=== PATIENT | female | born 1985 | race Caucasian/White ===

== ENCOUNTER 2018-12-15 22:31 | Emergency (ER) | payer MEDICARE, MEDICAID ==
[~2018-12-15] VITALS: Ht 185.4 cm; Wt 120.0 kg
[~2018-12-15 22:31] MED LIST: DIVA-81 PO; LITH300T3 PO; LORA1TAB PO; RISP4TAB2 PO
[2018-12-15 22:35] VITALS: BP 112/64
[2018-12-15] MEDS ORDERED: guaiFENesin/codeine phos 10ml UD oral syrup PO ONE (23:40)
[2018-12-15] MEDS ORDERED: diphenhydrAMINE 25 MG/10 ML UD oral solution PO ONE (23:40)
[2018-12-15] MEDS ORDERED: GUAI118S13 PO (23:42)
== END 2018-12-16 00:19 | disposition home or self-care (01) ==
LOC: ER 22:32
DX: J06.9 Acute upper respiratory infection, unspecified (principal); F12.90 Cannabis use, unspecified, uncomplicated; F15.90 Other stimulant use, unspecified, uncomplicated; Z56.0 Unemployment, unspecified; Z79.899 Other long term (current) drug therapy
CPT/HCPCS: 99283; Q0163

== ENCOUNTER 2018-12-16 10:30 | Emergency (ER) | payer MEDICARE, MEDICAID ==
[~2018-12-16] VITALS: Ht 185.4 cm; Wt 120.0 kg
[~2018-12-16 10:30] MED LIST changes: +GUAI118S13 PO
[2018-12-16 10:34] VITALS: BP 147/87
--- NOTE | 2018-12-16 11:58 | NUR ---
Pt reports she did drugs "a month and a week ago" "cigarettes and weed."
== END 2018-12-16 11:45 | disposition home or self-care (01) ==
LOC: ER 10:31
DX: F31.9 Bipolar disorder, unspecified (principal); F12.90 Cannabis use, unspecified, uncomplicated; F15.90 Other stimulant use, unspecified, uncomplicated; Z56.0 Unemployment, unspecified; Z79.899 Other long term (current) drug therapy
CPT/HCPCS: 99281

== ENCOUNTER 2018-12-19 09:45 | Emergency (ER) | payer MEDICARE, MEDICAID ==
[~2018-12-19] VITALS: Ht 185.4 cm; Wt 119.2 kg
[2018-12-19 09:50] VITALS: BP 134/92
[2018-12-19] MEDS ORDERED: DIVA-81 PO (10:10)
== END 2018-12-19 11:12 | disposition home or self-care (01) ==
LOC: ER 09:46
DX: F25.0 Schizoaffective disorder, bipolar type (principal); Z76.0 Encounter for issue of repeat prescription; F12.90 Cannabis use, unspecified, uncomplicated; F15.90 Other stimulant use, unspecified, uncomplicated; Z79.899 Other long term (current) drug therapy; Z56.0 Unemployment, unspecified
CPT/HCPCS: 99283

== ENCOUNTER 2018-12-28 06:49 | Emergency (ER) | payer MEDICARE, MEDICAID ==
[~2018-12-28] VITALS: Ht 185.4 cm; Wt 118.2 kg
[~2018-12-28 06:49] MED LIST changes: -GUAI118S13 PO
[2018-12-28 06:53] VITALS: BP 142/90
== END 2018-12-28 07:50 | disposition home or self-care (01) ==
LOC: ER 06:50
DX: G47.00 Insomnia, unspecified (principal); F20.9 Schizophrenia, unspecified; F31.9 Bipolar disorder, unspecified; F12.90 Cannabis use, unspecified, uncomplicated; F15.90 Other stimulant use, unspecified, uncomplicated; Z79.899 Other long term (current) drug therapy; Z56.0 Unemployment, unspecified
CPT/HCPCS: 99281

== ENCOUNTER 2019-01-07 02:32 | Emergency (ER) | payer MEDICARE, MEDICAID ==
[~2019-01-07] VITALS: Ht 185.4 cm; Wt 113.0 kg
[2019-01-07 02:45] VITALS: BP 143/85
[2019-01-07] MEDS ORDERED: OLANZapine 5mg rapidly disint. tablet PO ONE (03:55)
--- NOTE | 2019-01-07 04:10 | NUR ---
Asked pt to remove coat for blood draw and she said "I refuse a blood draw" made aware.
[2019-01-07] MEDS ORDERED: HYDROcodone/acetaminophen 5mg/325mg tablet PO ONE (04:20)
[2019-01-07] MEDS ORDERED: naproxen 500mg tablet PO ONE (04:20)
== END 2019-01-07 04:39 | disposition home or self-care (01) ==
LOC: ER 02:32
DX: L84 Corns and callosities (principal); M79.672 Pain in left foot; F31.9 Bipolar disorder, unspecified; F12.90 Cannabis use, unspecified, uncomplicated; F15.90 Other stimulant use, unspecified, uncomplicated; Z56.0 Unemployment, unspecified; Z79.899 Other long term (current) drug therapy
CPT/HCPCS: 99284

== ENCOUNTER 2019-01-11 19:58 | Emergency (ER) | payer MEDICARE, MEDICAID ==
[~2019-01-11] VITALS: Ht 185.4 cm; Wt 99.5 kg
[2019-01-11] MEDS ORDERED: OLANZapine 5mg rapidly disint. tablet PO ONE (20:15)
[2019-01-11] MEDS ORDERED: diphenhydrAMINE 25mg capsule PO ONE (20:15)
[2019-01-11] MEDS ORDERED: LORazepam 1 MG tablet PO ONE (20:15)
[2019-01-11] MEDS ORDERED: LORazepam 2 mg/ml vial IM ONE (21:15)
[2019-01-11] MEDS ORDERED: OLANZapine **IM** 10 mg inj. IM ONE (21:15)
[2019-01-11] MEDS ORDERED: diphenhydrAMINE 50 mg/ml inj IM ONE (21:15)
[2019-01-11 21:44] LABS: ALANINE AMINOTRANSFERASE 57 U/L (12-78); ALBUMIN 3.7 G/DL (3.4-5.0); ALBUMIN/GLOBULIN RATIO 0.8 (1.1-1.5); ALKALINE PHOSPHATASE 83 IU/L (46-116); ANION GAP 15 (8-16); ASPARTATE AMINO TRANSFERASE 50 U/L (10-37); BILIRUBIN,TOTAL 0.3 MG/DL (0.1-1.0); BLOOD UREA NITROGEN 11 MG/DL (7-18); BUN/CREATININE RATIO 8.9 (6.6-38.0); CALCIUM 10.3 MG/DL (8.5-10.1); CHLORIDE 104 MMOL/L (99-107); CREATININE 1.24 MG/DL (0.40-0.90); GLUCOSE 94 MG/DL (70-104); POTASSIUM 4.1 MMOL/L (3.5-5.1); SODIUM 142 MMOL/L (135-145); TOTAL CARBON DIOXIDE 22.9 MMOL/L (24-32); TOTAL PROTEIN 8.1 G/DL (6.4-8.2); eGFR 50 ML/MIN
[2019-01-11 21:47] LABS: BASOPHILS # (AUTO) 0.1 X10'3 (0-0.2); BASOPHILS % (AUTO) 0.5 % (0-1); EOSINOPHILS # (AUTO) 0.1 X10'3 (0-0.9); HEMATOCRIT 43.7 % (35.0-45.0); HEMOGLOBIN 13.8 g/dl (12.0-16.0); LYMPHOCYTES # (AUTO) 2.1 X10'3 (1.1-4.8); LYMPHOCYTES % (AUTO) 14.2 % (21-51); MEAN CORPUSCULAR HEMOGLOBIN 28.1 PG (27.0-31.0); MEAN CORPUSCULAR HGB CONC 31.5 g/dL (33.0-36.5); MEAN CORPUSCULAR VOLUME 89.1 FL (78-98); MEAN PLATELET VOLUME 10.1 FL (7.4-10.4); MONOCYTES # (AUTO) 0.8 X10'3 (0-0.9); MONOCYTES % (AUTO) 5.1 % (2-12); NEUTROPHILS # (AUTO) 11.6 X10'3 (1.8-7.7); NEUTROPHILS % (AUTO) 79.2 % (42-75); PLATELET COUNT 543 X10'3 (140-440); RED BLOOD COUNT 4.91 X10'6 (4.20-5.60); RED CELL DISTRIBUTION WIDTH 14.1 % (11.5-14.5); WHITE BLOOD COUNT 14.7 X10'3 (4.5-11.0)
[2019-01-11 21:52] LABS: ETHANOL < 0.010 GM/DL (0.0-0.010)
--- NOTE | 2019-01-11 23:00 | NUR ---
Pt refuses to void. She refuses to drink water. All she wants to do is sleep. MD in room as well. Blankets removed from her. Then she charged out of her room and hollared at security and nurses as tech. She may void. She said she doesn't want a shot.
--- NOTE | 2019-01-11 23:08 | NUR ---
Pt did void into the cup. It did have toilet paper in the cup but we are sending it anyway. I will let MD know.
[2019-01-11 23:10] LABS: PLATELET ESTIMATE INCREASED; TOTAL CELLS COUNTED 100
[2019-01-11 23:11] LABS: LARGE PLATELETS MODERATE
[2019-01-11 23:20] LABS: URINE HCG NEGATIVE (NEG)
[2019-01-11 23:29] LABS: URINE AMPHETAMINE SCREEN POSITIVE (Neg); URINE BARBITUATE SCREEN NEGATIVE (Neg); URINE BENZODIAZEPINES SCREEN NEGATIVE (Neg); URINE CANNABINOID SCREEN POSITIVE (Neg); URINE COCAINE SCREEN NEGATIVE (Neg); URINE METHADONE SCREEN NEGATIVE (Neg); URINE OPIATE SCREEN NEGATIVE (Neg); URINE PHENCYCLIDINE SCREEN NEGATIVE (Neg)
[2019-01-11 23:35] LABS: CLARITY,URINE CLEAR (Clear); COLOR,URINE YELLOW (Yellow); GLUCOSE, URINE NEGATIVE (Neg); KETONES,URINE NEGATIVE (Neg); LEUKOCYTE ESTERASE ,URINE NEGATIVE (Neg); NITRITES, URINE NEGATIVE (Neg); OCCULT BLOOD,URINE NEGATIVE (Neg); PROTEIN,URINE NEGATIVE (Neg); UROBILINOGEN,URINE 0.2 E.U/dL (0.2-1.0)
[2019-01-11 23:36] LABS: UA COLLECTION TYPE VOIDED
--- NOTE | 2019-01-12 | NUR ---
Pt appears to be asleep
--- NOTE | 2019-01-12 01:13 | NUR ---
pt asleep on left side covered up resting quietly. RR WNLs.
--- NOTE | 2019-01-12 02:26 | NUR ---
Pt at the door to void. She urinated her pants. To KRYSTA. EVS notified to clean floor. Fresh pants given to her. Linen changed. Fresh linens and a green blanket given.
--- NOTE | 2019-01-12 02:45 | NUR ---
Struggle to get her to change her pants. She wanted to sleep. Got her to finally.
--- NOTE | 2019-01-12 04:00 | NUR ---
Pt asleep, RR WNLs
--- NOTE | 2019-01-12 05:00 | NUR ---
Pt continues to sleep and has not had any c/o anything.
--- NOTE | 2019-01-12 06:35 | NUR ---
Assumed care of pt. Sleeping in [facility]. RR e/u. Pt visible from nurses station. Will continue to monitor.
--- NOTE | 2019-01-12 08:14 | NUR ---
TELE-PSYCH INITIATED
--- NOTE | 2019-01-12 09:20 | NUR ---
Telepsych monitor at bedside for evaluation.
--- NOTE | 2019-01-12 09:45 | NUR ---
Telepsych evaluation in progress.
--- NOTE | 2019-01-12 10:00 | NUR ---
PT HAD TELEPSYCH, SHE IS NOW RESTING ON HER LEFT SIDE, NO AGITATION OBSERVED
--- NOTE | 2019-01-12 10:41 | NUR ---
PT OFFERED NICOTINE PATCH, SHE REFUSED PATCH
[2019-01-12] MEDS: nicotine 14mg patch - 24hr TD ONE ×2 (11:13→11:15)
--- NOTE | 2019-01-12 12:03 | NUR ---
PT IS IN BED ON HER LEFT SIDE, NO S/S OF DISTRESSS OBSERVED
[2019-01-12] MEDS ORDERED: OLANZapine **IM** 10 mg inj. IM ONE (12:30)
--- NOTE | 2019-01-12 12:40 | NUR ---
Pt arrived to ED overflow via gurney. Pt woken up upon arrival and ambulated by self to restroom then back to room 23. Pt requested water, cup of water provided. Pt back in bed laying on right side. No signs of distress noted.
--- NOTE | 2019-01-12 13:45 | NUR ---
Pt stated she did not want the shot of Zyprexa, pt stated we could give it to her but that she only wants to take Brusly and Haldol. After shot pt laid in bed quietly without complaint. No signs of distress at this time.
--- NOTE | 2019-01-12 16:15 | NUR ---
Pt had ambulated to restroom where she proceeded to stay for 30-40 minutes. Mult. staff members knocked on the door to which she would respond, "give me a minute." Pt finally came out of bathroom and ambulated back to bed.
--- NOTE | 2019-01-12 16:26 | NUR ---
[facility] worker at bedside to talk with pt.
--- NOTE | 2019-01-12 17:08 | NUR ---
Pt resting quietly in bed. Resp. even/non-labored. No signs of distress noted
--- NOTE | 2019-01-12 18:39 | NUR ---
Report rec'd, assumed care. Raheem awake, sitting up in bed, requested BRP, directed to bathroom.
--- NOTE | 2019-01-12 18:45 | NUR ---
Dinner tray given to patient.
--- NOTE | 2019-01-12 19:31 | NUR ---
Ate dinner, requesting more food, plus snacks, plus crackers, plus ebony crackers, and "food for later", redirected.
--- NOTE | 2019-01-12 19:56 | NUR ---
Resting in bed, appearing to sleep.
--- NOTE | 2019-01-12 21:15 | NUR ---
Resting in bed, eyes closed, resp are even and unlabored, appearing to sleep.
--- NOTE | 2019-01-12 21:54 | NUR ---
Up at the desk, requesting food, endorsed to patient that she had already eaten, and that she would get breakfast in the morning, then asked for her bedding to be changed--which was. Laying back in bed at this time.
--- NOTE | 2019-01-12 23:23 | NUR ---
Laying in bed, restless, occasionally talking to self.
[2019-01-12] MEDS: LORazepam 2 mg/ml vial IM PRN (23:46)
[2019-01-12] MEDS: diphenhydrAMINE 50 mg/ml inj IM PRN (23:46)
--- NOTE | 2019-01-12 23:46 | NUR ---
Patient demanding a snack, fixated on "I'm , and I need a special snack". Explained to patient that her HCG was negative, that she was not , and that she was not going to be getting a snack. Patient became agitated and anxious, getting louder and louder, demanding a snack, insisting that she is pregant, as well as "I just gave while I was here in care home", yelling out "find my children". Security was called and provided assistance with administering medication. Immediately begain crying, but then started demanding a snack again, and insisting that she was and her children "are somewhere downstairs", became agitated, yelling at this nurse, "well thanks, now I'm going to have to stay here past my three days".
--- NOTE | 2019-01-13 00:40 | NUR ---
Resting in bed, appearing to sleep with even and unlabored respirations. No new concerns or issues noted, will continue to monitor.
--- NOTE | 2019-01-13 01:30 | NUR ---
Resting in bed, resp even and unlabored, appearing to sleep, will monitor.
--- NOTE | 2019-01-13 02:55 | NUR ---
Resting in bed, appearing to sleep, restless at times.
--- NOTE | 2019-01-13 03:28 | NUR ---
Up to BRP, requested and was given more ice water. More calm and focused at this time.
--- NOTE | 2019-01-13 04:58 | NUR ---
Resting in bed, appears to sleep, will monitor
--- NOTE | 2019-01-13 06:31 | NUR ---
Up to bathroom. Now back to bed and sleep.
--- NOTE | 2019-01-13 08:00 | NUR ---
Up at side of bed eating breakfast.
[2019-01-13] MEDS: diphenhydrAMINE 50 mg/ml inj IM PRN (12:09)
[2019-01-13] MEDS: LORazepam 2 mg/ml vial IM PRN (12:09)
--- NOTE | 2019-01-13 12:23 | NUR ---
pt. requesting a brush or a comb. tech is getting item. pt. given a brush
--- NOTE | 2019-01-13 14:19 | NUR ---
Pt up to eat lunch and now back to sleep.
--- NOTE | 2019-01-13 17:31 | NUR ---
Asking for snacks. Pt continues to be very calm and cooperative.
[2019-01-13] MEDS ORDERED: NO HOME MEDS (18:36)
--- NOTE | 2019-01-13 18:38 | NUR ---
PT ASKED ABOUT ROUTINE MEDICATIONS AND STATES, "I TAKE ATIVAN AND BENADRYL", WHICH HAPPENS TO BE THE MEDS SHE HAS BEEN GIVEN ON UNIT.
[2019-01-13] MEDS ORDERED: LORazepam 2 mg/ml vial IM PRN (20:35)
[2019-01-13] MEDS ORDERED: LORazepam 1 MG tablet PO PRN (20:35)
[2019-01-13] MEDS ORDERED: ziprasidone IM 20mg inj **IM only IM PRN (20:35)
[2019-01-13] MEDS ORDERED: diphenhydrAMINE 25mg capsule PO PRN (20:35)
--- NOTE | 2019-01-13 20:35 | NUR ---
MEDICATED FOR AGGITATION WITH ATIVAN PO.
--- NOTE | 2019-01-13 20:35 | NUR ---
SPOKE WITH DR LEYVA FOR MEDS RECOMMENDED BY TELE PSYCH ON 01/12/19 AT [facility], NEW ORDERS RECEIVED.
--- NOTE | 2019-01-13 21:49 | NUR ---
UP AND DOWN TO BATHROOM AND SINK FOR MORE WATER, REQUESTING SNACKS. ENC TO LIE DOWN AND GO TO SLEEP.
--- NOTE | 2019-01-14 01:43 | NUR ---
PT MEDICATED FOR AGGITATION WITH GEODON.
--- NOTE | 2019-01-14 06:54 | NUR ---
Up to bathroom with steady gait noted.
--- NOTE | 2019-01-14 08:36 | NUR ---
Woken up to eat breakfast.
--- NOTE | 2019-01-14 10:34 | NUR ---
PT IS IN BED RESTING ON LEFT SIDE, EYES CLOSED, SPONTANEOUS REGULAR BREATHING PRESENT, NO S/S OF DISTRESS OBSERVED
--- NOTE | 2019-01-14 10:37 | NUR ---
PT IS NOW UP OOB REQUESTING WATER, WATER AND SOCKS OBTAINED FOR HER
[2019-01-14] MEDS ORDERED: ibuprofen tablet 400 MG TABLET PO PRN (10:50)
--- NOTE | 2019-01-14 11:41 | NUR ---
Medicated with motrin for complaints of leg pain.
--- NOTE | 2019-01-14 16:41 | NUR ---
pt is in bed awake, supine, no s/s of distress at this time
--- NOTE | 2019-01-14 18:38 | NUR ---
Seen by Livia from [facility]. Discharged with clothes, ate dinner before departing. All belongings given to pt. Escorted out by security.
[2019-01-14 18:40] VITALS: BP 111/74
== END 2019-01-14 18:42 | disposition home or self-care (01) ==
LOC: ER 19:59
DX: F28 Other psychotic disorder not due to a substance or known physiological condition (principal); R45.1 Restlessness and agitation; F31.9 Bipolar disorder, unspecified; F20.9 Schizophrenia, unspecified; F12.90 Cannabis use, unspecified, uncomplicated; F15.90 Other stimulant use, unspecified, uncomplicated; Z56.0 Unemployment, unspecified; Z79.899 Other long term (current) drug therapy
CPT/HCPCS: 36415; 80053; 80178; 80305; 80320; 81003; 81025; 84443; 85025; 96372; 99291; J1200; J2060; J3486; Q0163

== ENCOUNTER 2019-01-18 14:09 | Emergency (ER) | payer MEDICARE, MEDICAID ==
[~2019-01-18] VITALS: Ht 185.4 cm; Wt 113.6 kg
[~2019-01-18 14:09] MED LIST changes: -DIVA-81 PO; -LITH300T3 PO; -LORA1TAB PO; +NO HOME MEDS; -RISP4TAB2 PO
[2019-01-18] MEDS ORDERED: LORazepam 2 mg/ml vial IM ONE (14:25)
[2019-01-18] MEDS ORDERED: haloperidol lactate 5mg/ml inj IM ONE (14:25)
[2019-01-18] MEDS ORDERED: diphenhydrAMINE 50 mg/ml inj IM ONE (14:25)
--- NOTE | 2019-01-18 14:38 | NUR ---
PT MUMBLING, VERY FRANTIC AT THE MOMENT. DR HANSEN ORDERED MEDICATIONS
--- NOTE | 2019-01-18 15:16 | NUR ---
Pt sleeping on back. RR even and nonlabored. no distress noted. will continue to monitor.
[2019-01-18 15:18] LABS: BASOPHILS % (AUTO) 0.6 % (0-1); EOSINOPHILS # (AUTO) 0.2 X10'3 (0-0.9); EOSINOPHILS % (AUTO) 2.3 % (0-6); HEMATOCRIT 40.2 % (35.0-45.0); HEMOGLOBIN 13.2 g/dl (12.0-16.0); LYMPHOCYTES # (AUTO) 2.4 X10'3 (1.1-4.8); LYMPHOCYTES % (AUTO) 30.2 % (21-51); MEAN CORPUSCULAR HEMOGLOBIN 28.9 PG (27.0-31.0); MEAN CORPUSCULAR HGB CONC 32.9 g/dL (33.0-36.5); MEAN CORPUSCULAR VOLUME 87.8 FL (78-98); MEAN PLATELET VOLUME 8.6 FL (7.4-10.4); MONOCYTES # (AUTO) 0.5 X10'3 (0-0.9); MONOCYTES % (AUTO) 6.2 % (2-12); NEUTROPHILS # (AUTO) 4.9 X10'3 (1.8-7.7); NEUTROPHILS % (AUTO) 60.7 % (42-75); PLATELET COUNT 465 X10'3 (140-440); RED BLOOD COUNT 4.58 X10'6 (4.20-5.60); RED CELL DISTRIBUTION WIDTH 14.9 % (11.5-14.5); WHITE BLOOD COUNT 8.1 X10'3 (4.5-11.0)
[2019-01-18 15:31] LABS: ALANINE AMINOTRANSFERASE 66 U/L (12-78); ALBUMIN 3.4 G/DL (3.4-5.0); ALBUMIN/GLOBULIN RATIO 0.8 (1.1-1.5); ALKALINE PHOSPHATASE 88 IU/L (46-116); ANION GAP 13 (8-16); ASPARTATE AMINO TRANSFERASE 36 U/L (10-37); BILIRUBIN,TOTAL 0.4 MG/DL (0.1-1.0); BLOOD UREA NITROGEN 11 MG/DL (7-18); BUN/CREATININE RATIO 14.3 (6.6-38.0); CALCIUM 9.8 MG/DL (8.5-10.1); CHLORIDE 103 MMOL/L (99-107); CREATININE 0.77 MG/DL (0.40-0.90); ETHANOL < 0.010 GM/DL (0.0-0.010); GLUCOSE 109 MG/DL (70-104); POTASSIUM 3.1 MMOL/L (3.5-5.1); SODIUM 140 MMOL/L (135-145); TOTAL CARBON DIOXIDE 24.3 MMOL/L (24-32); TOTAL PROTEIN 7.7 G/DL (6.4-8.2); eGFR 86 ML/MIN
--- NOTE | 2019-01-18 15:57 | NUR ---
PT SLEEPING ON LEFT SIDE NO DISTRESS NOTED. WILL CONTINUE TO MONITOR.
[2019-01-18 16:00] LABS: URINE HCG NEGATIVE (NEG)
[2019-01-18 16:02] LABS: CLARITY,URINE CLEAR (Clear); COLOR,URINE YELLOW (Yellow); GLUCOSE, URINE NEGATIVE (Neg); KETONES,URINE NEGATIVE (Neg); LEUKOCYTE ESTERASE ,URINE NEGATIVE (Neg); NITRITES, URINE NEGATIVE (Neg); OCCULT BLOOD,URINE NEGATIVE (Neg); PH,URINE 5.5 (4.8-8.0); PROTEIN,URINE NEGATIVE (Neg); UROBILINOGEN,URINE 0.2 E.U/dL (0.2-1.0)
[2019-01-18 16:10] LABS: UA COLLECTION TYPE STRAIGHT CATH
[2019-01-18 16:16] LABS: URINE AMPHETAMINE SCREEN POSITIVE (Neg); URINE BARBITUATE SCREEN NEGATIVE (Neg); URINE BENZODIAZEPINES SCREEN NEGATIVE (Neg); URINE CANNABINOID SCREEN POSITIVE (Neg); URINE COCAINE SCREEN NEGATIVE (Neg); URINE METHADONE SCREEN NEGATIVE (Neg); URINE OPIATE SCREEN NEGATIVE (Neg); URINE PHENCYCLIDINE SCREEN NEGATIVE (Neg)
[2019-01-18] MEDS ORDERED: potassium Cl 20 mEq SR tablet PO STA (16:30)
--- NOTE | 2019-01-18 16:34 | NUR ---
Pt packet faxed to [facility].
--- NOTE | 2019-01-18 18:45 | NUR ---
Assumed care pt sleeping no apparent distress. Will cont to monitor
--- NOTE | 2019-01-18 21:01 | NUR ---
Pt sleeping no apparent distress. Mental health called and stated that they would eval tomorrow when pt is more awake and lucid. Will cont to monitor
--- NOTE | 2019-01-18 23:09 | NUR ---
Pt ambulated to the bathroom. Now sitting up in bed eating a sandwich. Pt speaking more clearly able to put her thoughts together. Will cont to monitor.
--- NOTE | 2019-01-19 01:14 | NUR ---
pt sleeping at this time. will cont to monitor.
--- NOTE | 2019-01-19 02:00 | NUR ---
Pt awake suddenly and frantically drinking water. Pt requesting more water, but informed that she needs to wait as she has consumed 5-6 pitchers of water this evening. Pt growing anxious and agitated, insisting that she be given more water to drink. Pt has ice in water pitcher and informed that she can have this. Pt ate ice and continues to ask for more water.
--- NOTE | 2019-01-19 03:05 | NUR ---
Pt restless in bed. no apparent distress will cont to monitor
[2019-01-19 05:30] VITALS: BP 110/60
[2019-01-19] MEDS ORDERED: potassium Cl 20 mEq SR tablet PO ONE (10:50)
--- NOTE | 2019-01-19 14:36 | NUR ---
pt was given bus pass, clothing, and a meal. I offered ride to custodial and she refused.
== END 2019-01-19 14:35 | disposition home or self-care (01) ==
LOC: ER 14:10
DX: F29 Unspecified psychosis not due to a substance or known physiological condition (principal); F15.10 Other stimulant abuse, uncomplicated; F31.9 Bipolar disorder, unspecified; F20.9 Schizophrenia, unspecified; F17.200 Nicotine dependence, unspecified, uncomplicated; F12.90 Cannabis use, unspecified, uncomplicated; Z56.0 Unemployment, unspecified
CPT/HCPCS: 36415; 80053; 80305; 80320; 81003; 81025; 85025; 93005; 96372; 99285; J1200; J1630; J2060

== ENCOUNTER 2019-01-30 08:32 | Emergency (ER) | payer MEDICARE, MEDICAID ==
[~2019-01-30] VITALS: Ht 172.7 cm; Wt 82.0 kg
[2019-01-30] MEDS ORDERED: diphenhydrAMINE 50 mg/ml inj IM ONE (08:40)
[2019-01-30] MEDS ORDERED: haloperidol lactate 5mg/ml inj IM ONE (08:40)
[2019-01-30] MEDS ORDERED: LORazepam 2 mg/ml vial IM ONE (08:40)
[2019-01-30 09:23] LABS: BASOPHILS # (AUTO) 0.2 X10'3 (0-0.2); BASOPHILS % (AUTO) 1.3 % (0-1); EOSINOPHILS # (AUTO) 0.2 X10'3 (0-0.9); EOSINOPHILS % (AUTO) 1.3 % (0-6); HEMATOCRIT 38.9 % (35.0-45.0); HEMOGLOBIN 12.8 g/dl (12.0-16.0); LYMPHOCYTES # (AUTO) 2.9 X10'3 (1.1-4.8); LYMPHOCYTES % (AUTO) 20.9 % (21-51); MEAN CORPUSCULAR HEMOGLOBIN 28.7 PG (27.0-31.0); MEAN CORPUSCULAR HGB CONC 32.8 g/dL (33.0-36.5); MEAN CORPUSCULAR VOLUME 87.7 FL (78-98); MEAN PLATELET VOLUME 8.7 FL (7.4-10.4); MONOCYTES # (AUTO) 1.2 X10'3 (0-0.9); MONOCYTES % (AUTO) 8.4 % (2-12); NEUTROPHILS # (AUTO) 9.5 X10'3 (1.8-7.7); NEUTROPHILS % (AUTO) 68.1 % (42-75); PLATELET COUNT 505 X10'3 (140-440); RED BLOOD COUNT 4.44 X10'6 (4.20-5.60)
[2019-01-30 09:34] LABS: ALANINE AMINOTRANSFERASE 29 U/L (12-78); ALBUMIN 3.2 G/DL (3.4-5.0); ALBUMIN/GLOBULIN RATIO 0.7 (1.1-1.5); ALKALINE PHOSPHATASE 89 IU/L (46-116); ANION GAP 10 (8-16); ASPARTATE AMINO TRANSFERASE 26 U/L (10-37); BILIRUBIN,TOTAL 0.2 MG/DL (0.1-1.0); BLOOD UREA NITROGEN 9 MG/DL (7-18); BUN/CREATININE RATIO 11.4 (6.6-38.0); CALCIUM 9.5 MG/DL (8.5-10.1); CHLORIDE 107 MMOL/L (99-107); CREATININE 0.79 MG/DL (0.40-0.90); ETHANOL < 0.010 GM/DL (0.0-0.010); GLUCOSE 110 MG/DL (70-104); POTASSIUM 3.9 MMOL/L (3.5-5.1); SODIUM 142 MMOL/L (135-145); TOTAL PROTEIN 7.6 G/DL (6.4-8.2); eGFR 83 ML/MIN
--- NOTE | 2019-01-30 10:33 | NUR ---
pt is in bed sleeping, repositions self, no needs at this time, no agitiation
--- NOTE | 2019-01-30 11:40 | NUR ---
pt belongings placed in ambulance bay lockers. Belonging log filled out and put on PT's chart.
[2019-01-30 11:54] LABS: CLARITY,URINE CLEAR (Clear); COLOR,URINE STRAW (Yellow); GLUCOSE, URINE NEGATIVE (Neg); KETONES,URINE NEGATIVE (Neg); LEUKOCYTE ESTERASE ,URINE NEGATIVE (Neg); NITRITES, URINE NEGATIVE (Neg); OCCULT BLOOD,URINE NEGATIVE (Neg); PH,URINE 6.5 (4.8-8.0); PROTEIN,URINE NEGATIVE (Neg); UROBILINOGEN,URINE 0.2 E.U/dL (0.2-1.0)
[2019-01-30 11:55] LABS: UA COLLECTION TYPE CLN CATCH MIDSTREAM
[2019-01-30 12:00] LABS: URINE AMPHETAMINE SCREEN POSITIVE (Neg); URINE BARBITUATE SCREEN NEGATIVE (Neg); URINE BENZODIAZEPINES SCREEN NEGATIVE (Neg); URINE CANNABINOID SCREEN POSITIVE (Neg); URINE COCAINE SCREEN NEGATIVE (Neg); URINE METHADONE SCREEN NEGATIVE (Neg); URINE OPIATE SCREEN NEGATIVE (Neg); URINE PHENCYCLIDINE SCREEN NEGATIVE (Neg)
--- NOTE | 2019-01-30 12:12 | NUR ---
pt is in bed, sleeping, no s/s of distress, she is able to reposition herself, bladder was drained by sc
--- NOTE | 2019-01-30 12:54 | NUR ---
pt is lying on left side, no s/s of distress, quietly snoring,
--- NOTE | 2019-01-30 13:59 | NUR ---
pt continues to sleep. no distress noted. will continue to monitor.
--- NOTE | 2019-01-30 15:25 | NUR ---
Dr Velasquez at bedside, he will affirm [id number]
--- NOTE | 2019-01-30 15:28 | NUR ---
Pt SLEEPING ON RIGHT SIDE, NO S/S OF DISTRESS OBSERVED, BREATHING IS REGUALR, SHE IS SNORING LIGHTLY
--- NOTE | 2019-01-30 16:35 | NUR ---
PT IS SLEEPING, LEFT SIDE, NO S/S OF DISTRESS
--- NOTE | 2019-01-30 16:39 | NUR ---
PACKET FAXED TO [facility]
--- NOTE | 2019-01-30 18:12 | NUR ---
PT AMBULATED TO THE BATHROOM,NO AGITATION OBSERVED
--- NOTE | 2019-01-30 19:12 | NUR ---
PT IS SLEEPING ON LEFT SIDE NO S/S OF DISTRESS OBSERVED
--- NOTE | 2019-01-30 20:18 | NUR ---
PT IS SLEEPING ON HER RIGHT SIDE NO S/S OF AGITATION
--- NOTE | 2019-01-30 22:41 | NUR ---
pt laying with eyes closed. nad noted.
--- NOTE | 2019-01-30 23:16 | NUR ---
The patient was moved to bed 21 in the ER. She is irritable and not willing to answer guestions. She asked for and received food and juice and not is laying down on her bed with the covers over her head.
--- NOTE | 2019-01-31 00:52 | NUR ---
The patient appears to be asleep at this time
--- NOTE | 2019-01-31 03:09 | NUR ---
The patient appears to be asleep at this time. She was up to use the bathroom. She asked for and received juice and food.
--- NOTE | 2019-01-31 05:04 | NUR ---
The patient appears to be asleep
--- NOTE | 2019-01-31 12:21 | NUR ---
relieving RN for lunch, pt amb with steady gait to restroom, gave pt pitcher of ice water, pt is calm and cooperative
--- NOTE | 2019-01-31 13:18 | NUR ---
pt ate 100% of lunch, gave pt 4 oz of apple juice
[2019-01-31] MEDS ORDERED: azithromycin 250mg tablet PO ONE (19:30)
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
[2019-01-31] MEDS ORDERED: lithium carbonate 150mg capsule PO SCH (20:18)
[2019-01-31] MEDS ORDERED: lithium carbonate 150mg capsule PO ONE (20:25)
[2019-01-31] MEDS: risperiDONE 2mg tablet PO SCH (20:31)
--- NOTE | 2019-01-31 20:50 | NUR ---
The patient appears to be asleep at this time.
--- NOTE | 2019-01-31 21:21 | NUR ---
Dr. Tse on the unit to see the patient. Discussed with MD patient thought disorder. Hx of previous medications reviewed and patient restarted on those medications but reduced doses. Will continue to assess and monitor.
--- NOTE | 2019-01-31 22:55 | NUR ---
The patient appears to be asleep at this time.
--- NOTE | 2019-02-01 02:01 | NUR ---
The patient appears to be asleep at this time
[2019-02-01] MEDS ORDERED: acetaminophen 325mg tablet PO PRN (03:20)
--- NOTE | 2019-02-01 03:48 | NUR ---
The patient was up to the bathroom and complaining of knee pain and asking for pain med. Initially stated tylenol OK but then stated she could not take tylenol but was unable to state why. She is asking for motrin or norco and Dr. Russell was made aware and order received.
[2019-02-01] MEDS ORDERED: ibuprofen 200mg tablet PO PRN (03:50)
--- NOTE | 2019-02-01 04:14 | NUR ---
The patient is very irritable and refused to take the motrin but did not give a reason why not. She seemed unaware that she had requested it. She is complaining that the bed she is sleeping in is too small for her.
--- NOTE | 2019-02-01 05:35 | NUR ---
The patient appears to be asleep at this time.
[2019-02-01 05:48] VITALS: BP 98/57
--- NOTE | 2019-02-01 06:40 | NUR ---
Patient sleeping supine. No distress observed. Continue to monitor.
[2019-02-01] MEDS ORDERED: azithromycin 250mg tablet PO SCH (08:00)
[2019-02-01] MEDS: risperiDONE 2mg tablet PO SCH (08:28)
--- NOTE | 2019-02-01 08:45 | NUR ---
Patient ate breakfast and took medication along with her PRN ibuprofen for knee pain. RN explained that patient is getting pain med, antibiotic, and antipsychotic medication. Patient states she's not on any psychotic medication. RN advised patient that the Dr prescribed the medication. Patient took her medication. Patient appears a little more aware today than yesterday. Continue to monitor.
--- NOTE | 2019-02-01 10:33 | NUR ---
Patient sleeping on left side. No distress observed. Continue to monitor.
--- NOTE | 2019-02-01 12:30 | NUR ---
Patient sleeping, no distress observed. Continue to monitor.
[2019-02-01] MEDS ORDERED: LORazepam 1 MG tablet PO ONE (14:20)
--- NOTE | 2019-02-01 14:26 | NUR ---
Patient ambulatory, steady gait with [facility] driver medic, security and Tech Mateo. All belongings with patient. RN and Tech gave patient clean clothes from the Homeless closet. Patient calm and in no distress. Continue to monitor.
== END 2019-02-01 14:30 ==
LOC: ER 08:33
DX: F23 Brief psychotic disorder (principal); F25.0 Schizoaffective disorder, bipolar type; F15.10 Other stimulant abuse, uncomplicated; F12.10 Cannabis abuse, uncomplicated; Z56.0 Unemployment, unspecified
CPT/HCPCS: 36415; 80053; 80305; 80320; 81003; 85025; 96372; 99285; J1200; J1630; J2060

== ENCOUNTER 2019-03-15 08:43 | Inpatient (IN) | payer MEDICARE, MEDICAID ==
[~2019-03-15] VITALS: Ht 185.4 cm; Wt 95.6 kg
[2019-03-15] MEDS ORDERED: acetaminophen 325mg tablet PO PRN (11:35)
[2019-03-15] MEDS ORDERED: loperamide 2mg capsule PO PRN (11:35)
[2019-03-15] MEDS ORDERED: tuberculin, purif. prot. deriv. 5 units/0.1ml ID ONE (11:35)
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
[2019-03-15 14:09] LABS: ALANINE AMINOTRANSFERASE 23 U/L (12-78); ALBUMIN 2.5 G/DL (3.4-5.0); ALBUMIN/GLOBULIN RATIO 0.6 (1.1-1.5); ALKALINE PHOSPHATASE 68 IU/L (46-116); ANION GAP 7 (8-16); ASPARTATE AMINO TRANSFERASE 21 U/L (10-37); BILIRUBIN,TOTAL 0.2 MG/DL (0.1-1.0); BLOOD UREA NITROGEN 7 MG/DL (7-18); BUN/CREATININE RATIO 8.4 (6.6-38.0); CALCIUM 9.2 MG/DL (8.5-10.1); CHLORIDE 107 MMOL/L (99-107); CREATININE 0.83 MG/DL (0.40-0.90); GLUCOSE 135 MG/DL (70-104); POTASSIUM 3.9 MMOL/L (3.5-5.1); SODIUM 142 MMOL/L (135-145); TOTAL CARBON DIOXIDE 28.3 MMOL/L (24-32); TOTAL PROTEIN 6.9 G/DL (6.4-8.2); eGFR 79 ML/MIN
--- NOTE | 2019-03-15 15:49 | NUR ---
Nursing Progress Note: Legal hold: 5149 expires 03/18 @ 1045 Client on involuntary status for GD/DTS/DTO Report received from nurse with use of SBAR: n/a Why are they here:Pt was walking into traffic and was nonsensical and unable to formulate rational plan for self care. BIB [facility] on 5149. Assessment What has happened this shift: Pt received and was very sedated, falling asleep during admission assessment. Pt slept within 30 minutes of arriving to the unit, awoke for lunch and then returned to sleep. S/I, H/I: unable to properly assess due to pt being nonsensical A/VH: unable to properly assess due to pt being nonsensical Sleep: pt very lethargic upon admission and took nap. Pt awoke for lunch and then returned to sleep ADL's: needs encouragement Group attendance: no Were meds taken: n/a Any med S/E: n/a Mental Status Exam Appearance: Disheveled Eye contact: poor Behavior: sedated Speech: slurred and nonsensical Mood: unable to properly assess due to pt being nonsensical Affect: blunted Thought process: unable to properly assess due to pt being nonsensical Thought Content: pt nonsensical Cognition: unable to properly assess due to pt being nonsensical Insight: poor Judgment: poor Interventions PRN's used: n/a Therapeutic interventions: 1:1 processing, building therapeutic rapport, orient to unit, allowed to sleep, smoking cessation education, q-15 minute safety checks, provide safe environment Restraints/seclusion/emergency medication: n/a Justification of Continued Inpatient Treatment: pt on 5149 for DTS/DTO and GD, unable to properly assess due to pt being nonsensical
[2019-03-15 18:00] VITALS: BP 122/69
[2019-03-15 20:38] VITALS: BP 125/77
[2019-03-15] MEDS: LORazepam 1 MG tablet PO PRN (22:48)
[2019-03-15] MEDS: haloperidol 5mg tablet PO PRN (22:49)
--- NOTE | 2019-03-16 04:01 | NUR ---
Nursing Progress Note: Legal hold: 5149 expires 03/18 @ 1045 Client on involuntary status for GD/DTS/DTO Report received from nurse with use of SBAR: TRUNG Mae Why are they here: Pt was walking into traffic and was nonsensical and unable to formulate rational plan for self care. BIB [facility] on 5149. Assessment What has happened this shift: Received sleeping in bed, no apparent distress noted. When patient awoke she was agitated and hungry. Pt wanted to know why there was so much commotion in her room (there was a new admit being processed). Pt speech was incoherent and word salad at times. pt had a flight of ideas. Pt alternated if was hungry or not hungry, if nurse could perform an assessment or not, she wanted to sleep, she didn't want to sleep. Pt's roommate was moved to a different room because pt became to agitated with all the noise. Pt was given Haldol and Ativan. Pt knows she is here for 72 hoursand asked on 2 different occasion if she didn't take her meds would that prevent her from leaving in 72 hours. S/I, H/I: Unable to properly assess due to pt being nonsensical A/VH: Unable to properly assess due to pt being nonsensical Sleep: See sleep assessment notation ADL's: Independent, but needs encouragement Group attendance: director [employer], no group Were meds taken: Yes, PRNs Any med S/E: None reported or observed Mental Status Exam Appearance: Disheveled, looks older than stated age, matted hair Eye contact: Poor Behavior: Agitated, sedated, labile Speech: Incoherent, pressured, hyper-verbal Mood: Agitated Affect: Blunted Thought process: Disorganized, flight of ideas, word salad Thought Content: Unable to assess, see above thought process Cognition: Alert and confused. Pt was aware she was at "[facility]" Insight: Poor Judgment: Poor Interventions PRN's Haldol and Ativan Therapeutic interventions: 1:1 communication to include active listening and positive feedback. Maintained a safe and therapeutic environment, provided medication education and administration, q15 minute safety checks. Restraints/seclusion/emergency medication: N/A Justification of Continued Inpatient Treatment: Pt on 5149 for DTS/DTO and GD. Pt requires therapeutic intervention and medication management. Pt has no means for providing basic needs, food, penitentiary and healthcare
[2019-03-16 07:24] LABS: HEMOGLOBIN A1C 6.1 % (4.5-6.2)
[2019-03-16 07:25] LABS: CHOLESTEROL 136 MG/DL (0-200); HDL CHOLESTEROL 46 MG/DL (35-60); LDL CHOLESTEROL 78 MG/DL (50-100); TRIGLYCERIDES 86 MG/DL (20-135)
[2019-03-16 08:00] VITALS: BP 113/78
[2019-03-16] MEDS: LORazepam 1 MG tablet PO PRN ×2 (09:00→17:27)
[2019-03-16] MEDS: haloperidol 5mg tablet PO PRN ×2 (09:01→17:27)
[2019-03-16] MEDS: hydrOXYzine 25 MG tablet PO PRN ×2 (09:01→17:28)
--- NOTE | 2019-03-16 09:18 | NUR ---
refused all assessments Addendum: 03/16/19 at 0921 by Petra Morse RN Amended: Links added.
--- NOTE | 2019-03-16 09:19 | NUR ---
refused assessment Addendum: 03/16/19 at 0921 by Petra Morse RN Amended: Links added.
--- NOTE | 2019-03-16 17:00 | NUR ---
Nursing Progress Note: Legal hold: 5149 expires 03/18 @ 1045 Client on involuntary status for GD/DTS/DTO Report received from nurse with use of SBAR: Audrey NINO Why are they here:Pt was walking into traffic and was nonsensical and unable to formulate rational plan for self care. BIB [facility] on 5149. Assessment What has happened this shift: Pt was asleep at time of assuming care. Pt woke up and went in the recreation room where she presented with word salad, she refused to shower and also stated she wanted to shave her head. Pt was labile this morning and resistive to care after trying to help her perform AM care. Staff was very accommodating to try and assist patient with daily hygiene, even a nurses aid tried to let her use some nice products to assist with combing out the knots in her hair, and patient refused becoming agitated. 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 Pt was given prn medication for her increased agitation after continued attempts by myself and other staff to help her calm down. Pt was crying for unknown reasons then would start to get angry. Pt ate breakfast, took her PO medications without incident, and spent most of the day sleeping. Pt was given a PPD, even though patient was resistive to most care she would still cooperate with multiple staff members present giving clear and simple directions of what we were doing. Patient only got up to eat and did not go to group, she slept most of the day. S/I, H/I: unable to properly assess due to pt being nonsensical A/VH: unable to properly assess due to pt being nonsensical Sleep: Pt slept most of the day ADL's: needs encouragement and assistance Group attendance: no Were meds taken: n/a Any med S/E: n/a Mental Status Exam Appearance: Disheveled, unkempt Eye contact: poor Behavior: labile Speech: slurred, nonsensical, word salad Mood: unable to properly assess due to pt being nonsensical Affect: blunted Thought process: unable to properly assess due to pt being nonsensical Thought Content: pt nonsensical Cognition: unable to properly assess due to pt being nonsensical Insight: poor Judgment: poor Interventions PRN's used: n/a Therapeutic interventions: 1:1 processing, building therapeutic rapport, orient to unit, allowed to sleep, smoking cessation education, q-15 minute safety checks, provide safe environment Restraints/seclusion/emergency medication: n/a Justification of Continued Inpatient Treatment: pt on 5150 for DTS/DTO and GD, unable to properly assess due to pt being nonsensical
[2019-03-16] MEDS ORDERED: haloperidol 5mg tablet PO PRN (17:40)
--- NOTE | 2019-03-16 19:30 | NUR ---
Pt refused vitals and physical assessment.
[2019-03-16] MEDS: haloperidol 5mg tablet PO SCH (22:42)
[2019-03-17] MEDS: LORazepam 1 MG tablet PO PRN ×4 (02:05→22:54)
[2019-03-17] MEDS: hydrOXYzine 25 MG tablet PO PRN ×4 (02:06→22:54)
[2019-03-17] MEDS: mag hydrox/Alum hydrox/simeth 30ml oral suspension PO PRN (02:10)
--- NOTE | 2019-03-17 04:02 | NUR ---
Nursing Progress Note: Legal hold: 5149 expires 03/18 @ 1045 Client on involuntary status for GD/DTS/DTO Report received from nurse with use of SBAR: TRUNG Mae Why are they here: Pt was walking into traffic and was nonsensical and unable to formulate rational plan for self care. BIB [facility] on 5149. Assessment What has happened this shift: Received patient sleeping in her room. Pt slept most of this shift. 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 Haldol was administrated later in the shift when pt was up to the bathroom. Pt refused vitals and assessment. Pt presents word salad and disorganized thought so trying to attain information from patient is difficult. Pt woke up c/o of stomach pain and became very agitated. Pt stated she was "" the rest was inchoherent speech. Pt was administered Ativan, Atarax and Maalox. Pt was also offered headphones for distration; all of the above were effective. Pt fell back to sleep for the rest of shift. S/I, H/I: Unable to properly assess due to pt being nonsensical A/VH: Unable to properly assess due to pt being nonsensical Sleep: See sleep assessment notation ADL's: Independent, but needs assistance and encouragement in some ADLs Group attendance: assembler 1st shift, no group Were meds taken: Yes Any med S/E: None reported or observed Mental Status Exam Appearance: Disheveled, unkempt, matted hair Eye contact: Poor Behavior: Agitated, sedated, labile Speech: Incoherent, word salad Mood: Unable to properly assess due to pt being nonsensical Affect: Blunted Thought process: Disorganized, flight of ideas Thought Content: Unable to properly assess due to pt being nonsensical Cognition: Alert and confused. Insight: Poor Judgment: Poor Interventions PRN's: Ativan, Atarax, Maalox Therapeutic interventions: 1:1 communication to include active listening and positive feedback, building therapeutic rapport. Maintained a safe and therapeutic environment, provided medication education and administration, q15 minute safety checks. Restraints/seclusion/emergency medication: N/A Justification of Continued Inpatient Treatment: Pt on 5149 for DTS/DTO and GD. Pt requires therapeutic intervention and medication management. Pt has no means for providing basic needs, food, chcf and healthcare
[2019-03-17 08:00] VITALS: BP 92/51
[2019-03-17] MEDS: haloperidol 5mg tablet PO SCH ×2 (08:19→20:00)
--- NOTE | 2019-03-17 08:32 | NUR ---
UNABLE TO PER FORM PTS PHYSICAL ASSESSMENT DUE TO BEHAVIOR, PT IS FULLY AMBULATORY AND HAS EVEN AND UNLABORED RESPIRATIONS, PT IS RESISTIVE TO CARE Addendum: 03/17/19 at 0838 by Petra Morse RN Amended: Links added.
--- NOTE | 2019-03-17 14:10 | NUR ---
[facility] Nursing Progress Note: Legal hold: 5149 expires 03/18 @ 1045 Client on involuntary status for GD/DTS/DTO Report received from nurse with use of SBAR: Audrey NINO Why are they here: Pt was walking into traffic and was nonsensical and unable to formulate rational plan for self care. BIB [facility] on 5149. Assessment What has happened this shift: Pt presents with word salad making it difficult to assess her during our brief 1:1 assessment, she did not want to engage in our assessment and was irritable. Pt refuses most care and lays in her bed, gets up to eat meals then goes back to her room. Pt was heard from the nurses station multiple times shouting, when we came to assess all the comnmotion, we found paitent by herself having conflict with unseen people and internal stimuli. Patient will have brief moments of lucidity, however remains in a confused and nonsensical state making her difficult to assess. Pt still refuses to shower or comb her hair even with offered assistance by staff. Pt has an overall irritated attitude towards staff when asked to participate in any group or even self care tasks. S/I, H/I: denied when asked A/VH: yes Sleep: naps often ADL's: Independent, but needs assistance and encouragement in some ADLs Group attendance: no group Were meds taken: Yes Any med S/E: None reported or observed Mental Status Exam Appearance: Disheveled, unkempt, matted hair Eye contact: Poor Behavior: Agitated, sedated, labile Speech: Incoherent, word salad Mood: Unable to properly assess due to pt being nonsensical Affect: Blunted Thought process: Disorganized, flight of ideas Thought Content: Unable to properly assess due to pt being nonsensical Cognition: Alert and confused. Insight: Poor Judgment: Poor Interventions PRN's: Ativan, Atarax Therapeutic interventions: 1:1 communication to include active listening and positive feedback, building therapeutic rapport. Maintained a safe and therapeutic environment, provided medication education and administration, q15 minute safety checks. Restraints/seclusion/emergency medication: N/A Justification of Continued Inpatient Treatment: Pt on 5149 for DTS/DTO and GD. Pt requires therapeutic intervention and medication management. Pt has no means for providing basic needs, food, care home and healthcare
--- NOTE | 2019-03-17 22:22 | NUR ---
Nursing Progress Note: Legal hold: 5149 expires 03/18 @ 1045 Client on involuntary status for GD/DTS/DTO Report received from nurse with use of SBAR: Kerry BACON Why are they here: Pt was walking into traffic and was nonsensical and unable to formulate rational plan for self care. BIB [facility] on 5149. Assessment What has happened this shift: Pt was laying in bed sleeping at change of shift. Pt was irritable when woke for assessment, pt refused assessment then began c/o not having dinner. Pt asked to have Dinner tray brought to her, but then said there wasn't enough food so she didnt want to eat. Encouraged pt to eat dinner and then we can provide her w/addtl food is she is still hungry. Pt agreed to come to group room to eat. She asked for juice upon returning to bed, but refused to have conversation or complete assessment. Encouraged pt to shower and she refused, offered to assist patient w/her hair and she states "it's in knots just shave it off." Pt accused me of going through her things when I brought her juice, explained to pt that I had not gone through her belongings. Pt refused evening meds stating "I dont take haldol and I dont take blue pills, I only take round white ones." S/I, H/I: pt doesnt answer A/VH: pt refuses to answer Sleep: sleeps often ADL's: Independent, encouraged hygiene measures but pt refused Group attendance: no evening groups Were meds taken: Yes Any med S/E: None reported or observed Mental Status Exam Appearance: Disheveled Eye contact: Poor Behavior: Agitated, irritable, stays in bed, resistive to care Speech: yells and mumbles Mood: agitated Affect: labile Thought process: Disorganized, flight of ideas Thought Content: c/o food, resistive to care Cognition: impaired Insight: Poor Judgment: Poor Interventions PRN's: none Therapeutic interventions: Attempted 1:1 assessment and communication to build therapeutic rapport. Maintained a safe and therapeutic environment, q15 minute safety checks. Attempted to administer medications but pt refused. Encouraged and offered assistance w/ADLs and hygiene needs. Restraints/seclusion/emergency medication: N/A Justification of Continued Inpatient Treatment: Pt on 5150 for DTS/DTO and GD. Pt requires therapeutic intervention and medication management. Pt has no means for providing basic needs, food, mcc and healthcare Addendum: 03/17/19 at 2249 by Amy Barney RN Pt woke requesting ativan, when provided w/ativan pt refused stating "I only take two, one is for a sex change." Pt refused ativan, is laying in bed talking to herself.
[2019-03-18] MEDS: hydrOXYzine 25 MG tablet PO PRN (07:14)
[2019-03-18] MEDS: haloperidol 5mg tablet PO SCH ×2 (07:14→20:21)
[2019-03-18 08:00] VITALS: BP 104/68
--- NOTE | 2019-03-18 08:26 | NUR ---
1:1 DISCHARGE PLANNING SW contacted [facility] and [facility] and [facility] for information regarding pt hx and dx. ALLEGRA informed pt likely part of AOT program through [facility]. SHANI Lugo
[2019-03-18] MEDS: LORazepam 1 MG tablet PO PRN ×2 (10:59→17:33)
--- NOTE | 2019-03-18 16:25 | NUR ---
Nursing Progress Note: Legal hold: 525 Client on involuntary status for GD Report received from nurse with use of SBAR: Jina christopher RN Why are they here: Pt was walking into traffic and was nonsensical and unable to formulate rational plan for self care. BIB [facility] on 5150. Assessment What has happened this shift: Pt was agitated at start of shift, talking and yelling by herself in her room constantly. Speech was loud, pressured, tangential, disorganized with flight of ideas. First pt c/o not being able to sleep, "I can't sleep, I'm not going to eat" then contradicted herself by saying, "I don't want to sleep, I slept all night." Pt was verbalizing that she wanted out of here she wants to go to [facility], wished to speak with Nino RUIZ. Was able to administer routine Haldol 10 mg as well as Atarax 50 mg at 0717 with much encouragement. Pt refused breakfast but did drink 3 boxes of juice, "I don't eat until two, is it two?" Pt has extremely matted hair. Pt would say she needed a shower and to brush out her hair, then when offered a shower, would refuse a shower. Pt requested to shave her head several times, then would say there is a blond girl at [facility] that de leon her hair out for her. After speaking with JOSEPH, pt started yelling again, calling JOSEPH "down syndrome boy." Pt went into her bathroom and yelled nonstop pressured, word salad, pt gets spittle collected in the corners of her mouth when speaking. Offered pt prn Ativan several times, pt kept refusing, pt was informed of her hearing, she became anxious and tearful and agreed to take Ativan 1 mg at 1100. Pt napped, was awoken for her 5250 hearing, her 5250 was upheld for grave disability. Pt was upset, protested loudly but returned to room and quieted down quickly. Pt has new orders for Haldol 5 mg with lunch and [place] 600 mg at HS. Pt refused to allow a physical assessment to be done, refused to answer assessment questions. S/I, H/I: Unable to assess, pt declined to answer A/VH: Unable to assess, pt declined to answer Sleep: Slept 11 hours per noc shift report, napped after lunch ADL's: Needs prompting, so far resistive to ADL care, refusing to shower or allow conditioner to be put in matted hair. Group attendance: Pt attempted to attend am group but too labile and disorganized Were meds taken: Yes, with repeated attempts/much encouragement Any med S/E: None reported or observed Mental Status Exam Appearance: Disheveled with dirty feet, peeling nail eritrean, matted hair, spittle in corners of mouth Eye contact: Fair Behavior: Agitated, easily angered, yells , some psychomotor agitation, guarded, dismissive, hostile Speech: disorganized, tangential, word salad at times, loud pressured, yells frequently Mood: angry agitated Affect: angry, labile Thought process: Disorganized, flight of ideas Thought Content: Pt is in denial about her mental health, does not believe she is mentally ill, states she does not want to take meds, angry that she is on a hold. Cognition: A/O X 1 Insight: None Judgment: Poor, impaired Interventions PRN's: Atarax 50 mg @ 0717, Ativan 1 mg at 1100 Therapeutic interventions: Attempted 1:1 assessment, medication adminstration/education/monitoring, encouragement to take prns, encouragement to perform ADLs, encouragement to eat meals, verbal de-escalation, attempted reality orientation, maintained a calm, supportive demeanor, provided a safe and therapeutic environment, 5250 education, q15 minute safety checks. Restraints/seclusion/emergency medication: N/A Justification of Continued Inpatient Treatment: Pt is aggressive, easily frustrated and angered, severely disorganized, resistive to ADL care and medications, has zero insight, and has no means of providing for her basic needs; food, clothing, and skilled nursing, she needs medication initiation and stabilization in a safe, therapeutic environment.
[2019-03-18 19:00] VITALS: BP 117/74
[2019-03-18] MEDS: lithium carbonate 150mg capsule PO SCH (20:21)
[2019-03-19] MEDS: LORazepam 1 MG tablet PO PRN ×3 (00:38→15:14)
--- NOTE | 2019-03-19 03:05 | NUR ---
Nursing Progress Note: Legal hold: 5249 Client on involuntary status for GD Report received from nurse with use of SBAR: Carmelita christopher RN Why are they here: Pt was walking into traffic and was nonsensical and unable to formulate rational plan for self care. BIB [facility] on 5149. Assessment What has happened this shift: Pt asleep at start of shift. Woke up easily became angry at being awakened requested Ativan. Speech was loud, pressured, tangential, disorganized with flight of ideas. Informed it was too early for a dose of Ativan. Pt accepted this information. Pt refused to allow a physical assessment to be done, refused to answer assessment questions. Went back to sleep. Pt took HS Meds. At first refused then took them. Pt said "Thank You" and went back to sleep. Pt woke up at midnight yelling asked for 3 Ativan. Insisted that she was taking 3 "check My records." Informed she could only get one. Pt then asked for two but accepted one and went back to sleep. S/I, H/I: Unable to assess, pt declined to answer A/VH: Unable to assess, pt declined to answer Sleep: Has slept all shift so far except brief periods of being awake. ADL's: Needs prompting, so far resistive to ADL care, refusing to shower or allow conditioner to be put in matted hair. Group attendance: Pt attempted to attend am group but too labile and disorganized Were meds taken: Yes, with repeated attempts/much encouragement Any med S/E: None reported or observed Mental Status Exam Appearance: Disheveled with dirty feet, peeling nail tamazight, matted hair, spittle in corners of mouth Eye contact: Fair Behavior: Agitated, easily angered, yells , some psychomotor agitation, guarded, dismissive, hostile Speech: disorganized, tangential, word salad at times, loud pressured, yells frequently Mood: angry agitated Affect: angry, labile Thought process: Disorganized, flight of ideas Thought Content: Pt is in denial about her mental health, does not believe she is mentally ill, states she does not want to take meds, angry that she is on a hold. Cognition: A/O X 1 Insight: None Judgment: Poor, impaired Interventions PRN's: Ativan x1 Therapeutic interventions: Attempted 1:1 assessment, medication administration/education/monitoring, encouragement to take prns, encouragement to perform ADLs, encouragement to eat meals, verbal de-escalation, attempted reality orientation, maintained a calm, supportive demeanor, provided a safe and therapeutic environment, 5250 education, q15 minute safety checks. Restraints/seclusion/emergency medication: N/A Justification of Continued Inpatient Treatment: Pt is aggressive, easily frustrated and angered, severely disorganized, resistive to ADL care and medications, has zero insight, and has no means of providing for her basic needs; food, clothing, and nursing home, she needs medication initiation and stabilization in a safe, therapeutic environment.
[2019-03-19 08:00] VITALS: BP 113/62
[2019-03-19] MEDS: haloperidol 5mg tablet PO SCH ×2 (08:36→12:57)
--- NOTE | 2019-03-19 10:41 | NUR ---
Initial: Pt admit to [facility] with psychosis. Pt currently on a regular diet with documented PO intake 75-100% with refusals to a couple of meals. Pt still meeting nutrient needs. Unknown LBM. Per physical assessment pt resistive to care and uncooperative refusing physical assessment however denies GI symptoms and with MoM PRN. Will continue to follow. Recommendations: 1) Continue regular diet 2) Bowel care PRN 3) Weekly wt Addendum: 03/19/19 at [address] Amended: Links added.
--- NOTE | 2019-03-19 16:46 | NUR ---
Nursing Progress Note: Legal hold: vol Report received from Angel RN with use of SBAR: Why are they here:Pt was walking into traffic and was nonsensical and unable to formulate rational plan for self care. BIB [facility] on 5150. Assessment What has happened this shift: It is reported that patient did not want to have breakfast this morning. She took her AM meds with some reluctance. Report received that patient stated Their putting babies in my vagina. She is observed resting and awakens for lunch and takes her noon haldol without issue. She returns to her room to rest. Patient does not attend groups. When asked if she needed anything she mumbly states Dont talk to me like Im your daughter, go away! Patient is heard yelling nonsensically from her room. When offered she denies wanting an ativan then minutes later she is heard yelling for an Ativan. RN administered, patient states Im supposed have two, dont you read the chart, dumbas. When RN informed patient that she is given what is prescribed she mockingly repeats RNs statements. She requests RN cover her with blankets and states thank you when done. Patient is observed resting quietly later in the afternoon. S/I, H/I: unable to properly assess due to pt being nonsensical A/VH: unable to properly assess due to pt being nonsensical Sleep: 8.5 hrs NOC, patient rested during the day ADL's: needs encouragement, malodorous Group attendance: no Were meds taken: yes Any med S/E: possible fatigue Mental Status Exam Appearance: Disheveled Eye contact: poor Behavior: disorganized, agitated, irritable Speech: slurred and nonsensical Mood: easily irritated Affect: blunted, mimic's at times and sometimes glares Thought process: disorganized Thought Content: delusional thought content present as above Cognition: unable to properly assess due to pt being nonsensical Insight: poor Judgment: poor Interventions PRN's used: Ativan Therapeutic interventions: 1:1 therapeutic assessment, maintained safe therapeutic milieu, encouraged independent ADLs, provided active listening with positive feedback, provided medication education as needed, monitored for change in behavior and needed intervention. Q 15 min safety checks. Restraints/seclusion/emergency medication: N/A Justification of Continued Inpatient Treatment: Continued therapeutic support and medication management needed to provide stabilization, and prevent decompensation decreasing risk to patient for readmittance to in-patient unit. Patient is disorganized with delusional thought content and is currently unable to provide a plan for food, clothing or custodial for herself.
[2019-03-20] MEDS: LORazepam 1 MG tablet PO PRN ×2 (02:10→09:51)
[2019-03-20] MEDS: lithium carbonate 150mg capsule PO SCH ×2 (02:11→20:40)
[2019-03-20] MEDS: haloperidol 5mg tablet PO SCH ×4 (02:12→20:40)
--- NOTE | 2019-03-20 04:10 | NUR ---
Nursing Progress Note: Legal hold: vol Report received from Carmelita BACON with use of SBAR: Why are they here:Pt was walking into traffic and was nonsensical and unable to formulate rational plan for self care. BIB [facility] on 5150. Assessment Pt in bed at sleeping at start of shift. Refused HS meds. Yelling "I dont want lithium I can't sleep when I sleep. I Want 4 Ativan. Difficult to explain to pt what was ordered for her and it was too early for Ativan. Pt kept screaming "I won't be able to sleep." Pt went to sleep immediately after staff left room. Pt woke up at around midnight. Again Yelling she wanted 4 Ativan and does not want Haldol or [place]. Given PRN Ativan and pt decided to take HS meds. Went immediately back to sleep. S/I, H/I: unable assess pt uncooperative A/VH: unable assess pt uncooperative Sleep: sleeping at this time ADL's: needs encouragement, malodorous, won't allow to brush tangled hair. even after multiple offers. Group attendance: no Were meds taken: yes Any med S/E: possible fatigue Mental Status Exam Appearance: Disheveled Eye contact: poor Behavior: disorganized, agitated, irritable Speech: slurred and disorganized. Yells a lot of the time. Mood: easily irritated Affect: blunted, mimic's at times and sometimes glares Thought process: disorganized Thought Content: delusional thought content present as above Cognition: unable to properly assess due to pt being nonsensical Insight: poor Judgment: poor Interventions PRN's used: Ativan x1 per pt request Therapeutic interventions: 1:1 therapeutic assessment, maintained safe therapeutic milieu, encouraged independent ADLs, provided active listening with positive feedback, provided medication education as needed, monitored for change in behavior and needed intervention. Q 15 min safety checks. Restraints/seclusion/emergency medication: N/A Justification of Continued Inpatient Treatment: Continued therapeutic support and medication management needed to provide stabilization, and prevent decompensation decreasing risk to patient for readmittance to in-patient unit. Patient is disorganized with delusional thought content and is currently unable to provide a plan for food, clothing or residential for herself.
[2019-03-20 07:41] VITALS: BP 103/69
[2019-03-20] MEDS ORDERED: LORazepam 1 MG tablet PO ONE ×2 (10:40)
--- NOTE | 2019-03-20 17:00 | NUR ---
Nursing Progress Note: Legal hold: vol Report received from Jina BACON with use of SBAR: Why are they here:Pt was walking into traffic and was nonsensical and unable to formulate rational plan for self care. BIB [facility] on 5150. Assessment Pt. In bed at beginning of shift. When RN came into give pt. her AM meds pt. Has mumbling, pressured speech. Pt. Has disorganized thinking, Pt. Has severe word salad as she talks with this RN. Pt. Requesting Ativan. Pt. Took am meds. Pt. Became increasingly agitated, yelling about her fingernails and crying hysterically, P.t informed we give her a nail file when she calmed down. pt. Was inconsolable and given Ativan 1mg with little effect. Pt. Given another 2 mg of Ativan with good effect. Pt. Went to afternoon art group which she said she enjoyed. Pt. Requested something for tooth pain she rated 7/10. Pt. Given Tylenol 650mg S/I, H/I: unable to properly assess due to pt being nonsensical A/VH: unable to properly assess due to pt being nonsensical. Responding to internal stimuli. Sleep: sleeping at this time ADL's: needs encouragement, refusing shower, malodorous, won't allow to brush tangled hair. even after multiple offers. Group attendance: Pt. Went to art group. Were meds taken: Yes Any med S/E: possible fatigue Mental Status Exam Appearance: Disheveled Eye contact: poor Behavior: disorganized, agitated, irritable Speech: slurred and disorganized. Yells often Mood: easily irritated Affect: blunted Thought process: disorganized Thought Content: delusional thought content present as above Cognition: unable to properly assess due to pt being nonsensical Insight: poor Judgment: poor Interventions PRN's used: Ativan 3mg Therapeutic interventions: 1:1 therapeutic assessment, maintained safe therapeutic milieu, encouraged independent ADLs, provided active listening with positive feedback, provided medication education as needed, monitored for change in behavior and needed intervention. Q 15 min safety checks. Restraints/seclusion/emergency medication: N/A Justification of Continued Inpatient Treatment: Continued therapeutic support and medication management needed to provide stabilization, and prevent decompensation decreasing risk to patient for readmittance to in-patient unit. Patient is disorganized with delusional thought content and is currently unable to provide a plan for food, clothing or penitentiary for herself.
[2019-03-20] MEDS: acetaminophen 325mg tablet PO PRN (17:45)
--- NOTE | 2019-03-20 19:37 | NUR ---
Pt refused vitals and assessment.
--- NOTE | 2019-03-20 21:11 | NUR ---
Nursing Progress Note: Legal hold: 5250 - GD Report received from Carmelita BACON with use of SBAR: Why are they here:Pt was walking into traffic and was nonsensical and unable to formulate rational plan for self care. BIB [facility] on 5149. Assessment Pt in bed at sleeping at start of shift, and would not participate in 1:1 assessment. Pt refused vitals and physical assessment but did state she had a bowel movement yesterday. RN noticed intermittent, non-productive cough as well. Pt's speech was pressured, and she stated " I need sleep, sleep, sleep. Go away. They already checked me this morning. Please be quiet. How can I sleep if I can't sleep. Don't say anything." Pt's mood seem to become increasingly irritable. Pt was compliant with nighttime medications but told RN to "Shush and leave now" after administration. Pt continues to sleep. S/I, H/I: unable assess pt uncooperative A/VH: unable assess pt uncooperative Sleep: See Sleep Hour Charting ADL's: Needs Prompting Group attendance: N Were meds taken: Y Any med S/E: possible fatigue Mental Status Exam Appearance: Disheveled, Unkempt Eye contact: None Behavior: Sleeping, irritable Speech: Pressured Mood: Easily irritated Affect: Flat Thought process: Unable to determine Thought Content: Wants to sleep Cognition: unable to properly assess due to pt being nonsensical Insight: Poor Judgment: Poor Interventions PRN's used: None Therapeutic interventions: 1:1 therapeutic assessment, maintained safe therapeutic milieu, encouraged independent ADLs, provided medication education as needed, monitored for change in behavior and needed intervention. Q 15 min safety checks. Restraints/seclusion/emergency medication: N/A Justification of Continued Inpatient Treatment: Continued therapeutic support and medication management needed to provide stabilization, and prevent decompensation decreasing risk to patient for readmittance to in-patient unit. Patient is disorganized and is currently unable to provide a plan for food, clothing or custodial for herself.
[2019-03-21] MEDS: LORazepam 1 MG tablet PO PRN ×3 (00:34→20:50)
[2019-03-21] MEDS: hydrOXYzine 25 MG tablet PO PRN ×2 (03:17→13:24)
[2019-03-21 07:30] VITALS: BP 99/63
[2019-03-21] MEDS: haloperidol 5mg tablet PO SCH ×3 (07:59→20:46)
[2019-03-21] MEDS: magnesium hydroxide 30ml (MOM) UD suspension PO PRN (16:06)
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
[2019-03-21 20:00] VITALS: BP 98/62
--- NOTE | 2019-03-21 20:16 | NUR ---
Pt refused assessment.
[2019-03-21] MEDS: lithium carbonate 150mg capsule PO SCH (20:47)
--- NOTE | 2019-03-21 22:21 | NUR ---
Nursing Progress Note: Legal hold: 5250 - GD Report received from ARLEEN Che with use of SBAR Why are they here:Pt was walking into traffic and was nonsensical and unable to formulate rational plan for self care. BIB [facility] on 5149. Assessment What happened this shift: Pt. sleeping at beginning at shift. Pt gives short 1 word answers to questions then becomes tangential; she refused the assessment, slowly escalating her voice to yelling: "Why are you here? Come back when I can have meds! You bother me! Leave! Stop talking!". Pt is malodorous but refuses shower when offered and becomes increasingly agitated and starts mumbling incoherently. Pt compliant with medications, and told RN "My toilet is clogged." Any attempt to return conversation from RN results in pt "shushing" RN. S/I, H/I: Unable to assess A/VH: Unable to assess Sleep: See Sleep Hour Charting ADL's: Refuses to shower, Refuses to change clothes Group attendance: N Were meds taken: Y Any med S/E: Possible fatigue, None reported Mental Status Exam Appearance: Disheveled, Unkempt, Malodorous, wearing unit green scrubs Eye contact: Minimal, keeps eyes closed most of the time Behavior: Sleeping, Irritable Speech: Pressured, Rapid Mood: Easily irritated Affect: Flat Thought process: Unable to determine Thought Content: Wants to sleep and be left alone Cognition: A&Ox3 Pt. is unaware of the date Insight: Poor Judgment: Poor Interventions PRN's used: Ativan 1 mg Therapeutic interventions: 1:1 therapeutic assessment, maintained safe therapeutic milieu, encouraged independent ADLs, provided medication education as needed, monitored for change in behavior and needed intervention. Q 15 min safety checks. Restraints/seclusion/emergency medication: N/A Justification of Continued Inpatient Treatment: Continued therapeutic support and medication management needed to provide stabilization, and prevent decompensation decreasing risk to patient for readmittance to in-patient unit. Patient is disorganized and is currently unable to provide a plan for food, clothing or residential for herself.
[2019-03-22 08:00] VITALS: BP 107/80
[2019-03-22] MEDS: haloperidol 5mg tablet PO SCH ×3 (08:04→20:45)
--- NOTE | 2019-03-22 16:05 | NUR ---
Nursing Progress Note: Legal hold: 5249 Client on involuntary status for GD Report received from nurse with use of SBAR: Nida, charge accounts audit clerk Why are they here: Pt was walking into traffic and was nonsensical and unable to formulate rational plan for self care. BIB [facility] on 5149. Assessment What has happened this shift: Pt was calmer this shift, allowed physical assessment and weekly weight, allowed ALLEGRA Bhakta to put oil/conditioner in her hair, shampoo it in sink in room, comb and trim hair. Pt continues to refuse to be showered, still uncooperative with assessment questions, requested to watch movie in rec room, [place] 2. S/I, H/I: Pt did not answer assessment questions A/VH: Pt declined to answer Sleep: Slept 9 hours per noc shift report, naps after meals ADL's: Needs encouragement, pt continues to refuse to shower, did allow hair to be washed, combed and trimmed today Group attendance: Pt declined to attend groups Were meds taken: Yes Any med S/E: None reported or observed Mental Status Exam Appearance: Disheveled in the morning with matted hair, swimming pool cleaner/neater, dressed in street clothes after hair washed, combed, and trimmed by SW in the afternoon. Eye contact: Good Behavior: Mostly isolative to self, still easily frustrated though more cooperative with staff and care today, watched a movie in the rec room. Speech: clear, audible, quiet today Mood: improved though still somewhat irritable Affect: blunted Thought process: some reality distortion though more organized today Thought Content: Pt still perseverates on contacting/leaving and going to [facility], though much less so today, wished to watch the movie, Open Cognition: A/O X 2 Insight: poor Judgment: Poor Interventions PRN's: None Therapeutic interventions: 1:1 assessment, medication adminstration/education/monitoring, encouragement to shower/perform ADL care, encouragement to attend groups, Q 15 minute safety checks. Restraints/seclusion/emergency medication: N/A Justification of Continued Inpatient Treatment: Pt continues to be gravely disabled, she is refusing showers, she lacks insight, she is homeless, she has no means of providing for her basic needs; food, clothing, and nursing home, she needs medication adjustment and stabilization in a safe, therapeutic environment.
[2019-03-22 20:00] VITALS: BP 112/69
[2019-03-22] MEDS: lithium carbonate 150mg capsule PO SCH (20:45)
--- NOTE | 2019-03-22 21:06 | NUR ---
DISCHARGE PLANNING: Pt signed [facility] for [facility] on [address] stating she had a counselor or someone there, she couldn't remember but wanted this senior writer to contact. This senior writer phoned and confirmed she is part of [facility] and Andries is her rn case manager hospice. he was concerned about housing and suggested the [facility] but after he spoke to pt she said she did not want to go. he also asked if she might be a candidate for [facility] or [facility] particularly due to her poor med follow thru. He will come see her Monday. HEATH RossW
--- NOTE | 2019-03-22 21:50 | NUR ---
Nursing Progress Note: Legal hold: 5249 Client on involuntary status for GD Report received from nurse with use of SBAR: Chinedu BACON Why are they here: Pt was walking into traffic and was nonsensical and unable to formulate rational plan for self care. BIB [facility] on 5149. Assessment What has happened this shift: Pt was laying in bed resting at change of shift. Attempted 1:1 assessment, pt was initially pleasant participating in assessment, giving short brief answers "fine, yeah, it was good." regarding groups, states meds are "helping" and she slept "good". Pt denies any pain, states her appetite is "fine" and "yeah" she's getting enough to eat. Pt then states "Just get me some ativan and let me sleep." Pt refused physical assessment. Pt took evening meds and states "don't you think these are a lot of pills, I just take ativan, pt took her evening meds, then said "get out of here, Im done talking you're just an elevator cart." S/I, H/I: Pt doesnt answer A/VH: Pt states "no" Sleep: "good" ADL's: Needs encouragement Group attendance: Pt declined to attend groups Were meds taken: Yes Any med S/E: None reported or observed Mental Status Exam Appearance: pts hair is brushed, she is in bed wearing street clothing, refuses shower, but hair was washed during day shift. Eye contact: Good Behavior: remained in bed . Speech: normal rate and rhythm, yells out sometimes Mood: improved though still somewhat irritable Affect: blunted Thought process: disorganized Thought Content: wants to be left alone, wants to sleep Cognition: A/O X 2 Insight: poor Judgment: Poor Interventions PRN's: None Therapeutic interventions: 1:1 assessment, medication adminstration/education/monitoring, encouragement to shower/perform ADL care, encouragement to attend groups, Q 15 minute safety checks. Restraints/seclusion/emergency medication: N/A Justification of Continued Inpatient Treatment: Pt continues to be gravely disabled, she is refusing showers, she lacks insight, she is homeless, she has no means of providing for her basic needs; food, clothing, and fdc, she needs medication adjustment and stabilization in a safe, therapeutic environment.
[2019-03-22] MEDS: hydrOXYzine 25 MG tablet PO PRN (22:50)
[2019-03-22] MEDS: LORazepam 1 MG tablet PO PRN (23:30)
[2019-03-23] MEDS: hydrOXYzine 25 MG tablet PO PRN (04:51)
[2019-03-23] MEDS: haloperidol 5mg tablet PO SCH ×3 (07:27→20:36)
[2019-03-23 08:00] VITALS: BP 94/59
--- NOTE | 2019-03-23 13:57 | NUR ---
Nursing Progress Note: Legal hold: 5249 Client on involuntary status for GD Report received from nurse with use of SBAR: Nida, transition teacher Why are they here: Pt was walking into traffic and was nonsensical and unable to formulate rational plan for self care. BIB [facility] on 5149. Assessment Pt was irritable this morning and suspicious as to why we are giving her so much Tancred, stated that the Tancred kept her up all night and she didn't get to sleep until five. Speech is somewhat disorganized and tangential though pt is able to get her meaning across. "Seriously, why did you give me so many Lithiums last night? It really hurt my feelings." Pt denied AH/VH, refused to answer further questions, was escalating when mental health assessment questions asked. Pt took her routine morning Haldol reluctantly, "Haldol, that's not going to do anything for me...why are you giving me Haldol, a downer in the morning?!" Pt gets up out of bed for meals, watches TV/movies in community room or rec room. Pt's hair is messy and unbrushed this morning though remains untangled, asked pt if she had a brush in her room, pt stated, "I used it," does not appear as though hair was brushed at all today. Made sure there was a brush and a comb in her room, she had both. Notified psychiatrist Dr Bui of pt's complaints about medications. S/I, H/I: Pt did not answer assessment questions A/VH: Pt denied Sleep: Slept per noc shift report, pt states she did not get to sleep until 5 am. ADL's: Needs encouragement, pt continues to refuse to shower, hair remained unbrushed today despite encouragement Group attendance: Pt declined to attend morning group Were meds taken: Yes Any med S/E: Pt reported that Tancred kept her up all night and that Haldol makes her sleepy in the morning. Mental Status Exam Appearance: Messy hair, though remains untangled Eye contact: Good Behavior: Isolative to self, easily frustrated, loud, unhappy verbalizations about her medications Speech: loud, somewhat disorganized/tangential Mood: irritable Affect: blunted, guarded Thought process: disorganized, suspicious Thought Content: Pt perseverates on medications and side effects, stated her feelings were hurt because we gave her so many Lithiums last night. Cognition: A/O X 2 Insight: impaired Judgment: impaired Interventions PRN's: None Therapeutic interventions: 1:1 assessment, encouragement to take meds, medication administration/education/monitoring, reality orientation, redirection, verbal de-escalation, encouragement to shower/perform ADL care, encouragement to attend groups, Q 15 minute safety checks. Restraints/seclusion/emergency medication: N/A Justification of Continued Inpatient Treatment: Pt continues to be gravely disabled, she is refusing showers, she has impaired insight and judgement, she is homeless, she has no means of providing for her basic needs; food, clothing, and group home, she needs medication adjustment and stabilization in a safe, therapeutic environment.
--- NOTE | 2019-03-23 19:24 | NUR ---
Pt refused assessment Addendum: 03/23/19 at 1938 by Sweetie Hathaway RN Amended: Links added.
--- NOTE | 2019-03-23 19:28 | NUR ---
Pt refused assems
[2019-03-23 20:00] VITALS: BP 106/64
[2019-03-23] MEDS: lithium carbonate 150mg capsule PO SCH (21:00)
[2019-03-23] MEDS ORDERED: lithium carbonate 150mg capsule PO ONE (21:00)
[2019-03-24] MEDS: LORazepam 1 MG tablet PO PRN (00:44)
--- NOTE | 2019-03-24 01:01 | NUR ---
Nursing Progress Note: Legal hold: 5249 Client on involuntary status for GD Report received from nurse with use of SBAR: Chinedu RN Why are they here: Pt was walking into traffic and was nonsensical and unable to formulate rational plan for self care. BIB [facility] on 5149. Assessment What has happened this shift: Patient was resting in bed as shift change. No apparent distress noted. Attempted 1:1 assessment, pt refused. Pt during medication administration pt stated she didnt want to take all 4 lithium pills. (four 150 mg caps). Pt states that the Coldwater kept her awake last night (03-23-19) and gave her the jitters. Pt was observed sleeping comfortably (03-23-19) most of the night. This marketing copywriter called the intervention teacher provider JOSEPH Bridges and was able to get a one time Coldwater dose of 300mg. Pt took Coldwater and her Haldol without incident. Pt denied A/VH. But is observed talking and answering to herself. Pt requested an Ativan at 0049. No outbursts were observed or reported this shift. S/I, H/I: No response from patient A/VH: Pt denies, but is observed having a conversation with herself and laughing Sleep: See sleep assessment notation ADL's: Needs encouragement Group attendance: lieutenant shift supervisor, no group Were meds taken: Yes, modified x1 dose of Coldwater 300mg per provider Any med S/E: None reported or observed Mental Status Exam Appearance: Pt is in bed wearing street clothing, pt still not showered Eye contact: Fair Behavior: Isolative to self, stayed in bed, irritable Speech: Mumbled, disorganized/tangential Mood: Improved though still somewhat irritable Affect: Blunted Thought process: Disorganized Thought Content: Too much Coldwater makes me sleepy Cognition: A/O X 2 Insight: Poor Judgment: Poor Interventions PRN's: None Therapeutic interventions: 1:1 assessment, medication administration/education/monitoring, encouragement to shower/perform ADL care, encouragement to attend groups, Q 15 minute safety checks. Restraints/seclusion/emergency medication: N/A Justification of Continued Inpatient Treatment: Pt continues to be gravely disabled, she is refusing showers, she lacks insight, she is homeless, she has no means of providing for her basic needs; food, clothing, and correction, she needs medication adjustment and stabilization in a safe, therapeutic environment. Addendum: 03/24/19 at 0106 by Sweetie Hathaway RN PRN given Ativan
[2019-03-24 08:00] VITALS: BP 100/62
[2019-03-24] MEDS: haloperidol 5mg tablet PO SCH ×3 (09:07→20:49)
[2019-03-24] MEDS: acetaminophen 325mg tablet PO PRN (12:33)
--- NOTE | 2019-03-24 14:28 | NUR ---
Nursing Progress Note: Legal hold: 5249 Client on involuntary status for GD Report received from nurse with use of SBAR: Nida, propellant charge zone assembler Why are they here: Pt was walking into traffic and was nonsensical and unable to formulate rational plan for self care. BIB [facility] on 5150. Assessment Pt declined to get up for breakfast this morning stating that her knees hurt and "I don't eat until two like the Mexicans do." Pt reluctantly took her Haldol again indicating in rapid, somewhat disorganized, poorly enunciated speech that she doesn't know why we are giving her something that will make her more tired in the morning when she is already tired. Pt was given Tylenol by [facility] shift at 0533 for c/o leg pain, stated, "my knees hurt from laying here in this bed, I'll just lay here some more." Pt began to get agitated at further offers for interventions for pain, dismissive of this nurse. Pt got up and showered before group, combed her hair and brushed her teeth, she reluctantly allowed physical assessment, declined to answer mental health assessment questions. Pt requested pain medicine for her knees again at 1233, medicated with prn Tylenol 650 mg with good effect. Pt observed walking around the unit and sitting in rec room watching TV. S/I, H/I: Pt did not answer assessment questions A/VH: Pt declined to participate in mental health assessment questions Sleep: Slept 10 hours per noc shift report ADL's: Independent, pt showered today, brushed her hair and her teeth Group attendance: Yes, pt arrived to morning group late as she was completing her personal hygiene/ADL care. Were meds taken: Yes Any med S/E: Pt complains that Haldol makes her sleepy in the morning. Mental Status Exam Appearance: Clean, neat, dressed in clean hospital scrubs Eye contact: Fair to good Behavior: isolative to self, does not socialize with staff or peers, easily irritated especially in the morning, improving in her daily personal care, paces slowly in her flip-flops around the unit, watches TV, still somewhat dismissive to staff Mood: irritable Affect: blunted, constricted Thought process: still somewhat disorganized and suspicious Thought Content: Pt reluctant to take meds, perseverates on perceived side effects from medications,still suspicious of staff, focused on leg pain today Cognition: A/O X 2 Insight: impaired Judgment: fair Interventions PRN's: None Therapeutic interventions: 1:1 assessment, therapeutic listening, encouragement to take meds, medication administration/education/monitoring, redirection, re-assurance, verbal de-escalation, encouragement to shower/perform ADL care, encouragement to attend groups, Q 15 minute safety checks. Restraints/seclusion/emergency medication: N/A Justification of Continued Inpatient Treatment: Pt continues to have pressured, somewhat disorganized speech, she is still easily frustrated and irritated, she reluctantly is taking her meds with compliants of side effects, she remains suspicious/distrustful of staff, she needs further medication adjustment and management. She is homeless, she has no means of providing for her basic needs; food, clothing, and skilled nursing at this time. Addendum: 03/24/19 at 1607 by Kayla Vera RN (Lee) Pt approached this nurse at 1600 c/o constipation, requested cranberry juice. Gave pt MOM and a cranberry juice.
[2019-03-24] MEDS: magnesium hydroxide 30ml (MOM) UD suspension PO PRN (16:02)
[2019-03-24] MEDS: lithium carbonate 150mg capsule PO SCH (20:54)
--- NOTE | 2019-03-25 00:10 | NUR ---
Nursing Progress Note: Legal hold: 5249 Client on involuntary status for GD Report received from nurse with use of SBAR: Chinedu, chargemaster analyst Why are they here: Pt was walking into traffic and was nonsensical and unable to formulate rational plan for self care. BIB [facility] on 5149. Assessment Pt in bed asleep at start of shift. Woke up easily asked if she wanted to come to group room for snack. Pt declined. Pt speech disorganized. Does not answer even simple questions logically. Garbled response to the question "how are you feeling?" Pt at first refused lithium insisted she only wanted 2 pills. Pt yelled out but then changed her mind and took her medications as ordered. S/I, H/I: Pt did not answer assessment questions A/VH: Pt declined to participate in mental health assessment questions Sleep: Asleep at this time. ADL's: Independent, pt showered today, brushed her hair and her teeth Group attendance: no Were meds taken: Yes Any med S/E: Pt complains that Haldol makes her sleepy in the morning. Mental Status Exam Appearance: Clean, neat, dressed in clean hospital scrubs Eye contact: Fair to good Behavior: isolative to self, does not socialize with staff or peers, easily irritated especially in the morning, improving in her daily personal care, paces slowly in her flip-flops around the unit, watches TV, still somewhat dismissive to staff Mood: irritable Affect: blunted, constricted Thought process: still somewhat disorganized and suspicious Thought Content: Pt reluctant to take meds, perseverates on perceived side effects from medications,still suspicious of staff, focused on leg pain today Cognition: A/O X 2 Insight: impaired Judgment: fair Interventions PRN's: None Therapeutic interventions: 1:1 assessment, therapeutic listening, encouragement to take meds, medication administration/education/monitoring, redirection, re-assurance, verbal de-escalation, encouragement to shower/perform ADL care, encouragement to attend groups, Q 15 minute safety checks. Restraints/seclusion/emergency medication: N/A Justification of Continued Inpatient Treatment: Pt continues to have pressured, somewhat disorganized speech, she is still easily frustrated and irritated, she reluctantly is taking her meds with compliants of side effects, she remains suspicious/distrustful of staff, she needs further medication adjustment and management. She is homeless, she has no means of providing for her basic needs; food, clothing, and assisted at this time.
[2019-03-25 08:00] VITALS: BP 105/69
[2019-03-25] MEDS: haloperidol 5mg tablet PO SCH ×3 (08:19→20:00)
[2019-03-25] MEDS: LORazepam 1 MG tablet PO PRN (15:31)
--- NOTE | 2019-03-25 16:33 | NUR ---
Nursing Progress Note: Legal hold: 5249 Client on involuntary status for GD Report received from nurse with use of SBAR: Jina, kiln charger Why are they here: Pt was walking into traffic and was nonsensical and unable to formulate rational plan for self care. BIB [facility] on 5150. Assessment Pt declined to get up for breakfast this morning stating that her knees hurt and "I don't eat until two like the Mexicans do." Pt reluctantly took her Haldol again indicating in rapid, somewhat disorganized, poorly enunciated speech that she doesn't know why we are giving her something that will make her more tired in the morning when she is already tired. Pt was given Tylenol by [facility] shift at 0533 for c/o leg pain, stated, "my knees hurt from laying here in this bed, I'll just lay here some more." Pt began to get agitated at further offers for interventions for pain, dismissive of this nurse. Pt got up and showered before group, combed her hair and brushed her teeth, she reluctantly allowed physical assessment, declined to answer mental health assessment questions. Pt requested pain medicine for her knees again at 1233, medicated with prn Tylenol 650 mg with good effect. Pt observed walking around the unit and sitting in rec room watching TV. S/I, H/I: Pt did not answer assessment questions A/VH: Pt declined to participate in mental health assessment questions Sleep: Slept 10 hours per noc shift report ADL's: Independent, pt showered today, brushed her hair and her teeth Group attendance: Yes, pt arrived to morning group late as she was completing her personal hygiene/ADL care. Were meds taken: Yes Any med S/E: Pt complains that Haldol makes her sleepy in the morning. Mental Status Exam Appearance: Clean, neat, dressed in clean hospital scrubs Eye contact: Fair to good Behavior: isolative, minimal interaction with peers Mood: Mildly irritable Affect: blunted, constricted Thought process: still somewhat disorganized and suspicious Thought Content: Pt reluctant to take meds Cognition: A/O X 2 Insight: impaired Judgment: fair Interventions PRN's: Ativan X1 Therapeutic interventions: 1:1 assessment, therapeutic listening, encouragement to take meds, medication administration/education/monitoring, redirection, re-assurance, verbal de-escalation, encouragement to shower/perform ADL care, encouragement to attend groups, Q 15 minute safety checks. Restraints/seclusion/emergency medication: N/A Justification of Continued Inpatient Treatment: Pt continues to have pressured, somewhat disorganized speech, she is still easily frustrated and irritated, she reluctantly is taking her meds with compliants of side effects, she remains suspicious/distrustful of staff, she needs further medication adjustment and management. She is homeless, she has no means of providing for her basic needs; food, clothing, and halfway at this time.
[2019-03-25 20:00] VITALS: BP 96/51
--- NOTE | 2019-03-25 20:16 | NUR ---
Group Art Therapy, continued: Patient attended her second art therapy group. She was able to follow the directives and seemed to comprehend the communications within the group discussion. She was able to draw a "safe and peaceful place" of a tree with an image of her dog "Vianey" who had . She chose to keep any further details to herself. She wrote: "In my safe and peaceful place, I am holding on to meeting with the tree." There were moments in the group process, where Pt. would lay her head on the table, however, presented as still listening and a part of the group. She did not initiate communications unless asked direct questions. She was respectful of her peers. Please see the group note for entire overview of patients presentation. Usha Cam MA, TRANSITION LEAD #[id number] [facility] Art Therapist Addendum: 03/25/19 at 2018 by Usha Cam SS Amended: Links added.
[2019-03-25] MEDS ORDERED: lithium carbonate 150mg capsule PO SCH (21:00)
--- NOTE | 2019-03-26 01:44 | NUR ---
Nursing Progress Note: Legal hold: 5249 Client on involuntary status for GD Report received from nurse with use of SBAR: Chinedu, charge account authorizer Why are they here: Pt was walking into traffic and was nonsensical and unable to formulate rational plan for self care. BIB [facility] on 5149. Assessment Pt awake walking in halls at start of shift. Went to room allowed physical assessment. Toward end pt became impatient and started making growling noises. Pt went to sleep early declined to come to group room for snack. Refused medications X3 separate attempts. Pt yelled "go away go away." over and over again. S/I, H/I: Pt did not answer assessment questions A/VH: Pt declined to participate in mental health assessment questions Sleep: Asleep at this time. ADL's: Independent, pt showered today, brushed her hair and her teeth Group attendance: no Were meds taken: No Any med S/E: no c/o Mental Status Exam Appearance: Clean, neat, dressed in clean hospital scrubs Eye contact: Fair to good Behavior: irritable, noncooperative, does not socialize with staff or peers, Mood: irritable Affect: blunted, constricted Thought process: still somewhat disorganized and suspicious Thought Content: Pt refused to take meds, unable to assess thought process Cognition: A/O X 2 Insight: impaired Judgment: poor Interventions PRN's: None Therapeutic interventions: 1:1 assessment, therapeutic listening, encouragement to take meds, medication administration/education/monitoring, redirection, re-assurance, verbal de-escalation, encouragement to shower/perform ADL care, encouragement to attend groups, Q 15 minute safety checks. Restraints/seclusion/emergency medication: N/A Justification of Continued Inpatient Treatment: Pt continues to have pressured, somewhat disorganized speech, she is still easily frustrated and irritated, she reluctantly is taking her meds with compliants of side effects, she remains suspicious/distrustful of staff, she needs further medication adjustment and management. She is homeless, she has no means of providing for her basic needs; food, clothing, and chcf at this time.
[2019-03-26 08:00] VITALS: BP 96/51
[2019-03-26] MEDS: haloperidol 5mg tablet PO SCH (08:50)
[2019-03-26] MEDS ORDERED: haloperidol decanoate***LONG-ACTING*** 100mg/ml **IM only** inj. IM ONE (09:40)
[2019-03-26] MEDS ORDERED: risperiDONE 2mg tablet PO ONE (11:15)
--- NOTE | 2019-03-26 13:24 | NUR ---
Nursing Progress Note: Legal hold: 5249 Client on involuntary status for GD Report received from nurse with use of SBAR: Chinedu, electrical discharge machine operator Why are they here: Pt was walking into traffic and was nonsensical and unable to formulate rational plan for self care. BIB [facility] on 5149. Assessment Patient was asleep at change of shift and encouraged to get up for breakfast which she did. Patient allowed physical assessment but declined to answer mental health assessment questions. Patient initially declined Haldol but took the medication on the second offering. Patient met with Dr Bui who cancelled the Haldol and patient was started on Risperdal. Patient is also being weaned off of Evart. RN cannot see patient taking medications without encouragement. RN feels patient would not continue meds once discharged. No PRNS medication at the time of this writing. S/I, H/I: Pt did not answer assessment questions A/VH: Pt declined to participate in mental health assessment questions Sleep: Slept 10 hours ADL's: Independent Group attendance: No Were meds taken: Yes Any med S/E: none seen Mental Status Exam Appearance: Clean, neat, dressed in clean hospital scrubs Eye contact: Fair Behavior: isolative, minimal interaction with peers Mood: Mildly irritable Affect: blunted, constricted Thought process: still somewhat disorganized and suspicious Thought Content: Pt reluctant to take meds. Wanting to leave Cognition: A/O X 2 Insight: impaired Judgment: fair Interventions PRN's: none Therapeutic interventions: 1:1 assessment, therapeutic listening, encouragement to take meds, medication administration/education/monitoring, redirection, re-assurance, verbal de-escalation, encouragement to shower/perform ADL care, encouragement to attend groups, Q 15 minute safety checks. Restraints/seclusion/emergency medication: N/A Justification of Continued Inpatient Treatment: Pt continues to have pressured, somewhat disorganized speech, she is still easily frustrated and irritated, she reluctantly is taking her meds with compliants of side effects, she remains suspicious/distrustful of staff, she needs further medication adjustment and management. She is homeless, she has no means of providing for her basic needs; food, clothing, and fci at this time.
[2019-03-26 19:55] VITALS: BP 107/64
[2019-03-26] MEDS: risperiDONE 2mg tablet PO SCH (21:09)
[2019-03-26] MEDS: lithium carbonate 150mg capsule PO SCH (21:43)
--- NOTE | 2019-03-27 00:03 | NUR ---
Nursing Progress Note: Legal hold: 5249 Client on involuntary status for GD Report received from nurse with use of SBAR: Chinedu, rn hemodialysis charge Why are they here: Pt was walking into traffic and was nonsensical and unable to formulate rational plan for self care. BIB [facility] on 5149. Assessmet: Patient remained in bed all shift. Did not get up for evening snack. Unwilling to talk with this writer producer. Med compliant and pleasant at med pass. S/I, H/I: Pt did not answer assessment questions A/VH: Pt declined to participate in mental health assessment questions Sleep: Asleep at this time. ADL's: Independent Group attendance: no Were meds taken: Yes Any med S/E: no c/o Mental Status Exam Appearance: In bed and covered. Eye contact: Fair to good Behavior: Cooperative Mood: Withdrawn Affect: blunted, constricted Thought process: still somewhat disorganized and suspicious Thought Content: Unable to assess Cognition: A/O X 2 Insight: impaired Judgment: poor Interventions PRN's: None Therapeutic interventions: 1:1 assessment, therapeutic listening, encouragement to take meds, medication administration/education/monitoring, Q 15 minute safety checks. Restraints/seclusion/emergency medication: N/A Justification of Continued Inpatient Treatment: Pt continues to have pressured, somewhat disorganized speech, she is still easily frustrated and irritated, she reluctantly is taking her meds with compliants of side effects, she remains suspicious/distrustful of staff, she needs further medication adjustment and management. She is homeless, she has no means of providing for her basic needs; food, clothing, and residential at this time.
[2019-03-27] MEDS: risperiDONE 2mg tablet PO SCH ×2 (08:10→21:08)
[2019-03-27] MEDS: magnesium hydroxide 30ml (MOM) UD suspension PO PRN (13:20)
--- NOTE | 2019-03-27 15:08 | NUR ---
Nursing Progress Note: Legal hold: 5249 Client on involuntary status for GD Report received from nurse with use of SBAR: Nida, charge coordinator Why are they here: Pt was walking into traffic and was nonsensical and unable to formulate rational plan for self care. BIB [facility] on 5149. Assessment Patient was asleep at change of shift and up for breakfast which. Patient allowed physical assessment but declined to answer mental health assessment questions. Patient took her medication without any problem. Patient has not had a BM in several days and asked for medication. RN gave patient MOM. Patient has not been agitated today and went to afternoon group. S/I, H/I: Pt did not answer assessment questions A/VH: Pt declined to participate in mental health assessment questions Sleep: Slept 8 hours ADL's: Independent Group attendance: Yes to afternoon group Were meds taken: Yes Any med S/E: none seen Mental Status Exam Appearance: Clean, neat, dressed in clean hospital scrubs Eye contact: Fair Behavior: isolative, minimal interaction with peers Mood: Cooperative Affect: blunted, constricted Thought process: still somewhat disorganized Thought Content: Having a BM Cognition: A/O X 2 Insight: impaired Judgment: fair Interventions PRN's: none Therapeutic interventions: 1:1 assessment, therapeutic listening, encouragement to take meds, medication administration/education/monitoring, redirection, re-assurance, verbal de-escalation, encouragement to shower/perform ADL care, encouragement to attend groups, Q 15 minute safety checks. Restraints/seclusion/emergency medication: N/A Justification of Continued Inpatient Treatment: Pt continues to have pressured, somewhat disorganized speech, she is still easily frustrated and irritated, she reluctantly is taking her meds with compliants of side effects, she remains suspicious/distrustful of staff, she needs further medication adjustment and management. She is homeless, she has no means of providing for her basic needs; food, clothing, and halfway at this time.
[2019-03-27] MEDS: LORazepam 1 MG tablet PO PRN (18:53)
[2019-03-27 20:46] VITALS: BP 101/63
[2019-03-27] MEDS: lithium carbonate 150mg capsule PO SCH (21:07)
--- NOTE | 2019-03-28 01:55 | NUR ---
Nursing Progress Note: Legal hold: 5249 Client on involuntary status for GD Report received from nurse with use of SBAR: TRUNG Jack Why are they here: Pt was walking into traffic and was nonsensical and unable to formulate rational plan for self care. BIB [facility] on 5149. Assessment What happened this shift: Received patient resting in bed at shift change. Pt opened her eyes when RN entered room and introduced self. Pt was pleasant and smiled in response. Pt requested and Ativan reporting her anxiety to be a 7/10. 1:1 assessment was performed at bedside. Pt denied SI, A/VH. This business writer was able to ask serval questions with responses from patient. Asked how she liked group, it was long. When asked where patient was from pt stated she was from [place], [place] and she had been in [place] since November. This business writer asked what brought her to [place] and pt shrugged her shoulders. Pt knew she was at [facility] and when asked what brought her her she stated mental health. It was then pt got agitated and said too many questions. But pt still remained calmed, no outbursts. Pts last lithium level was < 0.3 on 03/16/19. Next [place] level will be drawn 03/28/19 @ 0700. S/I, H/I: None reported or observed. Pt denies A/VH: None reported or observed. Pt denies Sleep: See sleep assessment notation ADL's: Independent Group attendance: shift manager, no group Were meds taken: Pt medication compliant Any med S/E: None reported or observed Mental Status Exam Appearance: Unkempt, in green scrubs Eye contact: Fair Behavior: Cooperative, isolative Mood: Pleasant Affect: Blunted, constricted, with some brightening Thought process: Still somewhat disorganized Thought Content: Suspicious Cognition: A/O X 2 Insight: Impaired Judgment: Poor Interventions PRN's: Ativan Therapeutic interventions: 1:1 assessment, therapeutic listening, encouragement to take meds, medication administration/education/monitoring, redirection, re-assurance, verbal de-escalation, encouragement to shower/perform ADL care, encouragement to attend groups, Q 15 minute safety checks. Restraints/seclusion/emergency medication: N/A Justification of Continued Inpatient Treatment: Pt is improving with her mood and medication compliance, but continues to have pressured, somewhat disorganized speech, she is still easily frustrated and irritated. She remains suspicious/distrustful of staff, she needs further medication adjustment and management. She is homeless, she has no means of providing for her basic needs; food, clothing, and fdc at this time.
[2019-03-28] MEDS: risperiDONE 2mg tablet PO SCH ×2 (07:45→21:21)
[2019-03-28 08:00] VITALS: BP_SYST 100; BP_SYST 120; BP_DIAS 70; BP_DIAS 84
--- NOTE | 2019-03-28 13:54 | NUR ---
Nursing Progress Note: Legal hold: 5249 Client on involuntary status for GD Report received from nurse with use of SBAR: Nida, charge coordinator Why are they here: Pt was walking into traffic and was nonsensical and unable to formulate rational plan for self care. BIB [facility] on 5149. Assessment Patient was asleep at change of shift and up before breakfast Patient allowed physical assessment and allowed mental health assessment. Patient denies being depressed, denies hearing voices, denies suicidal/homicidal ideation. Patient smiled during assessment. RN painted pt's finger nails and patient also wanted her toe nails painted. Patient has thick fungus infected toe nails. Patient took her medication today without any problem. Patient went to morning group. Patient had an interview for [facility] and was accepted. Patient should have a bed by Monday or Monday and patient seemed content with that. S/I, H/I: Pt denies A/VH: Pt denies Sleep: Slept 8 hours ADL's: Independent Group attendance: Yes Were meds taken: Yes Any med S/E: none seen Mental Status Exam Appearance: Clean, neat, dressed in clean hospital scrubs Eye contact: Fair Behavior: isolative, minimal interaction with peers Mood: Cooperative Affect: blunted, constricted Thought process: still somewhat disorganized Thought Content: Having a BM Cognition: A/O X 2 Insight: impaired Judgment: fair Interventions PRN's: none Therapeutic interventions: 1:1 assessment, therapeutic listening, encouragement to take meds, medication administration/education/monitoring, redirection, re-assurance, verbal de-escalation, encouragement to shower/perform ADL care, encouragement to attend groups, Q 15 minute safety checks. Restraints/seclusion/emergency medication: N/A Justification of Continued Inpatient Treatment: Pt continues to have pressured, somewhat disorganized speech, she is still easily frustrated and irritated, she reluctantly is taking her meds with compliants of side effects, she remains suspicious/distrustful of staff, she needs further medication adjustment and management. She is homeless, she has no means of providing for her basic needs; food, clothing, and half-way at this time.
--- NOTE | 2019-03-28 14:18 | NUR ---
Eating well, PO intake 75-100%. LBM documented on 03/23, five days ago. Patient last received milk of magnesia yesterday. Recommend to continue this to promote bowel movement. Will continue to follow. Recommendations: 1) Continue regular diet 2) Continue bowel care 3) Weekly wt Addendum: 03/28/19 at [address] Amended: Links added.
--- NOTE | 2019-03-28 16:38 | NUR ---
DISCHARGE PLANNING: Onofre from [facility]] interviewed and accepted pt today. E-mailed Justina to confirm bed availability and she said bed should be available Monday or Monday of next week and she will phone Iveth on Monday to confirm. Phoned Dunia of [facility] @ [facility] to update that pt had been accepted to [facility]] & when bed will be available. She inquired if pt hospitalization for further stabilization will continue into next week. This writer producer explained I was unsure but would speak w/ DrSpike and give her an update tomorrow, as she and [facility] Lee, are not there on the weekends. Also gave her SW, Iveth's phone number, as I won't be here next Monday. Pt also has [facility] physician for a PCP w/ follow-up appt. and will be referred for therapy and psychiatric care by her PCP. Livia Mistry, ACSW
[2019-03-28] MEDS: LORazepam 1 MG tablet PO PRN (18:03)
[2019-03-28 19:00] VITALS: BP 96/59
[2019-03-28] MEDS: lithium carbonate 150mg capsule PO SCH (21:21)
--- NOTE | 2019-03-29 01:02 | NUR ---
Nursing Progress Note: Legal hold: 5249 Client on involuntary status for GD Report received from nurse with use of SBAR: TRUNG Mae Why are they here: Pt was walking into traffic and was nonsensical and unable to formulate rational plan for self care. BIB [facility] on 5150. Assessment What happened this shift: Received patient resting in bed at shift change. No apparent distress noted. 1:1 assessment done at bedside, pt refused skin assessment. Pt was cooperative and calm, said thank you and smiled after mediation administration. Pt was medication compliant. Pt was not as talkative tonight as she was last night. Pt was unsure when her last BM was, no c/o of any GI issues reported. Pt denied any SI, A/VH. Pt denies depression and anxiety. S/I, H/I: None reported or observed. Pt denies A/VH: None reported or observed. Pt denies Sleep: See sleep assessment notation ADL's: Independent, with minimal encouragement Group attendance: neuro urologist, no group Were meds taken: Pt medication compliant Any med S/E: None reported or observed Mental Status Exam Appearance: Clean, unkempt, appropriately dressed for unit Eye contact: Good Behavior: Cooperative, isolative Mood: Pleasant Affect: Blunted, constricted Thought process: Still somewhat disorganized Thought Content: Unable to assess, minimal interaction Cognition: A/O X 2 Insight: Impaired Judgment: Poor Interventions PRN's: None Therapeutic interventions: 1:1 assessment, therapeutic listening, encouragement to take meds, medication administration/education/monitoring, redirection, re-assurance, verbal de-escalation, encouragement to shower/perform ADL care, encouragement to attend groups, Q 15 minute safety checks. Restraints/seclusion/emergency medication: N/A Justification of Continued Inpatient Treatment: Pt is improving with her mood and medication compliance, but continues to have pressured, somewhat disorganized speech, she is still easily frustrated and irritated. She remains suspicious/distrustful of staff, she needs further medication adjustment and management. She is homeless, she has no means of providing for her basic needs; food, clothing, and prison at this time.
[2019-03-29] MEDS: risperiDONE 2mg tablet PO SCH ×2 (07:42→20:23)
[2019-03-29 08:00] VITALS: BP 94/66
[2019-03-29] MEDS ORDERED: paliperidone palmitate inj 234 MG/1.5 ML SYRINGE IM ONE (13:55)
--- NOTE | 2019-03-29 15:20 | NUR ---
Nursing Progress Note: Legal hold: 5249 Client on involuntary status for GD Report received from nurse with use of SBAR: TRUNG [place] Why are they here: Pt was walking into traffic and was nonsensical and unable to formulate rational plan for self care. BIB [facility] on 0. Assessment What happened this shift: Pt up for breakfast, allowed physical assessment, took routine Risperdal. Pt is avoidant of staff, becomes irritated with prolonged staff interaction, declines to answer mental health questions. Pt was convinced that she was being discharged today, when attempted reality orientation she became irritable and said, "no, it's today." PA ordered Invega Sustenna 234 mg IM today. Pt initially refused but with much encouragement from charge nurse and this RN, agreed to accept the medication. Injection given in left deltoid at 1432. S/I, H/I: No indication, pt declined to answer the questions A/VH: Does not seem to be responding to internal stimuli, declined to answer the questions Sleep: Slept per noc shift report, naps after meals ADL's: Independent Group attendance: Pt declined to attend group today Were meds taken: Yes Any med S/E: None reported or observed Mental Status Exam Appearance: Clean, appropriate Eye contact: Good Behavior: Cooperative, isolative to self, somewhat avoidant of staff Mood: irritable Affect: Blunted, constricted Thought process: linear, goal oriented Thought Content: focused on discharge Cognition: A/O X 3 Insight: poor Judgment: Poor Interventions PRN's: None Therapeutic interventions: 1:1 assessment, encouragement to take meds, medication administration/education/monitoring, reality orientation, encouragement to shower/perform ADL care, encouragement to attend groups, Q 15 minute safety checks. Restraints/seclusion/emergency medication: N/A Justification of Continued Inpatient Treatment: Pt is improving with her mood and medication compliance, she received first dose of Invega Sustenna today, she continues to have poor insight and judgement, is restricted and isolative to self. Pt is homeless, she has no means of providing for her basic needs; food, clothing, and nursing home at this time.
[2019-03-29 19:00] VITALS: BP 102/67
[2019-03-29] MEDS: lithium carbonate 150mg capsule PO SCH (20:15)
--- NOTE | 2019-03-30 00:59 | NUR ---
Nursing Progress Note: Legal hold: 5250 Exp 04/01/19 @ 1045 Client on involuntary status for GD Report received from nurse with use of SBAR: TRUNG Mae Why are they here: Pt was walking into traffic and was nonsensical and unable to formulate rational plan for self care. BIB [facility] on 5150. Assessment What happened this shift: Patient was resting in bed at shift change, with no distress noted. Pt was cooperative, but appeared to be more fatigued then the last two nights. Pt did not make eye contact and was not very talkative. When asked how she was feeling, pt respond with fine. Patient became irritated when HS medications were offered. Pt had become agitated and stated I am full of medicine. Her speech was mumbled and rambling. Pt allowed the 1:1 assessment, took her [place] and refused her Risperadal. Pt though she didnt have to take any more PO medications since she had had the Invega injection. Later in the shift this RN heard pt in her room talking to herself and towards the window. Another time pt got out of bed walking the halls, still not making sense in her speech. Pt was able to be redirected. Pt became restless. This RN was able to get pt back to bed. Pt stated she was hungry, so a burrito was given to her. Pt still appeared to be distracted, but eventually went to sleep. Pt received her first Invega Sustenna 234 mg IM injection. Monitored pt throughout shift q15 min checks. S/I, H/I: None reported, observed A/VH: None reported. 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 Were meds taken: Except for Risperdal Any med S/E: None reported Mental Status Exam Appearance: Clean, appropriate Eye contact: Good Behavior: Cooperative, isolative Mood: Quiet, confused Affect: Blunted, constricted Thought process: Disorganized Thought Content: Unable to assess, minimal interaction Cognition: A/O X 2 Insight: Poor Judgment: Poor Interventions PRN's: None Therapeutic interventions: 1:1 assessment, therapeutic listening, encouragement to take meds, medication administration/education/monitoring, redirection, re-assurance, verbal de-escalation, encouragement to shower/perform ADL care, encouragement to attend groups, Q 15 minute safety checks. Restraints/seclusion/emergency medication: N/A Justification of Continued Inpatient Treatment: Pt is improving with her mood and medication compliance, she received first dose of Invega Sustenna during day shift. She continues to have poor insight and judgment, is restricted and isolative to self. Pt is homeless, she has no means of providing for her basic needs; food,
[2019-03-30 08:00] VITALS: BP 101/59
[2019-03-30] MEDS: risperiDONE 2mg tablet PO SCH ×2 (08:00→20:10)
[2019-03-30] MEDS: magnesium hydroxide 30ml (MOM) UD suspension PO PRN (08:44)
[2019-03-30] MEDS: acetaminophen 325mg tablet PO PRN (08:47)
--- NOTE | 2019-03-30 15:09 | NUR ---
Nursing Progress Note: Legal hold: 5250 Exp 04/01/19 @ 1045 Client on involuntary status for GD Report received from nurse with use of SBAR: TRUNG Dallas Why are they here: Pt was walking into traffic and was nonsensical and unable to formulate rational plan for self care. BIB [facility] on 5150. Assessment What happened this shift: Pt requested MOM for constipation this morning, given at 0847. Pt c/o left arm pain 08/06, assessed Invega injection site left deltoid, no redness or swelling noted medicated with Tylenol 650 mg at 0847 with good effect. Pt thanked this nurse for the Tylenol and MOM, "thank you, appreciate it." Pt was cooperative with her physical assessment, refused Risperdal despite encouragement and repeated attempts stating, "I'm not doing Risperdal because I had the shot." Pt was alert, out of room for meals and to watch TV, continues to have minimal interactions with staff and to isolate to self. S/I, H/I: Pt declined to answer the questions A/VH: Pt declined to answer the questions Sleep: Pt returns to bed to nap after meals (not a new behavior for her.) ADL's: Independent Group attendance: Pt declines to attend groups Were meds taken: Pt refused Risperdal (had Invega Sustenna Injection 234 mg yesterday) Any med S/E: None noted or reported Mental Status Exam Appearance: Clean, appropriate Eye contact: Good Behavior: Cooperative, isolative Mood: Quiet Affect: Blunted, constricted, walks around with unhappy almost pouty look on face Thought process: Linear Thought Content: Pt believes since she had an Invega injection that she does not need to take PO psych meds anymore Cognition: A/O X 3 Insight: Poor Judgment: Poor Interventions PRN's: MOM, Tylenol Therapeutic interventions: 1:1 assessment, therapeutic listening, encouragement to take meds, medication administration/education/monitoring, encouragement to shower/perform ADL care, encouragement to attend groups, Q 15 minute safety checks. Restraints/seclusion/emergency medication: N/A Justification of Continued Inpatient Treatment: Pt is improving with her mood and medication compliance, she received first dose of Invega Sustenna yesterday. She continues to have poor insight and judgment, is restricted and isolative to self. Pt is homeless, unable to formulate a viable plan for food, clothing, long-term. Plan is to discharge to [facility] Monday or Monday.
[2019-03-30 19:00] VITALS: BP 106/68
[2019-03-30] MEDS: lithium carbonate 150mg capsule PO SCH (20:10)
[2019-03-30] MEDS: LORazepam 1 MG tablet PO PRN (20:10)
--- NOTE | 2019-03-30 22:23 | NUR ---
Nursing Progress Note: Legal hold: 5250 Exp 04/01/19 @ 1045 Client on involuntary status for GD Report received from nurse with use of SBAR: TRUNG Mae Why are they here: Pt was walking into traffic and was nonsensical and unable to formulate rational plan for self care. BIB [facility] on 5150. Assessment What happened this shift: The patient was found sleeping at shift change. She was later woken for 1:1. She agreed to assessment, but would not let me touch her. She did not look at me, and gave very little interaction. The patient will mumble answers, sometimes ramble about nonsense. She denies SI, AV/H. States that she will DC Monday to [facility]. The patient mumbled something about getting "the shot". When her HS meds brought to her, she refused Risperdal, stating, "I got the shot, I'm not taking any more medication." After HS meds, the patient lay back down and went to sleep. she remains in her bed sleeping at this time. S/I, H/I: Denies A/VH: Denies, but can be heard talking to herself. 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 Thought process: Disorganized Thought Content: Unable to assess, minimal interaction Cognition: A/O X 2 Insight: Poor Judgment: Poor Interventions PRN's: None Therapeutic interventions: 1:1 assessment, therapeutic listening, encouragement to take meds, medication administration/education/monitoring, redirection, re-assurance, verbal de-escalation, encouragement to shower/perform ADL care, encouragement to attend groups, Q 15 minute safety checks. Restraints/seclusion/emergency medication: N/A Justification of Continued Inpatient Treatment: Pt is improving with her mood and medication compliance, she received first dose of Invega Sustenna during day shift. She continues to have poor insight and judgment, is restricted and isolative to self. Pt is homeless, she has no means of providing for her basic needs; food,
[2019-03-31 08:00] VITALS: BP 104/59
[2019-03-31] MEDS: risperiDONE 2mg tablet PO SCH ×2 (08:32→21:16)
[2019-03-31] MEDS: mag hydrox/Alum hydrox/simeth 30ml oral suspension PO PRN (08:37)
--- NOTE | 2019-03-31 12:27 | NUR ---
reassessment: Pt PO 100% meals meeting needs. LBM 03/28 receiving MoM for constipation. Will continue to monitor. Recommendations: 1) Continue regular diet 2) routine bowel care 3) Weekly wt Addendum: 03/31/19 at [address] Amended: Links added.
[2019-03-31] MEDS: acetaminophen 325mg tablet PO PRN ×2 (13:49→23:41)
--- NOTE | 2019-03-31 15:40 | NUR ---
Nursing Progress Note: Legal hold: 5250 Exp 04/01/19 @ 1045 Client on involuntary status for GD Report received from nurse with use of ANDREE and Eamon BACON Why are they here: Pt was walking into traffic and was nonsensical and unable to formulate rational plan for self care. BIB [facility] on 5149. Assessment What happened this shift: Received pt in bed sleeping with normal respirations and w/o distress. She attended breakfast with others and took AM meds. Pt c/o stomach upset and was given maalox with good effect. Pt continues to be alert, out of room for meals and to watch TV, but have minimal interactions with staff and to isolate to self. Pleasant mood and restricted affect with mild delay in responses. Although napping at times during day, she spent more time walking the halls and sitting in the group room. Pt knows she has been accepted at the [facility] and wants to go tomorrow, but explained to her that a bed needs to become available first. She seemed satisfied with that explanation. Received tylenol for MALONE with good results. S/I, H/I: Pt declined to answer the questions A/VH: Pt declined to answer the questions Sleep: Pt returns to bed to nap after meals (not a new behavior for her.) ADL's: Independent Group attendance: No Were meds taken: Yes Any med S/E: None noted or reported Mental Status Exam Appearance: In green scrubs Eye contact: Good Behavior: Cooperative, isolative Mood: Quiet Affect: Blunted, constricted Thought process: Linear Thought Content: Leaving unit to [facility] Cognition: A/O X 3 Insight: Poor Judgment: Poor Interventions PRN's: Maalox, Tylenol Therapeutic interventions: 1:1 assessment, therapeutic listening, encouragement to take meds, medication administration/education/monitoring, encouragement to shower/perform ADL care, encouragement to attend groups, Q 15 minute safety checks. Restraints/seclusion/emergency medication: N/A Justification of Continued Inpatient Treatment: Pt is improving with her mood and medication compliance, she received first dose of Invega Sustenna recently. She continues to have poor insight and judgment, is restricted and isolative to self. Pt is homeless, unable to formulate a viable plan for food, clothing, halfway. Plan is to discharge to [facility] Monday or Monday.
[2019-03-31 19:50] VITALS: BP 98/54
[2019-03-31] MEDS: lithium carbonate 150mg capsule PO SCH (21:15)
[2019-03-31] MEDS: LORazepam 1 MG tablet PO PRN (23:41)
--- NOTE | 2019-04-01 01:43 | NUR ---
Nursing Progress Note: Legal hold: 5250 Exp 04/01/19 @ 1045 Client on involuntary status for GD Report received from nurse with use of ANDREE and Angel RN Why are they here: Pt was walking into traffic and was nonsensical and unable to formulate rational plan for self care. BIB [facility] on 5149. Assessment What happened this shift: pt was laying in bed at change of shift. 1:1 assessment completed at bedside. Pt states she is here "because I stayed at [facility] for 3 days." Pt denies s/i, denies h/i, doesnt answer questions about a/vh. Pts feet are dirty dry and cracked, encouraged pt to shower, and/or soak her feet and offered lotion, but pt declined. Pt reports she went to group contrary to notes but she states they talked about "anger" but she offers no other information. pt gives one word answers to most questions and keeps her eyes closed while talking w/me. pt is med compliant. S/I, H/I: Pt denies A/VH: Pt doesn't answer Sleep: pt states sleep is good ADL's: independent, needs encouragement Group attendance: No Were meds taken: Yes Any med S/E: None noted or reported Mental Status Exam Appearance: Disheveled, wearing flip flops and green scrubs in bed. Eye contact: Good Behavior: Cooperative, isolative Mood: smiling pleasant when awake Affect: constricted Thought process: Linear, guarded Thought Content: Leaving unit to [facility] Cognition: A/O X 3 Insight: Poor Judgment: Poor Interventions PRN's: Maalox, Tylenol Therapeutic interventions: 1:1 assessment, therapeutic listening, encouragement to take meds, medication administration/education/monitoring, encouragement to shower/perform ADL care, encouragement to attend groups, Q 15 minute safety checks. Restraints/seclusion/emergency medication: N/A Justification of Continued Inpatient Treatment: Pt is improving with her mood and medication compliance, she received first dose of Invega Sustenna recently. She continues to have poor insight and judgment, is restricted and isolative to self. Pt is homeless, unable to formulate a viable plan for food, clothing, chcf. Plan is to discharge to [facility] Monday or Monday.
[2019-04-01] MEDS: risperiDONE 2mg tablet PO SCH (07:44)
[2019-04-01 08:00] VITALS: BP 109/59
[2019-04-01] MEDS ORDERED: LITH150C8 PO (11:37)
[2019-04-01] MEDS ORDERED: RISP2TAB3 PO (11:37)
[2019-04-01] MEDS ORDERED: RISP0.5T3 PO (11:37)
--- NOTE | 2019-04-01 14:20 | NUR ---
DISCHARGE NOTE The patient was discharged today at 1420. She was picked up by a certified driver examiner from [facility] and escorted to the [facility]. She left with all belongings, medications and instructions. She stated "I'm glad I'm leaving." Denies suicidal thoughts and is able to understand instructions.
== END 2019-04-01 14:20 | disposition short-term general hospital (02) | DRG 885 ==
LOC: ADULT MH 10:50
PROVIDERS: ADMIT Psychiatry & Neurology Psychiatry; ATTEND Psychiatry & Neurology Psychiatry
DX: F20.9 Schizophrenia, unspecified (principal); R45.851 Suicidal ideations; F32.9 Major depressive disorder, single episode, unspecified; F15.10 Other stimulant abuse, uncomplicated; F17.210 Nicotine dependence, cigarettes, uncomplicated; F17.200 Nicotine dependence, unspecified, uncomplicated; Z59.0 Homelessness; Z71.51 Drug abuse counseling and surveillance of drug abuser; Z71.6 Tobacco abuse counseling; Z79.899 Other long term (current) drug therapy
CPT/HCPCS: 36415; 80053; 80061; 80178; 83036; 87070; Q0177

== ENCOUNTER 2019-06-19 09:30 | Inpatient (IN) | payer MEDICAID, MEDICARE ==
[~2019-06-19] VITALS: Ht 185.4 cm; Wt 105.0 kg
[~2019-06-19 09:30] MED LIST changes: +LITH150C8 PO; -NO HOME MEDS; +RISP0.5T3 PO; +RISP2TAB3 PO
--- NOTE | 2019-06-19 12:22 | NUR ---
Admission Note: Patient brought in by [facility]'s officer from senior care in handcuffs at 1222 Patient was not happy coming here because they told her she was being discharged from senior care. Patient did not know she was being transferred to [facility]. Patient is considered gravely disabled and psychotic. Patient on a 1370. Patient was arrested in December for Public intoxication (ETOH or Drugs), probably meth. Patient incompetent to stand trial.
[2019-06-19] MEDS ORDERED: NICOTINE POLACRILEX 2 MG LOZENGE MM PRN (12:35)
[2019-06-19] MEDS ORDERED: loperamide 2mg capsule PO PRN (12:35)
[2019-06-19] MEDS ORDERED: LORazepam 1 MG tablet PO PRN (12:35)
[2019-06-19] MEDS ORDERED: hydrOXYzine 25 MG tablet PO PRN (12:35)
[2019-06-19] MEDS ORDERED: tuberculin, purif. prot. deriv. 5 units/0.1ml ID ONE (12:35)
--- NOTE | 2019-06-19 17:59 | NUR ---
Nursing Progress Note: Legal hold: Court competency 1370 Client on involuntary status for GD Why are they here: Patient was arrested in December for public intoxication in [place]. Patient as psychotic and kept for danger to self. Patient incompetent to stand trial. Assessment What has happened this shift: Patient speaking fast and sometimes slurs her speech. Patient is cooperative. Patient is still delusional and states she had a baby in [facility] in April. Patient states she has had 100s of babies in her sleep and in long term. Patient denies SI/HI/AV. Patient also remembers being here before and asked RN if she would paint her nails (because this RN painted them during her last visit). Patient states she has a HX of bipolar d/o and denies schizophrenia. Patient is somewhat childlike. 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 No nicotine patches needed. Patient got some new clothes and stated she wants to take a shower tomorrow and shave her legs. S/I, H/I: Pt denies A/VH: Pt denies. Sleep: none today ADLs: Independent, Group attendance: afternoon group Were meds taken: no Any med S/E : n/a Mental Status Exam Appearance: Disheveled hair. Clean clothes given Eye contact: good Behavior: Social and asked for a roommate Speech: fast and sometimes slurred due to speed Mood: pleasant Affect: Flat Thought process: Delusional at times Thought Content: unknown Cognition: A/O X 3 Insight: fair Judgment: fair Interventions PRN's used: None Therapeutic interventions: 1:1 assessment, encouragement to express thoughts and feelings, encouragement to lie on his bed instead of on the hard floor, encouragement to perform personal hygiene, reality orientation, medication administration/education/monitoring, lab draws, Q15 minute safety checks Restraints/seclusion/emergency medication: N/A Justification of Continued Inpatient Treatment: Pt gravely disabled and on a court competency 1370, remains delusional and disorganized.
--- NOTE | 2019-06-19 19:24 | NUR ---
PPD Patient had PPD placed on 03/16/19 it was read on 03/18/19, PPD Negative on 03/18/19. See medical record.
[2019-06-19 20:00] VITALS: BP 96/59
[2019-06-19 20:47] LABS: CLARITY,URINE CLEAR (Clear); COLOR,URINE STRAW (Yellow); GLUCOSE, URINE NEGATIVE (Neg); KETONES,URINE NEGATIVE (Neg); LEUKOCYTE ESTERASE ,URINE SMALL (Neg); NITRITES, URINE NEGATIVE (Neg); OCCULT BLOOD,URINE TRACE-INTACT (Neg); PROTEIN,URINE NEGATIVE (Neg); UROBILINOGEN,URINE 0.2 E.U/dL (0.2-1.0)
[2019-06-19 20:50] LABS: UA COLLECTION TYPE CLN CATCH MIDSTREAM
[2019-06-19] MEDS: benztropine 1mg tablet PO SCH (20:55)
[2019-06-19 20:56] LABS: BACTERIA,URINE 2+ /HPF (Neg); RBC,URINE NONE SEEN /HPF (0-2); SQUAMOUS EPITHELIAL CELL,UR MODERATE /LPF (FEW)
[2019-06-19] MEDS: lithium carbonate 150mg capsule PO SCH (20:56)
[2019-06-19] MEDS: LORazepam 1 MG tablet PO SCH (20:56)
[2019-06-19] MEDS: docusate sod 100mg capsule PO SCH (20:57)
[2019-06-19] MEDS: OLANZapine 2.5MG tablet PO SCH (20:57)
[2019-06-19] MEDS ORDERED: LORazepam 1 MG tablet PO SCH (21:00)
--- NOTE | 2019-06-20 00:40 | NUR ---
Nursing Progress Note: Legal hold: Court competency 1370 Client on involuntary status for GD Report received from ARLEEN Ortiz Why are they here: Patient was arrested in December for public intoxication in [place]. Patient is psychotic and kept for danger to self. Patient incompetent to stand trial. Assessment What has happened this shift: Patient is up walk the unit at change of shift. She interacts with others and is seen both in the recreation room and group room. Patient makes delusional statements about being stating "I feel flutters." Patients stomach is soft, non-tender and flat when examined. The Dr orders a UA for patient, instructed patient how to do a clean catch urine and provided her with towelettes and a specimen cup. Patient states holding towelettes "I don't want these to steal my sleep tonight, are you sure these are not going to steal my sleep?" Informed patient they were just to clean herself. She was hesitant and made a couple more delusional statements about the towelettes stealing her sleep, and not wanting to use them because of that. With encouragement patient agreed to use them, she requested that staff stand outside restroom door while UA was collected "Just in case." UA was obtained and sent to lab. Patient spends the rest of the evening on the unit before turning to bed after evening snack and HS medications. S/I, H/I: Pt denies A/VH: Pt denies. Sleep: See sleep assessment ADLs: Independent/ Wants shower tomorrow Group attendance: No groups this shift Were meds taken: Yes Any med S/E : None reported or observed Mental Status Exam Appearance: Appropriate, wearing clean clothes Eye contact: Good Behavior: Social and asked for a roommate Speech: Fast, loud and then mumbles at times making it hard to understand her. Mood: Pleasant Affect: Congruent to mood Thought process: Delusional at times Thought Content: Concerned about things stealing her slep Cognition: A/O X 3 Insight: Poor Judgment: Poor Interventions PRN's used: None Therapeutic interventions: 1:1 assessment, encouragement to express thoughts and feelings, encouragement to lie on his bed instead of on the hard floor, encouragement to perform personal hygiene, reality orientation, medication administration/education/monitoring, lab draws, Q15 minute safety checks Restraints/seclusion/emergency medication: N/A Justification of Continued Inpatient Treatment: Pt gravely disabled and on a court competency 1370, remains delusional and disorganized.
[2019-06-20 07:26] LABS: HEMOGLOBIN A1C 5.3 % (4.5-6.2)
[2019-06-20 07:31] LABS: CHOL/HDL RATIO 3.1 (0.00-4.99); CHOLESTEROL 115 MG/DL (0-200); HDL CHOLESTEROL 37 MG/DL (35-60); LDL CHOLESTEROL 68 MG/DL (50-100); TRIGLYCERIDES 60 MG/DL (20-135)
[2019-06-20 08:00] VITALS: BP 111/74
[2019-06-20] MEDS: nicotine 21mg patch - 24 hr TD SCH (08:00)
[2019-06-20] MEDS: risperiDONE 2mg tablet PO SCH (08:15)
[2019-06-20] MEDS: lithium carbonate 150mg capsule PO SCH ×2 (08:15→21:28)
[2019-06-20] MEDS: benztropine 1mg tablet PO SCH ×2 (08:16→21:28)
[2019-06-20] MEDS: docusate sod 100mg capsule PO SCH ×2 (08:16→21:27)
[2019-06-20] MEDS: magnesium hydroxide 30ml (MOM) UD suspension PO PRN (09:19)
--- NOTE | 2019-06-20 17:45 | NUR ---
Nursing Progress Note: Legal hold: Court competency 1370 Client on involuntary status for GD Report received from ARLEEN Alva Why are they here: Patient was arrested in December for public intoxication in [place]. Patient is psychotic and kept for danger to self. Patient incompetent to stand trial. Assessment What has happened this shift: Pt. sleeping at start of shift. Pt. took medications and ate all meals. Pt. seen socializing with peers and is engaging appropriately with staff and pt.s. 1:1 done at bedside. Pt. reports she feels happy. Pt.'s mood is euthymic. Pt. is hyperverbal and mumbles when she talks. Pt. requested milk of magnesia for constipation. Power showered. Pt. states, "I'm happy to be here but I want to go to the [facility]". Patient is up walk the unit at change of shift. She interacts with others and is seen both in the recreation room and group room. Patient makes delusional statements about being stating "I feel flutters." Patients stomach is soft, non-tender and flat when examined. The Dr orders a UA for patient, instructed patient how to do a clean catch urine and provided her with towelettes and a specimen cup. Patient states holding towelettes "I don't want these to steal my sleep tonight, are you sure these are not going to steal my sleep?" Informed patient they were just to clean herself. She was hesitant and made a couple more delusional statements about the towelettes stealing her sleep, and not wanting to use them because of that. With encouragement patient agreed to use them, she requested that staff stand outside restroom door while UA was collected "Just in case." UA was obtained and sent to lab. Patient spends the rest of the evening on the unit before turning to bed after evening snack and HS medications. S/I, H/I: Pt denies A/VH: Pt denies. Sleep: See sleep assessment ADLs: Independent. Pt. showered. Group attendance: Pt. went to all groups. Were meds taken: Yes Any med S/E : None reported or observed Mental Status Exam Appearance: Appropriate, wearing clean clothes, showered. Eye contact: Good Behavior: Socializing with peers, watching TV in community room, going to groups. Speech: Pt. is hyperverbal and mumbles. Mood: Pleasant Affect: Congruent to mood Thought process: Linear Thought Content: Pt. focused on going to the [facility] as soon as possible. Cognition: A/O X 4 Insight: Poor Judgment: Poor Interventions PRN's used: Milk of magnesia Therapeutic interventions: 1:1 assessment, encouragement to express thoughts and feelings, encouragement to lie on his bed instead of on the hard floor, encouragement to perform personal hygiene, reality orientation, medication administration/education/monitoring, lab draws, Q15 minute safety checks Restraints/seclusion/emergency medication: N/A Justification of Continued Inpatient Treatment: Pt gravely disabled and on a court competency 1370, remains delusional and disorganized.
[2019-06-20 19:42] VITALS: BP 84/50
[2019-06-20 20:04] VITALS: BP 115/81
[2019-06-20] MEDS: LORazepam 1 MG tablet PO SCH (21:25)
[2019-06-20] MEDS: OLANZapine 2.5MG tablet PO SCH (21:27)
--- NOTE | 2019-06-21 00:19 | NUR ---
Nursing Progress Note: Legal hold: Court competency 1370 Client on involuntary status for GD Report received from TRUNG Che Why are they here: Patient was arrested in December for public intoxication in [place]. Patient is psychotic and kept for danger to self. Patient incompetent to stand trial. Assessment What has happened this shift: Patient asleep at the beginning of shift. Pleasant and cooperative but patient in and out of sleep during assessment and medication pass. Compliant with all medication. Only offered "yes" and "no" answers. Lee not answer open-ended questions. S/I, H/I: Pt denies A/VH: Pt denies. Sleep: asleep at this time ADLs: Independent. Group attendance: no Were meds taken: Yes Any med S/E : None reported or observed Mental Status Exam Appearance: clean, appropriately dressed. Eye contact: Good Behavior: tired Speech: clear, answers before end of question, only providing "yes, no" answers Mood: Pleasant, tired Affect: Congruent to mood Thought process: Linear Thought Content: sleep Cognition: A/O X 4 Insight: Poor Judgment: Poor Interventions PRN's used: none Therapeutic interventions: 1:1 assessment, encouragement to express thoughts and feelings, encouragement to lie on his bed instead of on the hard floor, encouragement to perform personal hygiene, reality orientation, medication administration/education/monitoring, lab draws, Q15 minute safety checks Restraints/seclusion/emergency medication: N/A Justification of Continued Inpatient Treatment: Pt gravely disabled and on a court competency 1370, remains delusional and disorganized.
[2019-06-21] MEDS: docusate sod 100mg capsule PO SCH ×2 (08:00→20:14)
[2019-06-21] MEDS: lithium carbonate 150mg capsule PO SCH ×2 (08:00→20:18)
[2019-06-21] MEDS: nicotine 21mg patch - 24 hr TD SCH (08:00)
[2019-06-21] MEDS: risperiDONE 2mg tablet PO SCH (08:01)
[2019-06-21] MEDS: benztropine 1mg tablet PO SCH ×2 (08:01→20:13)
[2019-06-21 08:02] VITALS: BP 97/73
[2019-06-21 09:02] LABS: BASOPHILS # (AUTO) 0.1 X10'3 (0-0.2); BASOPHILS % (AUTO) 0.8 % (0-1); EOSINOPHILS # (AUTO) 0.2 X10'3 (0-0.9); EOSINOPHILS % (AUTO) 2.8 % (0-6); HEMATOCRIT 36.6 % (35.0-45.0); HEMOGLOBIN 12.2 g/dl (12.0-16.0); LYMPHOCYTES # (AUTO) 2.2 X10'3 (1.1-4.8); LYMPHOCYTES % (AUTO) 31.2 % (21-51); MEAN CORPUSCULAR HEMOGLOBIN 29.4 PG (27.0-31.0); MEAN CORPUSCULAR HGB CONC 33.2 g/dL (33.0-36.5); MEAN CORPUSCULAR VOLUME 88.3 FL (78-98); MEAN PLATELET VOLUME 8.7 FL (7.4-10.4); MONOCYTES # (AUTO) 0.5 X10'3 (0-0.9); MONOCYTES % (AUTO) 6.5 % (2-12); NEUTROPHILS # (AUTO) 4.2 X10'3 (1.8-7.7); NEUTROPHILS % (AUTO) 58.7 % (42-75); PLATELET COUNT 403 X10'3 (140-440); RED BLOOD COUNT 4.14 X10'6 (4.20-5.60); RED CELL DISTRIBUTION WIDTH 15.4 % (11.5-14.5); WHITE BLOOD COUNT 7.1 X10'3 (4.5-11.0)
[2019-06-21] MEDS: magnesium hydroxide 30ml (MOM) UD suspension PO PRN (10:17)
[2019-06-21 11:50] LABS: PREOP URINE HCG NEGATIVE (NEGATIVE)
--- NOTE | 2019-06-21 17:30 | NUR ---
Nursing Progress Note: Legal hold: Court competency 1370 Client on involuntary status for GD Report received from ARLEEN Alva Why are they here: Patient was arrested in December for public intoxication in [place]. Patient is psychotic and kept for danger to self. Patient incompetent to stand trial. Assessment What has happened this shift: Pt. asleep at start of shift. Pt. took all medications and ate all meals. Pt. pleasant and cooperative, napping multiple times during shift but getting up for groups. Pt. seen socializing with other peers and interacts with staff appropriately. Pt. had bowel movement x2 today. 1:1 done at bedside, pt. is hyperverbal and delusional, talking about having a baby at [facility]. Pt.'s urine HCG is negative. Pt. became increasingly more hyperverbal in afternoon, Pt. very focused on discharge. Pt. states, "I'm not crazy, I'm just half-[place]... If I have to stay here, it's better than long term." Pt. started on Clozapine today. S/I, H/I: Pt denies A/VH: Pt denies. Sleep: 9 hours ADLs: Independent. Group attendance: Pt. went to all groups. Were meds taken: Yes Any med S/E : None reported or observed Mental Status Exam Appearance: Appropriate, wearing clean clothes, showered. Eye contact: Good Behavior: Socializing with peers, watching TV in community room, going to groups. Speech: Pt. is hyperverbal and mumbles. Mood: Pleasant Affect: Congruent to mood Thought process: Linear Thought Content: Pt. focused on going to the [facility], but states, "here is better than long term". Cognition: A/O X 4 Insight: Poor Judgment: Poor Interventions PRN's used: Milk of magnesia Therapeutic interventions: 1:1 assessment, encouragement to express thoughts and feelings, encouragement to lie on his bed instead of on the hard floor, encouragement to perform personal hygiene, reality orientation, medication administration/education/monitoring, lab draws, Q15 minute safety checks Restraints/seclusion/emergency medication: N/A Justification of Continued Inpatient Treatment: Pt gravely disabled and on a court competency 1370, remains delusional and disorganized.
[2019-06-21 20:00] VITALS: BP 105/66
[2019-06-21] MEDS: acetaminophen 325mg tablet PO PRN (20:16)
[2019-06-21] MEDS: olanzapine 10mg tablet PO SCH (20:17)
[2019-06-21] MEDS: LORazepam 1 MG tablet PO SCH (20:24)
[2019-06-21] MEDS ORDERED: clozapine 25mg tablet PO SCH (21:00)
[2019-06-21] MEDS ORDERED: CLOZAPINE 25 MG PO SCH (21:00)
[2019-06-21] MEDS ORDERED: olanzapine 10mg tablet PO SCH (21:00)
--- NOTE | 2019-06-22 00:52 | NUR ---
Nursing Progress Note: Legal hold: Court competency 1370 Client on involuntary status for GD Report received from TRUNG Che Why are they here: Patient was arrested in December for public intoxication in [place]. Patient is psychotic and kept for danger to self. Patient incompetent to stand trial. Assessment What has happened this shift: Patient asleep laying in bed at the beginning of shift. Stated she wanted to go to bed early because her hair is messy. When this publications writer asked how her day went she stated "I just want to go to sleep, will you please leave?" Shortly after patient asked for this publications writer to go into her room to talk. The patient stated, "I need a new psychiatrist" following quickly "I just don't like that bacilio, i just don't like him. He keeps talking to everyone out there about me." This nurse explained that her doctor is here to help her but she rambled on saying, "you see I talk like this because I am [place] and he is trying to change my medication to take the Uzbek out of me." This nurse then was able to redirect her with explaining that her medication helped the night before and her doctor is trying to continue to help her, she then stated "yes, they did work last night. Can you help me with my meds?" This nurse explained that later in the night I would be the on to give her her medication and I would be happy to help her. She then walked down to the group room and began watching a movie where she remained through snack and medication pass. Patient was compliant with all medications. C/O knee pain when weight applied. PRN Tylenol provided and effective. Went to sleep shortly after. S/I, H/I: denies A/VH: denies. Sleep: asleep at this time ADLs: Independent. Group attendance: group to watch tv and eat snack. Were meds taken: Yes Any med S/E : None reported or observed Mental Status Exam Appearance: wearing green scrubs with a sweater too small for her. Eye contact: Good Behavior: delusional, paranoid Speech: spontaneous Mood: agitated Affect: Congruent to mood Thought process: tangential Thought Content: paranoid delusions Cognition: A/O X 4 Insight: Poor Judgment: Poor Interventions PRN's used: Tylenol for knee pain, effective. Therapeutic interventions: 1:1 assessment, encouragement to express thoughts and feelings, encouragement to lie on his bed instead of on the hard floor, encouragement to perform personal hygiene, reality orientation, medication administration/education/monitoring, lab draws, Q15 minute safety checks Restraints/seclusion/emergency medication: N/A Justification of Continued Inpatient Treatment: Pt gravely disabled and on a court competency 1370, remains delusional and disorganized.
[2019-06-22 07:30] VITALS: BP 92/60
[2019-06-22] MEDS: acetaminophen 325mg tablet PO PRN ×2 (07:55→16:32)
[2019-06-22] MEDS: lithium carbonate 150mg capsule PO SCH ×2 (07:56→20:27)
[2019-06-22] MEDS: docusate sod 100mg capsule PO SCH ×2 (07:56→20:28)
[2019-06-22] MEDS: benztropine 1mg tablet PO SCH ×2 (07:56→20:29)
[2019-06-22] MEDS: nicotine 21mg patch - 24 hr TD SCH (07:58)
--- NOTE | 2019-06-22 17:45 | NUR ---
Nursing Progress Note: Legal hold: Court competency 1370 Client on involuntary status for GD Report received from ARLEEN Alva Why are they here: Patient was arrested in December for public intoxication in [place]. Patient is psychotic and kept for danger to self. Patient incompetent to stand trial. Assessment What has happened this shift: Pt. is pleasant and cooperative, deneis SI, HI, A/V H. eats meals in community room, and takes all medications. Pt. seen engaging with peers appropriately. Pt. reports feeling tired and slept most of the morning after she ate her breakfast. Pt. attended groups. Pt. is hyperverbal and mumbles at times in low tone and can be difficult to understand. Pt. recieved Tylenol 650mg for bilateral knee pain with good effect. S/I, H/I: Pt denies A/VH: Pt denies. Sleep: 7.75 hours ADLs: Independent. Group attendance: Pt. went to all groups. Were meds taken: Yes Any med S/E : None reported or observed Mental Status Exam Appearance: Appropriate, wearing clean clothes, showered. Eye contact: Good Behavior: Socializing with peers, watching TV in community room, going to groups. Speech: Pt. is hyperverbal and mumbles in low tone at times which can be difficult to understand. Mood: Pleasant Affect: Congruent to mood Thought process: Linear Thought Content: Pt. focused on going to the [facility] Cognition: A/O X 4 Insight: Poor Judgment: Poor Interventions PRN's used: Tylenol Therapeutic interventions: 1:1 assessment, encouragement to express thoughts and feelings, encouragement to lie on his bed instead of on the hard floor, encouragement to perform personal hygiene, reality orientation, medication administration/education/monitoring, lab draws, Q15 minute safety checks Restraints/seclusion/emergency medication: N/A Justification of Continued Inpatient Treatment: Pt gravely disabled and on a court competency 1370, remains delusional and disorganized.
[2019-06-22 19:37] VITALS: BP 103/73
[2019-06-22] MEDS: LORazepam 1 MG tablet PO SCH (20:26)
[2019-06-22] MEDS: olanzapine 10mg tablet PO SCH (20:28)
[2019-06-22] MEDS: clozapine 25mg tablet PO SCH (20:41)
--- NOTE | 2019-06-23 03:10 | NUR ---
Nursing Progress Note: Legal hold: Court competency 1370 Client on involuntary status for GD Report received from TRUNG Che Why are they here: Patient was arrested in December for public intoxication in [place]. Patient is psychotic and kept for danger to self. Patient incompetent to stand trial. Assessment What has happened this shift: Patient in group room watching a movie at the beginning of shift where she remained until med pass. Compliant with all medication. Patient walked up to this nurse a reflected on moment the previous night; with a smile stated "I apologize for asking you to leave last night, I just wanted sleep." Went to bed shortly after where she has remained. S/I, H/I: denies A/VH: denies. Sleep: asleep at this time ADLs: Independent. Group attendance: group room for snack and movie Were meds taken: Yes Any med S/E : None reported or observed Mental Status Exam Appearance: Appropriate, clean. Eye contact: Good Behavior: pleasant, cooperative, sat in group room for snack and movie. Speech: Pt. is hyperverbal and mumbles in low tone Mood: Pleasant Affect: Congruent to mood Thought process: Linear Thought Content: explaining event of previous day Cognition: A/O X 4 Insight: Poor Judgment: Poor Interventions PRN's used: None at this time Therapeutic interventions: 1:1 assessment, encouragement to express thoughts and feelings, encouragement to lie on his bed instead of on the hard floor, encouragement to perform personal hygiene, reality orientation, medication administration/education/monitoring, lab draws, Q15 minute safety checks Restraints/seclusion/emergency medication: N/A Justification of Continued Inpatient Treatment: Pt gravely disabled and on a court competency 1370, remains delusional and disorganized.
[2019-06-23] MEDS: nicotine 21mg patch - 24 hr TD SCH (08:00)
[2019-06-23] MEDS: docusate sod 100mg capsule PO SCH ×2 (08:40→20:47)
[2019-06-23] MEDS: benztropine 1mg tablet PO SCH ×2 (08:40→20:47)
[2019-06-23] MEDS: lithium carbonate 150mg capsule PO SCH ×2 (08:41→20:47)
[2019-06-23 08:43] VITALS: BP 97/63
[2019-06-23] MEDS: magnesium hydroxide 30ml (MOM) UD suspension PO PRN (13:02)
--- NOTE | 2019-06-23 16:48 | NUR ---
Client on involuntary status for GD Report received from Adriana Cruz RN Why are they here: Patient was arrested in December for public intoxication in [place]. Patient is psychotic and kept for danger to self. Patient incompetent to stand trial. Assessment What has happened this shift: Patient is observed sleeping at change of shift. After breakfast she takes her medications without any issue. She states that she is tired and is going to sleep a bit. She is pleasant and smiles. She states that she has not had a bowel movement since 06/20 and requests MOM. She states she is not concerned because her last one was very large but is worried about hardness. MOM administered. Requested dietary add Power Pudding to each meal tray. She attends all groups and is observed being friendly and conversational with peers and staff throughout the day. She states she is happy because she feels like she is getting a second chance. S/I, H/I: Pt denies A/VH: Pt denies. Sleep: 8.25hrs NOC and rested during the day ADLs: Independent, showered today Group attendance: Pt. went to all groups. Were meds taken: Yes Any med S/E : None reported or observed Mental Status Exam Appearance: Appropriate, wearing clean clothes, showered. Eye contact: direct Behavior: cooperative and friendly Speech: mumbles in low tone at times which can be difficult to understand. Mood: content, happy Affect: Congruent to mood Thought process: Linear Thought Content: Pt. focused on going to the [facility] Cognition: A/O X 4 Insight: Poor Judgment: Poor Interventions PRN's used: MOM for constipation Therapeutic interventions: 1:1 therapeutic assessment, maintained safe therapeutic milieu, provided active listening with positive reinforcement, provided medication administration/education/monitoring as needed; Q15 safety checks. Restraints/seclusion/emergency medication: N/A Justification of Continued Inpatient Treatment: Pt gravely disabled and on a court competency 1370, remains delusional and disorganized.
[2019-06-23] MEDS: acetaminophen 325mg tablet PO PRN (17:28)
[2019-06-23 19:55] VITALS: BP 114/81
[2019-06-23] MEDS: LORazepam 1 MG tablet PO SCH (20:47)
[2019-06-23] MEDS: clozapine 25mg tablet PO SCH (20:48)
[2019-06-23] MEDS: olanzapine 10mg tablet PO SCH (20:48)
--- NOTE | 2019-06-24 00:46 | NUR ---
Nursing Progress Note: Legal hold: Court competency 1370 Client on involuntary status for GD Report received from TRUNG Che Why are they here: Patient was arrested in December for public intoxication in [place]. Patient is psychotic and kept for danger to self. Patient incompetent to stand trial. Assessment What has happened this shift: The patient was seen in her room at bedside for 1:1. The patient reports that she was just "sunning my breasts" when she got arrested. "The police are brutal, they hurt me." The patient spent the evening watching tv. She's hoping to get to the [facility], then to the [facility] after a month. She states that she has an appointment on July 01, that can't be missed. "I'll be out of here by then, right?" The patient went to bed after HS med pass. She was pleasant, happy, and med compliant. S/I, H/I: Denies A/VH: Denies. Sleep: See sleep hours ADLs: Independent. Group attendance: No groups at night. Were meds taken: Yes Any med S/E : None reported or observed Mental Status Exam Appearance: Appropriate, clean. Eye contact: Good Behavior: Pleasant, cooperative, Speech: Normal speech. Sometimes hyperverbal. Mood: Pleasant. Affect: Congruent to mood Thought process: Linear Thought Content: Worried about an appointment on Jul.01. Cognition: A/O X 4 Insight: Poor Judgment: Poor Interventions PRN's used: None at this time Therapeutic interventions: 1:1 assessment, encouragement to express thoughts and feelings, encouragement to lie on his bed instead of on the hard floor, encouragement to perform personal hygiene, reality orientation, medication administration/education/monitoring, lab draws, Q15 minute safety checks Restraints/seclusion/emergency medication: N/A Justification of Continued Inpatient Treatment: Pt gravely disabled and on a court competency 1370, remains delusional and disorganized.
[2019-06-24] MEDS: nicotine 21mg patch - 24 hr TD SCH (08:00)
[2019-06-24] MEDS: docusate sod 100mg capsule PO SCH ×2 (08:14→20:27)
[2019-06-24] MEDS: benztropine 1mg tablet PO SCH ×2 (08:14→20:27)
[2019-06-24] MEDS: lithium carbonate 150mg capsule PO SCH ×2 (08:14→20:27)
[2019-06-24 08:57] VITALS: BP 90/62
--- NOTE | 2019-06-24 11:04 | NUR ---
Initial: Pt admit w/ psychosis PO 100% regular diet meeting needs. LBM 06/21. No nutrition concerns at this time. Will continue to monitor. Addendum: 06/24/19 at [address] Amended: Links added.
--- NOTE | 2019-06-24 17:45 | NUR ---
Nursing Progress Note: Legal hold: Court competency 1370 Client on involuntary status for GD Report received from ARLEEN Lindsey Why are they here: Patient was arrested in December for public intoxication in [place]. Patient is psychotic and kept for danger to self. Patient incompetent to stand trial. Assessment What has happened this shift: Pt. sleeping at beginning of shift. Pt. ate all meals in community room. Pt. seen socializing with peers and watching TV. Pt. calm and cooperative, pt. seen interacting appropriately with peers and staff, although pt. is hyperverbal and mumbles when talking. Pt. took all medications. Pt. states, "I stayed awake this morning because I'm not so tired this morning". Pt. denies SI/HI, A/V H. S/I, H/I: Pt denies A/VH: Pt denies. Sleep: 8 hours ADLs: Independent. Pt. showered this shift. Group attendance: Pt. went to all groups. Were meds taken: Yes Any med S/E : None reported or observed Mental Status Exam Appearance: Appropriate, wearing clean clothes, showered. Eye contact: Good Behavior: Socializing with peers, watching TV in community room, going to groups. Speech: Pt. is hyperverbal and mumbles in low tone at times which can be difficult to understand. Mood: Pleasant Affect: Congruent to mood Thought process: Linear Thought Content: Pt. focused on discharge Cognition: A/O X 4 Insight: Poor Judgment: Poor Interventions PRN's used: Therapeutic interventions: 1:1 assessment, encouragement to express thoughts and feelings, encouragement to lie on his bed instead of on the hard floor, encouragement to perform personal hygiene, reality orientation, medication administration/education/monitoring, lab draws, Q15 minute safety checks Restraints/seclusion/emergency medication: N/A Justification of Continued Inpatient Treatment: Pt gravely disabled and on a court competency 1370, remains delusional and disorganized.
[2019-06-24 20:00] VITALS: BP 114/79
[2019-06-24] MEDS: LORazepam 1 MG tablet PO SCH (20:27)
[2019-06-24] MEDS: clozapine 25mg tablet PO SCH (20:28)
[2019-06-24] MEDS: olanzapine 10mg tablet PO SCH (20:28)
[2019-06-24] MEDS ORDERED: clozapine 25mg tablet PO SCH (21:00)
--- NOTE | 2019-06-25 01:04 | NUR ---
Nursing Progress Note: Legal hold: Court competency 1370 Client on involuntary status for GD Report received from TRUNG Che Why are they here: Patient was arrested in December for public intoxication in [place]. Patient is psychotic and kept for danger to self. Patient incompetent to stand trial. Assessment: What has happened this shift: the patient was seen in the group room at shift change. She later agreed to 1:1 at her bedside. She reports that she feels good today. "I've showered 4 days in a row now, and I feel good." She says that she slept poorly last night, but still have a "great mood." The patient remains hyperverbal, and is easily distracted, but is able to answer questions adequately. She likes to be around other people and socializes with her peers in the group room. The patient is concerned about when she leaves here, she will still have no ID. "I need help, I don't have ID, and don't know what to do to get it." S/I, H/I: Denies A/VH: Denies. Sleep: See sleep hours ADLs: Independent. Group attendance: No groups at night. Were meds taken: Yes Any med S/E : None reported or observed Mental Status Exam: Appearance: Appropriate, wearing street clothes, clean, showered again today. Eye contact: Good Behavior: Pleasant, cooperative, Speech: Normal speech. Sometimes pressured and hyperverbal. Mood: "Great". Affect: Congruent to mood Thought process: Linear, logical Thought Content: Worried about an appointment on Jul.01. Cognition: A/O X 4 Insight: Poor Judgment: Poor Interventions: PRN's used: None at this time Therapeutic interventions: 1:1 assessment, encouragement to express thoughts and feelings, encouragement to lie on his bed instead of on the hard floor, encouragement to perform personal hygiene, reality orientation, medication administration/education/monitoring, lab draws, Q15 minute safety checks Restraints/seclusion/emergency medication: N/A Justification of Continued Inpatient Treatment: Pt gravely disabled and on a court competency 1370, remains delusional and disorganized.
[2019-06-25] MEDS: docusate sod 100mg capsule PO SCH ×2 (07:55→20:24)
[2019-06-25] MEDS: benztropine 1mg tablet PO SCH ×2 (07:55→20:24)
[2019-06-25] MEDS: lithium carbonate 150mg capsule PO SCH ×2 (07:55→20:24)
[2019-06-25 08:00] VITALS: BP 106/67
[2019-06-25] MEDS: nicotine 21mg patch - 24 hr TD SCH (08:00)
[2019-06-25] MEDS: acetaminophen 325mg tablet PO PRN ×2 (10:55→20:24)
--- NOTE | 2019-06-25 17:41 | NUR ---
Nursing Progress Note: Legal hold: Court competency 1370 Client on involuntary status for GD Report received from ARLEEN Shaw Why are they here: Patient was arrested in December for public intoxication in [place]. Patient is psychotic and kept for danger to self. Patient incompetent to stand trial. Assessment What has happened this shift: Pt. sleeping at beginning of shift. Pt. ate all meals in community room. Pt. seen socializing with peers and watching TV. Pt. pleasant and cooperative, pt. seen interacting appropriately with peers and staff, although pt. is hyperverbal and mumbles when talking. Pt. took all medications. Pt. napped x1 this AM for 2 hrs. Pt. denies SI/HI, A/V H. Pt. continues to report 7/10 pain in right knee and walks with a limp. Pt. given Tylenol 650mg with limited effect. S/I, H/I: Pt denies A/VH: Pt denies. Sleep: 11.25 hours ADLs: Independent. Pt. showered this shift. Group attendance: Pt. went to all groups. Were meds taken: Yes Any med S/E : None reported or observed Mental Status Exam Appearance: Appropriate, wearing clean clothes, showered. Eye contact: Good Behavior: Socializing with peers, watching TV in community room, going to groups. Speech: Pt. is hyperverbal and mumbles in low tone at times which can be difficult to understand. Mood: Pleasant Affect: Congruent to mood Thought process: Linear Thought Content: Pt. focused on getting into clothes closet. Cognition: A/O X 4 Insight: Poor Judgment: Poor Interventions PRN's used: Therapeutic interventions: 1:1 assessment, encouragement to express thoughts and feelings, encouragement to lie on his bed instead of on the hard floor, encouragement to perform personal hygiene, reality orientation, medication administration/education/monitoring, lab draws, Q15 minute safety checks Restraints/seclusion/emergency medication: N/A Justification of Continued Inpatient Treatment: Pt gravely disabled and on a court competency 1370, remains delusional and disorganized.
[2019-06-25 19:29] VITALS: BP 109/71
[2019-06-25] MEDS: OLANZAPINE 5 MG TABLET PO SCH (20:24)
[2019-06-25] MEDS: LORazepam 1 MG tablet PO SCH (20:24)
[2019-06-25] MEDS: clozapine 25mg tablet PO SCH (20:26)
[2019-06-25] MEDS: clozapine 100mg tablet PO SCH (20:48)
--- NOTE | 2019-06-26 04:00 | NUR ---
Nursing Progress Note: Legal hold: Court competency 1370 Client on involuntary status for GD Report received from ARLEEN Morales Why are they here: Patient was arrested in December for public intoxication in [place]. Patient is psychotic and kept for danger to self. Patient incompetent to stand trial. Assessment What has happened this shift: Pt was watching tv at beginning of shift. Pt. seen socializing with peers and watching TV. Pt. pleasant and cooperative. When asked about why she is here pt reported that the police incorrectly believed that she was drunk because she was acting childlike and sunning her breasts. Pt believes that she wasnt doing anything wrong to warrant an arrest. Pt. took all medications, including tylenol for knee pain. S/I, H/I: Pt denies A/VH: Pt denies. Sleep: see sleep hours ADLs: Independent. Group attendance: Pt. went to all groups. Were meds taken: Yes Any med S/E : None reported or observed Mental Status Exam Appearance: Appropriate, wearing clean clothes, showered. Eye contact: Good Behavior: Socializing with peers, watching TV in community room, going to groups. Speech: hyperverbal Mood: Pleasant Affect: Congruent to mood Thought process: Linear Thought Content: Pt. Focused on Jul [address] Cognition: A/O X 4 Insight: Poor Judgment: Poor Interventions PRN's used: tylenol Therapeutic interventions: 1:1 assessment, medication administration/education/monitoring, Q15 minute safety checks Restraints/seclusion/emergency medication: N/A Justification of Continued Inpatient Treatment: Pt gravely disabled and on a court competency 1370, remains delusional and disorganized.
[2019-06-26] MEDS: benztropine 1mg tablet PO SCH ×2 (07:46→20:00)
[2019-06-26] MEDS: docusate sod 100mg capsule PO SCH ×2 (07:46→19:59)
[2019-06-26] MEDS: lithium carbonate 150mg capsule PO SCH ×2 (07:46→20:01)
[2019-06-26] MEDS: nicotine 21mg patch - 24 hr TD SCH (07:47)
[2019-06-26 08:00] VITALS: BP 101/65
[2019-06-26] MEDS: acetaminophen 325mg tablet PO PRN (17:15)
--- NOTE | 2019-06-26 17:45 | NUR ---
Nursing Progress Note: Legal hold: Court competency 1370 Client on involuntary status for GD Report received from ARLEEN Shaw Why are they here: Patient was arrested in December for public intoxication in [place]. Patient is psychotic and kept for danger to self. Patient incompetent to stand trial. Assessment What has happened this shift: Pt. sleeping at start of shift. Pt. took medications and ate meals. Pt. sleeping at beginning of shift. Pt. ate all meals in community room. Pt. seen socializing with peers and watching TV. Pt. pleasant and cooperative, pt. seen interacting appropriately with peers and staff, although pt. is hyperverbal and mumbles when talking. Pt. took all medications. Pt. napped x1 this AM for 2 hrs. Pt. denies SI/HI, A/V H. Pt. continues to report 7/10 pain in right knee and walks with a limp. Pt. given Tylenol 650mg with limited effect. Pt. says that her pain is from a "super glue burn and that there is blood in the need that needs to be let out", when asking questions about it, pt. became defensive and says, "don't talk to me like a child" S/I, H/I: Pt denies A/VH: Pt denies. Sleep: 9 hours with naps. ADLs: Independent. Pt. showered this shift. Group attendance: Pt. went to all groups. Were meds taken: Yes Any med S/E : None reported or observed Mental Status Exam Appearance: Appropriate, wearing clean clothes, showered. Eye contact: Good Behavior: Socializing with peers, watching TV in community room, going to groups. Speech: Pt. is hyperverbal and mumbles in low tone at times which can be difficult to understand. Mood: Pleasant Affect: Congruent to mood Thought process: Linear Thought Content: Pt. focused on getting into clothes closet. Cognition: A/O X 4 Insight: Poor Judgment: Poor Interventions PRN's used: Therapeutic interventions: 1:1 assessment, encouragement to express thoughts and feelings, encouragement to lie on his bed instead of on the hard floor, encouragement to perform personal hygiene, reality orientation, medication administration/education/monitoring, lab draws, Q15 minute safety checks Restraints/seclusion/emergency medication: N/A Justification of Continued Inpatient Treatment: Pt gravely disabled and on a court competency 1370, remains delusional and disorganized.
[2019-06-26] MEDS: ibuprofen 200mg tablet PO PRN (18:44)
[2019-06-26 19:40] VITALS: BP 123/75
[2019-06-26] MEDS: OLANZAPINE 5 MG TABLET PO SCH (20:00)
[2019-06-26] MEDS: LORazepam 1 MG tablet PO SCH (20:02)
[2019-06-26] MEDS: clozapine 25mg tablet PO SCH (20:02)
[2019-06-26] MEDS: clozapine 100mg tablet PO SCH (20:02)
[2019-06-26] MEDS ORDERED: clozapine 25mg tablet PO SCH (21:00)
--- NOTE | 2019-06-27 01:24 | NUR ---
Nursing Progress Note: Legal hold: Court competency 1370 Client on involuntary status for GD Report received from TRUNG Uribe Why are they here: Patient was arrested in December for public intoxication in [place]. Patient is psychotic and kept for danger to self. Patient incompetent to stand trial. Assessment What has happened this shift: Patient watching TV in rec room at the beginning of shift. C/O knee pain when weight bearing. PRN Motrin provided upon request. Patient complaint with all medication and physical assessment. Went to group room for snack and went to bed shortly after. Denied S/HI, A/VH, depression. Responded to all questions before this nurse asked complete questions with "yes" and "no" answers. Stated when she talks her mouth makes bubbles and that was frustrating her. When this chart writer asked about her day, she stated "good." S/I, H/I: Pt denies A/VH: Pt denies. Sleep: asleep at this time ADLs: Independent. Pt. showered this shift. Group attendance: group room for snack. Were meds taken: Yes Any med S/E : None reported or observed Mental Status Exam Appearance: Appropriate, wearing clean clothes, hair brushed Eye contact: Good Behavior: visible on the unit, Speech: hyperverbal, short answers, mumbles Mood: "good" Affect: Congruent to mood Thought process: Linear Thought Content: amount of medications she takes. Cognition: A/O X 4 Insight: Poor Judgment: Poor Interventions PRN's used: Motrin for R knee pain, effective Therapeutic interventions: 1:1 assessment, encouragement to express thoughts and feelings, encouragement to lie on his bed instead of on the hard floor, encouragement to perform personal hygiene, reality orientation, medication administration/education/monitoring, lab draws, Q15 minute safety checks Restraints/seclusion/emergency medication: no Justification of Continued Inpatient Treatment: Pt gravely disabled and on a court competency 1370, remains delusional and disorganized.
[2019-06-27 07:50] VITALS: BP 102/65
[2019-06-27] MEDS: docusate sod 100mg capsule PO SCH ×2 (07:51→21:28)
[2019-06-27] MEDS: benztropine 1mg tablet PO SCH ×2 (07:51→21:29)
[2019-06-27] MEDS: lithium carbonate 150mg capsule PO SCH ×2 (07:52→21:28)
[2019-06-27] MEDS: nicotine 21mg patch - 24 hr TD SCH (07:55)
[2019-06-27] MEDS: magnesium hydroxide 30ml (MOM) UD suspension PO PRN (10:33)
[2019-06-27] MEDS: ibuprofen 200mg tablet PO PRN ×2 (10:35→16:48)
--- NOTE | 2019-06-27 13:52 | NUR ---
Nursing Progress Note: Legal hold: Court competency 1370 Client on involuntary status for GD Report received from TRUNG Muro Why are they here: Patient was arrested in December for public intoxication in [place]. Patient is psychotic and kept for danger to self. Patient incompetent to stand trial. Assessment: What has happened this shift: Pt denied depression, SI/HI/AH/VH, became irritable during the questions and asked, "why do you guys always ask me all this?" Pt was anxious about having a court date on Monday and worried she was going to get in trouble if she didn't appear. Reminded pt that the courts know she is here, met with ALLEGRA Bhakta who explained to pt that the doctor and the hospital communicate with the court to let them know if she is ready to stand trial or not, reassured pt she would not get in trouble. Pt stated, "I'm ready but I know you guys are gonna say that I'm not." Pt c/o constipation, stated, "I might need a glove to dig it out." Asked pt not to do that, encouraged her to try a laxative, gave MOM at 1033. Pt c/o right knee pain 710 at 1035, medicated with prn Motrin 600 mg with good effect. Pt refused her nicotine patch this morning stating, "I don't want it...I never wear them." Pharmacy called to say that the [facility] program is not wanting pharmacy to dispense the medication. Notified Dr Tse, he will contact [facility]. S/I, H/I: Pt denies A/VH: Pt denies. Sleep: Slept 8.25 hours per noc shift report ADLs: Independent, showered today. Group attendance: Yes Were meds taken: Yes Any med S/E : None reported or observed Mental Status Exam: Appearance: Clean, dressed in street clothes Eye contact: Good Behavior: Pleasant, cooperative, restless Speech: Somewhat pressured, mumbled/slurred words at times. Mood: mostly pleasant, some mild irritability during physical and mental health assessments Affect: Congruent Thought process: mild disorganization/reality distortion, responds well to reality orientation Thought Content: anxious about court hearings and proceedings, irritated by repeated questions/assessments by nurses. Cognition: A/O X 4 Insight: Poor Judgment: Poor Interventions: PRN's used: HANNAH Jessica Therapeutic interventions: 1:1 assessment, therapeutic conversation, reality orientation, medication administration/education/monitoring, encouragement to attend groups, Q15 minute safety checks Restraints/seclusion/emergency medication: N/A Justification of Continued Inpatient Treatment: Pt gravely disabled and on a court competency 1370, improving but not yet competent fo stand trial.
[2019-06-27 20:00] VITALS: BP 118/76
[2019-06-27] MEDS ORDERED: clozapine 25mg tablet PO SCH (21:00)
[2019-06-27] MEDS: OLANZAPINE 5 MG TABLET PO SCH (21:28)
[2019-06-27] MEDS: LORazepam 1 MG tablet PO SCH (21:29)
[2019-06-27] MEDS: clozapine 100mg tablet PO SCH (21:29)
--- NOTE | 2019-06-27 23:35 | NUR ---
Nursing Progress Note: Legal hold: Court competency 1370 Client on involuntary status for GD Report received from TRUNG Mae Why are they here: Patient was arrested in December for public intoxication in [place]. Patient is psychotic and kept for danger to self. Patient incompetent to stand trial. Assessment What has happened this shift: Patient visible on the unit and socializing with peers at the beginning of shift. Ate snack in group room and laid in bed shortly after snack. Patient compliant with all medication and physical assessment. Clozapine increased to 175mg and no ASE observed or reported. Patient appeared tired at med pass as she kept closing her eyes and starting to sleep between physical assessment and medications but remained pleasant and cooperative. S/I, H/I: Pt denies A/VH: Pt denies. Sleep: asleep at this time ADLs: Independent. Group attendance: group room for snack. Were meds taken: Yes Any med S/E : None reported or observed Mental Status Exam Appearance: Appropriate, wearing clean clothes, hair brushed and out of her face. Eye contact: Good Behavior: pleasant, cooperative, socializing Speech: hyperverbal, short answers, mumbles Mood: "good" Affect: Congruent to mood Thought process: Linear Thought Content: amount of medications she takes. Cognition: A/O X 4 Insight: Poor Judgment: Poor Interventions PRN's used: none at this time Therapeutic interventions: 1:1 assessment, encouragement to express thoughts and feelings, encouragement to lie on his bed instead of on the hard floor, encouragement to perform personal hygiene, reality orientation, medication administration/education/monitoring, lab draws, Q15 minute safety checks Restraints/seclusion/emergency medication: no Justification of Continued Inpatient Treatment: Pt gravely disabled and on a court competency 1370, remains delusional and disorganized.
[2019-06-28 07:00] VITALS: BP 104/66
[2019-06-28] MEDS: docusate sod 100mg capsule PO SCH ×2 (08:06→20:55)
[2019-06-28] MEDS: benztropine 1mg tablet PO SCH ×2 (08:06→20:55)
[2019-06-28] MEDS: lithium carbonate 150mg capsule PO SCH ×2 (08:08→20:55)
[2019-06-28] MEDS: ibuprofen 200mg tablet PO PRN (11:54)
--- NOTE | 2019-06-28 16:00 | NUR ---
Nursing Progress Note Legal hold: Court competency 1370 Client on involuntary status for GD Report received from ARLEEN Clarke Why are they here: Patient was arrested in December for public intoxication in [place]. Patient is psychotic and kept for danger to self. Patient incompetent to stand trial. Assessment: What has happened this shift: Patient awakened for breakfast and medications. She took a nap after breakfast, but has been up social on unit with peers for rest of the day. Pt. states that she is supposed to go to court Monday and informed her that we have contacted everyone and there will be no violation if she does not attend as she is inpatient. Patient verbalizes understanding. Patient asked for and received some clothing from ER donation room. Patient does not like to get into in depth discussions and states "I don't want to talk to you anymore". S/I, H/I: Pt denies A/VH: Pt denies. Sleep: Slept 8.25 hours per noc shift report, napped. ADLs: Independent. Group attendance: Yes Were meds taken: Yes Any med S/E : None reported or observed Mental Status Exam: Appearance: Clean, dressed in street clothes Eye contact: Good Behavior: Pleasant, cooperative, restless Speech: Sometimes slurred words, sometimes clear. Mood: mostly pleasant, some mild irritability during physical and mental health assessments Affect: Blunted. Thought process: mild disorganization/reality distortion. Thought Content: Court appearance, irritated by repeated questions/assessments by nurses. Cognition: A/O X 4 Insight: Poor Judgment: Poor Interventions: PRN's used: Motrin Therapeutic interventions: 1:1 assessment, therapeutic conversation, reality orientation, medication administration/education/monitoring, encouragement to attend groups, Q15 minute safety checks Restraints/seclusion/emergency medication: N/A Justification of Continued Inpatient Treatment: Pt gravely disabled and on a court competency 1370, improving but not yet competent fo stand trial.
[2019-06-28 19:54] VITALS: BP 102/60
[2019-06-28] MEDS: clozapine 100mg tablet PO SCH (20:53)
[2019-06-28] MEDS: OLANZAPINE 5 MG TABLET PO SCH (20:55)
[2019-06-28] MEDS: LORazepam 1 MG tablet PO SCH (20:56)
--- NOTE | 2019-06-29 00:40 | NUR ---
Nursing Progress Note Legal hold: Court competency 1370 Client on involuntary status for GD Report received from TRUNG Mae Why are they here: Patient was arrested in December for public intoxication in [place]. Patient is psychotic and kept for danger to self. Patient incompetent to stand trial. Assessment: What has happened this shift: Patient laying bed asleep at the beginning of shift. She initially refused to physical assessment because she was tired but she did eventually allow this jingle writer to do physical assessment. She was more willing to answer questions about this shift. Stating she wants to discharge to the [facility]. Patient oriented to where she is and the date but did not respond to why she was admitted to the unit. Patient remained compliant with medication. She ate a snack in the group room and shortly after went back to bed where she has remained. S/I, H/I: Pt denies A/VH: Pt denies. Sleep: asleep at this time ADLs: Independent. Group attendance: no Were meds taken: Yes Any med S/E : None reported or observed Mental Status Exam: Appearance: Clean, dressed appropriately for the unit Eye contact: Good Behavior: Pleasant, cooperative, tired Speech: Sometimes slurred, mumbled words, sometimes clear, hyperverbal Mood: lethargic Affect: Blunted. Thought process: mild disorganization/reality distortion. Thought Content: sleep Cognition: A/O X 4 Insight: Poor Judgment: Poor Interventions: PRN's used: none at this time Therapeutic interventions: 1:1 assessment, therapeutic conversation, reality orientation, medication administration/education/monitoring, encouragement to attend groups, Q15 minute safety checks Restraints/seclusion/emergency medication: N/A Justification of Continued Inpatient Treatment: Pt gravely disabled and on a court competency 1370, improving but not yet competent fo stand trial.
[2019-06-29 07:52] VITALS: BP 102/61
[2019-06-29] MEDS: benztropine 1mg tablet PO SCH ×2 (07:58→20:59)
[2019-06-29] MEDS: lithium carbonate 150mg capsule PO SCH ×2 (07:59→20:59)
[2019-06-29] MEDS: docusate sod 100mg capsule PO SCH ×2 (07:59→21:00)
[2019-06-29] MEDS: ibuprofen 200mg tablet PO PRN ×2 (09:53→17:18)
--- NOTE | 2019-06-29 15:57 | NUR ---
Nursing Progress Note Legal hold: Court competency 1370 Client on involuntary status for GD Report with use of SBAR received from TRUNG Kincaid Why are they here: Patient was arrested in December for public intoxication in [place]. Patient is psychotic and kept for danger to self. Patient incompetent to stand trial. Assessment: What has happened this shift: Pt sleeping at the change of shift. She was compliant with medication administration. Pt uncooperative with assessment. She denied depression, anxiety, SI, and A/VH. While continuing the assessment, pt stated, "no, just give me my meds." Her affect was flat. Pt reported 8/10 pain in R knee relieved by PRN Motrin. Pt appears delusional as she talks about blood needing to be drained from her knee. Pt attended groups. S/I, H/I: Denies A/VH: Denies Sleep: Pt did not report any problems with sleep. ADLs: Independent. Group attendance: Yes Were meds taken: Yes Any med S/E : None reported or observed Mental Status Exam: Appearance: Neatly dressed in leggings and dress Eye contact: Direct Behavior: Non-cooperative with assessment Speech: Mumbles Mood: Cooperative much of the time, but irritable with assessment Affect: Blunted. Thought process: Disorganized Thought Content: Pt was concerned about her knee Cognition: A/O X 4 Insight: Poor Judgment: Poor Interventions: PRN's used: Motrin Therapeutic interventions: Establish therapeutic relationship, perform 1:1 assessment, provided active listening, medication education, administration, and monitoring for effects, maintained therapeutic milieu, Q15 min safety checks. Restraints/seclusion/emergency medication: N/A Justification of Continued Inpatient Treatment: Pt gravely disabled and on a 1370 hold to determine competency. Addendum: 06/29/19 at 1656 by Vianca Doll RN Amend: Pt appears to be responding to internal stimuli. As she looks to the side her lips move and she is shaking her head up and down. Will continue to monitor. Addendum: 06/29/19 at 1829 by Vianca Doll RN Please ignore previous amendment, wrong patient.
[2019-06-29 20:00] VITALS: BP 107/44
[2019-06-29] MEDS: clozapine 100mg tablet PO SCH (20:58)
[2019-06-29] MEDS: OLANZAPINE 5 MG TABLET PO SCH (20:59)
[2019-06-29] MEDS: LORazepam 1 MG tablet PO SCH (20:59)
--- NOTE | 2019-06-30 01:08 | NUR ---
Nursing Progress Note Legal hold: Court competency 1370 Client on involuntary status for GD Report received from ARLEEN Mae Why are they here: Patient was arrested in December for public intoxication in [place]. Patient is psychotic and kept for danger to self. Patient incompetent to stand trial. Assessment: What has happened this shift: Awakened for assessment--patent calm Pt. states that she is supposed to go to court Monday and informed her that we have contacted everyone and there will be no violation if she does not attend as she is inpatient. Patient verbalizes understanding. Patient asked for and received some clothing from ER donation room. Patent became ore verbal as assessment was done. Out in the crain once.Patient does not like to get into in depth discussions and states "I don't want to talk to you anymore". S/I, H/I: Pt denies A/VH: Pt denies. Sleep: ADLs: Independent. Group attendance: no Were meds taken: Yes Any med S/E : None reported or observed Mental Status Exam: Appearance: Clean, dressed in street clothes Eye contact: Good Behavior: Pleasant, cooperative, restless Speech: Sometimes slurred words, sometimes clear. Mood: mostly pleasant, some mild irritability during physical and mental health assessments Affect: Blunted. Thought process: mild disorganization/reality distortion. Thought Content: Court appearance, irritated by repeated questions/assessments by nurses. Cognition: A/O X 4 Insight: Poor Judgment: Poor Interventions: 1:1 intervention, more animated as our conversation went on PRN's used: Therapeutic interventions: 1:1 assessment, therapeutic conversation, reality orientation, medication administration/education/monitoring, encouragement to attend groups, Q15 minute safety checks Restraints/seclusion/emergency medication: N/A Justification of Continued Inpatient Treatment: Pt gravely disabled and on a court competency 1370, improving but not yet competent fo stand trial.
[2019-06-30 07:16] LABS: BASOPHILS % (AUTO) 0.6 % (0-1); EOSINOPHILS # (AUTO) 0.3 X10'3 (0-0.9); EOSINOPHILS % (AUTO) 3.9 % (0-6); HEMATOCRIT 37.8 % (35.0-45.0); HEMOGLOBIN 12.6 g/dl (12.0-16.0); LYMPHOCYTES # (AUTO) 1.9 X10'3 (1.1-4.8); LYMPHOCYTES % (AUTO) 25.1 % (21-51); MEAN CORPUSCULAR HEMOGLOBIN 29.2 PG (27.0-31.0); MEAN CORPUSCULAR HGB CONC 33.4 g/dL (33.0-36.5); MEAN CORPUSCULAR VOLUME 87.6 FL (78-98); MEAN PLATELET VOLUME 7.5 FL (7.4-10.4); MONOCYTES # (AUTO) 0.5 X10'3 (0-0.9); MONOCYTES % (AUTO) 6.8 % (2-12); NEUTROPHILS # (AUTO) 4.9 X10'3 (1.8-7.7); NEUTROPHILS % (AUTO) 63.6 % (42-75); PLATELET COUNT 460 X10'3 (140-440); RED BLOOD COUNT 4.31 X10'6 (4.20-5.60); RED CELL DISTRIBUTION WIDTH 15.5 % (11.5-14.5); WHITE BLOOD COUNT 7.7 X10'3 (4.5-11.0)
[2019-06-30 07:30] LABS: ALANINE AMINOTRANSFERASE 16 U/L (12-78); ALBUMIN 2.9 G/DL (3.4-5.0); ALBUMIN/GLOBULIN RATIO 0.6 (1.1-1.5); ALKALINE PHOSPHATASE 71 IU/L (46-116); ANION GAP 5 (8-16); ASPARTATE AMINO TRANSFERASE 13 U/L (10-37); BILIRUBIN,TOTAL 0.2 MG/DL (0.1-1.0); BLOOD UREA NITROGEN 16 MG/DL (7-18); BUN/CREATININE RATIO 23.9 (6.6-38.0); CALCIUM 9.6 MG/DL (8.5-10.1); CHLORIDE 110 MMOL/L (99-107); CREATININE 0.67 MG/DL (0.40-0.90); GLUCOSE 91 MG/DL (70-104); POTASSIUM 4.5 MMOL/L (3.5-5.1); SODIUM 142 MMOL/L (135-145); TOTAL CARBON DIOXIDE 26.7 MMOL/L (24-32); eGFR > 90 ML/MIN
[2019-06-30 07:43] VITALS: BP 110/77
[2019-06-30] MEDS: benztropine 1mg tablet PO SCH ×2 (07:59→20:17)
[2019-06-30] MEDS: docusate sod 100mg capsule PO SCH ×2 (08:00→20:16)
[2019-06-30] MEDS: lithium carbonate 150mg capsule PO SCH ×2 (08:00→20:16)
[2019-06-30] MEDS: magnesium hydroxide 30ml (MOM) UD suspension PO PRN (10:10)
[2019-06-30] MEDS: ibuprofen 200mg tablet PO PRN (12:15)
--- NOTE | 2019-06-30 14:52 | NUR ---
Nursing Progress Note Legal hold: Court competency 1370 Client on involuntary status for GD Report received from Adriana Mckeon RN Why are they here: Patient was arrested in December for public intoxication in [place]. Patient is psychotic and kept for danger to self. Patient incompetent to stand trial. Assessment: What has happened this shift: Patient awakened for breakfast, then took a long nap after breakfast. Has been cooperative and friendly with staff and peers. Patient does not like to be pressed on details and tends to shut down on specifics. Has attended all groups, medication compliant. S/I, H/I: Pt denies A/VH: Pt denies. Sleep: Slept 9.0 hours per noc, napped after breakfast. ADLs: Independent. Group attendance: Yes Were meds taken: Yes Any med S/E : None reported or observed Mental Status Exam: Appearance: Clean, dressed in street clothes Eye contact: Good Behavior: Pleasant, cooperative, restless Speech: Sometimes slurred words with excessive salivation, sometimes clear. Mood: mostly pleasant, some mild irritability during physical and mental health assessments Affect: Blunted. Thought process: Slightly disorganized, guarded, circumstancial. Thought Content: Meeting daily need goals, no complaints. Cognition: A/O X 4 Insight: Poor Judgment: Poor Interventions: PRN's used: Motrin Therapeutic interventions: 1:1 assessment, therapeutic conversation, reality orientation, medication administration/education/monitoring, encouragement to attend groups, Q15 minute safety checks Restraints/seclusion/emergency medication: N/A Justification of Continued Inpatient Treatment: Pt gravely disabled and on a court competency 1370, improving but not yet competent to stand trial.
[2019-06-30] MEDS ORDERED: benztropine 1mg tablet PO ONE (16:10)
[2019-06-30 19:30] VITALS: BP 112/76
[2019-06-30] MEDS: LORazepam 1 MG tablet PO SCH (20:16)
[2019-06-30] MEDS: OLANZAPINE 5 MG TABLET PO SCH (20:17)
[2019-06-30] MEDS: clozapine 100mg tablet PO SCH (20:17)
--- NOTE | 2019-07-01 03:17 | NUR ---
Nursing Progress Note Legal hold: Court competency 1370 Client on involuntary status for GD Report received from ARLEEN Mae Why are they here: Patient was arrested in December for public intoxication in [place]. Patient is psychotic and kept for danger to self. Patient incompetent to stand trial. Assessment: What has happened this shift: Pt watched TV in the community room with her peers and ate snack. She is cooperative with 1:1 assessment and denies any SI/HI/AH/VH. She makes good eye contact and smiles occasionally but is not very talkative. "I am ready for bed." She is medication compliant. S/I, H/I: Pt denies A/VH: Pt denies. Sleep: see sleep assessment notation ADLs: Independent. Group attendance: no Were meds taken: Yes Any med S/E : None reported or observed Mental Status Exam: Appearance: Clean, dressed in street clothes Eye contact: Good Behavior: Pleasant, cooperative, restless Speech: Sometimes slurred words, sometimes clear. Mood: mostly pleasant, some mild irritability during physical and mental health assessments Affect: Blunted. Thought process: mild disorganization/reality distortion. Thought Content: Court appearance, irritated by repeated questions/assessments by nurses. Cognition: A/O X 4 Insight: Poor Judgment: Poor Interventions: 1:1 intervention, more animated as our conversation went on PRN's used: Therapeutic interventions: 1:1 assessment, therapeutic conversation, reality orientation, medication administration/education/monitoring, encouragement to attend groups, Q15 minute safety checks Restraints/seclusion/emergency medication: N/A Justification of Continued Inpatient Treatment: Pt gravely disabled and on a court competency 1370, improving but not yet competent fo stand trial.
[2019-07-01 07:48] VITALS: BP 97/62
[2019-07-01] MEDS: lithium carbonate 150mg capsule PO SCH ×2 (07:56→20:20)
[2019-07-01] MEDS: docusate sod 100mg capsule PO SCH ×2 (07:56→20:21)
[2019-07-01] MEDS: benztropine 1mg tablet PO SCH ×2 (07:56→20:21)
[2019-07-01] MEDS: ibuprofen 200mg tablet PO PRN ×2 (11:01→16:16)
--- NOTE | 2019-07-01 12:41 | NUR ---
Nursing Progress Note Legal hold: Court competency 1370 Client on involuntary status for GD Report received from Adriana Mckeon RN Why are they here: Patient was arrested in December for public intoxication in [place]. Patient is psychotic and kept for danger to self. Patient incompetent to stand trial. Assessment: What has happened this shift: Patient awakened for breakfast. She eats most of her meals, has regular bowel movements, and is compliant with treatment. Patient attends all groups, and takes all medications. S/I, H/I: Pt denies A/VH: Pt denies. Sleep: Slept 8.25 hours per noc, napped after breakfast. ADLs: Independent. Group attendance: Yes Were meds taken: Yes Any med S/E : hypersalivation. Mental Status Exam: Appearance: Clean, dressed in street clothes Eye contact: Good Behavior: Pleasant, cooperative Speech: Sometimes slurred words with excessive salivation, sometimes clear. Mood: mostly pleasant, some mild irritability during physical and mental health assessments Affect: Blunted. Thought process: Slightly disorganized, guarded, circumstantial. Thought Content: Meeting daily need goals, no complaints. Cognition: A/O X 4 Insight: Poor Judgment: Poor Interventions: PRN's used: Motrin Therapeutic interventions: 1:1 assessment, therapeutic conversation, reality orientation, medication administration/education/monitoring, encouragement to attend groups, Q15 minute safety checks Restraints/seclusion/emergency medication: N/A Justification of Continued Inpatient Treatment: Pt gravely disabled and on a court competency 1370, improving but not yet competent to stand trial.
[2019-07-01] MEDS: magnesium hydroxide 30ml (MOM) UD suspension PO PRN (13:05)
[2019-07-01] MEDS: LORazepam 1 MG tablet PO SCH (20:20)
[2019-07-01] MEDS: clozapine 100mg tablet PO SCH (20:21)
[2019-07-01] MEDS: OLANZAPINE 5 MG TABLET PO SCH (20:21)
[2019-07-01 20:23] VITALS: BP 117/82
--- NOTE | 2019-07-02 01:28 | NUR ---
Nursing Progress Note Legal hold: Court competency 1370 Client on involuntary status for GD Report received from ARLEEN Mae Why are they here: Patient was arrested in December for public intoxication in [place]. Patient is psychotic and kept for danger to self. Patient incompetent to stand trial. Assessment: What has happened this shift: Pt sits quietly in the community watching TV or staring across the room. She does not engage with her peers, she keeps to herself. She makes direct eye contact, but does not say much aside from asking for snacks or her HS medications. She does attend group snack time and sit in the community room to eat. When asked how her day was she flatly says, "fine." When asked if she was feeling depressed or suicidal she replies, "no." PT is medication compliant and cooperative with 1:1 assessment. S/I, H/I: Pt denies A/VH: Pt denies. Sleep: ADLs: Independent. Group attendance: no Were meds taken: Yes Any med S/E : None reported or observed Mental Status Exam: Appearance: Clean, dressed in street clothes Eye contact: Good Behavior: Pleasant, cooperative, restless Speech: Sometimes slurred words, sometimes clear. Mood: mostly pleasant, some mild irritability during physical and mental health assessments Affect: Blunted. Thought process: mild disorganization/reality distortion. Thought Content: Court appearance, irritated by repeated questions/assessments by nurses. Cognition: A/O X 4 Insight: Poor Judgment: Poor Interventions: 1:1 intervention, more animated as our conversation went on PRN's used: Therapeutic interventions: 1:1 assessment, therapeutic conversation, reality orientation, medication administration/education/monitoring, encouragement to attend groups, Q15 minute safety checks Restraints/seclusion/emergency medication: N/A Justification of Continued Inpatient Treatment: Pt gravely disabled and on a court competency 1370, improving but not yet competent fo stand trial.
[2019-07-02 07:32] VITALS: BP 95/54
[2019-07-02] MEDS: docusate sod 100mg capsule PO SCH ×2 (07:58→20:15)
[2019-07-02] MEDS: lithium carbonate 150mg capsule PO SCH ×2 (07:58→20:14)
[2019-07-02] MEDS: benztropine 1mg tablet PO SCH ×2 (07:58→20:13)
[2019-07-02] MEDS: ibuprofen 200mg tablet PO PRN ×2 (10:43→18:25)
--- NOTE | 2019-07-02 11:03 | NUR ---
Reassessment: Pt continues meeting nutrient needs with documented 100% PO intake of meals. LBM 07/01. No edema or wounds. No nutrition diagnosis at this time. Will continue to follow. Recommendations: 1) Continue regular diet 2) Routine bowel care 3) Weekly wt Addendum: 07/02/19 at [address] Amended: Links added.
--- NOTE | 2019-07-02 17:17 | NUR ---
Nursing Progress Note Legal hold: Court competency 1370 Client on involuntary status for GD Report received from TRUNG Shaw Why are they here: Patient was arrested in December for public intoxication in [place]. Patient is psychotic and kept for danger to self. Patient incompetent to stand trial. Assessment: What has happened this shift: Pt was asleep at the change of shift. She was compliant with medication administration. She only allowed a partial assessment before she walked away. She denies depression, anxiety, and A/V H. Her affect is flat. Bilateral knee pain was treated with ibuprofen. She attended both AM and PM groups. S/I, H/I: Denies A/VH: Denies. Sleep: After breakfast, returned to bed and napped. ADLs: Independent. Group attendance: Yes Were meds taken: Yes Any med S/E : None reported or noted Mental Status Exam: Appearance: Wearing street clothes Eye contact: Direct Behavior: Pleasant Speech: Normal rate and rhythm Mood: Appropriate Affect: Constricted Thought process: Guarded Thought Content: Minimal communication, knee pain Cognition: A/O X 4 Insight: Poor Judgment: Poor Interventions: PRN's used: Ibuprofen Therapeutic interventions: Establish therapeutic relationship, perform 1:1 assessment, provided active listening, medication education, administration, and monitoring for effects, maintained therapeutic milieu, Q15 min safety checks. Restraints/seclusion/emergency medication: None. Justification of Continued Inpatient Treatment: Pt gravely disabled and on a court competency 1370, improving but not yet competent to stand trial.
--- NOTE | 2019-07-02 17:48 | NUR ---
Nursing Progress Note Legal hold: Court competency 1370 Client on involuntary status for GD Report received from TRUNG Shaw Why are they here: Patient was arrested in December for public intoxication in [place]. Patient is psychotic and kept for danger to self. Patient incompetent to stand trial. Assessment: What has happened this shift: Pt was asleep at the change of shift. She was compliant with medication administration. She only allowed a partial nursing assessment before she walked away. She denies depression, anxiety, and A/V H. Her affect is flat. Bilateral knee pain was treated with ibuprofen. She attended both AM and PM groups. S/I, H/I: Denies A/VH: Denies. Sleep: After breakfast, returned to bed and napped. ADLs: Independent. Group attendance: Yes Were meds taken: Yes Any med S/E : None reported or noted Mental Status Exam: Appearance: Wearing street clothes, hair disheveled Eye contact: Direct Behavior: Pleasant Speech: Normal rate and rhythm Mood: Appropriate Affect: Constricted Thought process: Guarded Thought Content: Minimal communication, knee pain Cognition: A/O X 4 Insight: Poor Judgment: Poor Interventions: PRN's used: Ibuprofen Therapeutic interventions: Establish therapeutic relationship, perform 1:1 assessment, provided active listening, medication education, administration, and monitoring for effects, maintained therapeutic milieu, Q15 min safety checks. Restraints/seclusion/emergency medication: None. Justification of Continued Inpatient Treatment: Pt gravely disabled and on a court competency 1370, improving but not yet competent to stand trial.
[2019-07-02 19:57] VITALS: BP 123/85
[2019-07-02] MEDS: clozapine 100mg tablet PO SCH (20:13)
[2019-07-02] MEDS: OLANZAPINE 5 MG TABLET PO SCH (20:14)
[2019-07-02] MEDS: LORazepam 1 MG tablet PO SCH (20:15)
[2019-07-02] MEDS: magnesium hydroxide 30ml (MOM) UD suspension PO PRN (20:17)
--- NOTE | 2019-07-03 01:00 | NUR ---
Nursing Progress Note Legal hold: Court competency 1370 Client on involuntary status for GD Report received from ARLEEN Mae Why are they here: Patient was arrested in December for public intoxication in [place]. Patient is psychotic and kept for danger to self. Patient incompetent to stand trial. Assessment: What has happened this shift: Pt is seen by and agreed to let this nurse sit in with them on the conversation. Pt was asked about her court competency, and she was able to say what her charges were and that she was going to plead guilty. She then immediately brings up wanting to go to [facility] after she is discharged. She reports less drooling. She is medication compliant and participates in evening snack time. S/I, H/I: Pt denies A/VH: Pt denies. Sleep: ADLs: Independent. Group attendance: no Were meds taken: Yes Any med S/E : None reported or observed Mental Status Exam: Appearance: Clean, dressed in street clothes Eye contact: Good Behavior: Pleasant, cooperative, restless Speech: Sometimes slurred words, sometimes clear. Mood: mostly pleasant, some mild irritability during physical and mental health assessments Affect: Blunted. Thought process: mild disorganization/reality distortion. Thought Content: Court appearance, irritated by repeated questions/assessments by nurses. Cognition: A/O X 4 Insight: Poor Judgment: Poor Interventions: 1:1 intervention, more animated as our conversation went on PRN's used: Therapeutic interventions: 1:1 assessment, therapeutic conversation, reality orientation, medication administration/education/monitoring, encouragement to attend groups, Q15 minute safety checks Restraints/seclusion/emergency medication: N/A Justification of Continued Inpatient Treatment: Pt gravely disabled and on a court competency 1370, improving but not yet competent fo stand trial.
[2019-07-03 08:00] VITALS: BP 96/62
[2019-07-03] MEDS: lithium carbonate 150mg capsule PO SCH ×2 (08:33→20:44)
[2019-07-03] MEDS: docusate sod 100mg capsule PO SCH ×2 (08:35→20:43)
[2019-07-03] MEDS: benztropine 1mg tablet PO SCH ×2 (08:35→20:45)
--- NOTE | 2019-07-03 10:32 | NUR ---
Art Therapy Group, Continued: Patient attended group 07/01/19. She initially presented as withdrawn, somewhat distracted within herself. However, patient was able to follow all directives completing both the art, journaling and participated in group process. Using the Sentence Completion: I am standing at the doorway to hope, opening to change and new possibilities .. She danny a doorway with butterflies... she wrote: I think butterflies are a good symbol, like metamorphosis. I fee one butterfly landed right on me. I wish ... I've been looking at new possibilities, I want just what I've got. I need nothing. I will strive for hope and change more often. I believe in my future. I am faithful."Usha Cam MA (Alena Marie) Licensed Marriage, Family Theapist #[id number] [facility] Expressive Arts Therapist Addendum: 07/03/19 at 1036 by Usha YO Amended: Links added.
[2019-07-03] MEDS: ibuprofen 200mg tablet PO PRN (13:20)
--- NOTE | 2019-07-03 17:09 | NUR ---
Nursing Progress Note Legal hold: Court competency 1370 Client on involuntary status for GD Report received from ARLEEN Gutierrez with the use of SBAR Why are they here: Patient was arrested in December for public intoxication in [place]. Patient is psychotic and kept for danger to self. Patient incompetent to stand trial. Assessment: What has happened this shift: Pt slept most of the day. She was sleeping at the start of shift and took her pills with her eyes closed. She declined to go to groups stating, "I need to sleep." Pt was seen by Dr. Aristides Polk and evaluated for competency. He said he would be back next week. is seen by and agreed to let this nurse sit in with them on the conversation. S/I, H/I: Pt denies A/VH: Pt denies. Sleep: Naps throughout the day ADLs: Independent. Group attendance: No Were Meds taken: Yes Any med S/E : None reported or observed Mental Status Exam: Appearance: Clean, dressed in street clothes Eye contact: Good Behavior: Quiet; isolates Speech: Occasionally her words are slurred. Mood: Mild irritability when sleeping in the am Affect: Blunted. Thought process: Disorganized at times Thought Content: Wants to go to [facility] Cognition: A/O X 3 Insight: Poor Judgment: Poor Therapeutic interventions: 1:1 assessment, therapeutic conversation, reality orientation, medication administration/education/monitoring, encouragement to attend groups, Q15 minute safety checks Restraints/seclusion/emergency medication: N/A Justification of Continued Inpatient Treatment: Pt gravely disabled and on a court competency 1370, improving but not yet competent to stand trial.
[2019-07-03 20:00] VITALS: BP 114/81
[2019-07-03] MEDS: LORazepam 1 MG tablet PO SCH (20:43)
[2019-07-03] MEDS: OLANZAPINE 5 MG TABLET PO SCH (20:44)
[2019-07-03] MEDS: clozapine 100mg tablet PO SCH (20:45)
--- NOTE | 2019-07-04 02:33 | NUR ---
Nursing Progress Note Legal hold: Court competency 1370 Client on involuntary status for GD Report received from ARLEEN Harrington with the use of SBAR Why are they here: Patient was arrested in December for public intoxication in [place]. Patient is psychotic and kept for danger to self. Patient incompetent to stand trial. Assessment: What has happened this shift: Pt watching TV at change of shift. During 1:1, pt only provided one word responses with the occasional smile. Stated she felt "okay" and denied SI. She was unable to explain the reason for her present admission but was compliant with medications. Pt attended snack and was up in the group rooms, watching TV until she turned in for bed. S/I, H/I: Pt denies A/VH: Pt denies. Sleep: See Sleep Assessment ADLs: Independent. Group attendance: N/A Were Meds taken: Yes Any med S/E : None reported or observed Mental Status Exam: Appearance: Clean, dressed in street clothes Eye contact: Direct Behavior: Quiet, watching tv in the group rooms Speech: Normal rate and rhythm Mood: "Okay" Affect: Blunted Thought process: Unable to assess Thought Content: Unable to assess Cognition: A/O X 3 Insight: Poor Judgment: Poor Therapeutic interventions: 1:1 assessment, therapeutic conversation, reality orientation, medication administration/education/monitoring, encouragement to attend groups, Q15 minute safety checks Restraints/seclusion/emergency medication: N/A Justification of Continued Inpatient Treatment: Pt gravely disabled and on a court competency 1370, improving but not yet competent to stand trial.
[2019-07-04 08:00] VITALS: BP 96/56
[2019-07-04] MEDS: benztropine 1mg tablet PO SCH ×2 (08:11→20:51)
[2019-07-04] MEDS: lithium carbonate 150mg capsule PO SCH ×2 (08:11→20:52)
[2019-07-04] MEDS: docusate sod 100mg capsule PO SCH ×2 (08:12→20:51)
[2019-07-04] MEDS: ibuprofen 200mg tablet PO PRN (09:59)
--- NOTE | 2019-07-04 17:09 | NUR ---
Nursing Progress Note Legal hold: Court competency 1370 Client on involuntary status for GD Report received from ARLEEN Clarke with the use of SBAR Why are they here: Patient was arrested in December for public intoxication in [place]. Patient is psychotic and kept for danger to self. Patient incompetent to stand trial. Assessment: What has happened this shift: Pt slept most of the day. She was up for meals. She participated in reading and filling out a competency information and educational form. She slept in the morning getting up later and hanging out in the recreation room visiting with peers and looking at magazines. S/I, H/I: Pt denies A/VH: Pt denies. Sleep: Naps throughout the day ADLs: Independent. Group attendance: No Were Meds taken: Yes Any med S/E : None reported or observed Mental Status Exam: Appearance: She showered and put on the same clothes; encouraged her to change Eye contact: Good Behavior: Quiet; isolates Speech: Much clearer today Mood: Complacent Affect: Blunted Thought process: Disorganized Thought Content: Wants to go to [facility] Cognition: A/O X 3 Insight: Poor Judgment: Poor Therapeutic interventions: Nursing Progress Note Legal hold: Court competency 1370 Client on involuntary status for GD Report received from ARLEEN Gutierrez with the use of SBAR Why are they here: Patient was arrested in December for public intoxication in [place]. Patient is psychotic and kept for danger to self. Patient incompetent to stand trial. Assessment: What has happened this shift: Pt slept most of the day. She was sleeping at the start of shift and took her pills with her eyes closed. She declined to go to groups stating, "I need to sleep." Pt was seen by Dr. Aristides Polk and evaluated for competency. He said he would be back next week. is seen by and agreed to let this nurse sit in with them on the conversation. S/I, H/I: Pt denies A/VH: Pt denies. Sleep: Naps throughout the day ADLs: Independent. Group attendance: No Were Meds taken: Yes Any med S/E : None reported or observed Mental Status Exam: Appearance: Clean, dressed in street clothes Eye contact: Good Behavior: Quiet; isolates Speech: Occasionally her words are slurred. Mood: Mild irritability when sleeping in the am Affect: Blunted. Thought process: Disorganized at times Thought Content: Wants to go to [facility] Cognition: A/O X 3 Insight: Poor Judgment: Poor Therapeutic interventions: provided therapeutic communication and active listening; medication education, administration, and monitoring for effects, encouragement and prompts to go to groups; Q15 min safety checks. Restraints/seclusion/emergency medication: N/A Justification of Continued Inpatient Treatment: Pt gravely disabled and on a court competency 1370, improving but not yet competent to stand trial.
[2019-07-04 19:00] VITALS: BP 96/63
[2019-07-04] MEDS: clozapine 100mg tablet PO SCH (20:52)
[2019-07-04] MEDS: LORazepam 1 MG tablet PO SCH (20:52)
[2019-07-04] MEDS: OLANZAPINE 5 MG TABLET PO SCH (20:53)
--- NOTE | 2019-07-05 01:26 | NUR ---
Nursing Progress Note: Legal hold: 1370 Client on involuntary status for GD Report received from nurse with use of SBAR: ARLEEN Jack Why are they here: Patient was arrested in December for public intoxication in [place], she was referred from [facility] for sikh of competency to stand trial. Patient as psychotic and kept for danger to self. She has a history of multiple psychiatric hospitalizations and polysubstance abuse. Assessment What has happened this shift: Pt. up sitting in the Group Room at the beginning of the shift, watching TV and withdrawn from others. This sign writer hand introduces herself and pt. flatly states, "Will you bring me my medications?" This sign writer hand assures pt. that her medications will be given to her at [facility] med pass, and pt. reports understanding. Attempted to complete 1:1 at bedside, pt. continues to present as guarded and withdrawn. She responds to questions with minimal one-word responses. Pt. denies S/I, H/I, or A/V/MALONE and does not appear to be responding to internal stimuli. No delusional statements made this shift. She reports she is having "less drooling today," r/t Clozaril, this sign writer hand encourages pt. to report any increased drooling and any other s/s and she reports understanding. Pt. reports that she attends all groups, however when this sign writer hand questioned her regarding coping skills she stated, "I don't want to talk about it." Pt. then retreated to bed, will continue to monitor. S/I, H/I: Denies A/VH: Denies, does not appear to be responding to internal stimuli. Sleep: Reports she sleeps well ADL's: Independent Group attendance: Pt. reports that she attends all groups, however cannot identify coping skills learned Were meds taken: Yes Any med S/E: Some continued drooling, will monitor. Mental Status Exam Appearance: Dressed appropriately in hospital attire, hair somewhat disheveled. Eye contact: Fair Behavior: Guarded and withdrawn Speech: She responds to questions with minimal one-word responses Mood: Guarded, but cooperative Affect: Flat Thought process: Poverty of thought Thought Content: Blocking Cognition: A&O X4 Insight: Poor Judgment: Poor to fair Interventions PRN's used: None Therapeutic interventions: Introduced self and attempted to establish rapport, maintained a safe and supportive environment, provided clear and simple instructions, monitored behaviors and need for intervention, provided positive encouragement, and maintained Q 15 min safety checks. Restraints/seclusion/emergency medication: N/A Justification of Continued Inpatient Treatment: Per Wade PA, pt. is at or near baseline, however continues to require slight medication adjustments and a safe and supportive environment.
[2019-07-05 08:00] VITALS: BP 101/68
[2019-07-05] MEDS: benztropine 1mg tablet PO SCH ×2 (08:07→20:22)
[2019-07-05] MEDS: docusate sod 100mg capsule PO SCH ×2 (08:07→20:22)
[2019-07-05] MEDS: lithium carbonate 150mg capsule PO SCH ×2 (08:08→20:22)
[2019-07-05] MEDS: ibuprofen 200mg tablet PO PRN ×2 (10:36→16:08)
--- NOTE | 2019-07-05 16:34 | NUR ---
Nursing Progress Note Legal hold: Court competency 1370 Client on involuntary status for GD Report received from Adriana Cruz RN with the use of SBAR Why are they here: Patient was arrested in December for public intoxication in [place]. Patient is psychotic and kept for danger to self. Patient incompetent to stand trial. Assessment: What has happened this shift: Patient was observed in her bed sleeping at change of shift. Patient takes medications without any issue. She was up for meals. Patient spilled some syrup on her shirt during breakfast and requested a clean shirt and a wash cloth and these requests were accommodated. Patient did report some pain in her knees bilaterally. She denies any aggravating factors and states that they "always hurt". She is seen up throughout the day walking in the halls. When asked how she is doing today she states she is ok and denies any issues. S/I, H/I: none reported A/VH: none reported Sleep:7.5hrs NOC and rested during the day ADLs: Independent, showered and brushed her hair. Group attendance: No Were Meds taken: Yes Any med S/E : drooling PRN medications: Ibuprofen Mental Status Exam: Appearance: hair somewhat disheveled, wearing pajama bottoms and changed into clean shirt Eye contact: direct Behavior: Quiet; isolates, cooperative Speech: slow, slurred, mumbly, soft tone Mood: Complacent Affect: Blunted Thought process: linear Thought Content: no delusional thought content expressed. Cognition: A/O X 3 Insight: Poor Judgment: Poor Therapeutic interventions: 1:1 assessment, provided therapeutic communication and active listening; medication education, and monitoring for effects, encouragement and prompts to go to groups; Q15 min safety checks. Restraints/seclusion/emergency medication: N/A Justification of Continued Inpatient Treatment: Pt gravely disabled and on a court competency 1370, improving but not yet competent to stand trial.
[2019-07-05 20:00] VITALS: BP 106/75
[2019-07-05] MEDS: LORazepam 1 MG tablet PO SCH (20:22)
[2019-07-05] MEDS: clozapine 100mg tablet PO SCH (20:23)
[2019-07-05] MEDS: OLANZAPINE 5 MG TABLET PO SCH (20:23)
--- NOTE | 2019-07-06 00:34 | NUR ---
Nursing Progress Note: Legal hold: 1370 Client on involuntary status for GD Report received from nurse with use of SBAR: ARLEEN Jack Why are they here: Patient was arrested in December for public intoxication in [place], she was referred from [facility] for druze of competency to stand trial. Patient as psychotic and kept for danger to self. She has a history of multiple psychiatric hospitalizations and polysubstance abuse. Assessment What has happened this shift: Pt. up walking in the hallway at the beginning of the shift, she smiles when greeted by this signwriter, but remains withdrawn from others. She again requests her medications to be given and this signwriter provides education that they will be administered at med pass, pt. reports understanding. 1:1 completed at bedside, pt. continues to present as guarded, flat, and withdrawn, however is cooperative. She responds to questions with minimal one-word responses. Pt. continues to deny any A/V/MALONE and no delusional statements made this shift. She also denies any desire to use drugs again, and states that she would like to discharge to the [facility] because she has been there before. Pt. denies any drooling today r/t Clozaril, and no adverse s/s observed by this signwriter. She again retreats to bed directly following medication administration, will continue to monitor. S/I, H/I: Denies A/VH: Denies, does not appear to be responding to internal stimuli. Sleep: Reports she sleeps well and presents with fatigue ADL's: Independent Group attendance: Pt. reports that she attends all groups, however cannot identify coping skills learned Were meds taken: Yes Any med S/E: Some fatigue, will monitor. Mental Status Exam Appearance: Dressed appropriately in hospital attire, hair somewhat disheveled. Eye contact: Fair Behavior: Guarded and withdrawn, however cooperative Speech: She responds to questions with minimal one-word responses Mood: Guarded, but cooperative Affect: Flat Thought process: Poverty of thought Thought Content: Blocking Cognition: A&O X4 Insight: Poor Judgment: Fair Interventions PRN's used: None Therapeutic interventions: Maintained a safe and supportive environment, provided clear and simple instructions, monitored behaviors and need for intervention, provided positive encouragement, and maintained Q 15 min safety checks. Restraints/seclusion/emergency medication: N/A Justification of Continued Inpatient Treatment: Per JOSEPH Olvera, pt. is at or near baseline and appears competent to stand trial, however requires a safe and supportive environment.
[2019-07-06 08:00] VITALS: BP 94/66
[2019-07-06] MEDS: lithium carbonate 150mg capsule PO SCH ×2 (08:27→20:40)
[2019-07-06] MEDS: docusate sod 100mg capsule PO SCH ×2 (08:27→20:40)
[2019-07-06] MEDS: benztropine 1mg tablet PO SCH ×2 (08:27→20:40)
[2019-07-06] MEDS: acetaminophen 325mg tablet PO PRN (10:40)
[2019-07-06] MEDS: magnesium hydroxide 30ml (MOM) UD suspension PO PRN (12:12)
[2019-07-06] MEDS: ibuprofen 200mg tablet PO PRN (17:11)
--- NOTE | 2019-07-06 17:37 | NUR ---
Nursing Progress Note Legal hold: Court competency 1370 Client on involuntary status for GD Report received from Adriana Cruz RN with the use of SBAR Why are they here: Patient was arrested in December for public intoxication in [place]. Patient is psychotic and kept for danger to self. Patient incompetent to stand trial. Assessment: What has happened this shift: Patient was observed in her bed sleeping at change of shift. She gets up for breakfast and then promptly returns to her bed. She tells this RN in a soft voice "Im sleeping, dont bother me, but Im willing to take my meds, I need water." She takes her medications without any issue, states "thank you" and falls back asleep. Mid morning she complains of knee pain, requests Tylenol. She states that she is constipated (LBM 07/04) prune juice and MOM administered with no results this shift. Patient requests to take a shower after lunch. No drooling noted and patient is observed smiling while walking the halls and visiting with others. Patient denies any needs or issues. S/I, H/I: none reported A/VH: none reported Sleep:7.5hrs NOC and rested during the day ADLs: Independent, showered and brushed her hair. Group attendance: yes Were Meds taken: Yes Any med S/E : none PRN medications: Ibuprofen, MOM Mental Status Exam: Appearance: hair somewhat disheveled, wearing pajama bottoms and changed into clean shirt Eye contact: direct Behavior: Quiet; isolates, cooperative Speech: slow, slurred, mumbly, soft tone Mood: Complacent Affect: Blunted Thought process: linear Thought Content: no delusional thought content expressed. Cognition: A/O X 3 Insight: Poor Judgment: Poor Therapeutic interventions: 1:1 assessment, provided therapeutic communication and active listening; medication education, and monitoring for effects, encouragement and prompts to go to groups; Q15 min safety checks. Restraints/seclusion/emergency medication: N/A Justification of Continued Inpatient Treatment: Pt gravely disabled and on a court competency 1370, improving but not yet competent to stand trial.
[2019-07-06 20:00] VITALS: BP 113/74
[2019-07-06] MEDS: LORazepam 1 MG tablet PO SCH (20:39)
[2019-07-06] MEDS: clozapine 100mg tablet PO SCH (20:40)
[2019-07-06] MEDS: OLANZAPINE 5 MG TABLET PO SCH (20:40)
--- NOTE | 2019-07-07 01:17 | NUR ---
Nursing Progress Note: Legal hold: 1370 Client on involuntary status for GD Report received from nurse with use of SBAR: Kayla Sharif", RN Why are they here: Patient was arrested in December for public intoxication in [place], she was referred from [facility] for confucianist of competency to stand trial. Patient as psychotic and kept for danger to self. She has a history of multiple psychiatric hospitalizations and polysubstance abuse. Assessment What has happened this shift: Pt pacing halls and watching TV at change of shift. She smiles when greeted by this RN but continues to remain withdrawn from peers. She requested her medications and hour too early; education provided that they will be administered at med pass, to which pt verbalizes understanding. During 1:1, pt is more facially animated and cooperative but continues to answer with one word responses. Pt. continues to deny any A/V/MALONE and no delusional statements made this shift. Pt not drooling nor are other side effects of medications noted. Pt turned in to sleep shortly after medication administration. S/I, H/I: Denies A/VH: Denies, does not appear to be responding to IS Sleep: See Sleep Assessment ADL's: Independent, showered today Group attendance: N/A Were meds taken: Yes Any med S/E: None noted or observed Mental Status Exam Appearance: Dressed appropriately in hospital attire, hair in pigtails Eye contact: Direct Behavior: Withdrawn but cooperative; walking the halls and watching TV Speech: Hypoverbal, voice is soft Mood:"Good" Affect: Flat Thought process: Poverty of thought Thought Content: Blocking Cognition: A&O X4 Insight: Poor Judgment: Fair Interventions PRN's used: None Therapeutic interventions: Maintained a safe and supportive environment, provided clear and simple instructions, monitored behaviors and need for intervention, provided positive encouragement, and maintained Q 15 min safety checks. Restraints/seclusion/emergency medication: N/A Justification of Continued Inpatient Treatment: Per JOSEPH Olvera, pt. is at or near baseline and appears competent to stand trial, however requires a safe and supportive environment.
[2019-07-07 08:00] VITALS: BP 98/64
[2019-07-07] MEDS: lithium carbonate 150mg capsule PO SCH ×2 (08:12→20:22)
[2019-07-07] MEDS: benztropine 1mg tablet PO SCH ×2 (08:12→20:23)
[2019-07-07] MEDS: docusate sod 100mg capsule PO SCH ×2 (08:12→20:23)
[2019-07-07] MEDS: ibuprofen 200mg tablet PO PRN (10:18)
--- NOTE | 2019-07-07 17:32 | NUR ---
Nursing Progress Note Legal hold: Court competency 1370 Client on involuntary status for GD Report received from Adriana Cruz RN with the use of SBAR Why are they here: Patient was arrested in December for public intoxication in [place]. Patient is psychotic and kept for danger to self. Patient incompetent to stand trial. Assessment: What has happened this shift: Patient was observed in her bed sleeping at change of shift. After breakfast she takes her medications without issue. She lays back down to sleep for a bit. When she wakes she walks the unit and interacts appropriately with peers. Her affect is restricted with brightening. She is not conversational but answers questions appropriately. She attends to her ADLs independently, showers and puts on clean clothing. She c/o knee pain and requests Motrin. S/I, H/I: none reported A/VH: none reported Sleep:8.25hrs NOC and rested during the day ADLs: Independent, showered and brushed her hair. Group attendance: yes Were Meds taken: Yes Any med S/E : none PRN medications: Ibuprofen Mental Status Exam: Appearance: dressed in own clothing. Hair styled in pigtails Eye contact: direct Behavior: friendly and cooperative Speech: slow, slurred and mumbly at times, soft tone Mood: Complacent Affect: restricted with brightening Thought process: linear Thought Content: no delusional thought content expressed. Cognition: A/O X 3 Insight: fair Judgment: fair to good Therapeutic interventions: 1:1 assessment, provided therapeutic communication and active listening; medication education, and monitoring for effects, encouragement and prompts to go to groups; Q15 min safety checks. Restraints/seclusion/emergency medication: N/A Justification of Continued Inpatient Treatment: Pt gravely disabled and on a court competency 1370, improving but not yet competent to stand trial.
[2019-07-07 19:58] VITALS: BP 105/69
[2019-07-07] MEDS: OLANZAPINE 5 MG TABLET PO SCH (20:22)
[2019-07-07] MEDS: LORazepam 1 MG tablet PO SCH (20:22)
[2019-07-07] MEDS: clozapine 100mg tablet PO SCH (20:23)
--- NOTE | 2019-07-07 22:34 | NUR ---
Nursing Progress Note Legal hold: Court competency 1370 Client on involuntary status for GD Report received from Carmelita BACON with the use of SBAR Why are they here: Patient was arrested in December for public intoxication in [place]. Patient is psychotic and kept for danger to self. Patient incompetent to stand trial. Assessment: What has happened this shift:Pt was in rec room watching tv w/peers at change of shift. 1:1 completed in observation room. Pt is in a pleasant mood, give short answers, reports appetite is good, sleep has been "good." Pt reports meds are working. S/I, H/I: none reported A/VH: none reported Sleep:8.25hrs NOC and rested during the day ADLs: Independent Group attendance: no evening groups Were Meds taken: Yes Any med S/E : none PRN medications: Mental Status Exam: Appearance: dressed in own clothing. Hair styled in pigtails, adequately groomed and dressed appropriately Eye contact: direct Behavior: friendly and cooperative Speech: slow, slurred and mumbly at times, soft tone Mood: euthymic Affect: restricted with brightening Thought process: linear Thought Content: no delusional thought content expressed. Cognition: A/O X 3 Insight: fair Judgment: fair to good Therapeutic interventions: 1:1 assessment, provided therapeutic communication and active listening; medication education, and monitoring for effects, encouragement and prompts to go to groups; Q15 min safety checks. Restraints/seclusion/emergency medication: N/A Justification of Continued Inpatient Treatment: Pt gravely disabled and on a court competency 1370, improving but not yet competent to stand trial.
[2019-07-08 07:37] VITALS: BP 91/60
[2019-07-08] MEDS: lithium carbonate 150mg capsule PO SCH ×2 (08:51→20:40)
[2019-07-08] MEDS: docusate sod 100mg capsule PO SCH ×2 (08:51→20:40)
[2019-07-08] MEDS: benztropine 1mg tablet PO SCH ×2 (08:51→20:40)
[2019-07-08] MEDS: ibuprofen 200mg tablet PO PRN ×2 (13:35→19:12)
--- NOTE | 2019-07-08 15:13 | NUR ---
Nursing Progress Note Legal hold: Court competency 1370 Client on involuntary status for GD Report received from Jina BACON with the use of SBAR Why are they here: Patient was arrested in December for public intoxication in [place]. Patient is psychotic and kept for danger to self. Patient incompetent to stand trial. Assessment: Patient was sleeping at change of shift and up soon after. Patient was walking around. Patient is calm, cooperative, and keeps to herself. Patient denies depression, suicidal ideation and denies AV hallucinations. Patient is linear but sometimes she speaks and doesn't make sense. Patient is very childlike in her interactions. Patient c/o bilateral knee pain and took Ibuprofen. Patient attended both groups today. What has happened this shift: S/I, H/I: denies A/VH: denies Sleep: Napped in the morning ADLs: Independent Group attendance: yes Were Meds taken: Yes Any med S/E : none PRN medications: Ibuprofen Mental Status Exam: Appearance: Clean and dressed in her own clothes. Hair styled in pigtails Eye contact: direct Behavior: friendly and cooperative Speech: slow, slurred and mumbly at times, soft tone Mood: pleasant Affect: Flat Thought process: linear Thought Content: no delusional thought content expressed but sometimes does not make sense. Cognition: A/O X 3 Insight: fair Judgment: fair Therapeutic interventions: 1:1 assessment, provided therapeutic communication and active listening; medication education, and monitoring for effects, encouragement and prompts to go to groups; Q15 min safety checks. Restraints/seclusion/emergency medication: N/A Justification of Continued Inpatient Treatment: Pt gravely disabled and on a court competency 1370, improving but not yet competent to stand trial.
[2019-07-08] MEDS: mag hydrox/Alum hydrox/simeth 30ml oral suspension PO PRN (17:31)
[2019-07-08 20:03] VITALS: BP 105/70
[2019-07-08] MEDS: clozapine 100mg tablet PO SCH (20:40)
[2019-07-08] MEDS: LORazepam 1 MG tablet PO SCH (20:40)
[2019-07-08] MEDS: OLANZAPINE 5 MG TABLET PO SCH (20:40)
--- NOTE | 2019-07-09 03:17 | NUR ---
Nursing Progress Note: Legal hold: 1370 Client on involuntary status for GD Report received from nurse with use of SBAR: ARLEEN Mae Why are they here: Patient was arrested in December for public intoxication in [place], she was referred from [facility] for anabaptist of competency to stand trial. Patient as psychotic and kept for danger to self. She has a history of multiple psychiatric hospitalizations and polysubstance abuse. Assessment What has happened this shift: Pt watching TV at change of shift. She keeps to herself, but brightened considerably during assessment when showing this RN her artwork from group. Pt continues to answer with one word responses. Pt. continues to deny any A/V/MALONE and no delusional statements made this shift. Pt not drooling nor are other side effects of medications noted. Pt turned in to sleep shortly after medication administration. S/I, H/I: Denies A/VH: Denies, does not appear to be responding to IS Sleep: See Sleep Assessment ADL's: Independent Group attendance: N/A Were meds taken: Yes Any med S/E: None noted or observed Mental Status Exam Appearance: Dressed appropriately in hospital attire, hair in pigtails Eye contact: Direct Behavior: Withdrawn but cooperative; walking the halls and watching TV Speech: Hypoverbal, voice is soft, occasionally mumbles Mood: "Good" Affect: Blunted with occasional brightening Thought process: Poverty of thought Thought Content: Blocking Cognition: A&O X4 Insight: Poor Judgment: Fair Interventions PRN's used: None Therapeutic interventions: Maintained a safe and supportive environment, provided clear and simple instructions, monitored behaviors and need for intervention, provided positive encouragement, and maintained Q 15 min safety checks. Restraints/seclusion/emergency medication: N/A Justification of Continued Inpatient Treatment: Per JOSEPH Olvera, pt. is at or near baseline and appears competent to stand trial, however requires a safe and supportive environment.
[2019-07-09 07:38] VITALS: BP 104/69
[2019-07-09] MEDS: benztropine 1mg tablet PO SCH ×2 (08:06→20:52)
[2019-07-09] MEDS: docusate sod 100mg capsule PO SCH ×2 (08:06→20:51)
[2019-07-09] MEDS: lithium carbonate 150mg capsule PO SCH ×2 (08:07→20:51)
[2019-07-09] MEDS: ibuprofen 200mg tablet PO PRN (15:49)
--- NOTE | 2019-07-09 15:50 | NUR ---
Nursing Progress Note Legal hold: Court competency 1370 Client on involuntary status for GD Report received from Valeria BACON with the use of SBAR Why are they here: Patient was arrested in December for public intoxication in [place]. Patient is psychotic and kept for danger to self. Patient incompetent to stand trial. Assessment: Patient was sleeping at change of shift and up for breakfast. Patient is calm, cooperative, and keeps to herself. Patient denies depression, suicidal ideation and denies AV hallucinations. RN painted patient's fingernails and toenails. Patient is linear but sometimes she speaks and doesn't make sense. Patient is very childlike in her interactions. Patient c/o bilateral knee pain and took Ibuprofen everyday. Patient attended both groups today. What has happened this shift: S/I, H/I: denies A/VH: denies Sleep: Napped in the morning and afternoon ADLs: Independent Group attendance: yes Were Meds taken: Yes Any med S/E : none PRN medications: Ibuprofen Mental Status Exam: Appearance: Clean and neat Eye contact: direct Behavior: friendly and cooperative Speech: slow, slurred and mumbly at times, soft tone Mood: pleasant Affect: Flat Thought process: linear Thought Content: no delusional thought content expressed but sometimes does not make sense. Cognition: A/O X 3 Insight: fair Judgment: fair Therapeutic interventions: 1:1 assessment, provided therapeutic communication and active listening; medication education, and monitoring for effects, encouragement and prompts to go to groups; Q15 min safety checks. Restraints/seclusion/emergency medication: N/A Justification of Continued Inpatient Treatment: Pt gravely disabled and on a court competency 1370, improving but not yet competent to stand trial.
--- NOTE | 2019-07-09 16:30 | NUR ---
Reassessment: Pt continues meeting nutrient needs with documented 75-100% PO intake of meals. No edema or wounds. No nutrition diagnosis at this time. Will continue to follow. Recommendations: 1) Continue regular diet 2) Routine bowel care 3) Weekly wt Addendum: 07/09/19 at [address] Amended: Links added.
[2019-07-09 19:28] VITALS: BP 102/73
[2019-07-09] MEDS: clozapine 100mg tablet PO SCH (20:52)
[2019-07-09] MEDS: LORazepam 1 MG tablet PO SCH (20:52)
[2019-07-09] MEDS: OLANZAPINE 5 MG TABLET PO SCH (20:52)
--- NOTE | 2019-07-10 00:18 | NUR ---
Nursing Progress Note: Legal hold: 1370 Client on involuntary status for GD Report received from nurse with use of SBAR: ARLEEN Mae Why are they here: Patient was arrested in December for public intoxication in [place], she was referred from [facility] for religion of competency to stand trial. Patient as psychotic and kept for danger to self. She has a history of multiple psychiatric hospitalizations and polysubstance abuse. Assessment What has happened this shift: Pt walking the halls and watching TV at change of shift. Pt requested evening medications too early; education provided and pt verbalized understanding of timeframe in which they would be administered. Pt offers minimal responses, which are sometimes mumbled, and has a child-like affect. Pt turned in to sleep shortly after medication administration. S/I, H/I: Denies A/VH: Denies, does not appear to be responding to IS Sleep: See Sleep Assessment ADL's: Independent Group attendance: N/A Were meds taken: Yes Any med S/E: None noted or observed Mental Status Exam Appearance: Dressed appropriately in hospital attire and street clothes, hair in ponytail Eye contact: Direct Behavior: Withdrawn but cooperative; walking the halls and watching TV Speech: Hypoverbal, voice is soft, occasionally mumbles Mood: "Good" Affect: Blunted with occasional brightening Thought process: Poverty of thought Thought Content: Blocking Cognition: A&O X4 Insight: Poor Judgment: Fair Interventions PRN's used: None Therapeutic interventions: Maintained a safe and supportive environment, provided clear and simple instructions, monitored behaviors and need for intervention, provided positive encouragement, and maintained Q 15 min safety checks. Restraints/seclusion/emergency medication: N/A Justification of Continued Inpatient Treatment: Per JOSEPH Olvera, pt. is at or near baseline and appears to be nearing competency to stand trial, however requires a safe and supportive environment. Addendum: 07/10/19 at 0023 by Tara Jacobson RN [place] level and CBC for Clozaril last performed on 06/30.
[2019-07-10 08:00] VITALS: BP 130/70
[2019-07-10] MEDS: lithium carbonate 150mg capsule PO SCH ×2 (08:35→20:33)
[2019-07-10] MEDS: benztropine 1mg tablet PO SCH ×2 (08:35→20:33)
[2019-07-10] MEDS: docusate sod 100mg capsule PO SCH ×2 (08:35→20:33)
[2019-07-10] MEDS: ibuprofen 200mg tablet PO PRN ×2 (11:07→16:56)
--- NOTE | 2019-07-10 14:24 | NUR ---
Nursing Progress Note: Legal hold: 1370 Client on involuntary status for GD Report received from nurse with use of SBAR: Nida RN Why are they here: Patient was arrested in December for public intoxication in [place], she was referred from [facility] for amish of competency to stand trial. Patient as psychotic and kept for danger to self. She has a history of multiple psychiatric hospitalizations and polysubstance abuse. Assessment What has happened this shift: The patient was asleep at change of shift, and continued to sleep all morning except for getting up to quickly eat her breakfast tray. She did take her medications. A CBC and [place] level were ordered. She is having mild increase in fluid consumption. When asked questions she talks very quickly and mumbles which requires this nurse to ask her to repeat her responses to which she gets very annoyed and irritated. She has a depressed and flat affect and is at times child like. She did attend groups and is medication compliant. S/I, H/I: Denies A/VH: Denies, does not appear to be responding to IS Sleep: Naps ADL's: Independent Group attendance: Yes Were meds taken: Yes Any med S/E: None noted or observed Mental Status Exam Appearance: Dressed appropriately in hospital attire and street clothes, hair in ponytail Eye contact: Direct Behavior: Withdrawn but cooperative; walking the halls and watching TV Speech: Mumbles with rapid words Mood: "Good" Affect: Blunted with occasional brightening Thought process: Poverty of thought Thought Content: Blocking Cognition: A&O X4 Insight: Poor Judgment: Fair Interventions PRN's used: None Therapeutic interventions: Maintained a safe and supportive environment, provided clear and simple instructions, monitored behaviors and need for intervention, provided positive encouragement, and maintained Q 15 min safety checks. Restraints/seclusion/emergency medication: N/A Justification of Continued Inpatient Treatment: Per JOSEPH Olvera, pt. is at or near baseline and appears to be nearing competency to stand trial, however requires a safe and supportive environment.
[2019-07-10 15:13] LABS: BASOPHILS # (AUTO) 0.2 X10'3 (0-0.2); BASOPHILS % (AUTO) 1.7 % (0-1); EOSINOPHILS # (AUTO) 0.6 X10'3 (0-0.9); EOSINOPHILS % (AUTO) 5.8 % (0-6); HEMATOCRIT 36.6 % (35.0-45.0); LYMPHOCYTES # (AUTO) 2.3 X10'3 (1.1-4.8); LYMPHOCYTES % (AUTO) 23.5 % (21-51); MEAN CORPUSCULAR HEMOGLOBIN 29.2 PG (27.0-31.0); MEAN CORPUSCULAR HGB CONC 32.9 g/dL (33.0-36.5); MEAN CORPUSCULAR VOLUME 88.9 FL (78-98); MEAN PLATELET VOLUME 7.7 FL (7.4-10.4); MONOCYTES # (AUTO) 0.7 X10'3 (0-0.9); MONOCYTES % (AUTO) 7.3 % (2-12); NEUTROPHILS # (AUTO) 6.1 X10'3 (1.8-7.7); NEUTROPHILS % (AUTO) 61.7 % (42-75); PLATELET COUNT 506 X10'3 (140-440); RED BLOOD COUNT 4.11 X10'6 (4.20-5.60); RED CELL DISTRIBUTION WIDTH 14.9 % (11.5-14.5); WHITE BLOOD COUNT 9.8 X10'3 (4.5-11.0)
[2019-07-10 19:43] VITALS: BP 115/71
[2019-07-10] MEDS: LORazepam 1 MG tablet PO SCH (20:33)
[2019-07-10] MEDS: clozapine 100mg tablet PO SCH (20:33)
[2019-07-10] MEDS: OLANZAPINE 5 MG TABLET PO SCH (20:33)
--- NOTE | 2019-07-10 23:36 | NUR ---
Nursing Progress Note: Legal hold: 1370 Client on involuntary status for GD Report received from nurse with use of SBAR: ARLEEN Payne Why are they here: Patient was arrested in December for public intoxication in [place], she was referred from [facility] for buddhist of competency to stand trial. Patient as psychotic and kept for danger to self. She has a history of multiple psychiatric hospitalizations and polysubstance abuse. Assessment What has happened this shift: Pt walking the halls, watching TV, and hanging out near the nurses station. Pt requested medications early this evening and RN provided education regarding administration timeframe, to which pt was receptive. Pt states her day was good, and provides only yes or no responses, with occasional full sentences that are marked by a momentary silence. Sentences are requests, such as water. Pt is noted to have increased thirst but is not consuming excessive amounts at this time. She will brighten when discussing art therapy. Pt turned in to bed shortly after she received her medications and ate a burrito. S/I, H/I: Denies A/VH: Denies, does not appear to be responding to IS Sleep: See Sleep Assessment ADL's: Independent Group attendance: N/A Were meds taken: Yes Any med S/E: None reported; pt's thirst has increased Mental Status Exam Appearance: Dressed appropriately in street clothes, hair in ponytail Eye contact: Direct Behavior: Withdrawn but cooperative; walking the halls and watching TV Speech: Hypoverbal, voice is soft, occasionally mumbles Mood: "Good" Affect: Blunted with occasional brightening Thought process: Poverty of thought Thought Content: Blocking Cognition: A&Ox4 Insight: Poor Judgment: Fair Interventions PRN's used: None Therapeutic interventions: Maintained a safe and supportive environment, provided clear and simple instructions, monitored behaviors and need for intervention, provided positive encouragement, and maintained Q 15 min safety checks. Restraints/seclusion/emergency medication: N/A Justification of Continued Inpatient Treatment: Per JOSEPH Olvera, pt. is at or near baseline and appears to be nearing competency to stand trial, however requires a safe and supportive environment.
[2019-07-11 07:56] VITALS: BP 116/65
[2019-07-11] MEDS: docusate sod 100mg capsule PO SCH ×2 (08:05→20:29)
[2019-07-11] MEDS: benztropine 1mg tablet PO SCH ×2 (08:05→20:29)
[2019-07-11] MEDS: lithium carbonate 150mg capsule PO SCH ×2 (08:06→20:29)
[2019-07-11] MEDS: ibuprofen 200mg tablet PO PRN ×2 (10:38→15:25)
[2019-07-11] MEDS: magnesium hydroxide 30ml (MOM) UD suspension PO PRN (15:25)
--- NOTE | 2019-07-11 16:49 | NUR ---
NURSING PROGRESS NOTE Legal hold: 1370 Client on involuntary status for GD Report received from nurse with use of SBAR: ARLEEN Alva Why are they here: Patient was arrested in December for public intoxication in [place], she was referred from [facility] for synagogue of competency to stand trial. Patient as psychotic and kept for danger to self. She has a history of multiple psychiatric hospitalizations and polysubstance abuse. Assessment What has happened this shift: The patient was asleep at change of shift. She got up for breakfast and is eating well. She attends groups and also attended a "Mock Trial" today. She was disorganized in her thought process and was confused or didn't remember all the circumstances of her arrest and 9 misdemeanor charges. She thinks she will "get off due to time served already." She asked for Motrin today twice for knee pain, also MOM and prune juice for constipation. Mumbles with rapid halting speech. Well groomed dressed in street clothes. S/I, H/I: Denies A/VH: Denies, does not appear to be responding to IS Sleep: Naps ADL's: Independent Group attendance: Yes Were meds taken: Yes Any med S/E: None noted or observed Mental Status Exam Appearance: Dressed appropriately in hospital attire and street clothes, hair in ponytail Eye contact: Direct Behavior: Withdrawn but cooperative; walking the halls and watching TV Speech: Mumbles with rapid words Mood: "Good" Affect: Blunted with occasional brightening Thought process: Poverty of thought Thought Content: Blocking Cognition: A&O X4 Insight: Poor Judgment: Fair Interventions PRN's used: Motrin, MOM, prune juice Therapeutic interventions: Maintained a safe and supportive environment, provided clear and simple instructions, monitored behaviors and need for intervention, provided positive encouragement, and maintained Q 15 min safety checks. Restraints/seclusion/emergency medication: N/A Justification of Continued Inpatient Treatment: Per JOSEPH Olvera, pt. is at or near baseline and appears to be nearing competency to stand trial, however requires a safe and supportive environment.
[2019-07-11 20:00] VITALS: BP 107/82
[2019-07-11] MEDS: OLANZAPINE 5 MG TABLET PO SCH (20:27)
[2019-07-11] MEDS: LORazepam 1 MG tablet PO SCH (20:29)
[2019-07-11] MEDS: clozapine 100mg tablet PO SCH (20:29)
--- NOTE | 2019-07-12 00:01 | NUR ---
Nursing Progress Note: Legal hold: 1370 Client on involuntary status for GD Report received from nurse with use of SBAR: ARLEEN Che Why are they here: Patient was arrested in December for public intoxication in [place], she was referred from [facility] for tenriism of competency to stand trial. Patient is psychotic and is a danger to self. She has a history of multiple psychiatric hospitalizations and polysubstance abuse. Assessment What has happened this shift: Pt is close to another patient who she spent time in care home with. Pt is seen walking the halls with her at shift change. Pt stated "I didn't do as well as her during our trial." When asked how she felt about that pt stated "they didn't tell me I was ready, so I won't stand trial yet." Pt is sometimes hard to understand, she tends to mumble when she talks. Pt is aware that she will get another change to practice. Pt has a flat affect, but occasionally smiles, especially when complimenting on her appearance. Pt took meds as scheduled. Pt retired to bed after her HS snack and is currently sleeping with no acute distress noted. S/I, H/I: None reported or observed A/VH: Denies, does not appear to be responding to IS Sleep: See sleep assessment notation ADL's: Independent Group attendance: shift foreman, no group Were meds taken: Medication compliant Any med S/E: None reported; pt's thirst has increased Mental Status Exam Appearance: Dressed appropriately in street clothes Eye contact: Direct Behavior: Withdrawn but cooperative; walking the halls with another one of her peers. Speech: Voice is soft, pt mumbles, Mood: "Good" Affect: Flat with occasional brightening Thought process: Poverty of thought Thought Content: "I didn't do very good" (referring to her mock trial) Cognition: A&Ox4 Insight: Fair Judgment: Fair Interventions PRN's used: None Therapeutic interventions: Maintained a safe and supportive environment, provided clear and simple instructions, monitored behaviors and need for intervention, provided positive encouragement, and maintained Q 15 min safety checks. Restraints/seclusion/emergency medication: N/A Justification of Continued Inpatient Treatment: Per JOSEPH Olvera, pt. is at or near baseline and appears to be nearing competency to stand trial, however requires medications adjustment and a safe and supportive environment. Addendum: 07/12/19 at 0412 by Sweetie Hathaway RN Clozaril was increased to 250 mg HS and pt's [place] level was 0.5.
[2019-07-12] MEDS: docusate sod 100mg capsule PO SCH ×2 (07:12→20:30)
[2019-07-12] MEDS: benztropine 1mg tablet PO SCH ×2 (07:12→20:30)
[2019-07-12] MEDS: lithium carbonate 150mg capsule PO SCH ×2 (07:12→20:31)
[2019-07-12] MEDS: ibuprofen 200mg tablet PO PRN ×2 (07:12→20:31)
[2019-07-12 07:56] VITALS: BP 102/74
--- NOTE | 2019-07-12 15:28 | NUR ---
Nursing Progress Note: Legal hold: 1370 Client on involuntary status for GD Report received from nurse with use of SBAR: ARLEEN Alcantar Why are they here: Patient was arrested in December for public intoxication in [place], she was referred from [facility] for pentecostalism of competency to stand trial. Patient is psychotic and is a danger to self. She has a history of multiple psychiatric hospitalizations and polysubstance abuse. Assessment What has happened this shift: Patient was sleeping at change of shift. Shortly after, was observed in recreation room conversing with other client from the retirement. Requested meds shortly after 7am. Seen regularly out of room interacting with staff and other clients on the unit. Observed in community room awaiting lunch conversing with other client. Offered a game for the two of them to play to pass the time. When asked questions, responds minimally. S/I, H/I: Denies A/VH: Denies Sleep: 8.5 ADL's: Independent Group attendance: Yes Were meds taken: Medication compliant Any med S/E: None reported; pt's thirst has increased Mental Status Exam Appearance: Dressed appropriately in street clothes Eye contact: Direct Behavior: Withdrawn but cooperative; Speech: Voice is soft, pt mumbles, Mood: demonstrates little interest in unit activities Affect: constricted Thought process: Poverty of thought Thought Content: Current topic of discussion Cognition: A&Ox4 Insight: Fair Judgment: Fair Interventions PRN's used: None Therapeutic interventions: Maintained a safe and supportive environment, provided clear and simple instructions, monitored behaviors and need for intervention, provided positive encouragement, and maintained Q 15 min safety checks. Restraints/seclusion/emergency medication: N/A Justification of Continued Inpatient Treatment: Per JOSEPH Olvera, pt. is at or near baseline and appears to be nearing competency to stand trial, however requires medications adjustment and a safe and supportive environment.
[2019-07-12] MEDS: acetaminophen 325mg tablet PO PRN (15:49)
[2019-07-12 19:00] VITALS: BP 113/80
[2019-07-12] MEDS: LORazepam 1 MG tablet PO SCH (20:30)
[2019-07-12] MEDS: clozapine 100mg tablet PO SCH (20:32)
[2019-07-12] MEDS: clozapine 25mg tablet PO SCH (20:32)
[2019-07-12] MEDS: OLANZAPINE 5 MG TABLET PO SCH (20:32)
--- NOTE | 2019-07-12 23:44 | NUR ---
Nursing Progress Note: Legal hold: 1370 Client on involuntary status for GD Report received from nurse with use of SBAR: ARLEEN Che Why are they here: Patient was arrested in December for public intoxication in [place], she was referred from [facility] for christianity of competency to stand trial. Patient is psychotic and is a danger to self. She has a history of multiple psychiatric hospitalizations and polysubstance abuse. Assessment What has happened this shift: Pt visible on unit at shift change. Pt is isolative to self and one other patient. Pt is more subdued then last night, was not able to engage in conversation this shift. Pt was medication compliant. Pt requested Motrin for bilateral knee pain 06/05. Pt's Clozaril remained at 250 mg HS, no adverse side effects noted. Pt attended HS snack then requested her HS meds so she could go to bed. Pt currently sleeping with no acute distress noted. 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 Were meds taken: Medication compliant Any med S/E: None reported or observed Mental Status Exam Appearance: Dressed appropriately in street clothes Eye contact: Direct Behavior: Withdrawn but cooperative Speech: Voice is soft, pt mumbles, minimal Mood: "Good" Affect: Constricted Thought process: Poverty of thought Thought Content: Current topic of discussion Cognition: A&Ox4 Insight: Fair Judgment: Fair Interventions PRN's used: Motrin Therapeutic interventions: Maintained a safe and supportive environment, provided clear and simple instructions, monitored behaviors and need for intervention, provided positive encouragement, and maintained Q 15 min safety checks. Restraints/seclusion/emergency medication: N/A Justification of Continued Inpatient Treatment: Per JOSEPH Olvera, pt. is at or near baseline and appears to be nearing competency to stand trial, however requires medications adjustment and a safe and supportive environment.
[2019-07-13 07:32] VITALS: BP 90/50
[2019-07-13] MEDS: docusate sod 100mg capsule PO SCH ×2 (08:13→20:15)
[2019-07-13] MEDS: lithium carbonate 150mg capsule PO SCH ×2 (08:14→20:15)
[2019-07-13] MEDS: ibuprofen 200mg tablet PO PRN (08:14)
[2019-07-13] MEDS: benztropine 1mg tablet PO SCH ×2 (08:14→20:15)
[2019-07-13] MEDS: magnesium hydroxide 30ml (MOM) UD suspension PO PRN (13:43)
--- NOTE | 2019-07-13 15:29 | NUR ---
Nursing Progress Note: Rossi Legal hold: 1370 Client on involuntary status for GD Report received from nurse with use of SBAR: Chinedu RN Why are they here: Patient was arrested in December for public intoxication in [place], she was referred from [facility] for latter day of competency to stand trial. Patient is psychotic and is a danger to self. She has a history of multiple psychiatric hospitalizations and polysubstance abuse. Assessment What has happened this shift: Pt sleeping at change of shift. When she woke up was concerned she had missed breakfast. Requested shower, and supervision to shave her legs. Slightly agitated with 1:1 physical and MH assessment why do we have to do this everyday?. Remains isolative with minimal interaction with staff. Evaluated by hospitalist. Requested her laundry to be done and wanted to touch up her nails. S/I, H/I: None reported or observed A/VH: Denies, does not appear to be responding to IS Sleep: 8 ADL's: Independent Group attendance: No Were meds taken: Medication compliant Any med S/E: None reported or observed Mental Status Exam Appearance: Dressed appropriately in street clothes Eye contact: Direct Behavior: Withdrawn but cooperative Speech: Voice is soft, pt mumbles, minimal Mood: Somber Affect: Constricted Thought process: Poverty of thought Thought Content: Current topic of discussion Cognition: A&Ox4 Insight: Fair Judgment: Fair Interventions PRN's used: Motrin Therapeutic interventions: Maintained a safe and supportive environment, provided clear and simple instructions, monitored behaviors and need for intervention, provided positive encouragement, and maintained Q 15 min safety checks. Restraints/seclusion/emergency medication: N/A Justification of Continued Inpatient Treatment: Per JOSEPH Olvera, pt. is at or near baseline and appears to be nearing competency to stand trial, however requires medications adjustment and a safe and supportive environment.
[2019-07-13] MEDS: acetaminophen 325mg tablet PO PRN (15:52)
[2019-07-13 20:00] VITALS: BP 119/82
[2019-07-13] MEDS: magnesium hydroxide 30ml (MOM) UD suspension PO SCH (20:00)
[2019-07-13] MEDS: clozapine 25mg tablet PO SCH (20:15)
[2019-07-13] MEDS: clozapine 100mg tablet PO SCH (20:16)
[2019-07-13] MEDS: LORazepam 1 MG tablet PO SCH (20:16)
--- NOTE | 2019-07-13 23:14 | NUR ---
Nursing Progress Note: Legal hold: 1370 Client on involuntary status for GD Report received from nurse with use of SBAR: ARLEEN Che Why are they here: Patient was arrested in December for public intoxication in [place], she was referred from [facility] for confucianist of competency to stand trial. Patient is psychotic and is a danger to self. She has a history of multiple psychiatric hospitalizations and polysubstance abuse. Assessment What has happened this shift: Pt visible on unit at shift change. Pt is isolative to self and one other patient. Pt continues to be somber didn't want to talk much during 1:1 assessment. Pt was medication compliant. Pt attended HS snack. Pt refused her scheduled MOM, states her last BM was this morning. Pt retired to bed after HS medication administration. S/I, H/I: None reported or observed. A/VH: None reported or observed. 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 Were meds taken: Medication compliant Any med S/E: None reported or observed Mental Status Exam Appearance: Dressed appropriately in street clothes Eye contact: Direct Behavior: Withdrawn but cooperative, guarded Speech: Voice is soft, pt mumbles, minimal Mood: Somber Affect: Constricted Thought process: Poverty of thought Thought Content: Current topic of discussion Cognition: A&Ox4 Insight: Fair Judgment: Fair Interventions PRN's used: Motrin Therapeutic interventions: Maintained a safe and supportive environment, provided clear and simple instructions, monitored behaviors and need for intervention, provided positive encouragement, and maintained Q 15 min safety checks. Restraints/seclusion/emergency medication: N/A Justification of Continued Inpatient Treatment: Per JOSEPH Olvera, pt. is at or near baseline and appears to be nearing competency to stand trial, however requires medications adjustment and a safe and supportive environment.
[2019-07-14 08:00] VITALS: BP 106/72
[2019-07-14] MEDS: magnesium hydroxide 30ml (MOM) UD suspension PO SCH ×2 (08:00→20:31)
[2019-07-14] MEDS: lithium carbonate 150mg capsule PO SCH ×2 (08:22→20:32)
[2019-07-14] MEDS: docusate sod 100mg capsule PO SCH ×2 (08:22→20:32)
[2019-07-14] MEDS: benztropine 1mg tablet PO SCH ×2 (08:22→20:31)
[2019-07-14] MEDS: ibuprofen 200mg tablet PO PRN (08:28)
[2019-07-14] MEDS: acetaminophen 325mg tablet PO PRN (15:21)
--- NOTE | 2019-07-14 15:23 | NUR ---
Nursing Progress Note: Legal hold: 1370 Client on involuntary status for GD Report received from nurse with use of SBAR: ARLEEN Alcantar Why are they here: Patient was arrested in December for public intoxication in [place], she was referred from [facility] for holiness of competency to stand trial. Patient is psychotic and is a danger to self. She has a history of multiple psychiatric hospitalizations and polysubstance abuse. Assessment What has happened this shift: Pt was sleeping at shift change. Woke up for breakfast. During 1:1 assessment patient requested this life underwriter stop asking her about her bowel movements. When explained it was required for us to follow, she stated yesterday. She remains isolative except for one other client she met previously. The are seen walking together, or sitting at the tables in community room, however minimal conversation. Accompanied staff , security and two to other clients to patio for approximately 15 minutes of sunshine and catch. Attended group and ambulated in hallway afterwards. S/I, H/I: None reported or observed. A/VH: None reported or observed. Sleep: 6.5 ADL's: Independent Group attendance: No Were meds taken: Medication compliant Any med S/E: None reported or observed Mental Status Exam Appearance: Dressed appropriately in street clothes Eye contact: Direct Behavior: Withdrawn but cooperative, guarded Speech: Voice is soft, pt mumbles, minimal Mood: Somber Affect: Constricted Thought process: Poverty of thought Thought Content: Current topic of discussion Cognition: A&Ox4 Insight: Fair Judgment: Fair Interventions PRN's used: Motrin. Tylenol Therapeutic interventions: Maintained a safe and supportive environment, provided clear and simple instructions, monitored behaviors and need for intervention, provided positive encouragement, and maintained Q 15 min safety checks. Restraints/seclusion/emergency medication: N/A Justification of Continued Inpatient Treatment: Per JOSEPH Olvera, pt. is at or near baseline and appears to be nearing competency to stand trial, however requires medications adjustment and a safe and supportive environment.
[2019-07-14 19:57] VITALS: BP 115/68
[2019-07-14] MEDS: clozapine 25mg tablet PO SCH (20:31)
[2019-07-14] MEDS: clozapine 100mg tablet PO SCH (20:31)
[2019-07-14] MEDS: LORazepam 1 MG tablet PO SCH (20:32)
--- NOTE | 2019-07-15 02:09 | NUR ---
Nursing Progress Note: Legal hold: 1370 Client on involuntary status for GD Report received from nurse with use of SBAR: Carmelita RN Why are they here: Patient was arrested in December for public intoxication in [place], she was referred from [facility] for bahai of competency to stand trial. Patient is psychotic and is a danger to self. She has a history of multiple psychiatric hospitalizations and polysubstance abuse. Assessment What has happened this shift: Pt walking around unit then watching TV. Pt is minimally responsive during 1:1, saying only yes or no to questions. Pt was medication compliant. Pt retired to bed after HS medication administration. Attended HS Snack. S/I, H/I: None reported or observed. A/VH: None reported or observed. Sleep: See sleep assessment ADL's: Independent Group attendance: N/A Were meds taken: Yes Any med S/E: None reported or observed Mental Status Exam Appearance: Dressed appropriately in street clothes Eye contact: Direct Behavior: Withdrawn but cooperative, guarded Speech: Voice is soft, pt mumbles, minimal Mood: "Okay" Affect: Constricted Thought process: Poverty of thought Thought Content: Unable to assess Cognition: A&Ox4 Insight: Fair Judgment: Fair Interventions PRN's used: None Therapeutic interventions: Maintained a safe and supportive environment, provided clear and simple instructions, monitored behaviors and need for intervention, provided positive encouragement, and maintained Q 15 min safety checks. Restraints/seclusion/emergency medication: N/A Justification of Continued Inpatient Treatment: Per JOSEPH Olvera, pt. is at or near baseline and appears to be nearing competency to stand trial, however requires medications adjustment and a safe and supportive environment.
[2019-07-15 07:36] VITALS: BP 95/62
[2019-07-15] MEDS: docusate sod 100mg capsule PO SCH ×2 (07:50→21:00)
[2019-07-15] MEDS: ibuprofen 200mg tablet PO PRN (07:50)
[2019-07-15] MEDS: benztropine 1mg tablet PO SCH ×2 (07:50→21:01)
[2019-07-15] MEDS: lithium carbonate 150mg capsule PO SCH ×2 (07:50→21:02)
[2019-07-15] MEDS: magnesium hydroxide 30ml (MOM) UD suspension PO SCH ×2 (07:51→20:00)
[2019-07-15] MEDS: acetaminophen 325mg tablet PO PRN (13:44)
--- NOTE | 2019-07-15 14:33 | NUR ---
Nursing Progress Note: Legal hold: 1370 Client on involuntary status for GD Report received from nurse with use of SBAR: ARLEEN Muro Why are they here: Patient was arrested in December for public intoxication in [place], she was referred from [facility] for adventist of competency to stand trial. Patient is psychotic and is a danger to self. She has a history of multiple psychiatric hospitalizations and polysubstance abuse. Assessment What has happened this shift: Pt. Was sleeping at change of shift. Upon awakening she ambulated independently to the community room to await breakfast. She appears somber, flat affect. Responds appropriately to questions, but minimal response. Med compliant. Joined others on [employer] for 15 minutes prior to afternoon group. Didn't join in playing games but appeared to appreciate the sunshine. S/I, H/I: None reported or observed. A/VH: None reported or observed. Sleep: See sleep assessment ADL's: Independent Group attendance: yes Were meds taken: Yes Any med S/E: None reported or observed Mental Status Exam Appearance: Dressed appropriately in street clothes Eye contact: Direct Behavior: Withdrawn but cooperative, guarded Speech: Voice is soft, pt mumbles, minimal Mood: withdrawn Affect: Constricted Thought process: Poverty of thought Thought Content: Unable to assess Cognition: A&Ox4 Insight: Fair Judgment: Fair Interventions PRN's used: None Therapeutic interventions: Maintained a safe and supportive environment, provided clear and simple instructions, monitored behaviors and need for intervention, provided positive encouragement, and maintained Q 15 min safety checks. Restraints/seclusion/emergency medication: N/A Justification of Continued Inpatient Treatment: Per JOSEPH Olvera, pt. is at or near baseline and appears to be nearing competency to stand trial, however requires medications adjustment and a safe and supportive environment.
[2019-07-15 20:31] VITALS: BP 116/78
[2019-07-15] MEDS: LORazepam 1 MG tablet PO SCH (21:01)
[2019-07-15] MEDS: clozapine 100mg tablet PO SCH (21:02)
[2019-07-15] MEDS: clozapine 25mg tablet PO SCH (21:02)
--- NOTE | 2019-07-16 01:08 | NUR ---
Nursing Progress Note: Legal hold: 1370 Client on involuntary status for GD Report received from nurse with use of SBAR: ARLEEN Mae Why are they here: Patient was arrested in December for public intoxication in [place], she was referred from [facility] for sabianist of competency to stand trial. Patient is psychotic and is a danger to self. She has a history of multiple psychiatric hospitalizations and polysubstance abuse. Assessment What has happened this shift: Pt approached RN at the start of shift with requests: "Can I have some prune juice? I want to shave my legs and use qtips." Pt stated she is doing "good" then smiled. In group room watching TV then pacing the halls waiting for evening medications. Medication compliant but refused MOM, stating "I just went, I don't want to take that one." Pt shaved her legs with RN supervision after medication pass then retired to bed. S/I, H/I: None reported or observed. A/VH: None reported or observed. Sleep: See sleep assessment ADL's: Independent Group attendance: N/A Were meds taken: Yes Any med S/E: None reported or observed Mental Status Exam Appearance: Dressed appropriately in street clothes Eye contact: Direct Behavior: Withdrawn but cooperative Speech: Voice is soft, pt mumbles, minimal Mood: "I'm good" Affect: Constricted Thought process: Poverty of thought Thought Content: wanting to shave legs Cognition: A&Ox4 Insight: Fair Judgment: Fair Interventions PRN's used: None Therapeutic interventions: Maintained a safe and supportive environment, provided clear and simple instructions, monitored behaviors and need for intervention, provided positive encouragement, and maintained Q 15 min safety checks. Restraints/seclusion/emergency medication: N/A Justification of Continued Inpatient Treatment: Per JOSEPH Olvera, pt. is at or near baseline and appears to be nearing competency to stand trial, however requires medication adjustment and a safe and supportive environment.
[2019-07-16 07:31] VITALS: BP 99/62
[2019-07-16] MEDS: lithium carbonate 150mg capsule PO SCH ×2 (07:48→20:25)
[2019-07-16] MEDS: magnesium hydroxide 30ml (MOM) UD suspension PO SCH ×2 (07:48→20:25)
[2019-07-16] MEDS: docusate sod 100mg capsule PO SCH ×2 (07:48→20:25)
[2019-07-16] MEDS: benztropine 1mg tablet PO SCH ×2 (07:49→20:25)
[2019-07-16] MEDS: ibuprofen 200mg tablet PO PRN ×2 (07:59→16:35)
--- NOTE | 2019-07-16 16:10 | NUR ---
Nursing Progress Note: Legal hold: 1370 Client on involuntary status for GD Report received from nurse with use of SBAR: ARLEEN Alva Why are they here: Patient was arrested in December for public intoxication in [place], she was referred from [facility] for protestant of competency to stand trial. Patient is psychotic and is DTS. She has a history of multiple psychiatric hospitalizations and polysubstance abuse. Assessment What has happened this shift: Pt is found resting at change of shift. At breakfast, she requests to hold MOM, but later said she did want it. Her last BM was yesterday. Moments after medications were administered she requested her PRN ibuprofen. Pt stated she is doing "fine" with a flat, blunt affect. She denies any SEs and none were objectively observed. S/I, H/I: None reported or observed. A/VH: None reported or observed. Sleep: 7.75hrs NOC ADL's: Independent Group attendance: Yes Were meds taken: Yes Any med S/E: None reported or observed Mental Status Exam Appearance: Dressed appropriately in green scrubs Eye contact: Direct Behavior: Withdrawn but cooperative Speech: Voice is flat & blunt, mumbles, minimal Mood: "I'm good" Affect: Constricted Thought process: Poverty of thought Thought Content: needs Cognition: A&Ox4 Insight: Fair Judgment: Fair Interventions PRN's used: Ibuprofen X1 Therapeutic interventions: Maintained a safe and supportive environment, provided clear and simple instructions, monitored behaviors and need for intervention, provided positive encouragement, and maintained Q 15 min safety checks. Restraints/seclusion/emergency medication: N/A Justification of Continued Inpatient Treatment: Per JOSEPH Olvera, pt. is at or near baseline and appears to be nearing competency to stand trial, however requires medication adjustment and a safe and supportive environment. Continue with mock trials to assist with court hearing.
[2019-07-16] MEDS: LORazepam 1 MG tablet PO SCH (20:25)
[2019-07-16] MEDS: clozapine 100mg tablet PO SCH (20:25)
[2019-07-16 20:55] VITALS: BP 117/78
--- NOTE | 2019-07-17 01:14 | NUR ---
Nursing Progress Note: Legal hold: 1370 Client on involuntary status for GD Report received from nurse with use of SBAR: Cramelita RN Why are they here: Patient was arrested in December for public intoxication in [place], she was referred from [facility] for baptism of competency to stand trial. Patient is psychotic and is a danger to self. She has a history of multiple psychiatric hospitalizations and polysubstance abuse. Assessment What has happened this shift: Per shift change report, pt had a rough day related to her mock trial. Pt presented as calm but guarded this evening, stating shes "good" but then immediately after "why are we talking" which signifies the pt not wanting to discuss how she is feeling further to this RN. Usually the pt is cooperative and will go through the entire assessment without resistance. Pt requested medications earlier than usual and RN provided education as to administration times; pt nodded understanding. Pt expressed concern that her hair is greying and RN responded to not worry as we all get greying hair in our 30s, pt smiled. Pt retired after medication administration and awoke only to ask for a water refill. S/I, H/I: None reported or observed. A/VH: None reported or observed. Sleep: See sleep assessment ADL's: Independent Group attendance: N/A Were meds taken: Yes Any med S/E: None reported or observed Mental Status Exam Appearance: Dressed appropriately in street clothes with hair in neat ponytail Eye contact: Direct Behavior: Pacing unit, watching TV Speech: Voice is soft, pt mumbles, minimal Mood: "Good" Affect: Constricted Thought process: Poverty of thought Thought Content: wanting a snack, hair is greying Cognition: A&Ox4 Insight: Fair Judgment: Fair Interventions PRN's used: None Therapeutic interventions: Maintained a safe and supportive environment, provided clear and simple instructions, monitored behaviors and need for intervention, provided positive encouragement, and maintained Q 15 min safety checks. Restraints/seclusion/emergency medication: N/A Justification of Continued Inpatient Treatment: Pt requires more support to become competent to stand trial and a safe and supportive environment. Addendum: 07/17/19 at 0204 by Tara Jacobson RN Pt increased thirst from previous nights; total of 4 pitcher refills as opposed to usual 3. Pt needs [place] level and CBC drawn this week.
[2019-07-17 07:00] VITALS: BP 105/61
[2019-07-17] MEDS: lithium carbonate 150mg capsule PO SCH ×2 (07:55→20:09)
[2019-07-17] MEDS: ibuprofen 200mg tablet PO PRN ×2 (07:55→15:57)
[2019-07-17] MEDS: benztropine 1mg tablet PO SCH ×2 (07:55→20:10)
[2019-07-17] MEDS: docusate sod 100mg capsule PO SCH ×2 (07:55→20:10)
[2019-07-17] MEDS: magnesium hydroxide 30ml (MOM) UD suspension PO SCH ×2 (07:55→20:09)
--- NOTE | 2019-07-17 14:06 | NUR ---
Reassessment: Pt continues meeting nutrient needs with documented 75-100% PO intake of meals. No edema or wounds. No nutrition diagnosis at this time. Will continue to follow. Recommendations: 1) Continue regular diet 2) Routine bowel care 3) Weekly wt Addendum: 07/17/19 at [address] Amended: Links added.
--- NOTE | 2019-07-17 18:14 | NUR ---
Nursing Progress Note: MILI Legal hold: 1370 Client on involuntary status for GD Report received from nurse with use of SBAR: ARLEEN Alva Why are they here: Patient was arrested in December for public intoxication in [place], [facility] restorationism of competency to stand trial. Patient is psychotic and is DTS. She has a history of multiple psychiatric hospitalizations and polysubstance abuse. Assessment What has happened this shift: Pt is found resting at change of shift. Pt unsure if she wanted to take MOM this AM. Her last BM was day before yesterday so RN encouraged MOM administration. She requested her PRN ibuprofen for knee pain. Pt continues to state that she is "fine" with a flat, blunt affect. She denies any SEs and none were objectively observed by this senior writer. Pt showered in AM and put on makeup to assist with confidence with her upcoming mock trail. Pt appears anxious but hopeful. S/I, H/I: None reported or observed. A/VH: None reported or observed. Sleep: 7 hrs NOC ADL's: Independent Group attendance: Yes Were meds taken: Yes Any med S/E: None reported or observed Mental Status Exam Appearance: Dressed appropriately in green scrubs Eye contact: Direct Behavior: Withdrawn but cooperative Speech: Voice is monotone, blunt, mumbles, minimal Mood: "Good" Affect: Constricted Thought process: Poverty of thought Thought Content: needs Cognition: A&Ox4 Insight: Fair Judgment: Fair Interventions PRN's used: Ibuprofen X2 Therapeutic interventions: Maintained a safe and supportive environment, provided clear and simple instructions, monitored behaviors and need for intervention, provided positive encouragement, and maintained Q 15 min safety checks. Restraints/seclusion/emergency medication: N/A Justification of Continued Inpatient Treatment: Per JOSEPH Olvera, pt. is at or near baseline and appears to be nearing competency to stand trial, however requires medication adjustment and a safe and supportive environment. Continue with mock trials to assist with court hearing.
[2019-07-17] MEDS: clozapine 100mg tablet PO SCH (20:10)
[2019-07-17] MEDS: LORazepam 1 MG tablet PO SCH (20:10)
[2019-07-17] MEDS: acetaminophen 325mg tablet PO PRN (20:21)
[2019-07-17 20:45] VITALS: BP 102/81
[2019-07-17] MEDS ORDERED: OLANZapine 2.5MG tablet PO SCH (21:00)
--- NOTE | 2019-07-17 22:18 | NUR ---
Nursing progress note: One to one with the patient to assess for severity of thought disorder, educated to medications. The patient was up on the unit. She showered and she appeared clean and well groomed. Her affect was blunted. She was friendly and cooperative with the evening assessment. She denies any thoughts to harm herself or others. She denies having psychotic symptoms but her replies to questions were odd. When asked if she felt she was getting better here on the unit she stated that she thought she was and when asked to give an example she stated, "I'm not smoking" She does know she is here for court but when asked what charges she was facing she replied, "I don't know there are a lot of them" When asked what the criteria was to be ready for court she replied, "brush my teeth and take a shower and talk to my bankruptcy attorney" She stated that she is being helped here and explained, "the kind ladies who help me" She stated at another point in the assessment that "I need to have salt on my eggs to make up" She stated that she is sleeping well at night. She also reports an increased appetite and stated "I want to have double portions" She denies side effects to medications. She is treatment and medication compliant and her lithium level was 0.5 on 07/10. She continues to require stabilization psychiatrically to fully participate in the court process.
[2019-07-18 07:30] VITALS: BP 95/67
[2019-07-18] MEDS: benztropine 1mg tablet PO SCH ×2 (08:13→20:26)
[2019-07-18] MEDS: lithium carbonate 150mg capsule PO SCH ×2 (08:13→20:29)
[2019-07-18] MEDS: docusate sod 100mg capsule PO SCH ×3 (08:13→20:29)
[2019-07-18] MEDS: magnesium hydroxide 30ml (MOM) UD suspension PO SCH ×2 (08:14→20:00)
[2019-07-18] MEDS: ibuprofen 200mg tablet PO PRN ×2 (08:27→17:47)
--- NOTE | 2019-07-18 17:00 | NUR ---
Nursing Progress Note: MILI Legal hold: 1370 Client on involuntary status for GD Report received from nurse with use of SBAR: ARLEEN Alva Why are they here: Patient was arrested in December for public intoxication in [place], she was referred from [facility] for zoroastrian of competency to stand trial. Patient is psychotic and is DTS. She has a history of multiple psychiatric hospitalizations and polysubstance abuse. Assessment What has happened this shift: Pt. sleeping at start of shift. Pt. took medications and ate all meals in the community room. Pt. denies SI/HI, A/V H. Pt. showed no signs of drooling. Pt. seen pacing the halls and interacting with other patients appropriately. S/I, H/I: Denies A/VH: Denies Sleep: no naps ADL's: Independent Group attendance: Yes Were meds taken: Yes Any med S/E: None reported or observed Mental Status Exam Appearance: Dressed appropriately in civilian clothes Eye contact: Direct Behavior: Withdrawn but cooperative Speech: Voice is monotone, blunt, mumbles, minimal Mood: "Good" Affect: Constricted Thought process: Poverty of thought Thought Content: clothes Cognition: A&Ox4 Insight: Fair Judgment: Fair Interventions PRN's used: Ibuprophen x1 Therapeutic interventions: Maintained a safe and supportive environment, provided clear and simple instructions, monitored behaviors and need for intervention, provided positive encouragement, and maintained Q 15 min safety checks. Restraints/seclusion/emergency medication: N/A Justification of Continued Inpatient Treatment: Per JOSEPH Olvera, pt. is at or near baseline and appears to be nearing competency to stand trial, however requires medication adjustment and a safe and supportive environment. Continue with mock trials to assist with court hearing.
[2019-07-18 19:47] VITALS: BP 112/73
[2019-07-18] MEDS: clozapine 100mg tablet PO SCH (20:28)
[2019-07-18] MEDS: LORazepam 1 MG tablet PO SCH (20:28)
[2019-07-18] MEDS ORDERED: OLANZapine 2.5MG tablet PO SCH (21:00)
--- NOTE | 2019-07-18 22:05 | NUR ---
Nursing Progress Note: Legal hold: 1370 Client on involuntary status for GD Report received from nurse with use of SBAR: ARLEEN Che Why are they here: Patient was arrested in December for public intoxication in [place], she was referred from [facility] for muslim of competency to stand trial. Patient is psychotic and is DTS. She has a history of multiple psychiatric hospitalizations and polysubstance abuse. Assessment What has happened this shift: Patient visible on the unit at the beginning of shift. Appeared bright AEB smiling and intiating conversation. Patient watched TV in rec room for a short while and went to group room for snack. Patient refused MOM and docusate, she didn't want to answer questions regarding BMs. She was over heard in the restroom by this engineering technical writer and it appeared she is having loose stools. Patient remained pleasant and went to bed shortly after. S/I, H/I: Denied A/VH: Denied Sleep: asleep at this time ADL's: Independent Group attendance: group room for snack Were meds taken: Yes Any med S/E: None reported or observed Mental Status Exam Appearance: Dressed appropriately in civilian clothes, hair neat Eye contact: Direct Behavior: Withdrawn but cooperative Speech: Voice is monotone and minimal Mood: "Good" Affect: bright, smiling Thought process: poverty of thought Thought Content: clothes Cognition: A&Ox4 Insight: Fair Judgment: Fair Interventions PRN's used: none at this time Therapeutic interventions: Maintained a safe and supportive environment, provided clear and simple instructions, monitored behaviors and need for intervention, provided positive encouragement, and maintained Q 15 min safety checks. Restraints/seclusion/emergency medication: N/A Justification of Continued Inpatient Treatment: JOSEPH Ardon, pt. is at or near baseline and appears to be nearing competency to stand trial, however requires medication adjustment and a safe and supportive environment. Continue with mock trials to assist with court hearing.
[2019-07-19] MEDS: lithium carbonate 150mg capsule PO SCH ×2 (07:29→20:27)
[2019-07-19] MEDS: docusate sod 100mg capsule PO SCH ×2 (07:29→20:00)
[2019-07-19 07:30] VITALS: BP 117/83
[2019-07-19] MEDS: benztropine 1mg tablet PO SCH ×2 (07:30→20:25)
[2019-07-19] MEDS: ibuprofen 200mg tablet PO PRN ×2 (07:48→20:24)
[2019-07-19] MEDS: magnesium hydroxide 30ml (MOM) UD suspension PO SCH (08:00)
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
--- NOTE | 2019-07-19 17:42 | NUR ---
Nursing Progress Note: MILI Legal hold: 1370 Client on involuntary status for GD Report received from nurse with use of SBAR: ARLEEN Alva Why are they here: Patient was arrested in December for public intoxication in [place], she was referred from [facility] for evangelical of competency to stand trial. Patient is psychotic and is DTS. She has a history of multiple psychiatric hospitalizations and polysubstance abuse. Assessment What has happened this shift: Pt. sleeping at start of the shfit. Pt. took medications and ate all meals in the community room. 1:1 done at bedside, pt. Pt. denies SI/HI, A/V H. Pt. becomes quickly agitated during interview. Pt. is impatient with requests, when she does not get a request met by one staff member she quickly moves to another and then another until needs met. Pt. needs redirection. Pt. shaved her legs and showered this AM. Pt. seen interacting appropriately with other patients, requesting to color in the afternoon. Pt. given Ibuprofen for bilateral knee pain, PRN effective. S/I, H/I: Denies A/VH: Denies Sleep: no naps ADL's: Independent Group attendance: Yes Were meds taken: Yes Any med S/E: None reported or observed Mental Status Exam Appearance: Dressed appropriately in civilian clothes Eye contact: Direct Behavior: Speech: Voice is monotone, and quietly mumbles, pt. requested to speak slow and clear. Mood: "Good" Affect: Blunted Thought process: Poverty of thought Thought Content: clothes, water Cognition: A&Ox4 Insight: Fair Judgment: Fair Interventions PRN's used: Ibuprofen x1 Therapeutic interventions: Maintained a safe and supportive environment, provided clear and simple instructions, monitored behaviors and need for intervention, provided positive encouragement, and maintained Q 15 min safety checks. Restraints/seclusion/emergency medication: N/A Justification of Continued Inpatient Treatment: Per JOSEPH Olvera, pt. is at or near baseline and appears to be nearing competency to stand trial, however requires medication adjustment and a safe and supportive environment. Continue with mock trials to assist with court hearing.
[2019-07-19 19:10] VITALS: BP 116/76
[2019-07-19] MEDS: clozapine 100mg tablet PO SCH (20:25)
[2019-07-19] MEDS: LORazepam 1 MG tablet PO SCH (20:26)
[2019-07-19] MEDS: risperiDONE 0.5mg tablet PO SCH (20:27)
--- NOTE | 2019-07-19 23:30 | NUR ---
Nursing Progress Note: Legal hold: 1370 Client on involuntary status for GD Report received from nurse with use of SBAR: ARLEEN Che Why are they here: Patient was arrested in December for public intoxication in [place], she was referred from [facility] for taoism of competency to stand trial. Patient is psychotic and is DTS. She has a history of multiple psychiatric hospitalizations and polysubstance abuse. Assessment What has happened this shift: Patient visible on the unit at the beginning of shift. Compliant with assessment and medications. Received ibuprofen for knee pain, effective. Continues to refuse docusate. Olanzapine D/C this shift and patient started on risperidone, no ASE observed or reported. Patient not drooling. When talking the patient would say something too quickly too understand but when asked to repeat she was able to clearly state what she was saying. Patient paced the halls for a short period of time, group room for snack, and went to bed shortly after receiving medications. S/I, H/I: Denied A/VH: Denied Sleep: asleep at this time ADL's: Independent Group attendance: group room for snack Were meds taken: Yes Any med S/E: None reported or observed Mental Status Exam Appearance: Dressed appropriately, hair neatly pulled back Eye contact: Direct Behavior: Withdrawn but cooperative Speech: monotone, mumbling and minimal Mood: "Good" Affect: flat Thought process: poverty of thought Thought Content: clothes Cognition: A&Ox4 Insight: Fair Judgment: Fair Interventions PRN's used: none at this time Therapeutic interventions: Maintained a safe and supportive environment, provided clear and simple instructions, monitored behaviors and need for intervention, provided positive encouragement, and maintained Q 15 min safety checks. Restraints/seclusion/emergency medication: N/A Justification of Continued Inpatient Treatment: Per JOSEPH Olvera, pt. is at or near baseline and appears to be nearing competency to stand trial, however requires medication adjustment and a safe and supportive
[2019-07-20 07:30] VITALS: BP 112/70
[2019-07-20] MEDS: benztropine 1mg tablet PO SCH ×2 (07:36→20:34)
[2019-07-20] MEDS: docusate sod 100mg capsule PO SCH ×2 (07:36→20:35)
[2019-07-20] MEDS: lithium carbonate 150mg capsule PO SCH ×2 (07:36→20:34)
[2019-07-20] MEDS: ibuprofen 200mg tablet PO PRN (10:27)
--- NOTE | 2019-07-20 17:24 | NUR ---
Nursing Progress Note: MILI Legal hold: 1370 Client on involuntary status for GD Report received from nurse with use of SBAR: Adriana Cruz RN Why are they here: Patient was arrested in December for public intoxication in [place], she was referred from [facility] for mandaen of competency to stand trial. Patient is psychotic and is DTS. She has a history of multiple psychiatric hospitalizations and polysubstance abuse. Assessment What has happened this shift: Pt. awake at change of shift his AM. Pt. requesting her water to be refilled. Pt. took medications and ate all meals in the community room. 1:1 done at bedside, pt. Pt. denies SI/HI, A/V H. Pt. seen interacting appropriately with other patients, requesting to color in the afternoon. Pt. given Ibuprofen for bilateral knee pain, PRN effective. S/I, H/I: Denies A/VH: Denies Sleep: no naps ADL's: Independent Group attendance: Yes Were meds taken: Yes Any med S/E: None reported or observed Mental Status Exam Appearance: Dressed appropriately in civilian clothes and wearing makeup Eye contact: Direct Behavior: Pt. seen interacting appropriately with peers. Speech: Voice is monotone, and quietly mumbles, pt. requested to speak slow and clear. Mood: "Good" Affect: Blunted Thought process: Poverty of thought Thought Content: Clothes, makeup Cognition: A&Ox4 Insight: Fair Judgment: Fair Interventions PRN's used: Ibuprofen x1 Therapeutic interventions: Maintained a safe and supportive environment, provided clear and simple instructions, monitored behaviors and need for intervention, provided positive encouragement, and maintained Q 15 min safety checks. Restraints/seclusion/emergency medication: N/A Justification of Continued Inpatient Treatment: Per JOSEPH Olvera, pt. is at or near baseline and appears to be nearing competency to stand trial, however requires medication adjustment and a safe and supportive environment. Continue with mock trials to assist with court hearing.
[2019-07-20] MEDS: ibuprofen tablet 400 MG TABLET PO PRN (18:53)
[2019-07-20 19:53] VITALS: BP 126/85
[2019-07-20] MEDS: LORazepam 1 MG tablet PO SCH (20:33)
[2019-07-20] MEDS: clozapine 100mg tablet PO SCH (20:33)
[2019-07-20] MEDS: risperiDONE 0.5mg tablet PO SCH (20:34)
[2019-07-20] MEDS: mag hydrox/Alum hydrox/simeth 30ml oral suspension PO PRN (21:03)
--- NOTE | 2019-07-20 21:23 | NUR ---
Nursing Progress Note: MILI Legal hold: 1370 Client on involuntary status for GD Report received from nurse with use of SBAR: ARLEEN Che Why are they here: Patient was arrested in December for public intoxication in [place], she was referred from [facility] for buddhism of competency to stand trial. Patient is psychotic and is DTS. She has a history of multiple psychiatric hospitalizations and polysubstance abuse. Assessment What has happened this shift: Patient visible on the unit at the beginning of shift. Initiating conversations with peers and staff. Patient hyperverbal this shift, audible but blending words together. When asked to clarify she slowed down and was able to make herself clear. Patient c/o knee pain and received ibuprofen with effective result, she also c/o indigestion and Maalox was provided with positive effect. Patient remained pleasant and cooperative for medications and assessments. S/I, H/I: Denied A/VH: Denied Sleep: awake at this time ADL's: Independent Group attendance: group room for snack Were meds taken: Yes Any med S/E: None reported or observed Mental Status Exam Appearance: Dressed appropriately in civilian clothes, wearing makeup, hair neatly pulled back Eye contact: Direct Behavior: Pt. seen interacting appropriately with peers. Speech: hyperverbal, cramming words together but able to clarify when asked Mood: "Good" Affect: bright Thought process: Poverty of thought Thought Content: Clothes, makeup, indigestion Cognition: A&Ox4 Insight: Fair Judgment: Fair Interventions PRN's used: Ibuprofen and Maalox, effective Therapeutic interventions: Maintained a safe and supportive environment, provided clear and simple instructions, monitored behaviors and need for intervention, provided positive encouragement, and maintained Q 15 min safety checks. Restraints/seclusion/emergency medication: N/A Justification of Continued Inpatient Treatment: Per JOSEPH Olvera, pt. is at or near baseline and appears to be nearing competency to stand trial, however requires medication adjustment and a safe and supportive environment. Continue with mock trials to assist with court hearing.
[2019-07-21 07:46] VITALS: BP 103/69
[2019-07-21] MEDS: lithium carbonate 150mg capsule PO SCH ×2 (07:53→20:56)
[2019-07-21] MEDS: benztropine 1mg tablet PO SCH ×2 (07:53→20:55)
[2019-07-21] MEDS: docusate sod 100mg capsule PO SCH ×2 (07:53→20:55)
[2019-07-21] MEDS: ibuprofen tablet 400 MG TABLET PO PRN ×2 (10:31→21:04)
--- NOTE | 2019-07-21 15:49 | NUR ---
Nursing Progress Note: MILI Legal hold: 1370 Client on involuntary status for GD Report received from nurse with use of SBAR: ARLEEN Hurtado Why are they here: Patient was arrested in December for public intoxication in [place], she was referred from [facility] for religion of competency to stand trial. Patient is psychotic and is DTS. She has a history of multiple psychiatric hospitalizations and polysubstance abuse. Assessment What has happened this shift: Patient resting in bed at change of shift. Patient was pleasant and cooperative for medications and assessment. She c/o needing neosporin ointment for her "issues" with her pannus. RN observed mutliple scars, pt unable to articulate where or why she has scarring. Pt appears to be picking which is causing redness. RN applied ointment and a bandaid. Pt reports mild and her temp is 98.0F, ibuprofen administered. Pt blending words today, had to be reminded multiple times to slow down and articulate. She reports, "My roommate is crazy" but that they get along well. No SE's reported or observed. S/I, H/I: Denied A/VH: Denied Sleep: 6.5hrs NOC ADL's: Independent Group attendance: Yes Were meds taken: Yes Any med S/E: None reported or observed Mental Status Exam Appearance: Dressed appropriately in street clothes, wearing makeup Eye contact: Direct Behavior: Pt. seen interacting appropriately with peers & roommate Speech: blending words, mumbling Mood: "Good" Affect: euthymic Thought process: linear Thought Content: medications, group, food Cognition: A&Ox4 Insight: Fair Judgment: Fair Interventions PRN's used: Ibuprofen X1 Therapeutic interventions: Maintained a safe and supportive environment, provided clear and simple instructions, monitored behaviors and need for intervention, provided positive encouragement, and maintained Q 15 min safety checks. Restraints/seclusion/emergency medication: N/A Justification of Continued Inpatient Treatment: Per JOSEPH Olvera, pt. is at or near baseline and appears to be nearing competency to stand trial, however requires medication adjustment and a safe and supportive environment. Continue with mock trials to assist with court hearing.
[2019-07-21 19:57] VITALS: BP 119/86
[2019-07-21] MEDS: risperiDONE 0.5mg tablet PO SCH (20:54)
[2019-07-21] MEDS: clozapine 100mg tablet PO SCH (20:54)
[2019-07-21] MEDS: LORazepam 1 MG tablet PO SCH (20:56)
--- NOTE | 2019-07-21 22:29 | NUR ---
Nursing Progress Note: Legal hold: 1369 Client on involuntary status for GD Report received from nurse with use of SBAR: Chinedu BACON Why are they here: Patient was arrested in December for public intoxication in [place], she was referred from [facility] for sikh of competency to stand trial. Patient is psychotic and is DTS. She has a history of multiple psychiatric hospitalizations and polysubstance abuse. Assessment What has happened this shift: Pt seen in the milieu watching tv, interacting with peers, she is pleasant upon approach and cooperative with assessment. She denies any issues with her meds, and I explained to her that the Risperdal was increasing to 1 mg tonight from 0.5 mg, pt seemed unaware that she was receiving Risperdal although she got it the last two nights. She denies any psychotic symptoms, but her thoughts become disorganized at times during interaction. S/I, H/I: Denied A/VH: Denied Sleep: sleeping well ADL's: Independent Group attendance: Yes Were meds taken: Yes Any med S/E: None reported or observed Mental Status Exam Appearance: wearing hospital scrubs, grooming good Eye contact: good Behavior: pleasant and cooperative Speech: volume soft, normal rate Mood: even Affect: blunted Thought process: disorganized at times Thought Content: no delusions/obsessions/no S/I or H/I Cognition: A&Ox4 Insight: Fair Judgment: Fair Interventions PRN's used: Ibuprofen X1 Therapeutic interventions: Maintained a safe and supportive environment, medication administration and monitoring for side effects, medication education on Risperdal, and maintained Q 15 min safety checks. Restraints/seclusion/emergency medication: N/A Justification of Continued Inpatient Treatment: Pt here on 1369 hearing to try to restore competency so she can stand trial for her charges of public intoxication.
[2019-07-22 07:00] VITALS: BP 122/83
[2019-07-22] MEDS: benztropine 1mg tablet PO SCH ×2 (07:52→20:28)
[2019-07-22] MEDS: lithium carbonate 150mg capsule PO SCH ×2 (07:52→20:28)
[2019-07-22] MEDS: docusate sod 100mg capsule PO SCH ×2 (07:52→20:28)
[2019-07-22] MEDS: ibuprofen tablet 400 MG TABLET PO PRN ×2 (07:54→18:56)
--- NOTE | 2019-07-22 16:02 | NUR ---
Nursing Progress Note: MILI Legal hold: 1370 Client on involuntary status for GD Report received from nurse with use of SBAR: ARLEEN Muro Why are they here: Patient was arrested in December for public intoxication in [place], she was referred from [facility] for yazidi of competency to stand trial. Patient is psychotic and is DTS. She has a history of multiple psychiatric hospitalizations and polysubstance abuse. Assessment What has happened this shift: Patient resting in bed at change of shift. Patient was pleasant and cooperative for medications and assessment. She is found socialzing with peers. She makes odd statements like, "I thought Raul was a black bacilio. I swear I thought he looked like Mr. Lopez." Pt is found laughing at herself multiple times throughout the day. Pt continues to blend words today, had to be reminded multiple times to slow down and articulate. No SE's reported or observed. S/I, H/I: Denied A/VH: Denied Sleep: 7.25 hrs NOC ADL's: Independent Group attendance: Yes Were meds taken: Yes Any med S/E: None reported or observed Mental Status Exam Appearance: Dressed appropriately in street clothes, wearing makeup Eye contact: Direct Behavior: Pt. seen interacting appropriately with peers & roommate Speech: blending words, mumbling Mood: "Fine" Affect: euthymic Thought process: linear Thought Content: medications, clothes, food, Francisco Trthomas Cognition: A&Ox4 Insight: Fair Judgment: Fair Interventions PRN's used: Ibuprofen X1 Therapeutic interventions: Maintained a safe and supportive environment, provided clear and simple instructions, monitored behaviors and need for intervention, provided positive encouragement, and maintained Q 15 min safety checks. Restraints/seclusion/emergency medication: N/A Justification of Continued Inpatient Treatment: Per JOSEPH Olvera, pt. is at or near baseline and appears to be nearing competency to stand trial, however requires medication adjustment and a safe and supportive environment. Continue with mock trials to assist with court hearing.
[2019-07-22] MEDS: clozapine 100mg tablet PO SCH (20:28)
[2019-07-22] MEDS: LORazepam 1 MG tablet PO SCH (20:28)
[2019-07-22] MEDS: risperiDONE 0.5mg tablet PO SCH (20:28)
[2019-07-22 20:33] VITALS: BP 127/89
--- NOTE | 2019-07-22 23:00 | NUR ---
Nursing Progress Note: Legal hold: 1370 Client on involuntary status for GD Report received from nurse with use of SBAR: ARLEEN Che Why are they here: Patient was arrested in December for public intoxication in [place], she was referred from [facility] for jew of competency to stand trial. Patient is psychotic and is DTS. She has a history of multiple psychiatric hospitalizations and polysubstance abuse. Assessment What has happened this shift: Patient resting in TV room at change of shift. Patient was pleasant and cooperative for medications and assessment. She is found socialzing with peers. Pt. had a shower. She makes odd statements like, "I thought Raul was a black bacilio. I swear I thought he looked like Mr. Lopez." Pt is found laughing at herself multiple times throughout the day. Pt continues to blend words today, had to be reminded multiple times to slow down and articulate. No SE's reported or observed. S/I, H/I: Denied A/VH: Denied Sleep: 7.25 hrs NOC ADL's: Independent Group attendance: Yes Were meds taken: Yes Any med S/E: None reported or observed Mental Status Exam Appearance: Dressed appropriately in street clothes, wearing makeup Eye contact: Direct Behavior: Pt. seen interacting appropriately with peers & roommate Speech: blending words, mumbling Mood: "Fine" Affect: euthymic Thought process: linear Thought Content: medications, clothes, food, Francisco Trump Cognition: A&Ox4 Insight: Fair Judgment: Fair Interventions PRN's used: Ibuprofen X1 Therapeutic interventions: Maintained a safe and supportive environment, provided clear and simple instructions, monitored behaviors and need for intervention, provided positive encouragement, and maintained Q 15 min safety checks. Restraints/seclusion/emergency medication: N/A Justification of Continued Inpatient Treatment: Per JOSEPH Olvera, pt. is at or near baseline and appears to be nearing competency to stand trial, however requires medication adjustment and a safe and supportive environment. Continue with mock trials to assist with court hearing.
[2019-07-23 07:38] VITALS: BP 117/77
[2019-07-23] MEDS: docusate sod 100mg capsule PO SCH ×2 (07:50→20:05)
[2019-07-23] MEDS: lithium carbonate 150mg capsule PO SCH ×2 (07:50→20:05)
[2019-07-23] MEDS: benztropine 1mg tablet PO SCH ×2 (07:51→20:05)
[2019-07-23] MEDS: mag hydrox/Alum hydrox/simeth 30ml oral suspension PO PRN (07:56)
--- NOTE | 2019-07-23 13:13 | NUR ---
Nursing Progress Note: Legal hold: 1370 Client on involuntary status for GD Report received from nurse with use of SBAR: ARLEEN Alva Why are they here: Patient was arrested in December for public intoxication in [place], she was referred from [facility] for cheondoism of competency to stand trial. Patient is psychotic and is DTS. She has a history of multiple psychiatric hospitalizations and polysubstance abuse. Assessment What has happened this shift: Pt initially pleasant and cooperative this morning, requested prn Maalox for heartburn before breakfast. After breakfast, pt became loud, demanding, and hostile to staff. Previous to change in behavior this RN had observed pt in a corner of the community room with her hypomanic roommate. Roommate had pulled pt aside and was talking to her animatedly with accusatory statements about a staff members which seemed to contribute to pt's escalating verbal outbursts. During physical assessment when this RN asked pt about when she had had her last BM, pt responded with "That's rude, that's like the rudest thing you've ever said to me!" She then began making frequent loud demands from staff and when her demands were not met immediately would display rude verbal outbursts. It was decided amongst staff members today that pt would be assigned a point of contact staff member which would be a PCT appointed to handling her many requests so that pt would not go to several different staff members with the same demands. Hardik PCT volunteered for the position. Pt later calmed down and apologized to this RN, she divulged that her last BM had been yesterday and explained that she hadn't wanted her roommate to overhear that particular conversation. S/I, H/I: Pt denies A/VH: Pt denies Sleep: Slept 67.75 hours per noc shift report ADL's: Independent Group attendance: Yes Were meds taken: Yes Any med S/E: None reported or observed Mental Status Exam Appearance: Dressed appropriately in street clothes, spittle collects in the corners of her mouth when she talks Eye contact: Good Behavior: Usually pleasant and cooperative with some intermittent oppositional behavior and loud verbal outbursts Speech: loud, somewhat pressured and slurred at times Mood: "I'm fine." Affect: somewhat labile, irritability and mild agitation fluctuating with bright, pleasant and cooperative Thought process: loose associations Thought Content: irritated she was asked about her last BM, very irritated when staff attempts to limit her water intake, happy to get to go outside today Cognition: A/O X 4 Insight: Fair Judgment: Fair Interventions PRN's used: Maalox Therapeutic interventions: 1:1 assessment, therapeutic conversation, medication administration/education/monitoring, limit setting, redirection, verbal de-escalation, positive reinforcement, maintained Q 15 min safety checks. Restraints/seclusion/emergency medication: N/A Justification of Continued Inpatient Treatment: Pt has been deemed competent to stand trial, court will be notified. Addendum: 07/23/19 at 1357 by Kayla Sharif" Woodman BACON Pt approached this RN and asked for ibuprofen for her knees. When asked her to rate her pain level she was unable to do so, stating that she is wearing long pants, if she had shorts her knees wouldn't hurt, they hurt because of the pants rubbing against her skin. Pt continued talking nonstop, tangential, and disorganized though currently pleasant and cooperative.
[2019-07-23] MEDS: ibuprofen tablet 400 MG TABLET PO PRN ×2 (13:52→20:05)
[2019-07-23] MEDS: clozapine 100mg tablet PO SCH (20:04)
[2019-07-23] MEDS: LORazepam 1 MG tablet PO SCH (20:04)
[2019-07-23] MEDS: risperiDONE 0.5mg tablet PO SCH (20:05)
[2019-07-23 20:28] VITALS: BP 121/82
--- NOTE | 2019-07-24 00:20 | NUR ---
Nursing Progress Note: The patient has been up on the unit and in the general patient areas. She appears clean and adequately groomed. She reports that she had showered earlier in the day. One to one with the patient to assess for severity of psychiatric symptoms. The patient stated that she feels as if she has improved since being here and that she has been sleeping and eating well. She was medication compliant and she denied having side effects to medications but her speech was mildly slurred as if she was talking with a thick tongue but the patient did not seem to be aware of it. There was no drooling evident. She denied that she was having depression or anxiety. During multiple contacts with the patient she did appear to have mild mood lability and mild periodic irritability. She has an appropriate affect. She denies that she is having any auditory or visual hallucinations and none were evident during the assessment period. She at times will make odd statements such as she wanted to have her arm band replaced and stated she would be able to sleep better if it was on. She is focused on getting clothes and personal grooming activities with female peers. She has been friendly and social with peers and staff.
--- NOTE | 2019-07-24 00:35 | NUR ---
Nursing Progress Note: One to one with the patient for the evening assessment to assess mood and risk for self harm. She has not been eating and has a history of an eating disorder for over 20 years per her report. She denies that she has been purging. She stated that she has been going to groups and added, "I'm pretty upbeat" She feels that she is doing overall better since being admitted to the unit and added, "I feel like this place may have saved my life" She continued giving glowing reports of the unit and staff. She did state that her anxiety was high. She reported racing thoughts and reports that she has had difficulty sleeping at night. She complained of chronic fibromyalgia pain 07/06. She has been on q 15 minute safety checks and has not had any self injurious behaviors reported or observed. When asked directly about suicidal thoughts she stated "It runs though my head...It is always right there" She denies thoughts to harm others. She denies psychotic symptoms and none were evident during the assessment. 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 She denied that she has been showering but stated she has been washing up in her room. There was an incident at the visiting hour in which her and her two sons came to visit. The staff attending the visiting hour believed that one of her sons was only 16 and he was not allowed on the inpatient unit. At that point all of her family members left before the discharge coordinator could address the issue. When the patient found out that her family left she was angry and crying and refused to come out of her room. When approached in her room she would not discuss the matter and was saying she wanted to go home. She remained noncommunicative and she adamantly refused any of her evening medications including her pain medications. The patient was approached numerous time to offer her her medications and to attempt to address her concerns but at this time she is unable/unwilling to do this. The discharge coordinator is aware. She remains on q 15m minute safety checks and has not had any self injurious behaviors reported or observed. Addendum: 07/24/19 at 0054 by Kimberly Suazo RN The previous note was written on the wrong patient
[2019-07-24] MEDS: docusate sod 100mg capsule PO SCH ×2 (08:02→20:07)
[2019-07-24] MEDS: lithium carbonate 150mg capsule PO SCH ×2 (08:02→20:07)
[2019-07-24] MEDS: benztropine 1mg tablet PO SCH ×2 (08:02→20:06)
[2019-07-24 08:08] VITALS: BP 139/99
--- NOTE | 2019-07-24 15:02 | NUR ---
Nursing Progress Note: Legal hold: 1370 Client on involuntary status for GD Report received from nurse with use of SBAR: ARLEEN Alva Why are they here: Patient was arrested in December for public intoxication in [place], she was referred from [facility] for catholic of competency to stand trial. Patient is psychotic and is DTS. She has a history of multiple psychiatric hospitalizations and polysubstance abuse. Assessment What has happened this shift: Pt. pleasant and cooperative this morning, demonstrates an animated mood. Listening to headphones, attempting to remember a song that was song during one of the group sessions. Patient states she is avoiding the community room to stay clear of the love birds. States she is looking forward to going outside with the resource director. During visiting hour, patient verbally attacked PCT stating that we (the unit) had violated another patients rights by allowing a visitor which she did not want. Apparently another client on the unit had started that conversation attempting to draw others in. Attended morning group and left afternoon group. Requested to watch a TV show and became very animated, expressing harley and delight during program. While this automatic typewriter inspector was at lunch, patient was seen with lines of mascara all over her face stated "this is how I give myself a facial." She then showered and washed it off. Also, was observed touching up her nails. S/I, H/I: Pt denies A/VH: Pt denies Sleep: Slept 8 hours ADL's: Independent Group attendance: Yes Were meds taken: Yes Any med S/E: None reported or observed Mental Status Exam Appearance: Dressed appropriately in street clothes, spittle collects in the corners of her mouth when she talks Eye contact: Good Behavior: pleasant and cooperative Speech: normal tone, mumbles making it difficult to understand Mood: Positive I did really good at my hearing Affect: Congruent with mood Thought process: loose associations Thought Content: going outside, her mock hearing Cognition: A/O X 4 Insight: Fair Judgment: Fair Interventions PRN's used: Therapeutic interventions: 1:1 assessment, therapeutic conversation, medication administration/education/monitoring, limit setting, redirection, verbal de-escalation, positive reinforcement, maintained Q 15 min safety checks. Restraints/seclusion/emergency medication: N/A Justification of Continued Inpatient Treatment: Pt has been deemed competent to stand trial, court will be notified.
[2019-07-24 19:56] VITALS: BP 111/83
[2019-07-24] MEDS: LORazepam 1 MG tablet PO SCH (20:06)
[2019-07-24] MEDS: ibuprofen tablet 400 MG TABLET PO PRN (20:06)
[2019-07-24] MEDS: clozapine 100mg tablet PO SCH (20:07)
[2019-07-24] MEDS: risperiDONE 2mg tablet PO SCH (20:07)
[2019-07-24] MEDS: magnesium hydroxide 30ml (MOM) UD suspension PO PRN (20:07)
--- NOTE | 2019-07-24 22:55 | NUR ---
Nursing Progress Note: One to one with the patient to assess severity of psychiatric symptoms. The patient has been up on the unit and friendly and social with peers and staff. The patient had a bright affect and her mood was slightly euphoric. She reported that she felted "hyper" and believed she had increased energy today because she put salt on her eggs. She at times is mildly intrusive in her attempts to ask for additional clothing items for her roommate who is not verbalizing a desire for additional clothing items. Her speech was rapid and the content was disorganized and tangential. She appeared clean but her clothing appeared odd as she had put a dress over her pants and shirts. She denies psychotic thoughts but she has odd ideas such as wanting to get a tattoo to get her knee pain away etc. She has been medication compliant. She is reporting that she feels constipated with her medications and she was given MOM per her request. She has not been disruptive on the unit. She continues to require stabilization and tonight she did have an increase in her Risperdal.
[2019-07-25 07:42] VITALS: BP 115/80
[2019-07-25] MEDS: lithium carbonate 150mg capsule PO SCH ×2 (08:11→20:27)
[2019-07-25] MEDS: docusate sod 100mg capsule PO SCH ×2 (08:11→20:27)
[2019-07-25] MEDS: benztropine 1mg tablet PO SCH ×2 (08:12→20:27)
[2019-07-25] MEDS: magnesium hydroxide 30ml (MOM) UD suspension PO PRN (08:49)
--- NOTE | 2019-07-25 11:25 | NUR ---
Reassessment: Pt continues with 75-100% PO intake meeting nutrient needs. LBM 07/24 documented as moderate in size. Per RN notes 07/24 pt c/o constipation and was given MoM. Pt also receiving routine Colace. Will continue to follow. Recommendations: 1) Continue regular diet 2) Routine bowel care 3) Weekly wt Addendum: 07/25/19 at [address] Amended: Links added.
--- NOTE | 2019-07-25 14:18 | NUR ---
Nursing Progress Note: Legal hold: 1370 Client on involuntary status for GD Report received from nurse with use of SBAR: Nida RN Why are they here: Patient was arrested in December for public intoxication in [place], she was referred from [facility] for mormonism of competency to stand trial. Patient is psychotic and is DTS. She has a history of multiple psychiatric hospitalizations and polysubstance abuse. Assessment What has happened this shift: Pt. pleasant and cooperative this morning, demonstrates an animated mood. Listening to headphones, while ambulating in hallway. Joined other clients on unit and SW for outside activity. Requested her laundry be washed, and explained she wanted to take her shower after she had clean clothes available. Was wearing makeup and states she is excited about having her hearing. Observed her shaving her legs, showered and changed into clean clothes, attended all groups S/I, H/I: Pt denies A/VH: Pt denies Sleep: Slept 8 hours ADL's: Independent Group attendance: Yes Were meds taken: Yes Any med S/E: None reported or observed Mental Status Exam Appearance: Dressed appropriately in street clothes, spittle collects in the corners of her mouth when she talks Eye contact: Good Behavior: pleasant and cooperative Speech: normal tone, mumbles making it difficult to understand Mood: animated Affect: Congruent with mood Thought process: loose associations Thought Content: hearing, going outside, group topics Cognition: A/O X 4 Insight: Fair Judgment: Fair Interventions PRN's used: Therapeutic interventions: 1:1 assessment, therapeutic conversation, medication administration/education/monitoring, limit setting, redirection, verbal de-escalation, positive reinforcement, maintained Q 15 min safety checks.
[2019-07-25 20:00] VITALS: BP 117/84
[2019-07-25] MEDS: LORazepam 1 MG tablet PO SCH (20:27)
[2019-07-25] MEDS: risperiDONE 2mg tablet PO SCH (20:28)
[2019-07-25] MEDS: clozapine 100mg tablet PO SCH (20:28)
--- NOTE | 2019-07-25 23:10 | NUR ---
NURSING PROGRESS NOTE: Legal hold: 1370 Client on involuntary status for GD Report received from nurse with use of SBAR: Carmelita RN Why are they here: Patient was arrested in December for public intoxication in [place], she was referred from [facility] for baptist of competency to stand trial. Patient is psychotic and is DTS. She has a history of multiple psychiatric hospitalizations and polysubstance abuse. Assessment What has happened this shift: Pt is visible on unit at shift change. Pt was seen interacting appropriately with other peers. Pt became agitated when this bond underwriter asked about a peer she has become close to, being discharged in a couple of days. Pt then refused her assessment, but was medication compliant. Pt asked for a pillow case, but then abruptly said "just forget about the pillow case, I am going to bed." [place] level 0.5 drawn on 07/10/19. S/I, H/I: Pt denies. None observed. A/VH: Pt denies. None observed. Sleep: See sleep assessment notation. 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 Were meds taken: Medication compliant Any med S/E: None reported or observed Mental Status Exam Appearance: Dressed appropriately in street clothes, hair in two high pony tail. Eye contact: Good Behavior: Cooperative then became agitated Speech: Normal tone, mumbles making it difficult to understand Mood: Sad Affect: Flat Thought process: Linear Thought Content: Sad about friend being discharged Cognition: A/O X 4 Insight: Fair Judgment: Fair Interventions PRN's used: None Therapeutic interventions: 1:1 assessment, therapeutic conversation and listening, medication administration/education/monitoring, limit setting, redirection, positive reinforcement, maintained Q 15 min safety checks. Justification of Continued Inpatient Treatment: Pt has been deemed competent to stand trial, court will be notified
[2019-07-26] MEDS: ibuprofen tablet 400 MG TABLET PO PRN ×3 (03:33→20:20)
[2019-07-26 07:31] VITALS: BP 122/75
[2019-07-26] MEDS: benztropine 1mg tablet PO SCH ×2 (07:41→20:20)
[2019-07-26] MEDS: docusate sod 100mg capsule PO SCH ×2 (07:41→20:20)
[2019-07-26] MEDS: lithium carbonate 150mg capsule PO SCH ×2 (07:41→20:20)
--- NOTE | 2019-07-26 08:41 | NUR ---
Mailed letters of competency to: Air Lift Operator [facility] ATTN: Daniel True on 07/24/2019
--- NOTE | 2019-07-26 17:43 | NUR ---
NURSING PROGRESS NOTE: Legal hold: 1370 Client on involuntary status for GD Report received from nurse with use of SBAR: Juany Rangel RN Why are they here: Patient was arrested in December for public intoxication in [place], she was referred from [facility] for uatsdin of competency to stand trial. Patient is psychotic and is DTS. She has a history of multiple psychiatric hospitalizations and polysubstance abuse. Assessment What has happened this shift: Pt participated in both groups today. She is visible on the unit throughout the afternoon watching TV, played [employer] and did some drawing in PM group. S/I, H/I: Pt denies. None observed. A/VH: Pt denies. None observed. Sleep: Sleeps well at night; awake during the day ADL's: Independent Group attendance: Yes Were meds taken: Medication compliant Any med S/E: None reported or observed Mental Status Exam Appearance: Dressed appropriately in street clothes Eye contact: Good Behavior: Cooperative and calm Speech: Normal tone, mumbles making it difficult to understand Mood: depressed appearing denies depression; sad Affect: Flat Thought process: Linear Thought Content: Sad about friend being discharged Cognition: A/Ox4 Insight: Fair Judgment: Fair Interventions PRN's used: None Therapeutic interventions: therapeutic communication and active listening, medication administration/education/monitoring, maintained Q 15 min safety checks. Justification of Continued Inpatient Treatment: Pt has been deemed competent to stand trial, court will be notified
[2019-07-26 19:48] VITALS: BP 112/74
[2019-07-26] MEDS: LORazepam 1 MG tablet PO SCH (20:19)
[2019-07-26] MEDS: clozapine 100mg tablet PO SCH (20:20)
[2019-07-26] MEDS: risperiDONE 2mg tablet PO SCH (20:20)
--- NOTE | 2019-07-26 22:03 | NUR ---
NURSING PROGRESS NOTE: Legal hold: 1370 Client on involuntary status for GD Report received from nurse with use of SBAR: Carmelita RN Why are they here: Patient was arrested in December for public intoxication in [place], she was referred from [facility] for islam of competency to stand trial. Patient is psychotic and is DTS. She has a history of multiple psychiatric hospitalizations and polysubstance abuse. Assessment What has happened this shift: Pt is visible on unit at shift change. Pt is cooperative and friendly. Pt attends HS snack and is medication compliant. Pt appears to have a brighter affect then last night. Pt reports 6/10 bilateral knee pain. Motrin is administered with effect. Pt retires to bed around 2100 and continues to sleep comfortably. [place] level 0.5 drawn on 07/10/19. S/I, H/I: Pt denies. None observed. A/VH: Pt denies. None observed. Sleep: See sleep assessment notation. 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 Were meds taken: Medication compliant Any med S/E: None reported or observed Mental Status Exam Appearance: Dressed appropriately in street clothes. Eye contact: Good Behavior: Cooperative then became agitated Speech: Normal tone, mumbles making it difficult to understand Mood: Depressed appearing. Pt denies Affect: Flat Thought process: Linear Thought Content: Sad about friend being discharged Cognition: A/O X 4 Insight: Fair Judgment: Fair Interventions PRN's used: Motrin Therapeutic interventions: 1:1 assessment, therapeutic conversation and listening, medication administration/education/monitoring, limit setting, redirection, positive reinforcement, maintained Q 15 min safety checks. Justification of Continued Inpatient Treatment: Pt has been deemed competent to stand trial, court will be notified
[2019-07-27] MEDS: ibuprofen tablet 400 MG TABLET PO PRN ×2 (07:07→20:16)
[2019-07-27] MEDS: docusate sod 100mg capsule PO SCH ×2 (07:07→20:11)
[2019-07-27] MEDS: lithium carbonate 150mg capsule PO SCH ×2 (07:07→20:11)
[2019-07-27] MEDS: benztropine 1mg tablet PO SCH ×2 (07:07→20:11)
[2019-07-27 07:16] VITALS: BP 123/82
[2019-07-27 12:08] LABS: ALANINE AMINOTRANSFERASE 18 U/L (12-78); ALBUMIN/GLOBULIN RATIO 0.6 (1.1-1.5); ALKALINE PHOSPHATASE 79 IU/L (46-116); ANION GAP 8 (8-16); ASPARTATE AMINO TRANSFERASE 11 U/L (10-37); BILIRUBIN,TOTAL 0.1 MG/DL (0.1-1.0); BLOOD UREA NITROGEN 18 MG/DL (7-18); BUN/CREATININE RATIO 27.3 (6.6-38.0); CALCIUM 9.4 MG/DL (8.5-10.1); CHLORIDE 107 MMOL/L (99-107); CREATININE 0.66 MG/DL (0.40-0.90); GLUCOSE 79 MG/DL (70-104); POTASSIUM 4.4 MMOL/L (3.5-5.1); SODIUM 141 MMOL/L (135-145); TOTAL CARBON DIOXIDE 26.3 MMOL/L (24-32); TOTAL PROTEIN 8.1 G/DL (6.4-8.2); eGFR > 90 ML/MIN
--- NOTE | 2019-07-27 14:57 | NUR ---
Nursing Progress Note: Legal hold: Court competency 1370 Client on involuntary status for GD Report received from TRUNG Alva Why are they here: Patient was arrested in December for public intoxication in [place]. Patient is psychotic and kept for danger to self. Patient incompetent to stand trial. Assessment What has happened this shift: Patient asleep at the beginning of shift. Client took all medications as prescribed. She is visible on the unit walking the halls with her headphones on. She is friendly and cooperative. She took a shower after breakfast. She attended groups. S/I, H/I: Pt denies A/VH: Pt denies. Sleep: One nap ADLs: Independent. Showered Group attendance: no Were meds taken: Yes Any med S/E : None reported or observed Mental Status Exam Appearance: clean, appropriately dressed. Eye contact: Good Behavior: Appropriate Speech: clear, answers before end of question, Mood: Pleasant Affect: Congruent to mood Thought process: Disorganized Thought Content: Unable to assess Cognition: A/O X 4 Insight: Poor Judgment: Poor Interventions PRN's used: none Therapeutic interventions: 1:1 assessment, encouragement to express thoughts and feelings, encouragement to lie on his bed instead of on the hard floor, encouragement to perform personal hygiene, reality orientation, medication administration/education/monitoring, lab draws, Q15 minute safety checks Restraints/seclusion/emergency medication: N/A Justification of Continued Inpatient Treatment: Pt gravely disabled and on a court competency 1370, remains delusional and disorganized.
[2019-07-27 19:57] VITALS: BP 123/77
[2019-07-27] MEDS: risperiDONE 2mg tablet PO SCH (20:11)
[2019-07-27] MEDS: clozapine 100mg tablet PO SCH (20:11)
[2019-07-27] MEDS: LORazepam 1 MG tablet PO SCH (20:11)
--- NOTE | 2019-07-27 23:05 | NUR ---
NURSING PROGRESS NOTE: Legal hold: 1370 Client on involuntary status for GD Report received from nurse with use of SBAR: Carmelita RN Why are they here: Patient was arrested in December for public intoxication in [place], she was referred from [facility] for episcopalian of competency to stand trial. Patient is psychotic and is DTS. She has a history of multiple psychiatric hospitalizations and polysubstance abuse. Assessment What has happened this shift: Pt is visible on unit at shift change, requesting a shower which has been her routine. Pt is cooperative and friendly. Pt attends HS snack and is medication compliant. Pt affect is flat, speech seems somewhat slurred. Pt reports no pain. Pt retires to bed around 2100 after consuming a snack and continues to sleep comfortably. [place] level 0.5 drawn on 07/10/19. S/I, H/I: Pt denies. None observed. A/VH: Pt denies. None observed. Sleep: See sleep assessment notation. ADL's: Independent Group attendance: Pt did attend snack this evening. Were meds taken: Medication compliant Any med S/E: None reported or observed Mental Status Exam Appearance: Dressed appropriately in street clothes. Eye contact: Good Behavior: Cooperative then became agitated Speech: Normal tone, slurring makes it difficult to understand Mood: Depressed appearing. Pt denies Affect: Flat Thought process: Linear Thought Content: Sad about friend being discharged Cognition: A/O X 4 Insight: Fair Judgment: Fair Interventions PRN's used: None Therapeutic interventions: 1:1 assessment, therapeutic conversation and listening, medication administration/education/monitoring, limit setting, redirection, positive reinforcement, maintained Q 15 min safety checks. Justification of Continued Inpatient Treatment: Pt has been deemed competent to stand trial, court will be notified
[2019-07-28] MEDS: docusate sod 100mg capsule PO SCH ×2 (07:36→19:44)
[2019-07-28] MEDS: lithium carbonate 150mg capsule PO SCH ×2 (07:36→19:45)
[2019-07-28] MEDS: benztropine 1mg tablet PO SCH ×2 (07:37→19:44)
[2019-07-28 08:00] VITALS: BP 118/80
[2019-07-28] MEDS: ibuprofen tablet 400 MG TABLET PO PRN (15:44)
--- NOTE | 2019-07-28 16:45 | NUR ---
NURSING PROGRESS NOTE: Legal hold: 1370 Client on involuntary status for GD Report received from nurse with use of SBAR: Adriana Cruz RN Why are they here: Patient was arrested in December for public intoxication in [place], she was referred from [facility] for buddhist of competency to stand trial. Patient is psychotic and is DTS. She has a history of multiple psychiatric hospitalizations and polysubstance abuse. Assessment What has happened this shift: Patient is observed sitting up in her bed listening to headphones and starring out the window. She reports that she slept well during the night. Her affect is mildly downcast, she reports that nothing is wrong. She takes her medications without issue and joins others for breakfast. Patient is observed socializing with peers during the day. She attends groups and she takes a shower. Her affect does not waver and when asked again patient reports she is feeling a little bit down and depressed. After spending time talking she smiles softly and states she is ok. S/I, H/I: none reported A/VH: none reported Sleep: 8hrs NOC ADL's: Independent Group attendance: yes Were meds taken: Medication compliant Any med S/E: None reported or observed Mental Status Exam Appearance: Dressed appropriately in street clothes. Eye contact: direct eye contact made, however patient has down cast eyes occasionally Behavior: Cooperative, quiet Speech: soft tone, mumbly at times Mood: appears sad, depressed, patient agrees Affect: Flat Thought process: Linear Thought Content: no delusional thought content present Cognition: A/O X 4 Insight: Fair Judgment: Fair Interventions PRN's used: None Therapeutic interventions: 1:1 assessment, therapeutic conversation and listening, medication administration/education/monitoring, limit setting, redirection, positive reinforcement, maintained Q 15 min safety checks. Justification of Continued Inpatient Treatment: Pt has been deemed competent to stand trial, court will be notified.
--- NOTE | 2019-07-28 18:30 | NUR ---
Patient in room MH 324. I have received report from RN and had the opportunity to ask questions and assume patient care.
[2019-07-28] MEDS: acetaminophen 325mg tablet PO PRN (19:45)
--- NOTE | 2019-07-28 19:47 | NUR ---
amb in [place], medication given for back pain. pt calm and pleasant.
[2019-07-28 19:57] VITALS: BP_SYST 109
[2019-07-28] MEDS: risperiDONE 2mg tablet PO SCH (20:31)
[2019-07-28] MEDS: LORazepam 1 MG tablet PO SCH (20:32)
[2019-07-28] MEDS: clozapine 100mg tablet PO SCH (20:32)
[2019-07-29] MEDS: lithium carbonate 150mg capsule PO SCH ×2 (07:51→20:26)
[2019-07-29] MEDS: benztropine 1mg tablet PO SCH ×2 (07:51→20:25)
[2019-07-29] MEDS: docusate sod 100mg capsule PO SCH ×2 (07:51→20:24)
[2019-07-29 08:00] VITALS: BP 102/64
[2019-07-29] MEDS: ibuprofen tablet 400 MG TABLET PO PRN (11:03)
--- NOTE | 2019-07-29 16:28 | NUR ---
NURSING PROGRESS NOTE: Legal hold: 1370 Client on involuntary status for GD Report received from nurse with use of SBAR: ARLEEN Muro Why are they here: Patient was arrested in December for public intoxication in [place], she was referred from [facility] for orthodoxy of competency to stand trial. Patient is psychotic and is DTS. She has a history of multiple psychiatric hospitalizations and polysubstance abuse. Assessment What has happened this shift: Patient is observed sleeping at change of shift. She wakes just prior to breakfast to take her medications. She denies any issues and reports that she slept well. Patient continues to appear slightly down, most likely r/t peers being discharged but when asked states that nothing is wrong. Patient attends all groups and eats all meals. She is polite towards others. Patient is happy that she has been deemed competent for court. S/I, H/I: none reported A/VH: none reported Sleep: 9hrs NOC ADL's: Independent Group attendance: yes Were meds taken: yes Any med S/E: None reported or observed Mental Status Exam Appearance: Dressed appropriately in street clothes. Eye contact: direct eye contact made, however patient has down cast eyes occasionally Behavior: Cooperative, quiet Speech: soft tone, mumbly at times Mood: appears sad, depressed, patient states she is ok Affect: Flat Thought process: Linear Thought Content: no delusional thought content present Cognition: A/O X 4 Insight: Fair Judgment: Fair Interventions PRN's used: Motrin Therapeutic interventions: 1:1 assessment, therapeutic conversation and listening, medication administration/education/monitoring, limit setting, redirection, positive reinforcement, maintained Q 15 min safety checks. Justification of Continued Inpatient Treatment: Pt has been deemed competent to stand trial, court will be notified.
[2019-07-29 20:00] VITALS: BP 117/87
[2019-07-29] MEDS: risperiDONE 2mg tablet PO SCH (20:24)
[2019-07-29] MEDS: LORazepam 1 MG tablet PO SCH (20:25)
[2019-07-29] MEDS: clozapine 100mg tablet PO SCH (20:27)
--- NOTE | 2019-07-29 22:12 | NUR ---
NURSING PROGRESS NOTE: Legal hold: 1370 Client on involuntary status for GD Report received from nurse with use of SBAR: Jerry RN Why are they here: Patient was arrested in December for public intoxication in [place], she was referred from [facility] for yazdanism of competency to stand trial. Patient is psychotic and is DTS. She has a history of multiple psychiatric hospitalizations and polysubstance abuse. Assessment What has happened this shift: Patient is observed in group room social with peers and watching Tv. Pt walked the [place] with a peer and went to bed after snack. . Patient continues to appear slightly down, most likely r/t peers being discharged but when asked states that nothing is wrong. Patient attends all groups and eats all meals. She is polite towards others. Patient is happy that she has been deemed competent for court. S/I, H/I: none reported A/VH: none reported Sleep: 9hrs NOC ADL's: Independent Group attendance: yes Were meds taken: yes Any med S/E: None reported or observed Mental Status Exam Appearance: Dressed appropriately in street clothes. Eye contact: direct eye contact made, however patient has down cast eyes occasionally Behavior: Cooperative, quiet Speech: soft tone, mumbly at times Mood: appears sad, depressed, patient states she is ok Affect: Flat Thought process: Linear Thought Content: no delusional thought content present Cognition: A/O X 4 Insight: Fair Judgment: Fair Interventions PRN's used: Motrin Therapeutic interventions: 1:1 assessment, therapeutic conversation and listening, medication administration/education/monitoring, limit setting, redirection, positive reinforcement, maintained Q 15 min safety checks. Justification of Continued Inpatient Treatment: Pt has been deemed competent to stand trial, court will be notified.
[2019-07-30 07:28] VITALS: BP 112/71
[2019-07-30] MEDS: benztropine 1mg tablet PO SCH ×2 (08:21→20:32)
[2019-07-30] MEDS: lithium carbonate 150mg capsule PO SCH ×2 (08:21→20:31)
[2019-07-30] MEDS: docusate sod 100mg capsule PO SCH ×2 (08:21→20:31)
[2019-07-30] MEDS: ibuprofen tablet 400 MG TABLET PO PRN ×2 (10:10→17:05)
[2019-07-30] MEDS: magnesium hydroxide 30ml (MOM) UD suspension PO PRN (12:36)
--- NOTE | 2019-07-30 16:52 | NUR ---
NURSING PROGRESS NOTE: Legal hold: 1370 Client on involuntary status for GD Report received from nurse with use of SBAR: Nida RN Why are they here: Patient was arrested in December for public intoxication in [place], she was referred from [facility] for yazidism of competency to stand trial. Patient is psychotic and is DTS. She has a history of multiple psychiatric hospitalizations and polysubstance abuse. Assessment What has happened this shift: Patient is observed sleeping at change of shift. She wakes to take her medications than returns to bed. She reports constipation, BM yesterday, and requests MOM. Patient denies wanting to try prune juice. Patients peer was discharged today and patient appears sad about this but states that she is ok. Her demeanor is reserved and quiet. S/I, H/I: none reported A/VH: none reported Sleep: 9hrs NOC ADL's: Independent Group attendance: yes Were meds taken: yes Any med S/E: None reported or observed Mental Status Exam Appearance: Dressed appropriately in street clothes. Eye contact: direct eye contact made, however patient has down cast eyes occasionally Behavior: Cooperative, quiet Speech: soft tone, mumbly at times Mood: appears sad, depressed, patient states she is ok Affect: Flat Thought process: Linear Thought Content: no delusional thought content present Cognition: A/O X 4 Insight: Fair Judgment: Fair Interventions PRN's used: Motrin Therapeutic interventions: 1:1 assessment, therapeutic conversation and listening, medication administration/education/monitoring, limit setting, redirection, positive reinforcement, maintained Q 15 min safety checks. Justification of Continued Inpatient Treatment: Pt has been deemed competent to stand trial, court will be notified.
[2019-07-30 20:22] VITALS: BP 105/67
[2019-07-30] MEDS: LORazepam 1 MG tablet PO SCH (20:31)
[2019-07-30] MEDS: risperiDONE 2mg tablet PO SCH (20:31)
[2019-07-30] MEDS: clozapine 100mg tablet PO SCH (20:33)
--- NOTE | 2019-07-30 22:40 | NUR ---
NURSING PROGRESS NOTE: Legal hold: 1370 Client on involuntary status for GD Report received from nurse with use of SBAR: Jerry RN Why are they here: Patient was arrested in December for public intoxication in [place], she was referred from [facility] for voodoo of competency to stand trial. Patient is psychotic and is DTS. She has a history of multiple psychiatric hospitalizations and polysubstance abuse. Assessment What has happened this shift: Patient is observed sleeping at change of shift. She wakes to take her medications than returns to bed.Pt appears glum is keeping to her self this shift . Patient denies wanting to hurt her self or AH. Patients peer was discharged today and patient appears sad about this but states that she is ok. Her demeanor is reserved and quiet. S/I, H/I: none reported A/VH: none reported Sleep: 9hrs NOC ADL's: Independent Group attendance: yes Were meds taken: yes Any med S/E: None reported or observed Mental Status Exam Appearance: Dressed appropriately in street clothes. Eye contact: direct eye contact made, however patient has down cast eyes occasionally Behavior: Cooperative, quiet Speech: soft tone, mumbly at times Mood: appears sad, depressed, patient states she is ok Affect: Flat Thought process: Linear Thought Content: no delusional thought content present Cognition: A/O X 4 Insight: Fair Judgment: Fair Interventions PRN's used: Melissarin Therapeutic interventions: 1:1 assessment, therapeutic conversation and listening, medication administration/education/monitoring, limit setting, redirection, positive reinforcement, maintained Q 15 min safety checks. Justification of Continued Inpatient Treatment: Pt has been deemed competent to stand trial, court will be notified.
--- NOTE | 2019-07-31 05:37 | NUR ---
Pt woke up came out to nurses station. He is asking "How I did I get here". Pt is ambulating gait even and steady no facial droop. Pt remembers name birthday where he was born and that he is somewhere in [place]. When asked if he knew where [facility] is he said he did. He seems to have only forgotten his admit to this hospital. Will report this information to Charge nurse and day shift.
[2019-07-31] MEDS: lithium carbonate 150mg capsule PO SCH ×2 (07:36→20:40)
[2019-07-31] MEDS: docusate sod 100mg capsule PO SCH ×2 (07:37→20:39)
[2019-07-31] MEDS: benztropine 1mg tablet PO SCH ×2 (07:37→20:39)
[2019-07-31 08:00] VITALS: BP 104/74
[2019-07-31] MEDS: acetaminophen 325mg tablet PO PRN (08:24)
[2019-07-31] MEDS: ibuprofen tablet 400 MG TABLET PO PRN (14:54)
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
[2019-07-31 20:00] VITALS: BP 104/67
[2019-07-31] MEDS: clozapine 100mg tablet PO SCH (20:40)
[2019-07-31] MEDS: risperiDONE 2mg tablet PO SCH (20:40)
[2019-07-31] MEDS: LORazepam 1 MG tablet PO SCH (20:40)
--- NOTE | 2019-08-01 00:38 | NUR ---
Nursing Progress Note: Legal hold: 1370 Client on involuntary status for GD Report received from nurse with use of SBAR: ARLEEN Harrington Why are they here: Patient was arrested in December for public intoxication in [place], she was referred from [facility] for druze of competency to stand trial. Patient as psychotic and kept for danger to self. She has a history of multiple psychiatric hospitalizations and polysubstance abuse. Assessment What has happened this shift: Pt. up walking in the hallway at the beginning of the shift, upon seeing this typewriter assembly and parts inspector she requests to be monitored while shaving her legs. This typewriter assembly and parts inspector educated pt. that it would be a little while before this could be done, and pt. voiced understanding and waited patiently in her room. After shaving her legs, pt. smiled and thanked this typewriter assembly and parts inspector. 1:1 completed at bedside, pt. continues to present as cooperative, guarded, and with a flat affect which appears somewhat brighter. She continues to respond to questions bluntly with minimal responses. Pt. denies any depression, anxiety, A/V/MALONE, and no delusional statements were made this shift. She reports she feels that her medications are working, and denies any side effects and none are observed. Pt. reports she feels that she is competent to stand trial, and she would like to then go to stay at [facility]. S/I, H/I: Denies A/VH: Denies, does not appear to be responding to internal stimuli. Sleep: Reports she sleeps well and requests medications promptly at ADL's: Independent Group attendance: Pt. reports that she attends all groups Were meds taken: Yes Any med S/E: None Mental Status Exam Appearance: Dressed appropriately in street clothe, hair somewhat disheveled. Eye contact: Fair Behavior: Guarded and cooperative Speech: She responds to questions bluntly with minimal responses Mood: Pleasant, but guarded Affect: Flat with brightening Thought process: Poverty of thought Thought Content: Blocking Cognition: A&O X4 Insight: Poor Judgment: Fair Interventions PRN's used: None Therapeutic interventions: Maintained a safe and supportive environment, provided clear and simple instructions, monitored behaviors and need for intervention, provided positive encouragement, and maintained Q 15 min safety checks. Restraints/seclusion/emergency medication: N/A Justification of Continued Inpatient Treatment: Per JOSEPH Olvera, pt. appears competent to stand trial, however requires a safe and supportive environment.
[2019-08-01 07:37] VITALS: BP 106/67
[2019-08-01] MEDS: benztropine 1mg tablet PO SCH ×2 (07:48→20:38)
[2019-08-01] MEDS: docusate sod 100mg capsule PO SCH ×2 (07:48→20:39)
[2019-08-01] MEDS: lithium carbonate 150mg capsule PO SCH ×2 (07:48→20:38)
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
[2019-08-01] MEDS: ibuprofen tablet 400 MG TABLET PO PRN ×2 (11:50→15:09)
[2019-08-01 20:13] VITALS: BP 108/79
[2019-08-01] MEDS: risperiDONE 2mg tablet PO SCH (20:39)
[2019-08-01] MEDS: clozapine 100mg tablet PO SCH (20:39)
[2019-08-01] MEDS: LORazepam 1 MG tablet PO SCH (21:28)
--- NOTE | 2019-08-02 01:45 | NUR ---
Nursing Progress Note: Legal hold: 1370 Client on involuntary status for GD Report received from nurse with use of SBAR: TRUNG Che Why are they here: Patient was arrested in December for public intoxication in [place], she was referred from [facility] for gnosticist of competency to stand trial. Patient as psychotic and kept for danger to self. She has a history of multiple psychiatric hospitalizations and polysubstance abuse. Assessment What has happened this shift: Patient visible, ambulating the unit at the beginning of shift. Patient ate HS snack in the group room. She denies depression and denies SI, HI, AH, VH. Patient laid in bed shortly after snack. Compliant with medications and assessment. Patient appears to enjoy talking with her roommate as she continues conversation and smiles while talking. Patient remained in bedroom most of the shift. No complaints of pain at this time. S/I, H/I: Denies A/VH: Denies, does not appear to be responding to internal stimuli. Sleep: asleep at this time ADL's: Independent Group attendance: no groups this shift, group room for snack Were meds taken: Yes Any med S/E: None reported, none observed Mental Status Exam Appearance: Clean, dressed appropriately, hair neat Eye contact: Fair Behavior: Guarded and cooperative Speech: She responds to questions bluntly with minimal responses Mood: Pleasant, but guarded Affect: Flat with brightening Thought process: Poverty of thought Thought Content: Blocking Cognition: A&O X4 Insight: Poor Judgment: Fair Interventions PRN's used: None Therapeutic interventions: Maintained a safe and supportive environment, provided clear and simple instructions, monitored behaviors and need for intervention, provided positive encouragement, and maintained Q 15 min safety checks. Restraints/seclusion/emergency medication: N/A Justification of Continued Inpatient Treatment: Per JOSEPH Olvera, pt. appears competent to stand trial, however requires a safe and supportive environment.
[2019-08-02 08:01] VITALS: BP 90/60
[2019-08-02] MEDS: benztropine 1mg tablet PO SCH ×2 (08:23→20:25)
[2019-08-02] MEDS: lithium carbonate 150mg capsule PO SCH ×2 (08:24→20:26)
[2019-08-02] MEDS: docusate sod 100mg capsule PO SCH ×2 (08:24→20:26)
[2019-08-02] MEDS: ibuprofen tablet 400 MG TABLET PO PRN ×2 (10:06→16:14)
--- NOTE | 2019-08-02 10:06 | NUR ---
Reassessment: Pt continues with 75-100% PO intake meeting nutrient needs. LBM 07/31 documented as moderate in size. Pt receiving routine Colace and prn milk of magnesia. Will continue to follow. Recommendations: 1) Continue regular diet 2) Routine bowel care 3) Weekly wt Addendum: 08/02/19 at [address] Amended: Links added.
[2019-08-02 20:00] VITALS: BP 113/78
[2019-08-02] MEDS: clozapine 100mg tablet PO SCH (20:25)
[2019-08-02] MEDS: LORazepam 1 MG tablet PO SCH (20:26)
[2019-08-02] MEDS: risperiDONE 2mg tablet PO SCH (20:26)
--- NOTE | 2019-08-02 22:35 | NUR ---
Nursing Progress Note Legal hold: Court competency 1370 Client on involuntary status for GD Report received from Chinedu BACON Why are they here: Patient was arrested in December for public intoxication in [place]. Patient is psychotic and kept for danger to self. Patient incompetent to stand trial. Assessment: What has happened this shift: Pt is seen walking the unit and engaging with peers occasionally. She makes direct eye contact and smiles. She is medication compliant and participates in evening snack time. She denies SI/HI/AV/AH. S/I, H/I: Pt denies A/VH: Pt denies. Sleep: see sleep assessment notation ADLs: Independent. Group attendance: no Were meds taken: Yes Any med S/E : None reported or observed Mental Status Exam: Appearance: Clean, dressed in street clothes Eye contact: Good Behavior: Pleasant, cooperative, restless Speech: Sometimes slurred words, sometimes clear. Mood: mostly pleasant, some mild irritability during physical and mental health assessments Affect: Blunted. Thought process: mild disorganization/reality distortion. Thought Content: Court appearance, irritated by repeated questions/assessments by nurses. Cognition: A/O X 4 Insight: Poor Judgment: Poor Interventions: 1:1 intervention, more animated as our conversation went on PRN's used: Therapeutic interventions: 1:1 assessment, therapeutic conversation, reality orientation, medication administration/education/monitoring, encouragement to attend groups, Q15 minute safety checks Restraints/seclusion/emergency medication: N/A Justification of Continued Inpatient Treatment: Pt gravely disabled and on a court competency 1370, improving but not yet competent fo stand trial.
[2019-08-03 07:00] VITALS: BP 99/62
[2019-08-03] MEDS: benztropine 1mg tablet PO SCH ×2 (08:06→20:04)
[2019-08-03] MEDS: lithium carbonate 150mg capsule PO SCH ×2 (08:07→20:03)
[2019-08-03] MEDS: docusate sod 100mg capsule PO SCH ×2 (08:07→20:04)
[2019-08-03] MEDS: ibuprofen tablet 400 MG TABLET PO PRN (14:07)
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
[2019-08-03 20:00] VITALS: BP 119/84
[2019-08-03] MEDS: risperiDONE 2mg tablet PO SCH (20:03)
[2019-08-03] MEDS: LORazepam 1 MG tablet PO SCH (20:05)
[2019-08-03] MEDS: clozapine 100mg tablet PO SCH (20:05)
--- NOTE | 2019-08-04 00:29 | NUR ---
Nursing Progress Note Legal hold: Court competency 1370 Client on involuntary status for GD Report received from ARLEEN Mae Why are they here: Patient was arrested in December for public intoxication in [place]. Patient is psychotic and kept for danger to self. Patient incompetent to stand trial. Assessment: What has happened this shift: Pt watched TV in the community room with her peers and ate snack. She is cooperative with 1:1 assessment and denies any SI/HI/AH/VH. She makes good eye contact and smiles occasionally but is not very talkative. "I am ready for bed." She is medication compliant. S/I, H/I: Pt denies A/VH: Pt denies. Sleep: see sleep assessment notation ADLs: Independent. Group attendance: no Were meds taken: Yes Any med S/E : None reported or observed Mental Status Exam: Appearance: Clean, dressed in street clothes Eye contact: Good Behavior: Pleasant, cooperative, restless Speech: clear Mood: mostly pleasant, short with words Affect: Blunted. Thought process: WNL Thought Content: WNL Cognition: A/O X 4 Insight: Poor Judgment: Poor Interventions: 1:1 intervention, more animated as our conversation went on PRN's used: Therapeutic interventions: 1:1 assessment, therapeutic conversation, reality orientation, medication administration/education/monitoring, encouragement to attend groups, Q15 minute safety checks Restraints/seclusion/emergency medication: N/A Justification of Continued Inpatient Treatment: Pt gravely disabled and on a court competency 1370, improving but not yet competent fo stand trial.
[2019-08-04 08:00] VITALS: BP 104/66
[2019-08-04] MEDS: benztropine 1mg tablet PO SCH ×2 (08:10→20:09)
[2019-08-04] MEDS: lithium carbonate 150mg capsule PO SCH ×2 (08:10→20:10)
[2019-08-04] MEDS: docusate sod 100mg capsule PO SCH ×2 (08:11→20:08)
[2019-08-04] MEDS: ibuprofen tablet 400 MG TABLET PO PRN ×2 (10:18→18:26)
--- NOTE | 2019-08-04 12:57 | NUR ---
Nursing Progress Note Legal hold: Court competency 1370 Client on involuntary status for GD Report received from Adriana Mckeon RN Why are they here: Patient was arrested in December for public intoxication in [place]. Patient is psychotic and kept for danger to self. Patient incompetent to stand trial. Assessment: What has happened this shift: Pt reluctantly allowed physical assessment, she does not like being asked the mental health assessment questions. Pt states that she is "good." Pt is irritable and rude at times. Pt came to the charting room and asked a question, another RN asked her to repeat the question as she didn't understand what the pt had said. Pt replied, "I wasn't talking to you" then proceeded to ignore the RN. No unsafe behaviors noted. Pt c/o 8/10 bilat knee pain at 1020, requested and was given prn ibuprofen 800 mg with good effect. S/I, H/I: Pt denies A/VH: Pt denies. Sleep: Slept 7.5 hours per noc shift report ADLs: Independent. Group attendance: Yes Were meds taken: Yes Any med S/E : None noted or reported Mental Status Exam: Appearance: Clean, dressed in street clothes Eye contact: Good Behavior: Mostly cooperative, somewhat irritable and avoidant at times Speech: Pt mumbles rapidly, difficult to understand at times Mood: "Good." Affect: irritable, bored Thought process: linear Thought Content: Doesn't like being asked assessment questions, wondered if she should eat the garnish that came with her fruit at breakfast, "should I eat this cabbage?" Cognition: A/O X 4 Insight: Poor Judgment: Poor Interventions: PRN's used: ibuprofen 800 mg Therapeutic interventions: 1:1 assessment, active listening, medication administration/education/monitoring, encouragement to attend groups, encouragement to cooperate with assessments, limit setting, Q 15 min safety checks. Restraints/seclusion/emergency medication: N/A Justification of Continued Inpatient Treatment: Pt gravely disabled and on a court competency 1370, deemed competent to stand trial, awaiting court date.
[2019-08-04 19:28] VITALS: BP 115/77
[2019-08-04] MEDS: risperiDONE 2mg tablet PO SCH (20:08)
[2019-08-04] MEDS: clozapine 100mg tablet PO SCH (20:10)
[2019-08-04] MEDS: LORazepam 1 MG tablet PO SCH (20:10)
--- NOTE | 2019-08-05 00:19 | NUR ---
Nursing Progress Note Legal hold: Court competency 1370 Client on involuntary status for GD Report received from ARLEEN Che Why are they here: Patient was arrested in December for public intoxication in [place]. Patient is psychotic and kept for danger to self. Patient incompetent to stand trial. Assessment: What has happened this shift: Pt watched TV in the community room with her peers and ate snack. She is short with curriculum writer, only responding in 1 words answers. For example when asked how her day was she replies quickly, "fine." She appears annoyed and walks away from curriculum writer after she takes her HS medications. S/I, H/I: Pt denies A/VH: Pt denies. Sleep: see sleep assessment notation ADLs: Independent. 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 Thought process: WNL Thought Content: WNL Cognition: A/O X 4 Insight: Poor Judgment: Poor Interventions: 1:1 intervention, more animated as our conversation went on PRN's used: Therapeutic interventions: 1:1 assessment, therapeutic conversation, reality orientation, medication administration/education/monitoring, encouragement to attend groups, Q15 minute safety checks Restraints/seclusion/emergency medication: N/A Justification of Continued Inpatient Treatment: Pt gravely disabled and on a court competency 1370, improving but not yet competent fo stand trial.
[2019-08-05 07:58] VITALS: BP 105/73
[2019-08-05] MEDS: lithium carbonate 150mg capsule PO SCH ×2 (08:08→20:07)
[2019-08-05] MEDS: docusate sod 100mg capsule PO SCH ×2 (08:08→20:07)
[2019-08-05] MEDS: benztropine 1mg tablet PO SCH ×2 (08:09→20:07)
--- NOTE | 2019-08-05 15:00 | NUR ---
Nursing Progress Note Legal hold: Court competency 1370 Client on involuntary status for GD Report received from Adriana Mckeon RN Why are they here: Patient was arrested in December for public intoxication in [place]. Patient is psychotic and kept for danger to self. Patient incompetent to stand trial. Assessment: What has happened this shift: Patient was in bed at change of shift and up soon after. Patient appeared more subdued today but denies depression/SI. Patient went to both groups today. Patient was sitting in a chair by the T.V. Room and painting her fingernails. Patient was calm with slightly flat affect. Patient stated she misses one of the previous patients who was recently discharged. S/I, H/I: Pt denies A/VH: Pt denies. Sleep: no naps today ADLs: Independent. Group attendance: Yes Were meds taken: Yes Any med S/E : None noted or reported Mental Status Exam: Appearance: Clean, dressed in street clothes, messy hair Eye contact: Good Behavior: Cooperative and got upset once about not being allowed to paint her nails during group. Speech: slurred at times and sometimes difficult to understand Mood: subdued Affect: flat Thought process: linear Thought Content: Missing her friend Cognition: A/O X 4 Insight: Poor Judgment: Poor Interventions: PRN's used: None Therapeutic interventions: 1:1 assessment, active listening, medication administration/education/monitoring, encouragement to attend groups, encouragement to cooperate with assessments, limit setting, Q 15 min safety checks. Restraints/seclusion/emergency medication: N/A Justification of Continued Inpatient Treatment: Pt gravely disabled and on a court competency 1370, deemed competent to stand trial, awaiting court date.
[2019-08-05] MEDS: ibuprofen tablet 400 MG TABLET PO PRN (16:44)
[2019-08-05] MEDS: LORazepam 1 MG tablet PO SCH (20:07)
[2019-08-05] MEDS: risperiDONE 2mg tablet PO SCH (20:07)
[2019-08-05] MEDS: clozapine 100mg tablet PO SCH (20:08)
[2019-08-05 20:29] VITALS: BP 112/64
--- NOTE | 2019-08-05 22:29 | NUR ---
Nursing Progress Note Legal hold: Court competency 1370 Client on involuntary status for GD Report received from ARLEEN Che Why are they here: Patient was arrested in December for public intoxication in [place]. Patient is psychotic and kept for danger to self. Patient incompetent to stand trial. Assessment: What has happened this shift: Pt watched TV in the community room with her peers and ate snack. She is short with procedure writer, only responding in 1 words answers but is more pleasant tonight than last. She makes eye contact with procedure writer and smiles. She states her day was "good." S/I, H/I: Pt denies A/VH: Pt denies. Sleep: see sleep assessment notation ADLs: Independent. 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 Thought process: WNL Thought Content: WNL Cognition: A/O X 4 Insight: Poor Judgment: Poor Interventions: 1:1 intervention, more animated as our conversation went on PRN's used: Therapeutic interventions: 1:1 assessment, therapeutic conversation, reality orientation, medication administration/education/monitoring, encouragement to attend groups, Q15 minute safety checks Restraints/seclusion/emergency medication: N/A Justification of Continued Inpatient Treatment: Pt gravely disabled and on a court competency 1370, improving but not yet competent fo stand trial.
[2019-08-06 07:38] VITALS: BP 118/76
[2019-08-06] MEDS: lithium carbonate 150mg capsule PO SCH ×2 (08:29→19:53)
[2019-08-06] MEDS: docusate sod 100mg capsule PO SCH ×2 (08:29→19:53)
[2019-08-06] MEDS: benztropine 1mg tablet PO SCH ×2 (08:29→19:53)
[2019-08-06] MEDS: ibuprofen tablet 400 MG TABLET PO PRN ×2 (10:49→17:43)
--- NOTE | 2019-08-06 15:13 | NUR ---
Nursing Progress Note Legal hold: Court competency 1370 Client on involuntary status for GD Report received from Adriana Mckeon RN Why are they here: Patient was arrested in December for public intoxication in [place]. Patient is psychotic and kept for danger to self. Patient incompetent to stand trial. Assessment: What has happened this shift: Patient was asleep at change of shift and awoken for breakfast. Patient has depressed affect today but denies depression. Patient states she is sad that her roommate left today. Patient likes to have a roommate. Patient took a few naps today. Patient went to group. Patient denies suicidal ideation. Patient is still pending a court date. S/I, H/I: Pt denies A/VH: Pt denies. Sleep: a few naps today ADLs: Independent. Group attendance: Yes Were meds taken: Yes Any med S/E : None noted or reported Mental Status Exam: Appearance: Clean, dressed in street clothes, messy hair Eye contact: Good Behavior: Cooperative and got upset once about not being allowed to paint her nails during group. Speech: slurred at times and sometimes difficult to understand Mood: depressed Affect: flat Thought process: linear Thought Content: Missing her roommate Cognition: A/O X 4 Insight: Poor Judgment: Poor Interventions: PRN's used: ibuprofen Therapeutic interventions: 1:1 assessment, active listening, medication administration/education/monitoring, encouragement to attend groups, encouragement to cooperate with assessments, limit setting, Q 15 min safety checks. Restraints/seclusion/emergency medication: N/A Justification of Continued Inpatient Treatment: Pt gravely disabled and on a court competency 1370, deemed competent to stand trial, awaiting court date.
[2019-08-06] MEDS: clozapine 100mg tablet PO SCH (19:52)
[2019-08-06] MEDS: LORazepam 1 MG tablet PO SCH (19:52)
[2019-08-06] MEDS: risperiDONE 2mg tablet PO SCH (19:52)
[2019-08-06 20:01] VITALS: BP 108/74
--- NOTE | 2019-08-06 22:01 | NUR ---
Nursing Progress Note Legal hold: Court competency 1370 Client on involuntary status for GD Report received from ARLEEN Che Why are they here: Patient was arrested in December for public intoxication in [place]. Patient is psychotic and kept for danger to self. Patient incompetent to stand trial. Assessment: What has happened this shift: Pt watched TV in the community room with her peers and ate snack. She only gives one word responses, but is pleasant. She is medication compliant and cooperative with 1:1. She denies SI/HI/AV/VH. S/I, H/I: Pt denies A/VH: Pt denies. Sleep: see sleep assessment notation ADLs: Independent. 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 Thought process: WNL Thought Content: WNL Cognition: A/O X 4 Insight: Poor Judgment: Poor Interventions: 1:1 intervention, more animated as our conversation went on PRN's used: Therapeutic interventions: 1:1 assessment, therapeutic conversation, reality orientation, medication administration/education/monitoring, encouragement to attend groups, Q15 minute safety checks Restraints/seclusion/emergency medication: N/A Justification of Continued Inpatient Treatment: Pt gravely disabled and on a court competency 1370, improving but not yet competent fo stand trial.
[2019-08-07 07:52] VITALS: BP 98/63
[2019-08-07] MEDS: lithium carbonate 150mg capsule PO SCH ×2 (08:00→21:08)
[2019-08-07] MEDS: docusate sod 100mg capsule PO SCH ×2 (08:00→21:06)
[2019-08-07] MEDS: benztropine 1mg tablet PO SCH ×2 (08:01→21:07)
--- NOTE | 2019-08-07 10:56 | NUR ---
Called [facility] to check on status of 1370 court hearing. They report that they will call back today.
--- NOTE | 2019-08-07 12:36 | NUR ---
Nursing Progress Note Legal hold: Court competency 1370 Client on involuntary status for GD Report received from ARLEEN Alva Why are they here: Patient was arrested in December for public intoxication in [place]. Patient is psychotic and kept for danger to self. Patient incompetent to stand trial. Assessment: What has happened this shift: Received Pt asleep in bed w/o distress at change of shift. Pt awoke for breakfast and took AM medications w/o issue. Pt appropriately desiring to know when her court date will be, yet pleasant and cooperative and able to tolerate the tension well. Pt appears sullen and lethargic, yet smiles and will engage in short conversations. A/VH: Pt denies. Sleep: a few naps today ADLs: Independent. Group attendance: Yes Were meds taken: Yes Any med S/E : None noted or reported Mental Status Exam: Appearance: Clean, dressed in street clothes, messy hair Eye contact: Good Behavior: Cooperative and got upset once about not being allowed to paint her nails during group. Speech: slurred at times and sometimes difficult to understand Mood: depressed Affect: flat Thought process: linear Thought Content: Missing her roommate Cognition: A/O X 4 Insight: Poor Judgment: Poor Interventions: PRN's used: ibuprofen Therapeutic interventions: 1:1 assessment, active listening, medication administration/education/monitoring, encouragement to attend groups, encouragement to cooperate with assessments, limit setting, Q 15 min safety checks. Restraints/seclusion/emergency medication: N/A Justification of Continued Inpatient Treatment: Pt gravely disabled and on a court competency 1370, deemed competent to stand trial, awaiting court date.
--- NOTE | 2019-08-07 13:49 | NUR ---
Sujey from [facility] called back, they received the paperwork July 30 and it is awaiting the Judges orders. She will let the it security manager know that we were calling to check up on it.
[2019-08-07] MEDS: ibuprofen tablet 400 MG TABLET PO PRN (16:33)
[2019-08-07 20:00] VITALS: BP 130/70
[2019-08-07] MEDS: LORazepam 1 MG tablet PO SCH (21:08)
[2019-08-07] MEDS: clozapine 100mg tablet PO SCH (21:08)
[2019-08-07] MEDS: risperiDONE 2mg tablet PO SCH (21:09)
--- NOTE | 2019-08-07 23:49 | NUR ---
Nursing Progress Note: Legal hold: 1370 Client on involuntary status for GD Report received from nurse with use of SBAR: Angel RN Why are they here: Patient was arrested in December for public intoxication in [place], she was referred from [facility] for buddhist of competency to stand trial. Patient as psychotic and kept for danger to self. She has a history of multiple psychiatric hospitalizations and polysubstance abuse. Assessment What has happened this shift: Pt. sitting in her room listening to headphones at the beginning of the shift, upon seeing this report writer she smiles and greets her appropriately. Pt. continues to be present on the unit and interact minimally, however appropriately with others throughout the shift. 1:1 completed later at bedside, pt. continues to present as cooperative, guarded, and with a flat affect which appears somewhat brighter. She continues to respond to questions with minimal responses, however remains A&O. Pt. denies any depression, anxiety, A/V/MALONE, and no delusional statements were made this shift. She denies any adverse side effects from medications, and none were observed. S/I, H/I: Denies A/VH: Denies, does not appear to be responding to internal stimuli. Sleep: Reports she sleeps well and requests medications promptly at HS ADL's: Independent Group attendance: Pt. reports that she attends all groups, however is unable to report any coping skills learned upon inquiry Were meds taken: Yes Any med S/E: None Mental Status Exam Appearance: Dressed appropriately, clothes and hair neat Eye contact: Good Behavior: Guarded and cooperative Speech: She responds to questions with minimal responses, speech is soft Mood: Pleasant, but guarded Affect: Flat with brightening Thought process: Poverty of thought Thought Content: Blocking Cognition: A&O X4 Insight: Poor Judgment: Fair Interventions PRN's used: None Therapeutic interventions: Maintained a safe and supportive environment, provided clear and simple instructions, monitored behaviors and need for intervention, provided positive encouragement, and maintained Q 15 min safety checks. Restraints/seclusion/emergency medication: N/A Justification of Continued Inpatient Treatment: Per Dr. Bui, pt. will be discharged once court date is available, however continues to require a safe and supportive environment.
[2019-08-08 07:32] VITALS: BP 93/65
[2019-08-08] MEDS: benztropine 1mg tablet PO SCH ×2 (07:52→20:32)
[2019-08-08] MEDS: docusate sod 100mg capsule PO SCH ×2 (07:52→20:31)
[2019-08-08] MEDS: lithium carbonate 150mg capsule PO SCH ×2 (07:52→20:32)
[2019-08-08] MEDS: ibuprofen tablet 400 MG TABLET PO PRN (10:07)
--- NOTE | 2019-08-08 11:07 | NUR ---
Reassessment: Pt continues with 75-100% PO intake meeting nutrient needs. LB 08/07. Pt receiving routine Colace and prn milk of magnesia. Will continue to follow. Recommendations: 1) Continue regular diet 2) Routine bowel care 3) Weekly wt Addendum: 08/08/19 at [address] Amended: Links added.
--- NOTE | 2019-08-08 15:09 | NUR ---
Nursing Progress Note Legal hold: Court competency 1370 Client on involuntary status for GD Report received from ARLEEN Alva Why are they here: Patient was arrested in December for public intoxication in [place]. Patient is psychotic and kept for danger to self. Patient incompetent to stand trial. Assessment: What has happened this shift: Received Pt asleep in bed w/o distress at change of shift. Pt awoke for breakfast, walked the hallway for a bit and took AM medications w/o issue. Used head phones a lot today and walked the hallways. Engagable for short moments. Attended groups today. Pt appears bored on the unit but is managing her time and attitude well. A/VH: Pt denies. Sleep: Rested in bed ADLs: Independent. Group attendance: Yes Were meds taken: Yes Any med S/E : None noted or reported Mental Status Exam: Appearance: Clean, dressed in street clothes and well groomed Eye contact: Good Behavior: Pleasant, calm and Cooperative Speech: slurred at times yet coherent Mood: Bored Affect: flat Thought process: linear Thought Content: Missing her roommate Cognition: A/O X 4 Insight: Poor Judgment: Poor Interventions: PRN's used: ibuprofen Therapeutic interventions: 1:1 assessment, active listening, medication administration/education/monitoring, encouragement to attend groups, encouragement to cooperate with assessments, limit setting, Q 15 min safety checks. Restraints/seclusion/emergency medication: N/A Justification of Continued Inpatient Treatment: Pt gravely disabled and on a court competency 1370, deemed competent to stand trial, awaiting court date.
[2019-08-08 19:34] VITALS: BP 109/78
[2019-08-08] MEDS: risperiDONE 2mg tablet PO SCH (20:32)
[2019-08-08] MEDS: clozapine 100mg tablet PO SCH (20:32)
[2019-08-08] MEDS: LORazepam 1 MG tablet PO SCH (20:33)
--- NOTE | 2019-08-09 01:09 | NUR ---
Nursing Progress Note: Legal hold: 1370 Client on involuntary status for GD Report received from nurse with use of SBAR: Rao RN Why are they here: Patient was arrested in December for public intoxication in [place], she was referred from [facility] for adventism of competency to stand trial. Patient as psychotic and kept for danger to self. She has a history of multiple psychiatric hospitalizations and polysubstance abuse. Assessment What has happened this shift: Patient visible on the unit at the beginning of shift, pacing the halls and socializing with staff. Patient visited staff several times throughout the shift. Patient speech minimal but audible and clear. Appeared bright, smiling, hair neat, dressed neatly in street clothes. Patient visited during HS snack in the group room with peers. Patient went to bed shortly after. S/I, H/I: Denies A/VH: Denies Sleep: asleep at this time ADL's: Independent Group attendance: no groups this shift Were meds taken: Yes Any med S/E: None reported, none observed Mental Status Exam Appearance: Dressed appropriately, clothes and hair neat Eye contact: Good Behavior: Guarded and cooperative Speech: She responds to questions with minimal responses, speech is soft Mood: Pleasant, but guarded Affect: Flat with brightening Thought process: Poverty of thought Thought Content: Blocking Cognition: A&O X4 Insight: Poor Judgment: Fair Interventions PRN's used: None Therapeutic interventions: Maintained a safe and supportive environment, provided clear and simple instructions, monitored behaviors and need for intervention, provided positive encouragement, and maintained Q 15 min safety checks. Restraints/seclusion/emergency medication: N/A Justification of Continued Inpatient Treatment: Per Dr. Bui, pt. will be discharged once court date is available, however continues to require a safe and supportive environment.
[2019-08-09 07:36] VITALS: BP 107/65
[2019-08-09] MEDS: docusate sod 100mg capsule PO SCH ×2 (07:42→20:11)
[2019-08-09] MEDS: benztropine 1mg tablet PO SCH ×2 (07:42→20:13)
[2019-08-09] MEDS: lithium carbonate 150mg capsule PO SCH ×2 (07:43→20:11)
[2019-08-09] MEDS: ibuprofen tablet 400 MG TABLET PO PRN (10:30)
--- NOTE | 2019-08-09 15:33 | NUR ---
Nursing Progress Note: Rossi Legal hold: 1370 Client on involuntary status for GD Report received from nurse with use of SBAR: Celena TRUNG Why are they here: Patient was arrested in December for public intoxication in [place], she was referred from [facility] for uatsdin of competency to stand trial. Patient as psychotic and kept for danger to self. She has a history of multiple psychiatric hospitalizations and polysubstance abuse. Assessment What has happened this shift: Patient was in room resting in bed with eyes closed to start this shift. Respirations were noted to be even and unlabored. welt slasher reported an uneventful night for this client. Client was amicable with am meds and assessment. Came to Group Room for breakfast and then returned to her room to rest. No somatic complaints this am upon interview. Client has been amicable and social on unit this afternoon. S/I, H/I: Denies A/VH: Denies Sleep: ADL's: Independent Group attendance: yes Were meds taken: Yes Any med S/E: None reported, none observed Mental Status Exam Appearance: Dressed appropriately, clothes and hair neat Eye contact: Good Behavior: Guarded and cooperative Speech: She responds to questions with minimal responses, speech is soft Mood: Pleasant, but guarded Affect: Flat with brightening Thought process: Poverty of thought Thought Content: Blocking Cognition: A&O X4 Insight: Poor Judgment: Fair Interventions PRN's used: Motrin Therapeutic interventions: Maintained a safe and supportive environment, provided clear and simple instructions, monitored behaviors and need for intervention, provided positive encouragement, and maintained Q 15 min safety checks. Restraints/seclusion/emergency medication: N/A Justification of Continued Inpatient Treatment: Per Dr. Bui, pt. will be discharged once court date is available, however continues to require a safe and supportive environment
[2019-08-09] MEDS: acetaminophen 325mg tablet PO PRN (18:27)
[2019-08-09 19:34] VITALS: BP 121/86
[2019-08-09] MEDS: LORazepam 1 MG tablet PO SCH (20:12)
[2019-08-09] MEDS: risperiDONE 2mg tablet PO SCH (20:12)
[2019-08-09] MEDS: clozapine 100mg tablet PO SCH (20:12)
--- NOTE | 2019-08-10 02:58 | NUR ---
Nursing Progress Note: Legal hold: 1370 Client on involuntary status for GD Report received from nurse with use of SBAR: TRUNG Mae Why are they here: Patient was arrested in December for public intoxication in [place], [facility] sikhism [facility] competency to stand [facility]. Patient as psychotic and kept for danger to self. She has a history of multiple psychiatric hospitalizations and polysubstance abuse. Assessment What has happened this shift: Patient pacing the crain at the beginning of shift. She continues to approach staff and stands by as way of communicating. She continues to reply to questions with short clear responses. Patient attended group room for HS snack and went to bed shortly after. Patient continues to deny depression, SI, HI, A/VH. Patient claims to have attended groups during the day and endorses having a "good" day. S/I, H/I: Denies A/VH: Denies Sleep: asleep at this time ADL's: Independent Group attendance: no groups this shift Were meds taken: Yes Any med S/E: None reported, none observed Mental Status Exam Appearance: Dressed appropriately, clothes and hair neat Eye contact: Good Behavior: Guarded and cooperative Speech: She responds to questions with minimal responses, speech is soft Mood: "good" Affect: Flat with brightening Thought process: Poverty of thought Thought Content: Blocking Cognition: A&O X4 Insight: Poor Judgment: Fair Interventions PRN's used: None Therapeutic interventions: Maintained a safe and supportive environment, provided clear and simple instructions, monitored behaviors and need for intervention, provided positive encouragement, and maintained Q 15 min safety checks. Restraints/seclusion/emergency medication: N/A Justification of Continued Inpatient Treatment: Per Dr. Bui, pt. will be discharged once court date is available, however continues to require a safe and supportive environment.
[2019-08-10 08:00] VITALS: BP 96/67
[2019-08-10] MEDS: ibuprofen tablet 400 MG TABLET PO PRN ×2 (08:08→17:19)
[2019-08-10] MEDS: docusate sod 100mg capsule PO SCH ×2 (08:09→20:17)
[2019-08-10] MEDS: benztropine 1mg tablet PO SCH ×2 (08:09→20:18)
[2019-08-10] MEDS: lithium carbonate 150mg capsule PO SCH ×2 (08:09→20:17)
--- NOTE | 2019-08-10 18:08 | NUR ---
Nursing Progress Note Legal hold: [address] ordered status Report received from nurse with use of SBAR: Celena TRUNG Why are they here: Patient was arrested in December for public intoxication in [place], [facility] rastafarian of competency to stand trial. Patient as psychotic and gravely disabled. She has a history of multiple psychiatric hospitalizations and polysubstance abuse. Assessment What has happened this shift: Patient was sleeping at change of shift. She was compliant with mediation administration and cooperative with assessment. She denies depression, anxiety, SI, and A/V H. Her affect is appropriate. She is clean and neatly dressed. She is pleasant and socializes on the unit. She frequently walked in the halls with headphones listening to music. S/I, H/I: Denies A/VH: Denies Sleep: none ADL's: Independent Group attendance: yes Were meds taken: Yes Any med S/E: None reported, none observed Mental Status Exam Appearance: Neat and clean, hair up in pony tail. Eye contact: Direct Behavior: Cooperative Speech: Minimal responses, speech is soft Mood: Pleasant Affect: Relaxed Thought process: Poverty of thought Thought Content: Unable to assess Cognition: A&O X4 Insight: Poor Judgment: Fair Interventions PRN's used: Motrin Therapeutic interventions: Maintained a safe and supportive environment, provided clear and simple instructions, provided medication education, administered medications and monitored for side effects, monitored behaviors and need for intervention, provided positive encouragement, and maintained Q 15 min safety checks. Restraints/seclusion/emergency medication: N/A Justification of Continued Inpatient Treatment: Per Dr. Bui, pt. will be discharged once court date is available, however continues to require a safe and supportive environment
[2019-08-10 19:38] VITALS: BP 114/76
[2019-08-10] MEDS: clozapine 100mg tablet PO SCH (20:17)
[2019-08-10] MEDS: LORazepam 1 MG tablet PO SCH (20:17)
[2019-08-10] MEDS: risperiDONE 2mg tablet PO SCH (20:18)
--- NOTE | 2019-08-11 03:25 | NUR ---
Nursing Progress Note: Legal hold: 1370 Client on involuntary status for GD Report received from nurse with use of SBAR: TRUNG Mae Why are they here: Patient was arrested in December for public intoxication in [place], [facility]dh[facility] to stand [facility]. Patient as psychotic and kept for danger to self. She has a history of multiple psychiatric hospitalizations and polysubstance abuse. Assessment What has happened this shift: Patient visible on the unit at the beginning of shift; Watching TV in rec room, socializing with peers, and dressing herself up in street clothes with roommate. Her hair neatly pulled back an wearing makeup. Patient appeared bright, smiling and talking with this headline writer. Speech slightly pressured, audible and clear. Patient denies depression, SI, HI, A/VH and gets slightly annoyed when asked these questions stating, "everyone asks that." S/I, H/I: Denies A/VH: Denies Sleep: asleep at this time ADL's: Independent Group attendance: no groups this shift Were meds taken: Yes Any med S/E: None reported, none observed Mental Status Exam Appearance: Dressed in missmatched layered street clothing, clothes and hair neat Eye contact: Good Behavior: Guarded and cooperative Speech: She responds to questions with minimal responses, speech is soft Mood: "good" Affect: Flat with brightening Thought process: Poverty of thought Thought Content: Blocking Cognition: A&O X4 Insight: Poor Judgment: Fair Interventions PRN's used: None Therapeutic interventions: Maintained a safe and supportive environment, provided clear and simple instructions, monitored behaviors and need for intervention, provided positive encouragement, and maintained Q 15 min safety checks. Restraints/seclusion/emergency medication: N/A Justification of Continued Inpatient Treatment: Per Dr. Bui, pt. will be discharged once court date is available, however continues to require a safe and supportive environment.
[2019-08-11 07:49] VITALS: BP 117/88
[2019-08-11] MEDS: docusate sod 100mg capsule PO SCH ×2 (08:08→20:14)
[2019-08-11] MEDS: benztropine 1mg tablet PO SCH ×2 (08:08→20:14)
[2019-08-11] MEDS: lithium carbonate 150mg capsule PO SCH ×2 (08:45→20:13)
--- NOTE | 2019-08-11 16:04 | NUR ---
Nursing Progress Note: Legal hold: 1370 Client on involuntary status for GD Report received from nurse with use of SBAR: Adriana Cruz RN Why are they here: Patient was arrested in December for public intoxication in [place], she was referred from [facility] for anglican of competency to stand trial. Patient is psychotic and is DTS. She has a history of multiple psychiatric hospitalizations and polysubstance abuse. Assessment What has happened this shift: Pt. pleasant and cooperative this morning, demonstrates an animated mood. Listening to headphones, while ambulating in hallway. Requested her laundry be washed, and explained she wanted to take her shower after she had clean clothes available. Was wearing makeup and had her hair neatly combed. Showered. Changed into clean clothes, multiple times throughout the day. Combed her hair, gave herself a bob hairdo. When asked how she was doing on the unit, patient stated "I dig it here. They are getting me ready for my competency hearing." S/I, H/I: Pt denies A/VH: Pt denies Sleep: Slept 8 hours ADL's: Independent Group attendance: Yes Monday Movie Group Were meds taken: Yes Any med S/E: None reported or observed Mental Status Exam Appearance: Dressed appropriately in street clothes, spittle collects in the corners of her mouth when she talks Eye contact: Good Behavior: pleasant and cooperative Speech: normal tone, mumbles making it difficult to understand Mood: animated Affect: Congruent with mood Thought process: loose associations Thought Content: hearing, going outside, group topics Cognition: A/O X 4 Insight: Fair Judgment: Fair Interventions PRN's used: Therapeutic interventions: 1:1 assessment, therapeutic conversation, medication administration/education/monitoring, limit setting, redirection, verbal de-escalation, positive reinforcement, maintained Q 15 min safety checks.
[2019-08-11 19:28] VITALS: BP 129/86
[2019-08-11] MEDS: LORazepam 1 MG tablet PO SCH (20:13)
[2019-08-11] MEDS: clozapine 100mg tablet PO SCH (20:14)
[2019-08-11] MEDS: risperiDONE 2mg tablet PO SCH (20:14)
[2019-08-11] MEDS: ibuprofen tablet 400 MG TABLET PO PRN (20:14)
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
[2019-08-12] MEDS: ibuprofen tablet 400 MG TABLET PO PRN ×2 (06:55→20:12)
[2019-08-12] MEDS: acetaminophen 325mg tablet PO PRN ×2 (06:55→20:14)
[2019-08-12] MEDS: benztropine 1mg tablet PO SCH ×2 (07:24→20:11)
[2019-08-12] MEDS: docusate sod 100mg capsule PO SCH ×2 (07:24→20:12)
[2019-08-12] MEDS: lithium carbonate 150mg capsule PO SCH ×2 (07:25→20:12)
[2019-08-12 08:00] VITALS: BP 114/76
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
[2019-08-12 20:00] VITALS: BP 127/85
[2019-08-12] MEDS: risperiDONE 2mg tablet PO SCH (20:11)
[2019-08-12] MEDS: clozapine 100mg tablet PO SCH (20:13)
[2019-08-12] MEDS: LORazepam 1 MG tablet PO SCH (20:14)
--- NOTE | 2019-08-13 00:09 | NUR ---
Nursing Progress Note: Rossi Legal hold: 1370 Client on involuntary status for GD Report received from Jina NINO with use of SBAR: Why are they here: Patient was arrested in December for public intoxication in [place], she was [facility] for confucianism of competency to stand trial. Patient as psychotic and kept for danger to self. She has a history of multiple psychiatric hospitalizations and polysubstance abuse. Assessment What has happened this shift: Patient was ambulating on unit, social with peers at time of shift change. Patient denies, A/V hallucinations. Mood is constricted, and irritable. Patient was less irritable and asked to take a shower. Pt was talkative with peers and med compliant. Pt seemed concerned with a peer who was upst with his nurse. S/I, H/I: Denies A/VH: Denies Sleep: 7.15 ADL's: Independent Group attendance: Yes Were meds taken: Yes Any med S/E: mumbled speech, excess saliva, but not drooling Mental Status Exam Appearance: clean, showered, dressed in black pants and red shirt Eye contact: Good Behavior: agitated, guarded Speech: mumbled speech, clearer at times, talks like she has a thick tongue. Mood: irritable Affect: Constricted Thought process: tangential Thought Content: "Dr. Olvera telling everyone on the unit to train me" and hearing date Cognition: A&O X4 Insight: Poor Judgment: Fair Interventions PRN's used: Motrin, Tylenol Therapeutic interventions: Maintained a safe and supportive environment, provided clear and simple instructions, monitored behaviors and need for intervention, provided positive encouragement, and maintained Q 15 min safety checks. Restraints/seclusion/emergency medication: N/A Justification of Continued Inpatient Treatment: Per Dr. Bui, pt. will be discharged once court date is available, however continues to require a safe and supportive environment.
[2019-08-13 07:22] VITALS: BP 110/72
[2019-08-13] MEDS: docusate sod 100mg capsule PO SCH ×2 (07:24→20:16)
[2019-08-13] MEDS: lithium carbonate 150mg capsule PO SCH ×2 (07:24→20:18)
[2019-08-13] MEDS: benztropine 1mg tablet PO SCH ×2 (08:00→20:16)
--- NOTE | 2019-08-13 15:08 | NUR ---
Nursing Progress Note: Rossi Legal hold: 1370 Client on involuntary status for GD Report received from Nida NINO with use of SBAR: Why are they here: Patient was arrested in December for public intoxication in [place], she was referred from [facility] for taoist of competency to stand trial. Patient as psychotic and kept for danger to self. She has a history of multiple psychiatric hospitalizations and polysubstance abuse. Assessment What has happened this shift: Patient was up in the Recreation room drinking coffee this morning. Patient calm and cooperative. Patient is social with her roommate and other patients on the unit. Patient goes to both groups and took her medication with out any problems. Patient denies SI/HI and denies AV hallucinations. Patient was excited today as she got her court date for Monday. Patient does not want to be sent out to the streets after her court hearing and wants to go the the [facility]. Delmis, intensive care unit registered nurse advised patient that because she is on a 1370 we cannot make a discharge plan for her. The courts will have to decide and will either place her in residential or she will be sent back out on the streets. S/I, H/I: Denies A/VH: Denies Sleep: 7.15 ADL's: Independent Group attendance: Yes Were meds taken: Yes Any med S/E: mumbled speech, excess saliva, Mental Status Exam Appearance: clean, showered, dressed in black pants and red shirt Eye contact: Good Behavior: social Speech: mumbled speech, clearer at times, talks like she has a thick tongue. Mood: irritable Affect: flat Thought process: linear Thought Content: Wants to go the [facility] after her court hearing on Monday. Cognition: A&O X4 Insight: Poor Judgment: Fair Interventions PRN's used: Motrin, Tylenol Therapeutic interventions: Maintained a safe and supportive environment, provided clear and simple instructions, monitored behaviors and need for intervention, provided positive encouragement, and maintained Q 15 min safety checks. Restraints/seclusion/emergency medication: N/A Justification of Continued Inpatient Treatment: Per Dr. Bui, pt. will be discharged once court date is available, however continues to require a safe and supportive environment.
[2019-08-13 20:11] VITALS: BP 121/82
[2019-08-13] MEDS: ibuprofen tablet 400 MG TABLET PO PRN (20:17)
[2019-08-13] MEDS: clozapine 100mg tablet PO SCH (20:17)
[2019-08-13] MEDS: risperiDONE 2mg tablet PO SCH (20:18)
[2019-08-13] MEDS: acetaminophen 325mg tablet PO PRN (20:19)
[2019-08-13] MEDS: LORazepam 1 MG tablet PO SCH (20:22)
--- NOTE | 2019-08-13 21:51 | NUR ---
Nursing Progress Note: Rossi Legal hold: 1370 Client on involuntary status for GD Report received from Carmelita NINO with use of SBAR: Why are they here: Patient was arrested in December for public intoxication in [place], [facility] yazidi [facility] competency to stand trial. Patient as psychotic and kept for danger to self. She has a history of multiple psychiatric hospitalizations and polysubstance abuse. Assessment What has happened this shift: Patient calm and cooperative. Patient is social with her roommate and other patients on the unit. Patient goes to both groups and took her medication with out any problems. Patient denies SI/HI and denies AV hallucinations. Patient was excited today as she got her court date for Monday. Patient does not want to be sent out to the streets after her court hearing and wants to go the the [facility]. S/I, H/I: Denies A/VH: Denies Sleep: 7.15 ADL's: Independent Group attendance: Yes Were meds taken: Yes Any med S/E: mumbled speech, excess saliva, Mental Status Exam Appearance: clean, showered, dressed in black pants and red shirt Eye contact: Good Behavior: social Speech: mumbled speech, clearer at times, talks like she has a thick tongue. Mood: irritable Affect: flat Thought process: linear Thought Content: Wants to go the [facility] after her court hearing on Monday. Cognition: A&O X4 Insight: Poor Judgment: Fair Interventions PRN's used: Motrin, Tylenol Therapeutic interventions: Maintained a safe and supportive environment, provided clear and simple instructions, monitored behaviors and need for intervention, provided positive encouragement, and maintained Q 15 min safety checks. Restraints/seclusion/emergency medication: N/A Justification of Continued Inpatient Treatment: Per Dr. Bui, pt. will be discharged once court date is available, however continues to require a safe and supportive environment.
[2019-08-14] MEDS: lithium carbonate 150mg capsule PO SCH ×2 (07:50→20:26)
[2019-08-14] MEDS: docusate sod 100mg capsule PO SCH ×2 (07:50→20:25)
[2019-08-14] MEDS: benztropine 1mg tablet PO SCH ×2 (07:50→20:26)
[2019-08-14 08:00] VITALS: BP 104/70
--- NOTE | 2019-08-14 16:43 | NUR ---
Nursing Progress Note: Rossi Legal hold: 1370 Client on involuntary status for GD Report received from Nida NINO with use of SBAR: Why are they here: Patient was arrested in December for public intoxication in [place], she was referred from [facility] for episcopalian of competency to stand trial. Patient as psychotic and kept for danger to self. She has a history of multiple psychiatric hospitalizations and polysubstance abuse. Assessment What has happened this shift: Patient was sleeping at change of shift and up for breakfast. Patient was pleasant all day today. Patient took her medication as prescribed. Patient goes to groups and participates. Patient's court date is Monday at 0830. Patient was evaluated today at 1600 by Onofre from the [facility]. Patient was excited and took a shower in the afternoon and dressed up for the appointment. Onofre told RN that if patient is released with "time served", patient will need to go straight to the [facility] on Monday. Onofre stated Rossi could call the [facility] office and have them take her to the [facility]. RN advised Rufino of the plan. Leandro will get a hold of a contact at the courthouse and have them call [facility] and advise is patient is released or jailed and will then make arrangements accordingly. S/I, H/I: Denies A/VH: Denies Sleep: no naps during the day ADL's: Independent Group attendance: Yes Were meds taken: Yes Any med S/E: mumbled speech, excess saliva, Mental Status Exam Appearance: clean, showered, dressed in black pants and red shirt and scarve Eye contact: Good Behavior: social Speech: mumbled speech, clearer at times, talks like she has a thick tongue. Mood: pleasant Affect: flat Thought process: linear Thought Content: Wants to go the [facility] after her court hearing on Monday. Cognition: A&O X4 Insight: Poor Judgment: Fair Interventions PRN's used: Tylenol Therapeutic interventions: Maintained a safe and supportive environment, provided clear and simple instructions, monitored behaviors and need for intervention, provided positive encouragement, and maintained Q 15 min safety checks. Restraints/seclusion/emergency medication: N/A Justification of Continued Inpatient Treatment: Per Dr. Bui, pt. will be discharged once court date is available, however continues to require a safe and supportive environment.
[2019-08-14] MEDS: ibuprofen tablet 400 MG TABLET PO PRN (19:00)
[2019-08-14] MEDS: acetaminophen 325mg tablet PO PRN (19:01)
[2019-08-14 20:01] VITALS: BP 119/87
[2019-08-14] MEDS: risperiDONE 2mg tablet PO SCH (20:25)
[2019-08-14] MEDS: LORazepam 1 MG tablet PO SCH (20:25)
[2019-08-14] MEDS: clozapine 100mg tablet PO SCH (20:26)
--- NOTE | 2019-08-14 23:14 | NUR ---
Nursing Progress Note: Rossi Legal hold: 1370 Client on involuntary status for GD Report received from Angel NINO with use of SBAR: Why are they here: Patient was arrested in December for public intoxication in [place], she was referred from [facility] for faith of competency to stand trial. Patient as psychotic and kept for danger to self. She has a history of multiple psychiatric hospitalizations and polysubstance abuse. Assessment What has happened this shift: Patient was up in [place] at change of shift . Patient was pleasant all day today. Patient took her medication as prescribed. Patient goes to groups and participates. Patient's court date is Monday at 0830. Patient was evaluated today at [address] from the [facility]. Patient was excited and took a shower in the afternoon and dressed up for the appointment. Onofre told RN that if patient is released with "time served", patient will need to go straight to the [facility] on Monday. Onofre stated Rossi could call the [facility] office and have them take her to the [facility]. RN advised Rufino of the plan. Leandro will get a hold of a contact at the courthouse and have them call [facility] and advise is patient is released or jailed and will then make arrangements accordingly. S/I, H/I: Denies A/VH: Denies Sleep: no naps during the day ADL's: Independent Group attendance: Yes Were meds taken: Yes Any med S/E: mumbled speech, excess saliva, Mental Status Exam Appearance: clean, showered, dressed in black pants and red shirt and scarve Eye contact: Good Behavior: social Speech: mumbled speech, clearer at times, talks like she has a thick tongue. Mood: pleasant Affect: flat Thought process: linear Thought Content: Wants to go the [facility] after her court hearing on Monday. Cognition: A&O X4 Insight: Poor Judgment: Fair Interventions PRN's used: Tylenol Therapeutic interventions: Maintained a safe and supportive environment, provided clear and simple instructions, monitored behaviors and need for intervention, provided positive encouragement, and maintained Q 15 min safety checks. Restraints/seclusion/emergency medication: N/A Justification of Continued Inpatient Treatment: Per Dr. Bui, pt. will be discharged once court date is available, however continues to require a safe and supportive environment.
[2019-08-15] MEDS ORDERED: CLOZ100T13 PO (07:11)
[2019-08-15] MEDS ORDERED: RISP2TAB3 PO (07:11)
[2019-08-15] MEDS ORDERED: BENZ2TAB7 PO (07:11)
[2019-08-15] MEDS ORDERED: LIT300C PO (07:11)
[2019-08-15] MEDS ORDERED: ATI1T PO (07:11)
[2019-08-15] MEDS: docusate sod 100mg capsule PO SCH ×2 (07:36→20:44)
[2019-08-15] MEDS: benztropine 1mg tablet PO SCH ×2 (07:36→20:43)
[2019-08-15] MEDS: lithium carbonate 150mg capsule PO SCH ×2 (07:36→20:44)
[2019-08-15 07:52] VITALS: BP 122/64
--- NOTE | 2019-08-15 12:27 | NUR ---
Reassessment: Pt continues with 75-100% PO intake meeting nutrient needs. [facility] 08/15. Pt receiving routine Colace and prn milk of magnesia. Will continue to follow. Recommendations: 1) Continue regular diet 2) Routine bowel care 3) Weekly wt Addendum: 08/15/19 at [address] Amended: Links added.
--- NOTE | 2019-08-15 14:49 | NUR ---
DISCHARGE PLANNING Patient will have court hearing 08/16 @ 0830. She will be picked up by senior care transport between 0700 and 0800. She was interview by [facility] and preliminarily accepted depending on outcome of court hearing. Medications were ordered through [facility] and will be picked up by staff to go with patient. [facility] was ordered for dispensing of Clozaril.
[2019-08-15 15:55] LABS: BASOPHILS # (AUTO) 0.1 X10'3 (0-0.2); BASOPHILS % (AUTO) 0.8 % (0-1); EOSINOPHILS # (AUTO) 0.2 X10'3 (0-0.9); HEMATOCRIT 38.4 % (35.0-45.0); HEMOGLOBIN 12.7 g/dl (12.0-16.0); LYMPHOCYTES # (AUTO) 2.5 X10'3 (1.1-4.8); LYMPHOCYTES % (AUTO) 30.9 % (21-51); MEAN CORPUSCULAR HEMOGLOBIN 29.7 PG (27.0-31.0); MEAN PLATELET VOLUME 7.8 FL (7.4-10.4); MONOCYTES # (AUTO) 0.6 X10'3 (0-0.9); MONOCYTES % (AUTO) 7.8 % (2-12); NEUTROPHILS # (AUTO) 4.7 X10'3 (1.8-7.7); NEUTROPHILS % (AUTO) 57.5 % (42-75); PLATELET COUNT 485 X10'3 (140-440); RED BLOOD COUNT 4.27 X10'6 (4.20-5.60); RED CELL DISTRIBUTION WIDTH 13.2 % (11.5-14.5); WHITE BLOOD COUNT 8.2 X10'3 (4.5-11.0)
--- NOTE | 2019-08-15 16:04 | NUR ---
Nursing Progress Note Legal hold: 1370 Client on involuntary status for GD Report received from Nida NINO with use of SBAR: Why are they here: Patient was arrested in December for public intoxication in [place], she was referred from [facility] for orthodox of competency to stand trial. Patient as psychotic and kept for danger to self. She has a history of multiple psychiatric hospitalizations and polysubstance abuse. Assessment What has happened this shift: Patient is observed sleeping comfortably at change of shift. She wakes and joins others in the group room for breakfast. She reports sleeping well the night before. She takes her medications without issue and asks appropriate questions related to them. Patient does her hair, paints her nails and applies makeup. She states that she is happy to have court tomorrow and possibly go to [facility]. Her demeanor is bright throughout the day. She is friendly with staff and peers. S/I, H/I: none reported A/VH: none reported Sleep: 7.25 hrs NOC ADL's: Independent Group attendance: Yes Were meds taken: Yes Any med S/E: mumbled speech, excess saliva, Mental Status Exam Appearance: clean, showered, hair done and makeup applied Eye contact: Good Behavior: social Speech: mumbled speech, clearer at times, talks like she has a thick tongue. Mood: happy Affect: restricted with brightening Thought process: linear Thought Content: Wants to go the [facility] after her court hearing on Monday. Cognition: A&O X4 Insight: Poor to fair Judgment: Fair to good Interventions PRN's used: Tylenol Therapeutic interventions: 1:1 therapeutic assessment, establishment of rapport, maintained safe therapeutic milieu, provided active listening with positive feedback, provided medication education and monitored for effects, and monitored for change in behavior. Q 15 minute safety checks. Restraints/seclusion/emergency medication: N/A Justification of Continued Inpatient Treatment: Continued therapeutic support and medication management needed to provide stabilization, prevent decompensation, improve coping mechanisms decreasing risk to patient and re-admittance.
[2019-08-15] MEDS: ibuprofen tablet 400 MG TABLET PO PRN (19:28)
[2019-08-15] MEDS: acetaminophen 325mg tablet PO PRN (19:30)
[2019-08-15 20:00] VITALS: BP 127/77
[2019-08-15] MEDS: clozapine 100mg tablet PO SCH (20:44)
[2019-08-15] MEDS: LORazepam 1 MG tablet PO SCH (20:44)
[2019-08-15] MEDS: risperiDONE 2mg tablet PO SCH (20:44)
--- NOTE | 2019-08-15 22:34 | NUR ---
Nursing Progress Note: Legal hold: 1370 Client on involuntary status for GD Report received from nurse with use of SBAR: ARLEEN Che Why are they here: Patient was arrested in December for public intoxication in [place], she was referred from [facility] for jew of competency to stand trial. Patient as psychotic and kept for danger to self. She has a history of multiple psychiatric hospitalizations and polysubstance abuse. Assessment What has happened this shift: Pt. sitting in her room completing a word search at the beginning of the shift, upon seeing this personal lines underwriter she smiles and greets her appropriately. She then requests PRN pain medication r/t chronic bilateral knee pain, medication administered with effectiveness. 1:1 completed later at bedside, pt. continues to present as cooperative and somewhat guarded, however she reports animatedly that she is eager to attend court tomorrow and she feels ready to stand trial. Pt. continues to respond to questions with minimal responses, however interacts appropriately with others throughout the shift. She continues to deny any depression, anxiety, A/V/MALONE, and no delusional statements were made. Pt. denies any adverse side effects from medications, and none were observed. S/I, H/I: Denies A/VH: Denies, does not appear to be responding to internal stimuli. Sleep: Reports she sleeps well ADL's: Independent Group attendance: Pt. reports that she attends all groups Were meds taken: Yes Any med S/E: None Mental Status Exam Appearance: Dressed appropriately, clothes and hair neat, and nails painted Eye contact: Good Behavior: Guarded and cooperative Speech: She responds to questions with minimal responses, speech is soft Mood: Pleasant Affect: Blunted with animation Thought process: WNL Thought Content: Anticipation regarding court date tomorrow Cognition: A&O X4 Insight: Fair Judgment: Fair Interventions PRN's used: Tylenol and Motrin X1 Therapeutic interventions: Maintained a safe and supportive environment, provided clear and simple instructions, monitored behaviors and need for intervention, provided positive encouragement, and maintained Q 15 min safety checks. Restraints/seclusion/emergency medication: N/A Justification of Continued Inpatient Treatment: Pt. will attend court tomorrow, and per Dr. Bui, may then go to [facility]. She continues to require a safe and supportive environment.
[2019-08-16] MEDS: lithium carbonate 150mg capsule PO SCH (07:10)
[2019-08-16] MEDS: benztropine 1mg tablet PO SCH (07:10)
[2019-08-16] MEDS: docusate sod 100mg capsule PO SCH (07:11)
--- NOTE | 2019-08-16 08:15 | NUR ---
Pt. discharged to court and then [facility] via [facility]. Pt.'s mood improved during stay. Pt. is calm and cooperative and shows no signs and symptoms of emotional or psychological distress. Pt. sent with scripts for medications and f/u plan. Pt. A&Ox4. Pt. denies SI/HI, A/V H. Pt. did not need nicotine replacement. Pt. discharged with all belongings.
[2019-08-16] MEDS ORDERED: CLOZ100T31 PO (14:33)
== END 2019-08-16 08:30 | DRG 750 ==
LOC: ADULT MH 12:23 → UNDODISIN 08-16 08:15
PROVIDERS: ADMIT Psychiatry & Neurology Psychiatry; ATTEND Psychiatry & Neurology Psychiatry
DX: F25.0 Schizoaffective disorder, bipolar type (principal); Z59.0 Homelessness; E66.9 Obesity, unspecified; F31.9 Bipolar disorder, unspecified; F10.10 Alcohol abuse, uncomplicated; F15.10 Other stimulant abuse, uncomplicated; F41.9 Anxiety disorder, unspecified; F17.219 Nicotine dependence, cigarettes, with unspecified nicotine-induced disorders; K59.00 Constipation, unspecified; K62.5 Hemorrhage of anus and rectum; M25.561 Pain in right knee; M25.562 Pain in left knee; Z68.30 Body mass index [BMI] 30.0-30.9, adult; Z71.6 Tobacco abuse counseling; Z79.899 Other long term (current) drug therapy
CPT/HCPCS: 36415; 71045; 80053; 80061; 80178; 81001; 81025; 83036; 84439; 84443; 85025; 87081; 87088; 99285; Z7610

== ENCOUNTER 2019-08-16 12:21 | Inpatient (IN) | payer MEDICAID ==
[~2019-08-16] VITALS: Ht 185.4 cm; Wt 232.0 kg
[2019-08-16 08:00] VITALS: BP 129/91
[~2019-08-16 12:21] MED LIST changes: +ATI1T PO; +BENZ2TAB7 PO; +CLOZ100T13 PO; +LIT300C PO; -LITH150C8 PO; -RISP0.5T3 PO
[2019-08-16] MEDS ORDERED: acetaminophen 325mg tablet PO PRN (14:00)
[2019-08-16] MEDS ORDERED: loperamide 2mg capsule PO PRN (14:00)
[2019-08-16] MEDS ORDERED: mag hydrox/Alum hydrox/simeth 30ml oral suspension PO PRN (14:00)
[2019-08-16] MEDS ORDERED: CLOZ100T31 PO (14:33)
--- NOTE | 2019-08-16 15:03 | NUR ---
Pt. brought back to unit by [facility] for readmission after retail advisor determined that court was continuing. Pt. calm and cooperative. Denies SI/HI, A/V H. valuables checked in and pt. restarted on medication regimen. Pt. is A&Ox4. No signs and symptoms of distress. Physical assessment done. Pt. denies pain. Pt. went to group.
[2019-08-16] MEDS: ibuprofen tablet 400 MG TABLET PO PRN ×2 (15:49→20:53)
--- NOTE | 2019-08-16 17:00 | NUR ---
Nursing Progress Note: Legal hold: 1370 Client on involuntary status for GD Report received from nurse with use of SBAR: ARLEEN Che Why are they here: Patient was arrested in December for public intoxication in [place], [facility] for zoroastrian of competency to stand trial. Patient as psychotic and kept for danger to self. She has a history of multiple psychiatric hospitalizations and polysubstance abuse. Assessment What has happened this shift: Pt. discharged to court and was supposed to go to [facility] but packing and shipping clerk ruled that court needed to continue and patient readmitted to [facility]. Pt. states, "I'm happy to be back here." Pt. given motrin for bilateral knee pain. Pt. still has fixed delusion about knee pain, stating, "If I just get a tattoo there it will go away". S/I, H/I: Denies A/VH: Denies Sleep: Did not nap. ADL's: Independent Group attendance: Yes Were meds taken: Yes Any med S/E: None Mental Status Exam Appearance: Dressed appropriately, clothes and hair neat, and nails painted Eye contact: Good Behavior: Cooperative, socializes appropriately with staff and patients. Speech: She responds to questions with minimal responses, speech is soft Mood: Pleasant, anxious Affect: Blunted with animation Thought process: WNL Thought Content: Wanting to see her boyfriend. Cognition: A&O X4 Insight: Fair Judgment: Fair Interventions PRN's used: Motrin x1 Therapeutic interventions: Maintained a safe and supportive environment, provided clear and simple instructions, monitored behaviors and need for intervention, provided positive encouragement, and maintained Q 15 min safety checks. Restraints/seclusion/emergency medication: N/A Justification of Continued Inpatient Treatment: Pt. will attend court tomorrow, and per Dr. Bui, may then go to [facility]. She continues to require a safe and supportive environment.
[2019-08-16 20:00] VITALS: BP 122/82
--- NOTE | 2019-08-16 20:30 | NUR ---
Nursing Note: Obtained order from Dr. Bui to change Clozaril to regular oral tablets in place of rapid disintegrating tablets.
[2019-08-16] MEDS: benztropine 1mg tablet PO SCH (20:52)
[2019-08-16] MEDS: lithium carbonate 150mg capsule PO SCH (20:52)
[2019-08-16] MEDS: clozapine 100mg tablet PO SCH (20:53)
[2019-08-16] MEDS: LORazepam 0.5 MG tablet PO SCH (20:53)
[2019-08-16] MEDS: risperiDONE 2mg tablet PO SCH (20:53)
--- NOTE | 2019-08-16 23:36 | NUR ---
Nursing Progress Note: Legal hold: 1370 Client on involuntary status for GD Report received from nurse with use of SBAR: ARLEEN Che Why are they here: Patient was arrested in December for public intoxication in [place], she was referred from [facility] for episcopalian of competency to stand trial. Patient was psychotic and kept for danger to self. She has a history of multiple psychiatric hospitalizations and polysubstance abuse. Pt. was discharged to court on 08/16/19, and was supposed to go to [facility] but sail cutter ruled that court needed to continue and patient readmitted to [facility]. Assessment What has happened this shift: Pt. walking in the hallway wearing headphones at the beginning of the shift, she presents as animated and interacting well with others. 1:1 completed later at bedside, pt. continues to present as cooperative and somewhat guarded. She continues to respond to questions with minimal responses, however reports that she feels alright about her court date being rescheduled, and she is happy to still be on the unit. Pt. denies any depression, anxiety, A/V/MALONE, and no delusional statements were made this shift. No adverse S/E to medications were observed, however pt. requests PRN pain medication X1 for intermittent back pain, administered with effectiveness. S/I, H/I: Denies A/VH: Denies, does not appear to be responding to internal stimuli. Sleep: Reports she sleeps well ADL's: Independent Group attendance: Per AM shift, pt. attended groups Were meds taken: Yes Any med S/E: None Mental Status Exam Appearance: Dressed appropriately, clothes and hair neat Eye contact: Good Behavior: Guarded and cooperative Speech: She responds to questions with minimal responses, speech is soft Mood: Pleasant Affect: Blunted with animation Thought process: WNL Thought Content: Contentment with continued stay on the unit Cognition: A&O X4 Insight: Fair Judgment: Fair Interventions PRN's used: Motrin X1 Therapeutic interventions: Maintained a safe and supportive environment, provided clear and simple instructions, monitored behaviors and need for intervention, provided positive encouragement, and maintained Q 15 min safety checks. Restraints/seclusion/emergency medication: N/A Justification of Continued Inpatient Treatment: Pt. continues to await court date, requires a safe and supportive environment.
[2019-08-17 07:30] VITALS: BP 120/87
[2019-08-17] MEDS: lithium carbonate 150mg capsule PO SCH ×2 (07:58→20:02)
[2019-08-17] MEDS: benztropine 1mg tablet PO SCH ×2 (07:58→20:01)
[2019-08-17 08:24] LABS: BASOPHILS # (AUTO) 0.1 X10'3 (0-0.2); EOSINOPHILS # (AUTO) 0.3 X10'3 (0-0.9); EOSINOPHILS % (AUTO) 3.6 % (0-6); HEMATOCRIT 38.2 % (35.0-45.0); HEMOGLOBIN 12.7 g/dl (12.0-16.0); LYMPHOCYTES % (AUTO) 28.1 % (21-51); MEAN CORPUSCULAR HEMOGLOBIN 29.9 PG (27.0-31.0); MEAN CORPUSCULAR HGB CONC 33.3 g/dL (33.0-36.5); MEAN CORPUSCULAR VOLUME 89.6 FL (78-98); MEAN PLATELET VOLUME 8.2 FL (7.4-10.4); MONOCYTES # (AUTO) 0.5 X10'3 (0-0.9); MONOCYTES % (AUTO) 7.5 % (2-12); NEUTROPHILS # (AUTO) 4.3 X10'3 (1.8-7.7); NEUTROPHILS % (AUTO) 59.8 % (42-75); PLATELET COUNT 473 X10'3 (140-440); RED BLOOD COUNT 4.26 X10'6 (4.20-5.60); RED CELL DISTRIBUTION WIDTH 13.4 % (11.5-14.5); WHITE BLOOD COUNT 7.2 X10'3 (4.5-11.0)
--- NOTE | 2019-08-17 17:00 | NUR ---
Nursing Progress Note: Legal hold: 1370 Client on involuntary status for GD Report received from nurse with use of SBAR: Skye RN Why are they here: Patient was arrested in December for public intoxication in [place], [facility] anglican [facility] competency to stand trial. Patient was psychotic and kept for danger to self. She has a history of multiple psychiatric hospitalizations and polysubstance abuse. Pt. was discharged to court on 08/16/19, and was supposed to go to [facility] but solar system installer ruled that court needed to continue and patient readmitted to [facility]. Assessment What has happened this shift: Pt. asleep at start of shift. Pt. took all medications and ate all meals in the community room. 1:1 done at bedside. Pt. denies anxiety and dperssion and reports she is in a good mood and denies SI/HI, A/V H. Pt.reports she is glad to be back at [facility]. Pt. seen socializing appropriately with other patients on the unit. Pt. listening to headphones, watching TV in the community room. Pt. is difficult to understand at times with mumbling speech. S/I, H/I: Denies A/VH: Denies Sleep: Napped x1 on day shift. ADL's: Independent Group attendance: Attended all groups. Were meds taken: Yes Any med S/E: None Mental Status Exam Appearance: Dressed appropriately, clothes and hair neat Eye contact: Good Behavior: Guarded and cooperative Speech: She responds to questions with minimal responses, speech is soft and mumbled. Mood: Pleasant Affect: Blunted with animation Thought process: WNL Thought Content: Concerned about her appearance such as putting on making, shaving legs, getting new clothes. Cognition: A&O X4 Insight: Fair Judgment: Fair Interventions PRN's used: Motrin X1 Therapeutic interventions: Maintained a safe and supportive environment, provided clear and simple instructions, monitored behaviors and need for intervention, provided positive encouragement, and maintained Q 15 min safety checks. Restraints/seclusion/emergency medication: N/A Justification of Continued Inpatient Treatment: Pt. continues to await court date, requires a safe and supportive environment.
[2019-08-17] MEDS: ibuprofen tablet 400 MG TABLET PO PRN (17:09)
[2019-08-17 19:00] VITALS: BP 104/66
[2019-08-17] MEDS: risperiDONE 2mg tablet PO SCH (20:02)
[2019-08-17] MEDS: clozapine 100mg tablet PO SCH (20:02)
[2019-08-17] MEDS: LORazepam 0.5 MG tablet PO SCH (20:02)
--- NOTE | 2019-08-17 23:14 | NUR ---
Nursing Progress Note: Legal hold: 1370 Client on involuntary status for GD Report received from nurse with use of SBAR: ARLEEN Che Why are they here: Patient was arrested in December for public intoxication in [place], she was referred from [facility] for worship of competency to stand trial. Patient was psychotic and kept for danger to self. She has a history of multiple psychiatric hospitalizations and polysubstance abuse. Pt. was discharged to court on 08/16/19, and was supposed to go to [facility] but assembler deck and hull ruled that court needed to be continued and patient readmitted to [facility]. Assessment What has happened this shift: Pt. sleeping in bed at the beginning of the shift, she awakens for HS snack, reports fatigue, and requests HS medications. Attempted to complete 1:1, however pt. presents as more guarded and slightly irritable this shift. She continues to respond to questions with minimal responses, and is difficult to understand r/t mumbling. When questioned by this chief writer regarding how her day was, pt. shrugged impatiently, and stated, "Did I get my Ativan?" Following HS snack pt. retreated back to bed, will endorse to AM shift and continue to monitor. S/I, H/I: Denies A/VH: Denies, does not appear to be responding to internal stimuli. Sleep: Presents with fatigue and remains in bed throughout most of the shift ADL's: Independent Group attendance: Pt. attends HS snack Were meds taken: Yes Any med S/E: Pt. presents as fatigued and slightly irritable, will endorse to AM shift and continue to monitor. Mental Status Exam Appearance: Dressed appropriately, hair somewhat disheveled from bed Eye contact: Fair Behavior: Guarded, fatigued, slightly irritable Speech: She responds to questions with minimal responses, speech is soft and pt. mumbles and is difficult to understand at times Mood: Slightly irritable Affect: Constricted Thought process: WNL Thought Content: Unable to assess r/t increased fatigue and irritability Cognition: A&O X4 Insight: Fair Judgment: Fair Interventions PRN's used: None Therapeutic interventions: Maintained a safe and supportive environment, provided clear and simple instructions, monitored behaviors and need for intervention, provided positive encouragement, and maintained Q 15 min safety checks. Restraints/seclusion/emergency medication: N/A Justification of Continued Inpatient Treatment: Pt. continues to await court date, in the next two weeks or so per Dr. Bui. She continues to requires a safe and supportive environment.
[2019-08-18] MEDS: benztropine 1mg tablet PO SCH ×2 (07:09→20:32)
[2019-08-18] MEDS: lithium carbonate 150mg capsule PO SCH ×2 (07:09→20:33)
[2019-08-18 08:35] VITALS: BP 112/69
[2019-08-18] MEDS: ibuprofen tablet 400 MG TABLET PO PRN (09:00)
[2019-08-18] MEDS: magnesium hydroxide 30ml (MOM) UD suspension PO PRN (11:44)
--- NOTE | 2019-08-18 14:31 | NUR ---
Nursing Progress Note: Legal hold: 1370 Client on involuntary status for GD Report received from nurse with use of SBAR: ARLEEN West Why are they here: Patient was arrested in December for public intoxication in [place], she was referred from [facility] group home for faith of competency to stand trial. Patient was psychotic and kept for danger to self. She has a history of multiple psychiatric hospitalizations and polysubstance abuse. Pt. was discharged to court on 08/16/19, and was supposed to go to [facility] but vertical borer ruled that court needed to be continued and patient readmitted to [facility]. Assessment What has happened this shift: Pt is seen ambulating in the crain at change of shift. She is pleasant and cooperative with care and takes her medications without incident. She requests PRN Motrin for chronic bilateral knee pain. This is miderately affective in relieving her pain. She states that her court date went well on Monday. Denies S/I, H/I, A/H, V/H. She did have one episode of mild agitation after breakfast. This RN approached Pt in her room to attempt 1:1. Pt stated "I don't want to write now, I am sleeping". Pt came out of room approximately an hour later, smiling and reported she was feeling "good". She was seen eating snacks and meals in the community day room and particiapted in groups. She reported having a feeling of constipation despite having a bowel movement yesterday morning, PRN MOM was given. Patient had a shower today. S/I, H/I: Denies A/VH: Denies, does not appear to be responding to internal stimuli. Sleep: naps intermittently throughout the shift ADL's: Independent Group attendance: yes Were meds taken: Yes Any med S/E: Pt. remains intermittently irrableand somewhat fatigued. She also reported feeling constipated. Mental Status Exam Appearance: Dressed appropriately, hair somewhat disheveled from bed Eye contact: Fair Behavior: fatigued, slightly irritable intermittently Speech: She responds to questions with minimal responses, speech is soft, pressured, and pt. mumbles and is difficult to understand at times Mood: intermittently irritable Affect: Constricted Thought process: WNL Thought Content: "I feel constipated", "My knees hurt". Cognition: A&O X4 Insight: Fair Judgment: Fair Interventions PRN's used: MOM, ibuprofen Therapeutic interventions: Maintained a safe and supportive environment, provided clear and simple instructions, monitored behaviors and need for intervention, provided positive encouragement, and maintained Q 15 min safety checks. Restraints/seclusion/emergency medication: N/A Justification of Continued Inpatient Treatment: Pt. continues to await next court date, in the next two weeks or so per Dr. Bui. She continues to requires a safe and supportive environment.
[2019-08-18 20:00] VITALS: BP 111/81
[2019-08-18] MEDS: LORazepam 0.5 MG tablet PO SCH (20:33)
[2019-08-18] MEDS: clozapine 100mg tablet PO SCH (20:33)
[2019-08-18] MEDS: risperiDONE 2mg tablet PO SCH (20:33)
[2019-08-18] MEDS: docusate sod 100mg capsule PO SCH (20:33)
--- NOTE | 2019-08-18 23:19 | NUR ---
Nursing Progress Note: Legal hold: 1370 Client on involuntary status for GD Report received from nurse with use of SBAR: ARLEEN Che Why are they here: Patient was arrested in December for public intoxication in [place], she was referred from [facility] for amish of competency to stand trial. Patient was psychotic and kept for danger to self. She has a history of multiple psychiatric hospitalizations and polysubstance abuse. Pt. was discharged to court on 08/16/19, and was supposed to go to [facility]] but yard truck driver ruled that court needed to be continued and patient readmitted to [facility]. Assessment What has happened this shift: Pt ambulating in the crain at change of shift. She is pleasant and cooperative with care. Pt cheerfully said about her hearing "First they said I was competent and then they said I was incompetent" Pt went on to say it was okay with her because she likes it here. Pt socialized with other pts and staff in group room. She said she is going to the [facility]] when she leaves here. Took all medications. Is sleeping at this time. S/I, H/I: Denies A/VH: Denies, does not appear to be responding to internal stimuli. Sleep: asleep at this time ADL's: Independent Group attendance: yes Were meds taken: Yes Any med S/E: Mental Status Exam Appearance: Dressed appropriately, neat wnd well groomed Eye contact: Fair Behavior: pleasant and cooperative Speech: She responds to questions with minimal responses, speech is soft, pressured, and pt. mumbles and is difficult to understand at times Mood: pleasant Affect: Constricted Thought process: at times disorganized Thought Content: discharge Cognition: A&O X4 Insight: Fair Judgment: Fair Interventions PRN's used: none Therapeutic interventions: Maintained a safe and supportive environment, provided clear and simple instructions, monitored behaviors and need for intervention, provided positive encouragement, and maintained Q 15 min safety checks. Restraints/seclusion/emergency medication: N/A Justification of Continued Inpatient Treatment: Pt. continues to await next court date, in the next two weeks or so per Dr. Bui. She continues to requires a safe and supportive environment.
[2019-08-19 07:30] VITALS: BP 114/69
[2019-08-19] MEDS: lithium carbonate 150mg capsule PO SCH ×2 (08:00→20:27)
[2019-08-19] MEDS: benztropine 1mg tablet PO SCH ×2 (08:00→20:26)
[2019-08-19] MEDS: docusate sod 100mg capsule PO SCH ×2 (08:00→20:26)
[2019-08-19] MEDS: ibuprofen tablet 400 MG TABLET PO PRN ×3 (08:24→20:26)
--- NOTE | 2019-08-19 18:12 | NUR ---
Nursing Progress Note: Legal hold: 1370 Client on involuntary status for GD Report received from nurse with use of SBAR: Flavia RN Why are they here: Patient was arrested in December for public intoxication in [place], she was referred from [facility] group home for hindu of competency to stand trial. Patient was psychotic and kept for danger to self. She has a history of multiple psychiatric hospitalizations and polysubstance abuse. Pt. was discharged to court on 08/16/19, and was supposed to go to [facility] but certified nurses aide ruled that court needed to be continued and patient readmitted to [facility]. Assessment What has happened this shift: Patient awakened for breakfast and medications. Patient has been socializing with peers this morning. Walks hallways, took shower. States she is back to be back at [facility]. Patient has been painting her nails and is in group presently. S/I, H/I: Denies A/VH: Denies Sleep: 7.0 hrs NOC. napped in a.m. ADL's: Independent Group attendance: yes Were meds taken: Yes Any med S/E: None noted. Mental Status Exam Appearance: Dressed appropriately, hair somewhat disheveled from bed Eye contact: Fair Behavior: Calm and cooperative Speech: She responds to questions with minimal responses, speech is soft, pressured, and pt. mumbles and is difficult to understand at times Mood: Euthymic Affect: Constricted Thought process: Linear. Thought Content: Painting nails, ADLs Cognition: A&O X4 Insight: Fair Judgment: Fair Interventions PRN's used: ibuprofen Therapeutic interventions: Maintained a safe and supportive environment, provided clear and simple instructions, monitored behaviors and need for intervention, provided positive encouragement, and maintained Q 15 min safety checks. Restraints/seclusion/emergency medication: N/A Justification of Continued Inpatient Treatment: Pt. continues to await next court date, in the next two weeks or so per Dr. Bui. She continues to requires a safe and supportive environment.
[2019-08-19 20:10] VITALS: BP 113/62
[2019-08-19] MEDS: LORazepam 0.5 MG tablet PO SCH (20:26)
[2019-08-19] MEDS: risperiDONE 2mg tablet PO SCH (20:26)
[2019-08-19] MEDS: clozapine 100mg tablet PO SCH (20:28)
--- NOTE | 2019-08-19 22:20 | NUR ---
Nursing Progress Note: Legal hold: 1370 Client on involuntary status for GD Report received from nurse with use of SBAR: ARLEEN Che Why are they here: Patient was arrested in December for public intoxication in [place], [facility] orthodox [facility] to stand [facility]. Patient was psychotic and kept for danger to self. She has a history of multiple psychiatric hospitalizations and polysubstance abuse. Pt. was discharged to court on 08/16/19, and was supposed to go to [facility] but dyslexia teacher ruled that court needed to be continued and patient readmitted to [facility]. Assessment What has happened this shift: Patient up and pacing in the crain social with peers . Patient took shower today. States she is happy to be back at [facility]. She participated in snack then went to bed. S/I, H/I: Denies A/VH: Denies Sleep: 7.0 hrs NOC. napped in a.m. ADL's: Independent Group attendance: yes Were meds taken: Yes Any med S/E: None noted. Mental Status Exam Appearance: Dressed appropriately, hair somewhat disheveled from bed Eye contact: Fair Behavior: Calm and cooperative Speech: She responds to questions with minimal responses, speech is soft, pressured, and pt. mumbles and is difficult to understand at times Mood: Euthymic Affect: Constricted Thought process: Linear. Thought Content: Painting nails, ADLs Cognition: A&O X4 Insight: Fair Judgment: Fair Interventions PRN's used: ibuprofen Therapeutic interventions: Maintained a safe and supportive environment, provided clear and simple instructions, monitored behaviors and need for intervention, provided positive encouragement, and maintained Q 15 min safety checks. Restraints/seclusion/emergency medication: N/A Justification of Continued Inpatient Treatment: Pt. continues to await next court date, in the next two weeks or so per Dr. Biu. She continues to requires a safe and supportive environment.
[2019-08-20 07:00] VITALS: BP 120/75
[2019-08-20] MEDS: lithium carbonate 150mg capsule PO SCH ×2 (08:03→20:13)
[2019-08-20] MEDS: ibuprofen tablet 400 MG TABLET PO PRN ×2 (08:03→18:30)
[2019-08-20] MEDS: docusate sod 100mg capsule PO SCH ×2 (08:03→20:13)
[2019-08-20] MEDS: benztropine 1mg tablet PO SCH ×2 (08:04→20:14)
--- NOTE | 2019-08-20 17:46 | NUR ---
Nursing Progress Note Legal hold: 1370 Client on involuntary status for GD Report received from nurse with use of SBAR: ARLEEN Alva Why are they here: Patient was arrested in December for public intoxication in [place], she was referred from [facility] care home for hindu of competency to stand trial. Patient was psychotic and kept for danger to self. She has a history of multiple psychiatric hospitalizations and polysubstance abuse. Pt. was discharged to court on 08/16/19, and was supposed to go to [facility] but caustic room operator ruled that court needed to be continued and patient readmitted to [facility]. Assessment What has happened this shift: Patient awakened for breakfast and medications. Patient is not very talkative today. Spends most of the day in the group room socializing with peers, listening to music, and attending groups. S/I, H/I: Denies A/VH: Denies Sleep: 8.25 hrs NOC. napped in a.m. ADL's: Independent Group attendance: yes Were meds taken: Yes Any med S/E: None noted. Mental Status Exam Appearance: Dressed appropriately, hair somewhat disheveled from bed Eye contact: Fair Behavior: Calm and cooperative Speech: She responds to questions with minimal responses, speech is soft, pressured, and pt. mumbles and is difficult to understand at times Mood: Euthymic Affect: Constricted Thought process: Linear. Thought Content: Meeting basic needs; food, clothing, jail. Cognition: A&O X4 Insight: Fair Judgment: Fair Interventions PRN's used: ibuprofen Therapeutic interventions: Maintained a safe and supportive environment, provided clear and simple instructions, monitored behaviors and need for intervention, provided positive encouragement, and maintained Q 15 min safety checks. Restraints/seclusion/emergency medication: N/A Justification of Continued Inpatient Treatment: Pt. continues to await next court date, in the next two weeks or so per Dr. Bui. She continues to requires a safe and supportive environment.
[2019-08-20 20:00] VITALS: BP 125/89
[2019-08-20] MEDS: LORazepam 0.5 MG tablet PO SCH (20:12)
[2019-08-20] MEDS: risperiDONE 2mg tablet PO SCH (20:12)
[2019-08-20] MEDS: clozapine 100mg tablet PO SCH (20:14)
--- NOTE | 2019-08-20 22:28 | NUR ---
Nursing Progress Note Legal hold: 1370 Client on involuntary status for GD Report received from nurse with use of SBAR: ARLEEN Che Why are they here: Patient was arrested in December for public intoxication in [place], [facility] restoration[facility] to [facility]. Patient was psychotic and kept for danger to self. She has a history of multiple psychiatric hospitalizations and polysubstance abuse. Pt. was discharged to court on 08/16/19, and was supposed to go to [facility] but qlikview developer ruled that court needed to be continued and patient readmitted to [facility]. Assessment What has happened this shift: Patient in a better mood this shift . Spends most of the shift in the group room socializing with peers, listening to music. Pt requested prn Motrin for generalized pain that was effective. S/I, H/I: Denies A/VH: Denies Sleep: 8.25 hrs NOC. napped in a.m. ADL's: Independent Group attendance: yes Were meds taken: Yes Any med S/E: None noted. Mental Status Exam Appearance: Dressed appropriately, hair somewhat disheveled from bed Eye contact: Fair Behavior: Calm and cooperative Speech: She responds to questions with minimal responses, speech is soft, pressured, and pt. mumbles and is difficult to understand at times Mood: Euthymic Affect: Constricted Thought process: Linear. Thought Content: Meeting basic needs; food, clothing, long-term. Cognition: A&O X4 Insight: Fair Judgment: Fair Interventions PRN's used: ibuprofen Therapeutic interventions: Maintained a safe and supportive environment, provided clear and simple instructions, monitored behaviors and need for intervention, provided positive encouragement, and maintained Q 15 min safety checks. Restraints/seclusion/emergency medication: N/A Justification of Continued Inpatient Treatment: Pt. continues to await next court date, in the next two weeks or so per Dr. Bui. She continues to requires a safe and supportive environment.
[2019-08-21 08:00] VITALS: BP 101/67
[2019-08-21] MEDS: benztropine 1mg tablet PO SCH ×2 (08:11→20:03)
[2019-08-21] MEDS: docusate sod 100mg capsule PO SCH ×2 (08:11→20:03)
[2019-08-21] MEDS: lithium carbonate 150mg capsule PO SCH ×2 (08:12→20:03)
[2019-08-21] MEDS: ibuprofen tablet 400 MG TABLET PO PRN ×2 (08:46→20:12)
--- NOTE | 2019-08-21 16:26 | NUR ---
Nursing Progress Note Legal hold: 1370 Client on involuntary status for GD Report received from nurse with use of SBAR: ARLEEN Alva Why are they here: Patient was arrested in December for public intoxication in [place], she was referred from [facility] custodial for congregation of competency to stand trial. Patient was psychotic and kept for danger to self. She has a history of multiple psychiatric hospitalizations and polysubstance abuse. Pt. was discharged to court on 08/16/19, and was supposed to go to [facility] but server programmer ruled that court needed to be continued and patient readmitted to [facility]. Assessment What has happened this shift: Received Pt in bed sleeping w/o distress. Patient awakened for breakfast and medications. Patient pleasant and cooperative but more isolative with less interaction with styaff and peers. Spent time in group room listening to music, and attending groups. S/I, H/I: Denies A/VH: Denies Sleep: napped in a.m. ADL's: Independent, showered in AM Group attendance: yes Were meds taken: Yes Any med S/E: None noted. Mental Status Exam Appearance: Dressed appropriately, hair somewhat disheveled from bed Eye contact: Fair Behavior: Calm and cooperative Speech: She responds to questions with minimal responses, speech is soft, pressured, and pt. mumbles and is difficult to understand at times Mood: Euthymic Affect: Constricted Thought process: Linear. Thought Content: Meeting basic needs; food, clothing, alf. Cognition: A&O X4 Insight: Fair Judgment: Fair Interventions PRN's used: ibuprofen Therapeutic interventions: Maintained a safe and supportive environment, provided clear and simple instructions, monitored behaviors and need for intervention, provided positive encouragement, and maintained Q 15 min safety checks. Restraints/seclusion/emergency medication: N/A Justification of Continued Inpatient Treatment: Pt. continues to await next court date, in the next two weeks or so per Dr. Bui. She continues to requires a safe and supportive environment.
[2019-08-21 20:00] VITALS: BP 92/69
[2019-08-21] MEDS: risperiDONE 2mg tablet PO SCH (20:03)
[2019-08-21] MEDS: clozapine 100mg tablet PO SCH (20:03)
[2019-08-21] MEDS: LORazepam 0.5 MG tablet PO SCH (20:03)
[2019-08-21 20:10] VITALS: BP 120/70
--- NOTE | 2019-08-21 22:44 | NUR ---
Nursing Progress Note: Legal hold: 1370 Client on involuntary status for GD Report received from nurse with use of SBAR: ARLEEN Mae Why are they here: Patient was arrested in December for public intoxication in [place], [facility] mandaen [facility] to [facility]. Patient was psychotic and kept for danger to self. She has a history of multiple psychiatric hospitalizations and polysubstance abuse. Pt. was discharged to court on 08/16/19, and was supposed to go to [facility] but touch up painter ruled that court needed to be continued and patient readmitted to [facility]. Assessment What has happened this shift: Pt. up in the hallway interacting minimally with staff and peers at the beginning of the shift, she greets this junior underwriter appropriately. Pt. attends HS snack and requests to have her HS medications as soon as possible. 1:1 completed, she continues to present as cooperative and guarded. Pt. responds to questions with minimal responses, and is difficult to understand at times r/t mumbling. She continues to deny any depression, anxiety, or A/V/MALONE and reports she is looking forward to her upcoming court date. Pt. states bluntly, "Court is rescheduled for August 30." She is cooperative with physical assessment and then retreats to bed. S/I, H/I: Denies A/VH: Denies, does not appear to be responding to internal stimuli. Sleep: Presents with some fatigue, and retreats to bed immediately following HS snack ADL's: Independent Group attendance: Pt. attends groups Were meds taken: Yes Any med S/E: Pt. presents as slightly fatigued, will endorse to AM shift and continue to monitor. Mental Status Exam Appearance: Neat and dressed appropriately Eye contact: Fair Behavior: Guarded, cooperative Speech: She responds to questions with minimal responses, speech is soft and pt. mumbles and is difficult to understand at times Mood: Pleasant, however continues to be guarded Affect: Blunted Thought process: WNL Thought Content: Anticipation r/t upcoming court date Cognition: A&O X4 Insight: Fair Judgment: Fair Interventions PRN's used: Motrin for chronic bilateral knee pain Therapeutic interventions: Maintained a safe and supportive environment, provided clear and simple instructions, monitored behaviors and need for intervention, provided positive encouragement, and maintained Q 15 min safety checks. Restraints/seclusion/emergency medication: N/A Justification of Continued Inpatient Treatment: Pt. continues to await court date, in the next two weeks or so per Dr. Bui. She continues to requires a safe and supportive environment.
[2019-08-22] MEDS: benztropine 1mg tablet PO SCH ×2 (07:51→20:19)
[2019-08-22] MEDS: lithium carbonate 150mg capsule PO SCH ×2 (07:52→20:19)
[2019-08-22] MEDS: docusate sod 100mg capsule PO SCH ×2 (07:52→20:19)
[2019-08-22 08:00] VITALS: BP 101/63
[2019-08-22] MEDS: ibuprofen tablet 400 MG TABLET PO PRN ×2 (08:02→20:20)
--- NOTE | 2019-08-22 12:49 | NUR ---
Great appetite, eating 75-100% average of meals. No nutrition concerns at this time. Will continue to follow. Recommend: 1. continue regular diet 2. Weekly weights Addendum: 08/22/19 at [address] Amended: Links added.
--- NOTE | 2019-08-22 16:01 | NUR ---
Nursing Progress Note: Legal hold: 1370 Client on involuntary status for GD Report received from nurse with use of SBAR: Nida RN Why are they here: Patient was arrested in December for public intoxication in [place], she was referred from [facility] intermediate for voodoo of competency to stand trial. Patient was psychotic and kept for danger to self. She has a history of multiple psychiatric hospitalizations and polysubstance abuse. Pt. was discharged to court on 08/16/19, and was supposed to go to [facility] but rack cleaner ruled that court needed to be continued and patient readmitted to [facility]. Assessment What has happened this shift: Patient is observed sleeping at change of shift. She is awoken prior to breakfast to take her medications. She reports that she slept well the night before and denies any needs currently. She takes her medications without issue. She is oberved attending all groups and remains social with others even if not conversational. S/I, H/I: Denies A/VH: Denies Sleep: 8.5hrs NOC ADL's: Independent, showers daily Group attendance: yes Were meds taken: Yes Any med S/E: none reported or observed Mental Status Exam Appearance: wearing layers, clean Eye contact: direct Behavior: calm, cooperative Speech: patient is not converasational, soft tone, mumbly at times Mood: content Affect: restricted Thought process: linear Thought Content: no delusional thought content present Cognition: A&O X4 Insight: Fair Judgment: Fair Interventions PRN's used: Motrin for chronic bilateral knee pain Therapeutic interventions: 1:1 therapeutic assessment, maintained safe therapeutic milieu, provided active listening with positive feedback, provided medication education as needed, monitored behaviors and need for intervention, Q 15 min safety checks. Restraints/seclusion/emergency medication: N/A Justification of Continued Inpatient Treatment: Pt. continues to await court date, scheduled August 30, 2019.
[2019-08-22 19:42] VITALS: BP 133/83
[2019-08-22] MEDS: LORazepam 0.5 MG tablet PO SCH (20:19)
[2019-08-22] MEDS: clozapine 100mg tablet PO SCH (20:19)
[2019-08-22] MEDS: risperiDONE 2mg tablet PO SCH (20:20)
--- NOTE | 2019-08-22 23:30 | NUR ---
Nursing Progress Note: Legal hold: 1370 Client on involuntary status for GD Report received from nurse with use of SBAR: ARLEEN Mae Why are they here: Patient was arrested in December for public intoxication in [place], she was referred from [facility] for amish of competency to stand trial. Patient was psychotic and kept for danger to self. She has a history of multiple psychiatric hospitalizations and polysubstance abuse. Pt. was discharged to court on 08/16/19, and was supposed to go to [facility] but paddock judge ruled that court needed to be continued and patient readmitted to [facility]. Assessment What has happened this shift: Pt. up in the hallway walking and listening to head phones at the beginning of the shift. She interacts minimally with staff and peers, and greets this promotion writer appropriately. Pt. attends HS snack, and again requests to have her HS medications as soon as possible. 1:1 completed, she continues to present as guarded, however smiles and reports anticipation when upcoming court date is mentioned. Pt. continues to deny any mental health s/s, and reports she is excited about possibly living at [facility] and believes she will be able to effectively care for herself and continue to take her medications. She retreats to bed immediately following medication administration. S/I, H/I: Denies A/VH: Denies, does not appear to be responding to internal stimuli. Sleep: Presents with some fatigue, and retreats to bed immediately following HS snack ADL's: Independent Group attendance: Pt. reports she attends all groups, however is unable to identify any coping skills learned Were meds taken: Yes Any med S/E: None Mental Status Exam Appearance: Neat and dressed appropriately Eye contact: Fair Behavior: Guarded, cooperative Speech: She responds to questions with minimal responses, speech is soft and pt. mumbles and is difficult to understand at times Mood: Pleasant, however continues to be guarded Affect: Blunted Thought process: WNL Thought Content: Anticipation r/t upcoming court date Cognition: A&O X4 Insight: Fair Judgment: Fair Interventions PRN's used: Motrin for chronic bilateral knee pain Therapeutic interventions: Maintained a safe and supportive environment, provided clear and simple instructions, monitored behaviors and need for intervention, provided positive encouragement, and maintained Q 15 min safety checks. Restraints/seclusion/emergency medication: N/A Justification of Continued Inpatient Treatment: Pt. continues to await court date, in the next two weeks or so per Dr. Bui. She continues to requires a safe and supportive environment.
[2019-08-23 08:00] VITALS: BP 107/71
[2019-08-23] MEDS: benztropine 1mg tablet PO SCH ×2 (08:17→20:12)
[2019-08-23] MEDS: lithium carbonate 150mg capsule PO SCH ×2 (08:17→20:14)
[2019-08-23] MEDS: docusate sod 100mg capsule PO SCH ×2 (08:17→20:13)
[2019-08-23] MEDS: ibuprofen tablet 400 MG TABLET PO PRN ×2 (13:24→20:13)
--- NOTE | 2019-08-23 15:57 | NUR ---
Nursing Progress Note: Legal hold: 1370 Client on involuntary status for GD Report received from nurse with use of SBAR: ARLEEN Cheung Why are they here: Patient was arrested in December for public intoxication in [place], she was referred from [facility] long-term for mu-ism of competency to stand trial. Patient was psychotic and kept for danger to self. She has a history of multiple psychiatric hospitalizations and polysubstance abuse. Pt. was discharged to court on 08/16/19, and was supposed to go to [facility] but chair mechanic ruled that court needed to be continued and patient readmitted to [facility]. Assessment What has happened this shift: Patient is asleep at change of shift. She is quiet but does make her needs known. Depressed mood, flat affect. No other changes. Eating well and med compliant. Showered today. S/I, H/I: Denies A/VH: Denies, does not appear to be responding to internal stimuli. Sleep: Naps ADL's: Independent Group attendance: Yes Were meds taken: Yes Any med S/E: None Mental Status Exam Appearance: Neat and dressed appropriately Eye contact: Fair Behavior: Guarded, cooperative Speech: She responds to questions with minimal responses, speech is soft and pt. mumbles and is difficult to understand at times Mood: Pleasant, however continues to be guarded Affect: Flat Thought process: WNL Thought Content: Anticipation r/t upcoming court date Cognition: A&O X4 Insight: Poor Judgment: Fair Interventions PRN's used: Motrin for chronic bilateral knee pain Therapeutic interventions: Maintained a safe and supportive environment, provided clear and simple instructions, monitored behaviors and need for intervention, provided positive encouragement, and maintained Q 15 min safety checks. Restraints/seclusion/emergency medication: N/A Justification of Continued Inpatient Treatment: Pt. continues to await court date, in the next two weeks or so per Dr. Bui. She continues to requires a safe and supportive environment.
[2019-08-23 19:00] VITALS: BP 119/78
[2019-08-23] MEDS: LORazepam 0.5 MG tablet PO SCH (20:14)
[2019-08-23] MEDS: clozapine 100mg tablet PO SCH (20:14)
[2019-08-23] MEDS: risperiDONE 2mg tablet PO SCH (20:14)
--- NOTE | 2019-08-24 00:37 | NUR ---
Nursing Progress Note: Legal hold: 1370 Client on involuntary status for GD Report received from nurse with use of SBAR: ARLEEN Mae Why are they here: Patient was arrested in December for public intoxication in [place], [facility] yazidi [facility] competency to stand [facility]. Patient was psychotic and kept for danger to self. She has a history of multiple psychiatric hospitalizations and polysubstance abuse. Pt. was discharged to court on 08/16/19, and was supposed to go to [facility] but oncology admin ruled that court needed to be continued and patient readmitted to [facility]. Assessment What has happened this shift: Pt. walks the unit and shift change and stands and looks into the nursing station periodically without saying anything. Basting Marker greets pt and asks how her day is and she responds, "fine. When can I have my medications?" PT is cooperative with assessment, but is not talkative. She denies SI/HI /AV /AH Basting Marker asks what she did today and she responds, "I don't feel like talking." She is given her HS medications along with PRN motrin for bilat knee pain. She retreats to bed immediately following medication administration. S/I, H/I: Denies A/VH: Denies, does not appear to be responding to internal stimuli. Sleep:see sleep assessment notation ADL's: Independent Group attendance: Pt. reports she attends all groups, however is unable to identify any coping skills learned Were meds taken: Yes Any med S/E: None reported, none observed Mental Status Exam Appearance: Neat and dressed appropriately Eye contact: Fair Behavior: Guarded, cooperative Speech: She responds to questions with minimal responses, speech is soft and pt. mumbles and is difficult to understand at times Mood: Pleasant, however continues to be guarded Affect: Blunted Thought process: WNL Thought Content: Anticipation r/t upcoming court date Cognition: A&O X4 Insight: Fair Judgment: Fair Interventions PRN's used: Motrin for chronic bilateral knee pain Therapeutic interventions: Maintained a safe and supportive environment, provided clear and simple instructions, monitored behaviors and need for intervention, provided positive encouragement, and maintained Q 15 min safety checks. Restraints/seclusion/emergency medication: N/A Justification of Continued Inpatient Treatment: Pt. continues to await court date, in the next two weeks or so per Dr. Bui. She continues to requires a safe and supportive environment.
[2019-08-24 07:58] LABS: BASOPHILS # (AUTO) 0.1 X10'3 (0-0.2); EOSINOPHILS # (AUTO) 0.3 X10'3 (0-0.9); EOSINOPHILS % (AUTO) 3.9 % (0-6); HEMATOCRIT 36.2 % (35.0-45.0); HEMOGLOBIN 12.2 g/dl (12.0-16.0); LYMPHOCYTES # (AUTO) 1.9 X10'3 (1.1-4.8); LYMPHOCYTES % (AUTO) 29.5 % (21-51); MEAN CORPUSCULAR HEMOGLOBIN 29.9 PG (27.0-31.0); MEAN CORPUSCULAR HGB CONC 33.8 g/dL (33.0-36.5); MEAN CORPUSCULAR VOLUME 88.4 FL (78-98); MEAN PLATELET VOLUME 7.8 FL (7.4-10.4); MONOCYTES # (AUTO) 0.6 X10'3 (0-0.9); MONOCYTES % (AUTO) 8.5 % (2-12); NEUTROPHILS # (AUTO) 3.7 X10'3 (1.8-7.7); NEUTROPHILS % (AUTO) 57.1 % (42-75); PLATELET COUNT 402 X10'3 (140-440); RED BLOOD COUNT 4.09 X10'6 (4.20-5.60); RED CELL DISTRIBUTION WIDTH 12.9 % (11.5-14.5); WHITE BLOOD COUNT 6.5 X10'3 (4.5-11.0)
[2019-08-24 08:00] VITALS: BP 100/67
[2019-08-24] MEDS: benztropine 1mg tablet PO SCH ×2 (08:23→19:51)
[2019-08-24] MEDS: docusate sod 100mg capsule PO SCH (08:23)
[2019-08-24] MEDS: lithium carbonate 150mg capsule PO SCH ×2 (08:23→19:52)
[2019-08-24] MEDS: acetaminophen 325mg tablet PO PRN (14:43)
[2019-08-24] MEDS ORDERED: ibuprofen tablet 400 MG TABLET PO PRN (14:48)
[2019-08-24] MEDS: magnesium hydroxide 30ml (MOM) UD suspension PO PRN (16:44)
--- NOTE | 2019-08-24 18:29 | NUR ---
Nursing Progress Note: Legal hold: 1370 Client on involuntary status for GD Report received from nurse with use of SBAR: Adriana Mckeon RN Why are they here: Patient was arrested in December for public intoxication in [place], she was referred from [facility] for hinduism of competency to stand trial. Patient was psychotic and kept for danger to self. She has a history of multiple psychiatric hospitalizations and polysubstance abuse. Pt. was discharged to court on 08/16/19, and was supposed to go to [facility]] but policy services representative ruled that court needed to be continued and patient readmitted to [facility]. Assessment What has happened this shift: Patient sleeping until breakfast and meds. Patient does complain of bilateral knee pain, chronic. Patient attends all meals, is med compliant, attends all groups. S/I, H/I: Denies A/VH: Denies. Sleep: Nap after breakfast ADL's: Independent Group attendance: Yes Were meds taken: Yes Any med S/E: None Mental Status Exam Appearance: Neat and dressed appropriately Eye contact: Fair Behavior: Guarded, cooperative Speech: She responds to questions with minimal responses, speech is soft and pt. mumbles and is difficult to understand at times Mood: Depressed Affect: Flat Thought process: Circumstantial. Thought Content: Anticipation r/t upcoming court date Cognition: A&O X4 Insight: Poor Judgment: Poor. Interventions PRN's used: Tylenol, Atarax Therapeutic interventions: Maintained a safe and supportive environment, provided clear and simple instructions, monitored behaviors and need for intervention, provided positive encouragement, and maintained Q 15 min safety checks. Restraints/seclusion/emergency medication: N/A Justification of Continued Inpatient Treatment: Pt. continues to await court date, in the next two weeks or so per Dr. Bui. She continues to requires a safe and supportive environment.
[2019-08-24] MEDS: LORazepam 0.5 MG tablet PO SCH (19:50)
[2019-08-24] MEDS: risperiDONE 2mg tablet PO SCH (19:50)
[2019-08-24] MEDS: clozapine 100mg tablet PO SCH (19:51)
[2019-08-24 20:00] VITALS: BP 120/67
[2019-08-24] MEDS: sennosides 8.6mg tablet PO SCH (21:08)
--- NOTE | 2019-08-24 23:38 | NUR ---
Nursing Progress Note: Legal hold: 1370 Client on involuntary status for GD Report received from nurse with use of SBAR: Kennedi RN Why are they here: Patient was arrested in December for public intoxication in [place], [facility] to stand [facility]. Patient was psychotic and kept for danger to self. She has a history of multiple psychiatric hospitalizations and polysubstance abuse. Pt. was discharged to court on 08/16/19, and was supposed to go to [facility] but retail support specialist ruled that court needed to be continued and patient readmitted to [facility]. Assessment What has happened this shift: Pt is pleasant on approach and asks rewriter how her day is going. Pt has painted her nails and asks rewriter if they look nice. She denies SI/HI /AV /AH. Pt is cooperative with 1:1 assessment. She continues to have poverty of thought and a blank gaze. She retreats to bed immediately following medication administration. S/I, H/I: Denies A/VH: Denies, does not appear to be responding to internal stimuli. Sleep:see sleep assessment notation ADL's: Independent Group attendance: Pt. reports she attends all groups, however is unable to identify any coping skills learned Were meds taken: Yes Any med S/E: None reported, none observed Mental Status Exam Appearance: Neat and dressed appropriately Eye contact: Fair Behavior: Guarded, cooperative Speech: She responds to questions with minimal responses, speech is soft and pt. mumbles and is difficult to understand at times Mood: Pleasant, however continues to be guarded Affect: Blunted Thought process: WNL Thought Content: Anticipation r/t upcoming court date Cognition: A&O X4 Insight: Fair Judgment: Fair Interventions PRN's used: NA Therapeutic interventions: Maintained a safe and supportive environment, provided clear and simple instructions, monitored behaviors and need for intervention, provided positive encouragement, and maintained Q 15 min safety checks. Restraints/seclusion/emergency medication: N/A Justification of Continued Inpatient Treatment: Pt. continues to await court date, in the next two weeks or so per Dr. Bui. She continues to requires a safe and supportive environment.
[2019-08-25 07:35] VITALS: BP 93/56
[2019-08-25] MEDS: pantoprazole 40mg Tablet.DR PO SCH (08:09)
[2019-08-25] MEDS: acetaminophen 325mg tablet PO PRN ×2 (08:09→17:53)
[2019-08-25] MEDS: benztropine 1mg tablet PO SCH ×2 (08:10→21:00)
[2019-08-25] MEDS: lithium carbonate 150mg capsule PO SCH ×2 (08:10→20:59)
[2019-08-25] MEDS: ibuprofen 200mg tablet PO PRN (12:04)
--- NOTE | 2019-08-25 17:15 | NUR ---
Nursing Progress Note: Legal hold: 1370 Client on involuntary status for GD Report received from nurse with use of SBAR: Adriana Cruz RN Why are they here: Patient was arrested in December for public intoxication in [place], [facility] zoroastrianism of competency to stand trial. Patient was psychotic and kept for danger to self. She has a history of multiple psychiatric hospitalizations and polysubstance abuse. Pt. was discharged to court on 08/16/19, and was supposed to go to [facility] but newspaper photographer ruled that court needed to be continued and patient readmitted to [facility]. Assessment What has happened this shift: Pt. asleep at start of shift. Pt. up for breakfast. Pt. ate all meals in community room. Pt. took all medications. 1:1 done in nursing station. Pt. states her mood is "good" and she denies depression, anxiety, SI/HI, A/V H. Pt. is calm and cooperative. Pt. reports she is being discharged on the 30 of August and is looking forward to that. Pt. attends groups and is seen socializing appropriately with other patients. S/I, H/I: Denies A/VH: Denies Sleep: Pt. did not nap on day shift. ADL's: Independent Group attendance: Yes Were meds taken: Yes Any med S/E: None reported, none observed Mental Status Exam Appearance: Neat and dressed appropriately Eye contact: Fair Behavior: Guarded, cooperative Speech: She responds to questions with minimal responses, speech is soft and pt. mumbles and is difficult to understand at times Mood: Pleasant, however continues to be guarded Affect: Blunted Thought process: WNL Thought Content: Anticipation r/t upcoming court date Cognition: A&O X4 Insight: Fair Judgment: Fair Interventions PRN's used: Tylenol and Ibuprofen Therapeutic interventions: Maintained a safe and supportive environment, provided clear and simple instructions, monitored behaviors and need for intervention, provided positive encouragement, and maintained Q 15 min safety checks. Restraints/seclusion/emergency medication: N/A Justification of Continued Inpatient Treatment: Pt. continues to await court date, in the next two weeks or so per Dr. Bui. She continues to requires a safe and supportive environment.
[2019-08-25 19:00] VITALS: BP 125/84
[2019-08-25] MEDS: clozapine 100mg tablet PO SCH (20:58)
[2019-08-25] MEDS: risperiDONE 2mg tablet PO SCH (20:59)
[2019-08-25] MEDS: sennosides 8.6mg tablet PO SCH (20:59)
[2019-08-25] MEDS: LORazepam 0.5 MG tablet PO SCH (21:00)
--- NOTE | 2019-08-26 01:54 | NUR ---
Nursing Progress Note: Legal hold: 1370 Client on involuntary status for GD Report received from nurse with use of SBAR: Andrew RN Why are they here: Patient was arrested in December for public intoxication in [place], she was referred from [facility] for orthodoxy of competency to stand trial. Patient was psychotic and kept for danger to self. She has a history of multiple psychiatric hospitalizations and polysubstance abuse. Pt. was discharged to court on 08/16/19, and was supposed to go to [facility] but buggy man ruled that court needed to be continued and patient readmitted to [facility]. Assessment What has happened this shift: Patient is awake and well oriented. She socializes well with others and is watching television and movies tonight. Patient denies depression, S/I, Or H/I. Patient denies any hallucinations. Patient communicates well with staff. She states she looks forward to completing her court appearance and going to the [facility]. Patient states "I'm feeling good." The patient is advised that she is in a safe place. S/I, H/I: Denies. A/VH: Denies. Sleep: Will compile in am. ADL's: Independent Group attendance: Yes, on day shift. Were meds taken: Yes. Any med S/E: None reported. Mental Status Exam Appearance: Neat and dressed appropriately. Eye contact: Good. Behavior: Cooperative and friendly. Speech: Speech is clear, normal rate and rhythm. Mood: Pleasant. Affect: Blunted Thought process: WNL. Thought Content: Anticipation r/t upcoming court date, anxious to go to [facility]. Cognition: A&O X4 Insight: Fair Judgment: Fair Interventions PRN's used: Tylenol. Therapeutic interventions: Maintained a safe and supportive environment, provided clear and simple instructions, monitored behaviors and need for intervention, provided positive encouragement, and maintained Q 15 min safety checks. Restraints/seclusion/emergency medication: N/A Justification of Continued Inpatient Treatment: Pt. continues to await court date, in the next two weeks or so per Dr. Bui. She continues to requires a safe and supportive environment.
[2019-08-26 07:24] VITALS: BP 105/62
[2019-08-26] MEDS: benztropine 1mg tablet PO SCH ×2 (08:08→20:41)
[2019-08-26] MEDS: lithium carbonate 150mg capsule PO SCH ×2 (08:08→20:41)
[2019-08-26] MEDS: pantoprazole 40mg Tablet.DR PO SCH (08:08)
[2019-08-26] MEDS ORDERED: docusate sod 100mg capsule PO ONE (08:20)
--- NOTE | 2019-08-26 11:39 | NUR ---
Nursing Progress Note: Legal hold: 1370 Client on involuntary status for GD Report received from nurse with use of SBAR: Adriana Mckeon RN Why are they here: Patient was arrested in December for public intoxication in [place], she was referred from [facility] care home for sikh of competency to stand trial. Patient was psychotic and kept for danger to self. She has a history of multiple psychiatric hospitalizations and polysubstance abuse. Pt. was discharged to court on 08/16/19, and was supposed to go to [facility] but district associate judge ruled that court needed to be continued and patient readmitted to [facility]. Assessment What has happened this shift: During med pass this morning pt asked if she were going to be given a "red pill" this morning, stated, "I need one." Pt has issues with chronic constipation, notified Dr Bui who ordered Colace 200 mg PO BID routinely. Administered 200 mg Colace this morning. Pt returned to bed for a short nap after breakfast then got up and asked to shower. S/I, H/I: Pt denies A/VH: Pt denies Sleep: Slept 7.25 hours per noc shift report ADL's: Independent Group attendance: Yes Were meds taken: Yes Any med S/E: c/o constipation Mental Status Exam Appearance: Neat and dressed appropriately Eye contact: Good Behavior: Guarded, cooperative Speech: She responds to questions with minimal responses, speech is soft and pt. mumbles and is difficult to understand at times Mood: Good Affect: Blunted, bored Thought process: Linear Thought Content: focuses on personal appearance and clothing changes Cognition: A&O X4 Insight: Fair Judgment: Fair Interventions PRN's used: None Therapeutic interventions: 1:1 assessment, encouragement to express thoughts and feelings, encouragement to participate in groups, positive reinforcement, maintained Q 15 min safety checks. Restraints/seclusion/emergency medication: N/A Justification of Continued Inpatient Treatment: Pt continues to await her court date which is scheduled for 08/30/19. She continues to requires a safe and supportive environment.
[2019-08-26] MEDS: acetaminophen 325mg tablet PO PRN (12:16)
[2019-08-26] MEDS: ibuprofen 200mg tablet PO PRN (19:18)
[2019-08-26 20:00] VITALS: BP 122/85
[2019-08-26] MEDS: clozapine 100mg tablet PO SCH (20:41)
[2019-08-26] MEDS: risperiDONE 2mg tablet PO SCH (20:41)
[2019-08-26] MEDS: LORazepam 0.5 MG tablet PO SCH (20:41)
[2019-08-26] MEDS: sennosides 8.6mg tablet PO SCH (20:41)
[2019-08-26] MEDS: docusate sod 100mg capsule PO SCH (20:41)
--- NOTE | 2019-08-27 03:12 | NUR ---
Nursing Progress Note: Legal hold: 1370 Client on involuntary status for GD Report received from nurse with use of SBAR: ARLEEN Harrington Why are they here: Patient was arrested in December for public intoxication in [place], [facility] presybeterian of competency to stand trial. Patient was psychotic and kept for danger to self. She has a history of multiple psychiatric hospitalizations and polysubstance abuse. Pt. was discharged to court on 08/16/19, and was supposed to go to [facility] but dog show judge ruled that court needed to be continued and patient readmitted to [facility]. Assessment What has happened this shift: The patient is seen in the hallway at shift change. She was seen at her bedside for 1:1. Patient spends time out of her room on the unit, but does not interact much with others. She is calm and cooperative with assessment and answers questions with minimal response or mumbles. She continues to have poverty of thought and does not easily hold a conversation. The patient spends most of the evening on the unit until HS meds, then she goes right to bed. S/I, H/I: Denies A/VH: denies Sleep: See sleep hours ADL's: Independent Group attendance: No groups at night Were meds taken: Yes Any med S/E: None reported or observed Mental Status Exam Appearance: Neat and dressed appropriately Eye contact: Good Behavior: Guarded, cooperative Speech: Low volume, mumbles Mood: Depressed. Affect: Constricted Thought process: Linear Thought Content: focused on getting out of here. Cognition: A&O X4 Insight: Fair Judgment: Fair Interventions PRN's used: None Therapeutic interventions: 1:1 assessment, encouragement to express thoughts and feelings, encouragement to participate in groups, positive reinforcement, maintained Q 15 min safety checks. Restraints/seclusion/emergency medication: N/A Justification of Continued Inpatient Treatment: Pt continues to await her court date which is scheduled for 08/30/19. She continues to requires a safe and supportive environment.
[2019-08-27 07:57] VITALS: BP 106/62
[2019-08-27] MEDS: pantoprazole 40mg Tablet.DR PO SCH (08:02)
[2019-08-27] MEDS: docusate sod 100mg capsule PO SCH ×2 (08:03→20:22)
[2019-08-27] MEDS: benztropine 1mg tablet PO SCH ×2 (08:03→20:22)
[2019-08-27] MEDS: lithium carbonate 150mg capsule PO SCH ×2 (08:03→20:23)
[2019-08-27] MEDS ORDERED: tuberculin, purif. prot. deriv. 5 units/0.1ml ID ONE (08:05)
--- NOTE | 2019-08-27 11:25 | NUR ---
DISCHARGE PLANNING: Denied from [facility] due to having [facility] medi-ariana. Emailed [facility] to see if they could help switch her medi-ariana
[2019-08-27] MEDS: acetaminophen 325mg tablet PO PRN (12:20)
--- NOTE | 2019-08-27 15:51 | NUR ---
Nursing Progress Note: Legal hold: 1370 Client on involuntary status for GD Report received from nurse with use of SBAR: ARLEEN Alva Why are they here: Patient was arrested in December for public intoxication in [place], she was referred from [facility] for lutheran of competency to stand trial. Patient was psychotic and kept for danger to self. She has a history of multiple psychiatric hospitalizations and polysubstance abuse. Pt. was discharged to court on 08/16/19, and was supposed to go to [facility] but sign maker ruled that court needed to be continued and patient readmitted to [facility]. Assessment What has happened this shift: Pt states that she is "good," denies depression, anxiety, SI/HI/AH/VH. Pt c/o bilat knee pain 05/06 at 1220 and was given prn ibuprofen with good effect. Pt is aware that her court date is coming up on Monday. Pt has been denied placement at the [facility] due to having [facility]. S/I, H/I: Pt denies A/VH: Pt denies Sleep: Slept 8.25 hours per noc shift report ADL's: Independent Group attendance: Yes Were meds taken: Yes Any med S/E: None noted or reported Mental Status Exam Appearance: Neat and dressed appropriately Eye contact: Good Behavior: Guarded, quiet, cooperative Speech: mumbles at times Mood: Good Affect: Blunted Thought process: Linear Thought Content: Focused on hearing 08/30/19. Cognition: A&O X4 Insight: Fair Judgment: Fair Interventions PRN's used: Ibuprofen Therapeutic interventions: 1:1 assessment, encouragement to express thoughts and feelings, encouragement to participate in groups, positive reinforcement, maintained Q 15 min safety checks. Restraints/seclusion/emergency medication: N/A Justification of Continued Inpatient Treatment: Pt continues to await her court date which is scheduled for 08/30/19. She continues to requires a safe and supportive environment.
[2019-08-27 20:00] VITALS: BP 122/77
[2019-08-27] MEDS: risperiDONE 2mg tablet PO SCH (20:23)
[2019-08-27] MEDS: clozapine 100mg tablet PO SCH (20:23)
[2019-08-27] MEDS: LORazepam 0.5 MG tablet PO SCH (20:23)
[2019-08-27] MEDS: sennosides 8.6mg tablet PO SCH (20:23)
--- NOTE | 2019-08-28 00:58 | NUR ---
Nursing Progress Note: Legal hold: 1370 Client on involuntary status for GD Report received from nurse with use of SBAR: ARLEEN Mae Why are they here: Patient was arrested in December for public intoxication in [place], [facility] latter-day [facility] competency to stand trial. Patient was psychotic and kept for danger to self. She has a history of multiple psychiatric hospitalizations and polysubstance abuse. Pt. was discharged to court on 08/16/19, and was supposed to go to [facility] but relay checker ruled that court needed to be continued and patient readmitted to [facility]. Assessment What has happened this shift: The patient is seen in the hallway at shift change. 1:1 assessment completed at bedside. She is wearing black pants and red top. She has worked on her physical appearance and looks nice this evening. The patient reports little anxiety prior to her hearing Monday, believing she will be let go. She denies SI/HI, AV/H, or drug cravings. "I don't feel anything now. I just want to get out of here." The patient c/o knee pain and was medicated with Motrin with good relief. She took HS meds then went right to bed. S/I, H/I: Denies A/VH: Denies Sleep: See sleep hours ADL's: Independent Group attendance: No groups at night Were meds taken: Yes Any med S/E: None reported or observed Mental Status Exam Appearance: Neat and dressed appropriately in black slacks and red top. Eye contact: Good Behavior: Guarded, cooperative Speech: Low volume, mumbles Mood: "Good". Affect: Blunted Thought process: Linear Thought Content: focused on getting out of here. Cognition: A&O X4 Insight: Fair Judgment: Fair Interventions PRN's used: Motrin for knee pain. Therapeutic interventions: 1:1 assessment, encouragement to express thoughts and feelings, encouragement to participate in groups, positive reinforcement, maintained Q 15 min safety checks. Restraints/seclusion/emergency medication: N/A Justification of Continued Inpatient Treatment: Pt continues to await her court date which is scheduled for 08/30/19. She continues to requires a safe and supportive environment.
[2019-08-28 07:50] VITALS: BP 90/60
[2019-08-28] MEDS: lithium carbonate 150mg capsule PO SCH ×2 (08:24→20:04)
[2019-08-28] MEDS: docusate sod 100mg capsule PO SCH ×2 (08:24→20:04)
[2019-08-28] MEDS: benztropine 1mg tablet PO SCH ×2 (08:24→20:04)
[2019-08-28] MEDS: pantoprazole 40mg Tablet.DR PO SCH (08:24)
--- NOTE | 2019-08-28 11:16 | NUR ---
Reassessment: Pt continues meeting nutrient needs with documented 75-100% PO intake. [facility] 08/26, pt receiving routine Colace and Senna and receiving MoM PRN. Will continue to follow and make recommendations as appropriate.. Recommend: 1. Continue regular diet 2. Routine bowel care 3. Weekly weights Addendum: 08/28/19 at [address] Amended: Links added.
--- NOTE | 2019-08-28 11:18 | NUR ---
Reassessment: Pt continues meeting nutrient needs with documented 75-100% PO intake. [facility] 08/26, pt receiving routine Colace, Senna and receiving MoM PRN. Will continue to follow and make recommendations as appropriate. Recommend: 1. Continue regular diet 2. Routine bowel care 3. Weekly weights Addendum: 08/28/19 at [address] Amended: Links added.
--- NOTE | 2019-08-28 14:29 | NUR ---
Nursing Progress Note: Legal hold: 1370 Client on involuntary status for GD Report received from nurse with use of SBAR: ARLEEN Alva Why are they here: Patient was arrested in December for public intoxication in [place], she was referred from [facility] for religion of competency to stand trial. Patient was psychotic and kept for danger to self. She has a history of multiple psychiatric hospitalizations and polysubstance abuse. Pt. was discharged to court on 08/16/19, and was supposed to go to [facility] but fur drummer ruled that court needed to be continued and patient readmitted to [facility]. Assessment What has happened this shift: Pt continues to deny all symptoms, though appears to be somewhat internally preoccupied. Pt showers daily and is cooperative with medications and unit procedures. S/I, H/I: Pt denies A/VH: Pt denies Sleep: Slept 7.75 hours per noc shift report ADL's: Independent Group attendance: Yes Were meds taken: Yes Any med S/E: None noted or reported Mental Status Exam Appearance: Neat and dressed appropriately Eye contact: Good Behavior: Guarded, quiet, cooperative Speech: mumbles at times Mood: Good Affect: Blunted Thought process: Linear Thought Content: Focused on hearing 08/30/19 and what she will do if released Cognition: A&O X4 Insight: Fair Judgment: Fair Interventions PRN's used: None Therapeutic interventions: 1:1 assessment, encouragement to express thoughts and feelings, encouragement to participate in groups, positive reinforcement, maintained Q 15 min safety checks. Restraints/seclusion/emergency medication: N/A Justification of Continued Inpatient Treatment: Pt continues to await her court date which is scheduled for 08/30/19. She continues to requires a safe and supportive environment.
[2019-08-28] MEDS: ibuprofen 200mg tablet PO PRN (15:05)
[2019-08-28] MEDS: acetaminophen 325mg tablet PO PRN (15:07)
[2019-08-28 20:00] VITALS: BP 106/67
[2019-08-28] MEDS: LORazepam 0.5 MG tablet PO SCH (20:04)
[2019-08-28] MEDS: risperiDONE 2mg tablet PO SCH (20:05)
[2019-08-28] MEDS: clozapine 100mg tablet PO SCH (20:05)
[2019-08-28] MEDS: sennosides 8.6mg tablet PO SCH (20:05)
--- NOTE | 2019-08-28 22:51 | NUR ---
Nursing Progress Note: Legal hold: 1370 Client on involuntary status for GD Report received from nurse with use of SBAR: ARLEEN Mae Why are they here: Patient was arrested in December for public intoxication in [place], [facility] roman catholic of competency to stand trial. Patient was psychotic and kept for danger to self. She has a history of multiple psychiatric hospitalizations and polysubstance abuse. Pt. was discharged to court on 08/16/19, and was supposed to go to [facility] but microbiological laboratory technician ruled that court needed to be continued and patient readmitted to [facility]. Assessment What has happened this shift: Pt. up in the hallway walking and interacting minimally with others at the beginning of the shift. She greets this com writer, and reminds staff that she is still in need of shoes for her upcoming discharge. Pt. continues to endorse excitement r/t her upcoming court date. She attends HS snack, and requests to have her HS medications as soon as possible. 1:1 completed, pt. continues to present as guarded, however cooperative. She continues to deny depression, anxiety, and does not appear to be internally preoccupied. Pt. retreats to bed following HS snack. S/I, H/I: Denies A/VH: Denies, does not appear to be responding to internal stimuli. Sleep: Pt. reports she has been sleeping well ADL's: Independent Group attendance: Pt. reports she attends all groups, however is unable to identify any coping skills learned Were meds taken: Yes Any med S/E: None Mental Status Exam Appearance: Neat and dressed appropriately. Pt. recently independently painted her finger and toenails. Eye contact: Good Behavior: Guarded, cooperative Speech: She responds to questions with minimal responses, speech is soft and pt. mumbles and is difficult to understand at times Mood: Pleasant, however continues to be guarded Affect: Blunted Thought process: WNL Thought Content: Anticipation r/t upcoming court date Cognition: A&O X4 Insight: Fair Judgment: Fair Interventions PRN's used: None Therapeutic interventions: Maintained a safe and supportive environment, provided clear and simple instructions, monitored behaviors and need for intervention, provided positive encouragement, and maintained Q 15 min safety checks. Restraints/seclusion/emergency medication: N/A Justification of Continued Inpatient Treatment: Pt. continues to await court date, scheduled for 08/30/19. She continues to requires a safe and supportive environment, and discharge planning is in process.
[2019-08-29 07:21] LABS: BASOPHILS # (AUTO) 0.1 X10'3 (0-0.2); EOSINOPHILS # (AUTO) 0.3 X10'3 (0-0.9); EOSINOPHILS % (AUTO) 3.8 % (0-6); HEMATOCRIT 37.8 % (35.0-45.0); HEMOGLOBIN 12.5 g/dl (12.0-16.0); LYMPHOCYTES # (AUTO) 2.2 X10'3 (1.1-4.8); LYMPHOCYTES % (AUTO) 31.5 % (21-51); MEAN CORPUSCULAR HEMOGLOBIN 29.7 PG (27.0-31.0); MEAN CORPUSCULAR VOLUME 89.8 FL (78-98); MONOCYTES # (AUTO) 0.5 X10'3 (0-0.9); MONOCYTES % (AUTO) 7.2 % (2-12); NEUTROPHILS # (AUTO) 3.9 X10'3 (1.8-7.7); NEUTROPHILS % (AUTO) 56.5 % (42-75); PLATELET COUNT 417 X10'3 (140-440); RED BLOOD COUNT 4.21 X10'6 (4.20-5.60); RED CELL DISTRIBUTION WIDTH 12.8 % (11.5-14.5); WHITE BLOOD COUNT 6.9 X10'3 (4.5-11.0)
[2019-08-29] MEDS: benztropine 1mg tablet PO SCH ×2 (07:52→20:41)
[2019-08-29] MEDS: pantoprazole 40mg Tablet.DR PO SCH (07:52)
[2019-08-29] MEDS: lithium carbonate 150mg capsule PO SCH ×2 (07:52→20:42)
[2019-08-29] MEDS: docusate sod 100mg capsule PO SCH ×2 (07:52→20:41)
[2019-08-29 08:00] VITALS: BP 119/78
--- NOTE | 2019-08-29 15:48 | NUR ---
Nursing Progress Note: MILI Legal hold: 1370 Client on involuntary status for GD Report received from nurse with use of SBAR: ARLEEN Alva Why are they here: Patient was arrested in December for public intoxication in [place], she was referred from [facility] for samaritan of competency to stand trial. Patient was psychotic and kept for danger to self. She has a history of multiple psychiatric hospitalizations and polysubstance abuse. Pt. was discharged to court on 08/16/19, and was supposed to go to [facility] but machine stitcher ruled that court needed to be continued and patient readmitted to [facility]. Assessment What has happened this shift: Pt. up in the hallway walking and interacting minimally with others at the beginning of the shift. She is anxious about her upcoming discharge and focused on getting her nails painted. She reports that she slept "OK" and denies any SE's to medications. None were objectively observed by this expert medical writer. She is cooperative with taking medications this AM. 1:1 completed at bedside, pt. continues to present as somewhat guarded, however cooperative. She denies any internal preoccupation, none objectively observed. Pt reports boredom. No other concerns voiced at this time. S/I, H/I: Denies A/VH: Denies, does not appear to be responding to internal stimuli. Sleep: 8hrs NOC ADL's: Independent Group attendance: Pt. reports she attends all groups Were meds taken: Yes Any med S/E: None Mental Status Exam Appearance: Neat and dressed appropriately. Pt painted fingernails today Eye contact: Direct Behavior: cooperative Speech: Speech is soft and pt. often mumbles and is difficult to understand at times Mood: Pleasant Affect: Blunted Thought process: WNL Thought Content: Anxious about upcoming court & discharge Cognition: A&O X4 Insight: Fair Judgment: Fair Interventions PRN's used: None Therapeutic interventions: Maintained a safe and supportive environment, provided clear and simple instructions, monitored behaviors and need for intervention, provided positive encouragement, and maintained Q 15 min safety checks. Restraints/seclusion/emergency medication: N/A Justification of Continued Inpatient Treatment: Pt. continues to await court date, scheduled for 08/30/19. She continues to requires a safe and supportive environment, and discharge planning is in process.
[2019-08-29] MEDS: acetaminophen 325mg tablet PO PRN (16:47)
[2019-08-29 19:00] VITALS: BP 113/70
[2019-08-29] MEDS: clozapine 100mg tablet PO SCH (20:42)
[2019-08-29] MEDS: risperiDONE 2mg tablet PO SCH (20:42)
[2019-08-29] MEDS: LORazepam 0.5 MG tablet PO SCH (20:42)
[2019-08-29] MEDS: sennosides 8.6mg tablet PO SCH (20:42)
--- NOTE | 2019-08-30 00:23 | NUR ---
Nursing Progress Note: Legal hold: 1370 Client on involuntary status for GD Report received from nurse with use of SBAR: ARLEEN Che Why are they here: Patient was arrested in December for public intoxication in [place], she was referred from [facility] for yazidi of competency to stand trial. Patient was psychotic and kept for danger to self. She has a history of multiple psychiatric hospitalizations and polysubstance abuse. Pt. was discharged to court on 08/16/19, and was supposed to go to [facility] but electroencephalographic technician ruled that court needed to be continued and patient readmitted to [facility]. Pt. scheduled to attend court tomorrow, 08/30/19. Assessment What has happened this shift: Pt. sitting in hallway chair at the beginning of the shift, she greets this sign writer hand and requests to shave her legs. Pt. is supervised for safety while shaving in her room, she continues to be animated regarding her upcoming discharge. 1:1 completed, pt. reports that she will attend court tomorrow, go to the [facility] for a few days, and finally go to the [facility]. She continues to endorse that she plans to keep taking her medications as prescribed, and denies that desire to use any drugs. Pt. denies depression or anxiety, and does not appear to be internally preoccupied. She happily shows this sign writer hand the shoes she has obtained to wear to court tomorrow. S/I, H/I: Denies A/VH: Denies, does not appear to be responding to internal stimuli. Sleep: Pt. reports she has been sleeping well and retreats to bed following snack ADL's: Independent Group attendance: Pt. reports she attends all groups Were meds taken: Yes Any med S/E: None Mental Status Exam Appearance: Neat and dressed appropriately. Pt. shaved legs this shift. Eye contact: Good Behavior: Guarded, cooperative Speech: She responds to questions with minimal responses, speech is soft and pt. mumbles and is difficult to understand at times Mood: Pleasant Affect: Blunted with animation Thought process: WNL Thought Content: Anticipation r/t upcoming court date Cognition: A&O X4 Insight: Fair Judgment: Fair Interventions PRN's used: None Therapeutic interventions: Maintained a safe and supportive environment, provided clear and simple instructions, monitored behaviors and need for intervention, provided positive encouragement, and maintained Q 15 min safety checks. Restraints/seclusion/emergency medication: N/A Justification of Continued Inpatient Treatment: Pt. continues to await court date, scheduled for 08/30/19. She continues to requires a safe and supportive environment, and discharge planning is in process.
[2019-08-30] MEDS: lithium carbonate 150mg capsule PO SCH ×2 (07:37→20:35)
[2019-08-30] MEDS: docusate sod 100mg capsule PO SCH ×2 (07:37→20:35)
[2019-08-30] MEDS: benztropine 1mg tablet PO SCH ×2 (07:37→20:35)
[2019-08-30] MEDS: pantoprazole 40mg Tablet.DR PO SCH (07:37)
[2019-08-30 08:00] VITALS: BP 122/80
--- NOTE | 2019-08-30 12:35 | NUR ---
DISCHARGE NOTE: MILI Doe was accompanied by police officers off the unit at 0800. She is was discharged to the court via police car transport. She has all of her valuables on her person. She has no follow up appointments scheduled as she is unsure if she will be placed in half-way or not. She has an anxious mood and denies any SI. She has significantly improved since admission. She shows no acute physical or emotional distress. She was offered a nicotine replacement but denied it. No other concerns voiced at this time.
--- NOTE | 2019-08-30 16:52 | NUR ---
Patient returned to [facility] after appearing in court, the internet marketing intern found her competent to stand trial and ordered that she return to [facility] while awaiting her next court date, which is September 06 @ 0830.
[2019-08-30 20:00] VITALS: BP 116/77
[2019-08-30] MEDS: risperiDONE 2mg tablet PO SCH (20:35)
[2019-08-30] MEDS: LORazepam 0.5 MG tablet PO SCH (20:35)
[2019-08-30] MEDS: clozapine 100mg tablet PO SCH (20:35)
[2019-08-30] MEDS: sennosides 8.6mg tablet PO SCH (20:36)
--- NOTE | 2019-08-30 22:57 | NUR ---
Nursing Progress Note: Legal hold: 1370 Client on involuntary status for GD Report received from nurse with use of SBAR: ARLEEN Che Why are they here: Patient was arrested in December for public intoxication in [place], [facility] congregational [facility] competency to stand [facility]. Patient was psychotic and kept for danger to self. She has a history of multiple psychiatric hospitalizations and polysubstance abuse. Pt. ruled competent to stand trial in court on 08/30/19. A court date has been rescheduled for 09/06/19. Assessment What has happened this shift: Pt. walking in the hallway wearing headphones at the beginning of the shift, she greets this fha underwriter appropriately. Pt. then tells this fha underwriter that her court date has been rescheduled, however she feels alright with this plan because by then her insurance will be switched. She is hoping that she can just go right to the [facility] after court instead of first going to the [facility]. Pt. then requests to take a shower and remove the makeup she had applied today in preparation for attending court. Following shower, pt. attended HS snack, and then requested her medications to be administered. She continues to deny depression or anxiety, and does not appear to be internally preoccupied. S/I, H/I: Denies A/VH: Denies, does not appear to be responding to internal stimuli. Sleep: Pt. reports she has been sleeping well and retreats to bed following snack ADL's: Independent Group attendance: Pt. reports she attends all groups Were meds taken: Yes Any med S/E: None Mental Status Exam Appearance: Neat and dressed appropriately. Pt. showered independently Eye contact: Good Behavior: Guarded, cooperative Speech: She responds to questions with minimal responses, speech is soft and pt. mumbles and is difficult to understand at times Mood: Pleasant Affect: Blunted with animation Thought process: WNL Thought Content: Anticipation r/t upcoming court date, and pt. is pleased that she will be able to remain in [facility]. Cognition: A&O X4 Insight: Fair Judgment: Fair Interventions PRN's used: None Therapeutic interventions: Maintained a safe and supportive environment, provided clear and simple instructions, monitored behaviors and need for intervention, provided positive encouragement, and maintained Q 15 min safety checks. Restraints/seclusion/emergency medication: N/A Justification of Continued Inpatient Treatment: Pt. continues to await court date, scheduled for 09/06/19. She continues to requires a safe and supportive environment, and discharge planning is in process.
[2019-08-31] MEDS: docusate sod 100mg capsule PO SCH ×2 (07:47→20:44)
[2019-08-31] MEDS: benztropine 1mg tablet PO SCH ×2 (07:48→20:44)
[2019-08-31] MEDS: lithium carbonate 150mg capsule PO SCH ×2 (07:48→20:45)
[2019-08-31] MEDS: pantoprazole 40mg Tablet.DR PO SCH (07:48)
[2019-08-31 08:26] VITALS: BP 120/76
[2019-08-31] MEDS: acetaminophen 325mg tablet PO PRN ×2 (10:45→16:33)
--- NOTE | 2019-08-31 15:23 | NUR ---
Nursing Progress Note: MILI Legal hold: VOL Client on involuntary status for GD Report received from nurse with use of SBAR: Adriana Cruz RN Why are they here: Patient was arrested in December for public intoxication in [place], she was referred [place] [facility] [place] [facility] for advent of competency to stand trial. Patient was psychotic and kept for danger to self. She has a history of multiple psychiatric hospitalizations and polysubstance abuse. Pt. was discharged to court on 08/16/19, and was supposed to go to [facility] but gas analyst ruled that court needed to be continued and patient readmitted to [facility]. Assessment What has happened this shift: Pt. up in the hallway walking and interacting minimally with others at the beginning of the shift requesting coffee. She reports that she slept "Fine" and denies any SE's to medications. None were objectively observed by this insurance underwriter sales. She is cooperative with taking medications this AM. 1:1 completed at bedside, pt. continues to present as bored, however cooperative. She denies any internal preoccupation, none objectively observed. No other concerns voiced at this time. S/I, H/I: Denies A/VH: Denies Sleep: 8hrs NOC ADL's: Independent Group attendance: Pt. attends all groups Were meds taken: Yes Any med S/E: None Mental Status Exam Appearance: Neat and dressed appropriately, hair frizzy Eye contact: Direct Behavior: cooperative Speech: Speech is soft and pt. often mumbles and is difficult to understand at times Mood: Pleasant Affect: Blunted Thought process: WNL Thought Content: boredom Cognition: A&O X4 Insight: Fair Judgment: Fair Interventions PRN's used: Tylenol X1- knee pain Therapeutic interventions: Maintained a safe and supportive environment, provided clear and simple instructions, monitored behaviors and need for intervention, provided positive encouragement, and maintained Q 15 min safety checks. Restraints/seclusion/emergency medication: N/A Justification of Continued Inpatient Treatment: She continues to require a safe and supportive environment, and discharge planning is in process.
[2019-08-31 19:24] VITALS: BP 107/75
[2019-08-31] MEDS: hydrOXYzine 25 MG tablet PO PRN (19:34)
[2019-08-31] MEDS: clozapine 100mg tablet PO SCH (20:44)
[2019-08-31] MEDS: risperiDONE 2mg tablet PO SCH (20:45)
[2019-08-31] MEDS: sennosides 8.6mg tablet PO SCH (20:45)
[2019-08-31] MEDS: LORazepam 0.5 MG tablet PO SCH (20:49)
--- NOTE | 2019-09-01 03:05 | NUR ---
Nursing Progress Note: MILI Legal hold: VOL Client on involuntary status for GD Report received from nurse with use of SBAR: ARLEEN Che Why are they here: Patient was arrested in December for public intoxication in [place], [facility] baptism [facility] to stand [facility]. Patient was psychotic and kept for danger to self. She has a history of multiple psychiatric hospitalizations and polysubstance abuse. Pt. was discharged to court on 08/16/19, and was supposed to go to [facility] but ocean clam boat captain ruled that court needed to be continued and patient readmitted to [facility]. Assessment What has happened this shift: Patient is well oriented, social, she is cooperative with staff. Patient tells this medical technical writer "I'm feeling good." Patient denies S/I or H/I. She denies hallucinations. Patient states she wants to finish her court and go on with her life. Patient ate her dinner and took evening medications. Patient smiles a lot, she denies any psychiatric difficulties at this point. S/I, H/I: Denies. A/VH: Denies. Sleep: Sleeping well. ADL's: Independent. Group attendance: Patient attended groups on day shift. Were meds taken: Yes, medication compliant. Any med S/E: None. Mental Status Exam Appearance: Neat and dressed appropriately. Eye contact: Direct. Behavior: Cooperative. Speech: Speech is soft, rate and rhythm are normal. Mood: Pleasant. Affect: Blunted. Thought process: Linear. Thought Content: Patient states she is ready to leave. Cognition: A&O X4. Insight: Fair. Judgment: Fair. Interventions PRN's used: Therapeutic interventions: Maintained a safe and supportive environment, provided clear and simple instructions, monitored behaviors and need for intervention, provided positive encouragement, and maintained Q 15 min safety checks. Restraints/seclusion/emergency medication: N/A Justification of Continued Inpatient Treatment: She continues to require a safe and supportive environment, and discharge planning is in process.
[2019-09-01] MEDS: docusate sod 100mg capsule PO SCH ×2 (08:02→20:11)
[2019-09-01] MEDS: benztropine 1mg tablet PO SCH ×2 (08:03→20:11)
[2019-09-01] MEDS: lithium carbonate 150mg capsule PO SCH ×2 (08:03→20:11)
[2019-09-01] MEDS: pantoprazole 40mg Tablet.DR PO SCH (08:04)
[2019-09-01 08:05] VITALS: BP 118/83
[2019-09-01] MEDS: ibuprofen 200mg tablet PO PRN ×2 (09:47→16:19)
[2019-09-01] MEDS: acetaminophen 325mg tablet PO PRN (09:47)
--- NOTE | 2019-09-01 17:45 | NUR ---
Nursing Progress Note: Legal hold: VOL Client on involuntary status for GD Report received from nurse with use of SBAR: Adeel RN Why are they here: Patient was arrested in December for public intoxication in [place], she was referred from [facility] halfway for rastafari of competency to stand trial. Patient was psychotic and kept for danger to self. She has a history of multiple psychiatric hospitalizations and polysubstance abuse. Pt. was discharged to court on 08/16/19, and was supposed to go to [facility] but watershed coordinator ruled that court needed to be continued and patient readmitted to [facility]. Assessement: What has happened this shift: Pt. asleep at start of shift. Pt. took medications and ate breakfast. Pt. requesting PRN for bilateral knee pain and given tylenol and motrin with minimal effect. Pt. requesting pain medication increase. During 1:1 pt. is very short with responses and gives minimal information. Pt. denies SI/HI, A/V H. S/I, H/I: Patient denies. A/VH: Patient denies. Sleep: Pt. did not nap during day. ADL's: Independent. Pt. plainted her finger nails. Group attendance: Yes Were Meds taken: Yes Any med S/E: None noted or reported Mental Status Exam Appearance: Clean, wearing street clothes. Eye contact: Direct Behavior: Pt. seen listening to headphones, pacing hallways, interacting with staff and patients appropriately. Speech: Soft tone, sometimes mumbling. Mood: Calm. Affect: Flat. Thought process: Linear Thought Content: Focused on her appearance. Cognition: A&OX4 Insight: Fair Judgment: Fair Interventions PRN's used: Tylenol and Ibuprofen. Therapeutic interventions: 1:1 assessment, establishment of rapport, maintained safe therapeutic milieu, provided active listening with positive feedback, provided medication education and monitored for effects, monitored for change in behavior and provided needed interventions. Q 15 minute safety checks. Restraints/seclusion/emergency medication: N/A Justification of Continued Inpatient Treatment: Continued therapeutic support and medication management needed to provide stabilization, prevent decompensation, improve coping mechanisms decreasing risk to patient of re-admittance.
[2019-09-01 19:57] VITALS: BP 106/70
[2019-09-01] MEDS: LORazepam 0.5 MG tablet PO SCH (20:11)
[2019-09-01] MEDS: sennosides 8.6mg tablet PO SCH (20:12)
[2019-09-01] MEDS: clozapine 100mg tablet PO SCH (20:12)
[2019-09-01] MEDS: risperiDONE 2mg tablet PO SCH (20:12)
--- NOTE | 2019-09-01 21:57 | NUR ---
Nursing Progress Note: Legal hold: VOL Client on involuntary status for GD Report received from nurse with use of SBAR: ARLEEN Che Why are they here: Patient was arrested in December for public intoxication in [place], she was referred from [facility] for oriental orthodox of competency to stand trial. Patient was psychotic and kept for danger to self. She has a history of multiple psychiatric hospitalizations and polysubstance abuse. Pt. was discharged to court on 08/16/19, and was supposed to go to [facility] but equipment planner ruled that court needed to be continued and patient readmitted to [facility]. Assessement: What has happened this shift: Pt. up in group room watch tv with peers. During 1:1 pt. is very short with responses and gives minimal information. Pt. denies SI/HI, A/V H.Pt was Med compliant. S/I, H/I: Patient denies. A/VH: Patient denies. Sleep: Pt. did not nap during day. ADL's: Independent. Pt. plainted her finger nails. Group attendance: Yes Were Meds taken: Yes Any med S/E: None noted or reported Mental Status Exam Appearance: Clean, wearing street clothes. Eye contact: Direct Behavior: Pt. seen listening to headphones, pacing hallways, interacting with staff and patients appropriately.
[2019-09-02 07:30] VITALS: BP 119/82
[2019-09-02] MEDS: docusate sod 100mg capsule PO SCH ×2 (08:13→20:24)
[2019-09-02] MEDS: lithium carbonate 150mg capsule PO SCH ×2 (08:13→20:25)
[2019-09-02] MEDS: pantoprazole 40mg Tablet.DR PO SCH (08:13)
[2019-09-02] MEDS: benztropine 1mg tablet PO SCH ×2 (08:14→20:24)
[2019-09-02] MEDS: hydrOXYzine 25 MG tablet PO PRN (08:22)
[2019-09-02] MEDS: acetaminophen 325mg tablet PO PRN (09:50)
[2019-09-02] MEDS: ibuprofen 200mg tablet PO PRN (09:51)
--- NOTE | 2019-09-02 17:45 | NUR ---
Nursing Progress Note: Legal hold: VOL Client on involuntary status for GD Report received from nurse with use of SBAR: ARLEEN Lopez Why are they here: Patient was arrested in December for public intoxication in [place], she was referred from [facility] for anabaptist of competency to stand trial. Patient was psychotic and kept for danger to self. She has a history of multiple psychiatric hospitalizations and polysubstance abuse. Pt. was discharged to court on 08/16/19, and was supposed to go to [facility] but intelligence group supervisor ruled that court needed to be continued and patient readmitted to [facility]. Assessement: What has happened this shift: Pt. asleep at start of shift. Pt. took medications and ate all meals in the community room. Pt. requested PRN pain medication for 6/10 bilateral knee pain with good effect. Pt. gaurded during 1:1 assessment, offerring minimal responses. Pt. denies SI/HI A/V H. Pt. seen interacting with staff and pt.'s appropriately but minimally today. S/I, H/I: Patient denies. A/VH: Patient denies. Sleep: Pt. did not nap during day. ADL's: Independent. Group attendance: Yes Were Meds taken: Yes Any med S/E: None noted or reported Mental Status Exam Appearance: Clean, wearing street clothes. Eye contact: Direct Behavior: Pt. seen out in community room and pacing halls however, pt. appears socially withdrawn today. Speech: Soft tone, sometimes mumbling. Mood: Calm. Affect: Flat. Thought process: Linear. Thought Content: Focused on discharge. Cognition: A&OX4 Insight: Fair Judgment: Fair Interventions PRN's used: Tylenol and Ibuprofen. Therapeutic interventions: 1:1 assessment, establishment of rapport, maintained safe therapeutic milieu, provided active listening with positive feedback, provided medication education and monitored for effects, monitored for change in behavior and provided needed interventions. Q 15 minute safety checks. Restraints/seclusion/emergency medication: N/A Justification of Continued Inpatient Treatment: Continued therapeutic support and medication management needed to provide stabilization, prevent decompensation, improve coping mechanisms decreasing risk to patient of re-admittance.
[2019-09-02 20:00] VITALS: BP 114/73
[2019-09-02] MEDS: risperiDONE 2mg tablet PO SCH (20:25)
[2019-09-02] MEDS: sennosides 8.6mg tablet PO SCH (20:25)
[2019-09-02] MEDS: LORazepam 0.5 MG tablet PO SCH (20:25)
[2019-09-02] MEDS: clozapine 100mg tablet PO SCH (20:28)
--- NOTE | 2019-09-02 21:46 | NUR ---
Nursing Progress Note: Legal hold: VOL Client on involuntary status for GD Report received from nurse with use of SBAR: ARLEEN Che Why are they here: Patient was arrested in December for public intoxication in [place], she was referred from [facility] for scientology of competency to stand trial. Patient was psychotic and kept for danger to self. She has a history of multiple psychiatric hospitalizations and polysubstance abuse. Pt. was discharged to court on 08/16/19, and was supposed to go to [facility] but pony worker ruled that court needed to be continued and patient readmitted to [facility]. Assessement: What has happened this shift: Pt. up in rec room watching tv with peers. at start of shift. Pt. took medications and ate snack in the community room. Pt. denies SI/HI A/V H. Pt. seen interacting with staff and pt.'s appropriately but minimally today. S/I, H/I: Patient denies. A/VH: Patient denies. Sleep: Pt. did not nap during day. ADL's: Independent. Group attendance: Yes Were Meds taken: Yes Any med S/E: None noted or reported Mental Status Exam Appearance: Clean, wearing street clothes. Eye contact: Direct Behavior: Pt. seen out in community room and pacing halls however, pt. appears socially withdrawn today. Speech: Soft tone, sometimes mumbling. Mood: Calm. Affect: Flat. Thought process: Linear. Thought Content: Focused on discharge. Cognition: A&OX4 Insight: Fair Judgment: Fair Interventions PRN's used: Tylenol and Ibuprofen. Therapeutic interventions: 1:1 assessment, establishment of rapport, maintained safe therapeutic milieu, provided active listening with positive feedback, provided medication education and monitored for effects, monitored for change in behavior and provided needed interventions. Q 15 minute safety checks. Restraints/seclusion/emergency medication: N/A Justification of Continued Inpatient Treatment: Continued therapeutic support and medication management needed to provide stabilization, prevent decompensation, improve coping mechanisms decreasing risk to patient of re-admittance.
[2019-09-03 08:00] VITALS: BP 117/64
[2019-09-03 08:05] VITALS: BP 117/64
[2019-09-03] MEDS: benztropine 1mg tablet PO SCH ×2 (08:20→20:29)
[2019-09-03] MEDS: lithium carbonate 150mg capsule PO SCH ×2 (08:20→20:29)
[2019-09-03] MEDS: docusate sod 100mg capsule PO SCH ×2 (08:20→20:29)
[2019-09-03] MEDS: pantoprazole 40mg Tablet.DR PO SCH (08:20)
--- NOTE | 2019-09-03 13:45 | NUR ---
Reassessment: Pt continues meeting nutrient needs with documented 75-100% PO intake. [facility] 09/01, pt receiving routine Colace, Senna and receiving MoM PRN. Will continue to follow and make recommendations as appropriate. Recommend: 1. Continue regular diet 2. Routine bowel care 3. Weekly weights Addendum: 09/03/19 at [address] Amended: Links added.
--- NOTE | 2019-09-03 16:10 | NUR ---
Nursing Progress Note: Legal hold: 1370 Client on involuntary status for GD Report received from nurse with use of SBAR: ARLEEN Alva Why are they here: Patient was arrested in December for public intoxication in [place], she was referred from [facility] for denominational of competency to stand trial. Patient was psychotic and kept for danger to self. She has a history of multiple psychiatric hospitalizations and polysubstance abuse. Pt. was discharged to court on 08/16/19, and was supposed to go to [facility] but entry level project coordinator ruled that court needed to be continued and patient readmitted to [facility]. Assessment: What has happened this shift: Patient is observed sleeping at change of shift. RN attempted to wake and she sternly stated No! Not tell 8! When patient woke at 8 she appeared tired but joined others for breakfast. She took her medication without issue and then returned to her room to sleep. She is not conversational today and appears frustrated. She denies and needs. Patient showers in the morning. S/I, H/I: Patient denies. A/VH: Patient denies. Sleep: 8.25hrs NOC and rested during the day ADL's: Independent. Group attendance: Yes Were Meds taken: Yes Any med S/E: None noted or reported Mental Status Exam Appearance: tire din the morning, Clean Eye contact: Direct Behavior: cooperative but not social Speech: Soft tone, sometimes mumbling. Mood: Calm, seems mildly agitated Affect: Flat. Thought process: Linear. Thought Content: Focused on discharge. Cognition: A&OX4 Insight: Fair Judgment: Fair Interventions PRN's used: Ibuprofen. Therapeutic interventions: 1:1 assessment, establishment of rapport, maintained safe therapeutic milieu, provided active listening with positive feedback, provided medication education and monitored for effects, monitored for change in behavior and provided needed interventions. Q 15 minute safety checks. Restraints/seclusion/emergency medication: N/A Justification of Continued Inpatient Treatment: Continued therapeutic support and medication management needed to provide stabilization, prevent decompensation, improve coping mechanisms decreasing risk to patient of re-admittance.
[2019-09-03] MEDS: clozapine 100mg tablet PO SCH (20:29)
[2019-09-03] MEDS: risperiDONE 2mg tablet PO SCH (20:29)
[2019-09-03] MEDS: LORazepam 0.5 MG tablet PO SCH (20:29)
[2019-09-03] MEDS: sennosides 8.6mg tablet PO SCH (20:30)
[2019-09-03 20:54] VITALS: BP 113/70
--- NOTE | 2019-09-04 00:06 | NUR ---
Nursing Progress Note: Legal hold: 1370 Client on involuntary status for GD Report received from nurse with use of SBAR: ARLEEN Che Why are they here: Patient was arrested in December for public intoxication in [place], [facility] rastafarian [facility] competency to stand trial. Patient was psychotic and kept for danger to self. She has a history of multiple psychiatric hospitalizations and polysubstance abuse. Pt. was discharged to court on 08/16/19, and was supposed to go to [facility] but bucket hooker ruled that court needed to be continued and patient readmitted to [facility]. Assessment What has happened this shift: The patient is seen in the hallway at shift change. She was sitting in a chair in the hallway. The patient does not engage in conversation, but says she may go to the [facility] on Monday. She denies SI/HI, or feeling depressed. Knee pain is relieved by Motrin. The patient watched TV in Rec room, then went to bed after HS med pass. S/I, H/I: Denies A/VH: Denies Sleep: See sleep hours ADL's: Independent Group attendance: No groups at night Were meds taken: Yes Any med S/E: None reported or observed Mental Status Exam Appearance: Neat and dressed appropriately in black slacks and red top. Eye contact: Good Behavior: Guarded, cooperative Speech: Low volume, mumbles Mood: "Good". Affect: Blunted Thought process: Linear Thought Content: focused on getting out of here. Cognition: A&O X4 Insight: Fair Judgment: Fair Interventions PRN's used: Motrin for knee pain. Therapeutic interventions: 1:1 assessment, encouragement to express thoughts and feelings, encouragement to participate in groups, positive reinforcement, maintained Q 15 min safety checks. Restraints/seclusion/emergency medication: N/A Justification of Continued Inpatient Treatment: Pt continues to await her court date which is scheduled for 08/30/19. She continues to requires a safe and supportive environment.
[2019-09-04 07:16] VITALS: BP 106/64
[2019-09-04] MEDS: pantoprazole 40mg Tablet.DR PO SCH (07:55)
[2019-09-04] MEDS: docusate sod 100mg capsule PO SCH ×2 (07:55→20:29)
[2019-09-04] MEDS: lithium carbonate 150mg capsule PO SCH ×2 (07:55→20:29)
[2019-09-04] MEDS: benztropine 1mg tablet PO SCH ×2 (07:56→20:29)
--- NOTE | 2019-09-04 10:24 | NUR ---
DISCHARGE PLANNING: Called the superior court to find out how patient will be transported to court on Monday, Halie will be calling me back with the information.
[2019-09-04] MEDS: ibuprofen 200mg tablet PO PRN (17:06)
--- NOTE | 2019-09-04 17:35 | NUR ---
Nursing Progress Note: Legal hold: 1370 Client on involuntary status for GD Report received from nurse with use of SBAR: ARLEEN Alva Why are they here: Patient was arrested in December for public intoxication in [place], [facility] jainism [facility]. Patient was psychotic and kept for danger to self. She has a history of multiple psychiatric hospitalizations and polysubstance abuse. Pt. was discharged to court on 08/16/19, and was supposed to go to [facility] but cover operator ruled that court needed to be continued and patient readmitted to [facility]. Assessment: What has happened this shift: Patient is observed sleeping at change of shift. She wakes and has breakfast with others in the group room. She takes her morning medications without problems and then returns to her room to rest. She attends groups and paces the crain during the day. She showers and shaves. Seh is friendly and polite in demeanor even when not conversational. S/I, H/I: Patient denies. A/VH: Patient denies. Sleep: 8.25hrs NOC and rested during the day ADL's: Independent. Group attendance: Yes Were Meds taken: Yes Any med S/E: None noted or reported Mental Status Exam Appearance: tire din the morning, Clean Eye contact: Direct Behavior: cooperative but not social Speech: Soft tone, sometimes mumbling. Mood: Calm, seems mildly agitated Affect: Flat. Thought process: Linear Thought Content: no delusional thought content present Cognition: A&OX4 Insight: Fair Judgment: Fair Interventions PRN's used: Ibuprofen. Therapeutic interventions: 1:1 assessment, establishment of rapport, maintained safe therapeutic milieu, provided active listening with positive feedback, provided medication education and monitored for effects, monitored for change in behavior and provided needed interventions. Q 15 minute safety checks. Restraints/seclusion/emergency medication: N/A Justification of Continued Inpatient Treatment: Continued therapeutic support and medication management needed to provide stabilization, prevent decompensation, improve coping mechanisms decreasing risk to patient of re-admittance.
[2019-09-04] MEDS: sennosides 8.6mg tablet PO SCH (20:28)
[2019-09-04] MEDS: LORazepam 0.5 MG tablet PO SCH (20:28)
[2019-09-04] MEDS: risperiDONE 2mg tablet PO SCH (20:29)
[2019-09-04] MEDS: clozapine 100mg tablet PO SCH (20:29)
[2019-09-04 20:40] VITALS: BP 129/74
--- NOTE | 2019-09-05 01:51 | NUR ---
Nursing Progress Note: Legal hold: 1370 Client on involuntary status for GD Report received from nurse with use of SBAR: Angel RN Why are they here: Patient was arrested in December for public intoxication in [place], she was [facility] for congregation of competency to stand trial. Patient was psychotic and kept for danger to self. She has a history of multiple psychiatric hospitalizations and polysubstance abuse. Pt. was discharged to court on 08/16/19, and was supposed to go to [facility] but steward/stewardess dining room ruled that court needed to be continued and patient readmitted to [facility]. Assessment: What has happened this shift: Pt is walking around unit at change of shift and engaging with a particular peer she has befriended on the unit. They talk and laugh together. During 1:1, pt answers questions and smiles appropriately. Pt shows this RN her nail slovak and bracelets she has made. Pt went to sleep shortly after HS medication administration. S/I, H/I: Denies A/VH: Denies Sleep: See Sleep Assessment ADL's: Independent. Group attendance: N/A Were Meds taken: Yes Any med S/E: None noted nor reported Mental Status Exam Appearance: Wearing personal clothing, hair in pig tails, clean Eye contact: Direct Behavior: Cooperative, engaging with a couple peers and laughing, attending HS snack Speech: Soft tone, Occasionally mumbles Mood: Calm, "I feel good" Affect: Blunted with occasional brightening Thought process: Linear Thought Content: wanting to have her laundry washed Cognition: A&Ox4 Insight: Fair Judgment: Fair to Good Interventions PRN's used: None Therapeutic interventions: 1:1 assessment, establishment of rapport, maintained safe therapeutic milieu, provided active listening with positive feedback, provided medication education and monitored for effects, monitored for change in behavior and provided needed interventions. Q 15 minute safety checks. Restraints/seclusion/emergency medication: N/A Justification of Continued Inpatient Treatment: Continued therapeutic support and medication management needed to provide stabilization, prevent decompensation, improve coping mechanisms decreasing risk to patient of re-admittance.
[2019-09-05 07:43] VITALS: BP 118/67
[2019-09-05] MEDS: pantoprazole 40mg Tablet.DR PO SCH (07:49)
[2019-09-05] MEDS: benztropine 1mg tablet PO SCH ×2 (07:49→20:19)
[2019-09-05] MEDS: docusate sod 100mg capsule PO SCH ×2 (07:49→20:18)
[2019-09-05] MEDS: lithium carbonate 150mg capsule PO SCH ×2 (07:49→20:18)
[2019-09-05] MEDS: magnesium hydroxide 30ml (MOM) UD suspension PO PRN (07:58)
[2019-09-05 08:17] LABS: BASOPHILS # (AUTO) 0.1 X10'3 (0-0.2); BASOPHILS % (AUTO) 0.9 % (0-1); EOSINOPHILS # (AUTO) 0.3 X10'3 (0-0.9); EOSINOPHILS % (AUTO) 4.6 % (0-6); HEMATOCRIT 37.9 % (35.0-45.0); HEMOGLOBIN 12.7 g/dl (12.0-16.0); LYMPHOCYTES # (AUTO) 2.1 X10'3 (1.1-4.8); MEAN CORPUSCULAR HEMOGLOBIN 29.9 PG (27.0-31.0); MEAN CORPUSCULAR HGB CONC 33.6 g/dL (33.0-36.5); MEAN CORPUSCULAR VOLUME 88.9 FL (78-98); MEAN PLATELET VOLUME 7.9 FL (7.4-10.4); MONOCYTES # (AUTO) 0.5 X10'3 (0-0.9); MONOCYTES % (AUTO) 7.7 % (2-12); NEUTROPHILS # (AUTO) 3.9 X10'3 (1.8-7.7); NEUTROPHILS % (AUTO) 56.8 % (42-75); PLATELET COUNT 425 X10'3 (140-440); RED BLOOD COUNT 4.26 X10'6 (4.20-5.60); WHITE BLOOD COUNT 6.9 X10'3 (4.5-11.0)
[2019-09-05] MEDS: ibuprofen 200mg tablet PO PRN (08:58)
--- NOTE | 2019-09-05 12:06 | NUR ---
[facility] CONTACT: ALLEGRA made TC to [facility] Office and left message for [employer] Educator, Venu Mosquera, requesting call back regarding transport, plea bargain agreement and clarification of what resources would be most appropriate for pt at discharge. Iveth Roberts, Cnc Router Operator [employer] [id number] Supervised by Taj Stiles, [id number] Addendum: 09/05/19 at 1436 by Iveth Roberts ALLEGRA contacted DA office to request hearing and plea information. ALLEGRA left message w/ legal adviser requesting return contact. Iveth Roberts, Cnc Router Operator [employer]
--- NOTE | 2019-09-05 17:13 | NUR ---
Nursing Progress Note: Legal hold: 1370 Client on involuntary status for GD Report received from nurse with use of SBAR: ARLEEN Alva Why are they here: Patient was arrested in December for public intoxication in [place], she was referred from [facility] for adventist of competency to stand trial. Patient was psychotic and kept for danger to self. She has a history of multiple psychiatric hospitalizations and polysubstance abuse. Pt. was discharged to court on 08/16/19, and was supposed to go to [facility] but rail maintenance worker ruled that court needed to be continued and patient readmitted to [facility]. Assessment: What has happened this shift: Patient is observed sleeping at change of shift. She wakes on her own and joins group to be social prior to breakfast. She appears tired, mouth open, puffy droopy eyes, but states that she slept well. She takes her medications without issue. She eats her meal and then returns to bed. The rest of the day she spends being social, attending groups, walking the crain and talking to others. Patient states that she is concerned about court tomorrow. She is hopeful that she does not have time to serve and that if she does she will be able to serve it here. S/I, H/I: Patient denies. A/VH: Patient denies. Sleep: 7.25hrs NOC and rested during the day ADL's: Independent. Group attendance: Yes Were Meds taken: Yes Any med S/E: None noted or reported Mental Status Exam Appearance: Clean, clothing well matched color Eye contact: Direct Behavior: cooperative and friendly Speech: Soft tone, sometimes mumbling. Mood: Calm Affect: Flat with occasional brightening Thought process: Linear Thought Content: no delusional thought content present Cognition: A&OX4 Insight: Fair Judgment: Fair Interventions PRN's used: Ibuprofen. Therapeutic interventions: 1:1 assessment, establishment of rapport, maintained safe therapeutic milieu, provided active listening with positive feedback, provided medication education and monitored for effects, monitored for change in behavior and provided needed interventions. Q 15 minute safety checks. Restraints/seclusion/emergency medication: N/A Justification of Continued Inpatient Treatment: Continued therapeutic support and medication management needed to provide stabilization, prevent decompensation, improve coping mechanisms decreasing risk to patient of re-admittance.
[2019-09-05 19:00] VITALS: BP 122/76
[2019-09-05] MEDS: sennosides 8.6mg tablet PO SCH (20:18)
[2019-09-05] MEDS: risperiDONE 2mg tablet PO SCH (20:18)
[2019-09-05] MEDS: clozapine 100mg tablet PO SCH (20:19)
[2019-09-05] MEDS: LORazepam 0.5 MG tablet PO SCH (20:19)
[2019-09-05] MEDS ORDERED: LIT300C PO (23:29)
[2019-09-05] MEDS ORDERED: BENZ2TAB7 PO (23:29)
[2019-09-05] MEDS ORDERED: RISP2TAB3 PO (23:29)
[2019-09-05] MEDS ORDERED: CLOZ100T13 PO (23:29)
[2019-09-05] MEDS ORDERED: PANT40TA4 PO (23:29)
[2019-09-05] MEDS ORDERED: ATI1T PO (23:29)
--- NOTE | 2019-09-06 00:04 | NUR ---
Nursing Progress Note: Legal hold: 1370 Client on involuntary status for GD Report received from nurse with use of SBAR: Carmelita BACON Why are they here: Patient was arrested in December for public intoxication in [place], [facility] to stand [facility]. Patient was psychotic and kept for danger to self. She has a history of multiple psychiatric hospitalizations and polysubstance abuse. Pt. was discharged to court on 08/16/19, and was supposed to go to [facility] but painter barrel ruled that court needed to be continued and patient readmitted to [facility]. Assessment: What has happened this shift: The patient was up on the unit and appeared upset or worried but when approached for the evening assessment she quickly became irritated with the one to one interaction. She demanded to have her suit case so she could pack her belongings for court tomorrow but was redirected to wait until tomorrow. S/I, H/I: Patient denies. A/VH: Patient denies. Sleep: ADL's: Independent. Group attendance: Were Meds taken: Yes Any med S/E: None noted or reported Mental Status Exam Appearance: Clean, clothing well matched color Eye contact: Direct Behavior: quiet and irritable when approached Speech: spontaneous, moderate rate and volume Mood: anxious and irritable Affect: blunted Thought process: Linear Thought Content: focused on getting ready for court Cognition: A&OX4 Insight: Fair Judgment: Fair Interventions PRN's used: none Therapeutic interventions: 1:1 assessment, establishment of rapport, maintained safe therapeutic milieu, provided active listening with positive feedback, provided medication education and monitored for effects, monitored for change in behavior and provided needed interventions. Q 15 minute safety checks. Restraints/seclusion/emergency medication: N/A Justification of Continued Inpatient Treatment: Continued therapeutic support and medication management needed to provide stabilization, prevent decompensation, improve coping mechanisms decreasing risk to patient of re-admittance.
[2019-09-06] MEDS: benztropine 1mg tablet PO SCH (07:33)
[2019-09-06] MEDS: pantoprazole 40mg Tablet.DR PO SCH (07:34)
[2019-09-06] MEDS: lithium carbonate 150mg capsule PO SCH (07:34)
[2019-09-06] MEDS: docusate sod 100mg capsule PO SCH (07:34)
[2019-09-06 08:00] VITALS: BP 106/76
--- NOTE | 2019-09-06 11:23 | NUR ---
DISCHARGE NOTE: MILI Nader [facility] and Ben Carrera off the unit at [id number]. [facility]. She had all of her valuables on her person. Her follow up will be the [facility]OPE van until she can establish services with [facility] services. She has an anxious mood and denies any SI. She has improved since admission. She is notin any acute physical or emotional distress. She declined nicotine replacement because she does not smoke.
== END 2019-09-06 07:54 | disposition short-term general hospital (02) | DRG 750 ==
LOC: ADULT MH 12:21
PROVIDERS: ADMIT Psychiatry & Neurology Psychiatry; ATTEND Psychiatry & Neurology Psychiatry
DX: F25.0 Schizoaffective disorder, bipolar type (principal); F29 Unspecified psychosis not due to a substance or known physiological condition; F17.210 Nicotine dependence, cigarettes, uncomplicated; K59.00 Constipation, unspecified; Z79.899 Other long term (current) drug therapy
CPT/HCPCS: 36415; 85025; 87081; 99285; Z7610

== ENCOUNTER 2019-11-12 13:04 | Emergency (ER) | payer MEDICAID, MEDICARE ==
[~2019-11-12] VITALS: Ht 188 cm; Wt 94.0 kg
[~2019-11-12 13:04] MED LIST changes: +CLOZ100T31 PO; +PANT40TA4 PO
--- NOTE | 2019-11-12 13:05 | NUR ---
Patient brought in by [facility]'s Officers. Patient is very psychotic and slightly combative. Patient received 10 mg Haldol, 50 mg Benadryl and 2 mg of Ativan IM before she was completely triaged. Dr Parisi was there and Security assisted RN in giving medication. Patient is a known Schizophrenic who has been conserved in the past. Patient also has a history of meth use when on the streets. Patient was on Clozaril when she was last at [facility]. Patient tangential with pressured speech. Patient's shirt is falling off her. Patient only has rubber sandles on. policy officer said she has given her clothes and each time she comes back without anything on.
[2019-11-12] MEDS ORDERED: haloperidol lactate 5mg/ml inj IM ONE (13:15)
[2019-11-12] MEDS ORDERED: LORazepam 2 mg/ml vial IM ONE (13:15)
[2019-11-12] MEDS ORDERED: diphenhydrAMINE 50 mg/ml inj IM ONE (13:15)
[2019-11-12 14:07] LABS: BASOPHILS % (AUTO) 0.5 % (0-1); EOSINOPHILS # (AUTO) 0.1 X10'3 (0-0.9); EOSINOPHILS % (AUTO) 0.9 % (0-6); HEMATOCRIT 38.6 % (35.0-45.0); HEMOGLOBIN 12.8 g/dl (12.0-16.0); LYMPHOCYTES # (AUTO) 2.6 X10'3 (1.1-4.8); LYMPHOCYTES % (AUTO) 33.1 % (21-51); MEAN CORPUSCULAR HEMOGLOBIN 29.2 PG (27.0-31.0); MEAN CORPUSCULAR HGB CONC 33.2 g/dL (33.0-36.5); MEAN PLATELET VOLUME 8.1 FL (7.4-10.4); MONOCYTES # (AUTO) 0.7 X10'3 (0-0.9); MONOCYTES % (AUTO) 8.5 % (2-12); NEUTROPHILS # (AUTO) 4.5 X10'3 (1.8-7.7); PLATELET COUNT 388 X10'3 (140-440); RED BLOOD COUNT 4.38 X10'6 (4.20-5.60); RED CELL DISTRIBUTION WIDTH 13.4 % (11.5-14.5)
[2019-11-12 15:03] LABS: ALBUMIN 3.3 G/DL (3.4-5.0); ANION GAP 13 (8-16); BLOOD UREA NITROGEN 12 MG/DL (7-18); BUN/CREATININE RATIO 13.3 (6.6-38.0); CALCIUM 9.6 MG/DL (8.5-10.1); CHLORIDE 105 MMOL/L (99-107); ETHANOL < 0.010 GM/DL (0.0-0.010); GLUCOSE 75 MG/DL (70-104); POTASSIUM 3.6 MMOL/L (3.5-5.1); SODIUM 140 MMOL/L (135-145); eGFR 71 ML/MIN
--- NOTE | 2019-11-12 15:31 | NUR ---
Patient sleeping. Warm blanket given. No distress observed. Continue to monitor.
--- NOTE | 2019-11-12 19:55 | NUR ---
The patient has been asleep on her bed. She did get up to use the bathroom but was unable to give a clean catch urine. A hat was used but the specimen and stool and blood mixed in with it. She was threatening and hostile with interventions. She refused her lab draw. She did eat her evening meal. She is angry and uncooperative.
--- NOTE | 2019-11-12 21:24 | NUR ---
The patient appears to be sleeping.
--- NOTE | 2019-11-12 23:38 | NUR ---
The patient is currently sleeping. She has been unable to cooperate yet with lab work or to give a urine sample. She was up briefly to use the bathroom and wanted ativan but appeared sleepy and immediately returned to bed and appeared to have quickly fallen asleep.
--- NOTE | 2019-11-13 01:30 | NUR ---
The patient appears to be sleeping
--- NOTE | 2019-11-13 03:02 | NUR ---
The patient awake to use the bathroom. She is hostile and demanding.
--- NOTE | 2019-11-13 05:35 | NUR ---
The patient appears to have slept the majority of the night. Up periodically demanding and hostile when she is up. She is extremely irritable.
--- NOTE | 2019-11-13 06:25 | NUR ---
Patient sleeping on right. No distress observed. Continue to monitor.
--- NOTE | 2019-11-13 07:15 | NUR ---
Patient sat up and asked if it was morning and what time is breakfast. RN advised patient of the time and breakfast around 0800. Patient laid back down to sleep. No distress observed. Continue to monitor.
[2019-11-13] MEDS ORDERED: ziprasidone 20mg capsule PO SCH (08:30)
[2019-11-13] MEDS ORDERED: LORazepam 1 MG tablet PO ONE (08:30)
--- NOTE | 2019-11-13 08:50 | NUR ---
Patient is refusing medications and coffee which she asked for earlier. Told run to "get the fuck out". Patient rolled over and attempting to sleep. Dr Parisi aware. Contnue to monitor.
--- NOTE | 2019-11-13 09:28 | NUR ---
Patient's blood is being drawn by yarn man with security at side. Patient cussing but is allowing blood to be drawn. Continue to monitor.
[2019-11-13 10:09] LABS: ALANINE AMINOTRANSFERASE 20 U/L (12-78); ALBUMIN 2.8 G/DL (3.4-5.0); ALBUMIN/GLOBULIN RATIO 0.7 (1.1-1.5); ALKALINE PHOSPHATASE 74 IU/L (46-116); ASPARTATE AMINO TRANSFERASE 20 U/L (10-37); BILIRUBIN,DIRECT 0.1 MG/DL (0-0.3); BILIRUBIN,TOTAL 0.2 MG/DL (0.1-1.0)
--- NOTE | 2019-11-13 11:20 | NUR ---
Patient sleeping on left side. No distress observed. Continue to monitor.
[2019-11-13 12:32] LABS: CLARITY,URINE CLEAR (Clear); COLOR,URINE STRAW (Yellow); GLUCOSE, URINE NEGATIVE (Neg); KETONES,URINE NEGATIVE (Neg); LEUKOCYTE ESTERASE ,URINE NEGATIVE (Neg); NITRITES, URINE NEGATIVE (Neg); OCCULT BLOOD,URINE LARGE (Neg); PROTEIN,URINE NEGATIVE (Neg); UROBILINOGEN,URINE 0.2 E.U/dL (0.2-1.0)
[2019-11-13 12:39] LABS: UA COLLECTION TYPE VOIDED
[2019-11-13 12:41] LABS: BACTERIA,URINE NONE SEEN /HPF (Neg); RBC,URINE 0-2 /HPF (0-2)
[2019-11-13 12:42] LABS: SQUAMOUS EPITHELIAL CELL,UR FEW /LPF (FEW); WBC,URINE 0-4 /HPF (0-4)
[2019-11-13 12:51] LABS: URINE AMPHETAMINE SCREEN NEGATIVE (Neg); URINE BARBITUATE SCREEN NEGATIVE (Neg); URINE BENZODIAZEPINES SCREEN NEGATIVE (Neg); URINE CANNABINOID SCREEN NEGATIVE (Neg); URINE COCAINE SCREEN NEGATIVE (Neg); URINE METHADONE SCREEN NEGATIVE (Neg); URINE OPIATE SCREEN NEGATIVE (Neg); URINE PHENCYCLIDINE SCREEN NEGATIVE (Neg)
[2019-11-13] MEDS ORDERED: haloperidol lactate 5mg/ml inj IM ONE (12:55)
[2019-11-13] MEDS ORDERED: LORazepam 2 mg/ml vial IM ONE (12:55)
--- NOTE | 2019-11-13 12:56 | NUR ---
Patient requesting IM Ativan. RN advised patient that she will request an IM Ativan if RN can also give an anti-psychotic. Patient agreed. RN spoke with Dr Parisi who knows patient and agreed to order. Continue to monitor.
[2019-11-13] MEDS ORDERED: LORazepam 2 mg/ml vial ONE (13:03)
--- NOTE | 2019-11-13 13:25 | NUR ---
Patient agitated. RN had to call Security. Patient screaming, cussing and combative. RN gave the injection with security at side but they did not have to hold her down. Continue to monitor.
--- NOTE | 2019-11-13 13:46 | NUR ---
FAXED PACKET [facility]
--- NOTE | 2019-11-13 15:15 | NUR ---
Patient sleeping supine. No distress observed. Continue to monitor.
--- NOTE | 2019-11-13 15:45 | NUR ---
Abdoulaye [facility] evaluating patient. Patient cussing at Abdoulaye. Continue to monitor.
--- NOTE | 2019-11-13 16:54 | NUR ---
Patient placed on a 5150.
[2019-11-13] MEDS: LORazepam 0.5 MG tablet PO SCH (18:44)
[2019-11-13] MEDS: risperiDONE 2mg tablet PO SCH (18:44)
--- NOTE | 2019-11-13 19:10 | NUR ---
The patient was up for dinner. She was offered geodon to have with her evening meal but the patient stated she did not like geodon and would not take it. She was requesting risperdal and ativan which she takes up stairs. Discussed medication history and patient request with Dr. Mancia and orders were received. The patient did take the resiperdal and ativan. She is still quite irritable at times but much less than last evening. She is better able to articulate her needs appropriately. She is very disheveled.
--- NOTE | 2019-11-13 20:55 | NUR ---
The patient appears to be sleeping
--- NOTE | 2019-11-13 22:39 | NUR ---
The patient currently appears to be sleeping.
--- NOTE | 2019-11-14 00:10 | NUR ---
The patient appears to be sleeping but she was up to use the bathroom but went right back to bed.
--- NOTE | 2019-11-14 02:13 | NUR ---
The patient appears to be sleeping
--- NOTE | 2019-11-14 03:06 | NUR ---
Pt up to BR to void. Ambulating with steady gait. She requests the phone number to her mom. Updated that i will try to find the number but that calls are not allowed to be made until 8 am. Pt appears surprised that is it 3 am. Also requesting to take a hot shower. Updated that I will pass on this request to day shift, as staff not available to take her to the shower at night. Given juice and pt now back in her bed and requesting ibuprofen. States she has pain all over, especially in her thighs and feet. Given warm blanket and water pitcher refilled.
--- NOTE | 2019-11-14 03:20 | NUR ---
verbal received for ibuprofen 400 mg po x1 now by Dr. Medina.
[2019-11-14] MEDS: ibuprofen tablet 400 MG TABLET PO ONE ×2 (03:25→05:44)
--- NOTE | 2019-11-14 04:28 | NUR ---
Pt asleep. Pt not yet given the ibuprofen that she had requested 1.5 hr ago d/t when I returned with the med, she was sleeping. Pt has remained on her left side with blankets covering to her shouders. RR 14 and unlabored.
--- NOTE | 2019-11-14 05:44 | NUR ---
pt sitting up in bed and sipping water. she reports she still is hurting in her legs and all over. Given ibuprofen.
--- NOTE | 2019-11-14 06:16 | NUR ---
Patient is extremely agitated, tangential thoughts, pressured speech. focused on wanted shower. "my hair isn't curly anymore, why isn't is curly?" "I need to get in my house, they locked me out". "I know you, why do I know you". "I'm not going upstairs, you are freaking me out, you might thai".
[2019-11-14] MEDS ORDERED: LORazepam 2 mg/ml vial IM ONE ×2 (08:05→15:00)
--- NOTE | 2019-11-14 08:09 | NUR ---
pts dad is on the phone martínez krishnamurthy [phone] pt is now talking to her dad on the phone
--- NOTE | 2019-11-14 08:09 | NUR ---
pt. refused to have vaginal exam by dr. gao, and denied any vaginal discharge.
[2019-11-14] MEDS: risperiDONE 2mg tablet PO SCH ×3 (08:10→20:53)
--- NOTE | 2019-11-14 08:37 | NUR ---
patient increased agitation following administration of IM Ativan. Threatening to leave, wants a shower and to go home. Spoke with father (Marcos Orozco) who states she does have an apartment which was arranged for by [facility] at [address]. Also states her medications are filled through [facility] in [place]. According to father patient was taking Galva 300mg one tab in am and two tabs at HS, risperdal 3 mg BID and ativan PRN. Father's phone # [phone] (Marcos) mothers phone # [phone] (Anabel Kumar). Father would like notification of patient placements. States this is patient's 11 5150.
--- NOTE | 2019-11-14 12:01 | NUR ---
breaking primary RN, pt is yelling out about food and warm blankets, will get her food and meds
[2019-11-14] MEDS: LORazepam 1 MG tablet PO PRN (12:08)
--- NOTE | 2019-11-14 12:11 | NUR ---
pt given jello and ativan, took both with no difficulties, she is awaiting lunch
[2019-11-14] MEDS ORDERED: CLOZAPINE 25 MG oral disintegrating tablet PO SCH (12:40)
--- NOTE | 2019-11-14 12:49 | NUR ---
woke up at approximately 1130, began to demand food. When offered sandwich she declined yet continued to demand food. Responding to internal stimuli, throwing items on the floor, demanding a shower, using abundance of profanity and continued statements that she is going to leave and go home. Spoke with Dr. Bui who agreed to place her back on her regular medications to assist in suppressing her symptoms of psychosis.
--- NOTE | 2019-11-14 13:58 | NUR ---
following lunch patient calmed down and was resting quietly.
--- NOTE | 2019-11-14 14:49 | NUR ---
Continues to be agitated, demanding. Provided clean sheet for bed, attempted to assist her in changing bed which she refused. Grabbed curtain and pulled from track. Continues to mumble, yell, and be inappropriate with staff. ripping sheets off of bed, throwing food and items to the floor and then denying the behavior. Verbally abusive to staff.
[2019-11-14] MEDS ORDERED: haloperidol lactate 5mg/ml inj IM ONE (15:00)
[2019-11-14] MEDS ORDERED: diphenhydrAMINE 50 mg/ml inj IM ONE (15:00)
--- NOTE | 2019-11-14 15:31 | NUR ---
assisted to BR, provided with a sandwich and encouraged to lay down after eating sandwich and rest. Requested that she be woken up for dinner. She then threw her hygiene bucket to get attention. Continues to be significantly psychotic and difficult to manage her behaviors.
[2019-11-14] MEDS ORDERED: LORA-269 PO (15:49)
[2019-11-14] MEDS ORDERED: LIT300C PO (15:49)
[2019-11-14] MEDS ORDERED: BENZ1TAB7 PO (15:49)
[2019-11-14] MEDS ORDERED: RISP2TAB3 PO (15:49)
[2019-11-14] MEDS ORDERED: PANT20TA2 PO (15:49)
[2019-11-14] MEDS ORDERED: CLOZ50TA PO (15:49)
--- NOTE | 2019-11-14 17:24 | NUR ---
Patient awake, ambulated to BR and back to bed. Demanding water "water, water, water!". Then asks "are you going to give me another shot?", speech is pressured, loud, and slurred. taking to PCT to obtain VS, continues to be very uncooperative with staff.
--- NOTE | 2019-11-14 18:30 | NUR ---
Assumed care of patient, pt. laying in bed sleeping at this time, rr even and unlabored.
[2019-11-14] MEDS ORDERED: docusate sod 100mg capsule PO ONE (20:00)
--- NOTE | 2019-11-14 20:00 | NUR ---
Per [facility] CRN, pt. will likely be accepted back and transferred to [facility] in the AM, will endorse to AM shift.
--- NOTE | 2019-11-14 20:30 | NUR ---
Pt. awakens and eats 100% of her dinner, she appears to be malnourished and dehydrated. She is irritable and becomes easily agitated, and speaks in mostly incoherent gibberish with occassional clear statments. Her thought process consists of flight of ideas and she appears to be having paranoid delusions r/t making odd accusatory/demanding statments towards staff members. Pt. also appers to be internally preoccupied and frequently talks to her self, words are indecernable. She has poor impulse control, however does accept redirection when necessary. Attempted to complete 1:1 at bedside during medication pass, however pt. became agitated, stated irritably, "Fucking hurry up! You're so slow!" She denies any S/I or H/I at this time, and does admit taht she would like to go "Back upstairs." Pt. is compliant with all medications and then returns to sleep.
[2019-11-14] MEDS: benztropine 1mg tablet PO SCH (20:52)
[2019-11-14] MEDS: LORazepam 0.5 MG tablet PO SCH (20:53)
[2019-11-14] MEDS ORDERED: sennosides/docusate sodium tablet PO SCH (21:00)
[2019-11-14] MEDS: lithium carbonate 150mg capsule PO SCH (21:14)
--- NOTE | 2019-11-14 22:30 | NUR ---
Pt. out of bed to use the BR, gait is slightly unsteady r/t previous dose of medication administered r/t agitation. Fall precautions are in place. Pt. continues to be agitated and demanding. She demands to take a shower, however is educated by this health technical writer that there is no shower available. Pt. then requests an HS snack and returns to bed, rr remain even and unlabored.
--- NOTE | 2019-11-15 00:11 | NUR ---
Pt. awakens to use the BR, gait is steady. She demands "Water and juice!," however is able to be re-directed by staff to ask more nicely, and complies. Pt. then returns to her room and attepts to pull the curtain all the way closed, she is educated by staff that the curtain must remain partially open. Pt. pulls curtain closed again and gets into bed, curtain is re-opened by staff. Pt. returns to sleep, rr even and unlabored.
--- NOTE | 2019-11-15 00:49 | NUR ---
COVERING SOREN BACON FOR BREAK. PT SLEEPING PEACEFULLY IN BED. NO REQUESTS OR CONCERNS AT THIS TIME. RESPIRATIONS EVEN AND UNLABORED.
--- NOTE | 2019-11-15 02:30 | NUR ---
Pt. continues to sleep, will awake occassionally and talk non-sensically to herself, continues to appear to be responding to internal stimuli. She then returns back to sleep, rr even and unlabored.
--- NOTE | 2019-11-15 04:27 | NUR ---
Pt. sleeping on her back at this time, appears to be resting comfortably, will continue to monitor.
--- NOTE | 2019-11-15 06:00 | NUR ---
Pt. continues to sleep, laying on her back, rr even and unlabored, no s/s of distress.
[2019-11-15] MEDS ORDERED: pantoprazole 40mg Tablet.DR PO SCH (07:30)
[2019-11-15] MEDS: LORazepam 1 MG tablet PO PRN (07:38)
[2019-11-15] MEDS: benztropine 1mg tablet PO SCH (07:38)
[2019-11-15] MEDS: lithium carbonate 150mg capsule PO SCH (07:38)
[2019-11-15] MEDS: risperiDONE 2mg tablet PO SCH (07:39)
--- NOTE | 2019-11-15 08:00 | NUR ---
Pt woke up and ambulated to bathroom. Pt is mumbling and cursing. Took her AM meds.
--- NOTE | 2019-11-15 10:00 | NUR ---
Spoke with Delmis from [facility]. They will be presenting this case to the provider and then let me know if they can accept her.
--- NOTE | 2019-11-15 11:21 | NUR ---
Received report from ARLEEN Coulter. Pt is labile and goes from being angry to tearful to laughing. She continue to mumble and exhibit flight of ideas. She denies SI/HI, A/VH. She states that she wants to go upstairs to "take a shower". She then asks if there are any "cute guys" up on the unit. She states she is hungry and is given a jello for a snack. Will continue to monitor.
[2019-11-15 12:06] LABS: BASOPHILS # (AUTO) 0.1 X10'3 (0-0.2); BASOPHILS % (AUTO) 0.8 % (0-1); EOSINOPHILS # (AUTO) 0.1 X10'3 (0-0.9); EOSINOPHILS % (AUTO) 1.7 % (0-6); HEMATOCRIT 39.9 % (35.0-45.0); HEMOGLOBIN 13.1 g/dl (12.0-16.0); LYMPHOCYTES # (AUTO) 1.9 X10'3 (1.1-4.8); LYMPHOCYTES % (AUTO) 27.8 % (21-51); MEAN CORPUSCULAR HEMOGLOBIN 28.7 PG (27.0-31.0); MEAN CORPUSCULAR HGB CONC 32.7 g/dL (33.0-36.5); MEAN CORPUSCULAR VOLUME 87.9 FL (78-98); MEAN PLATELET VOLUME 8.2 FL (7.4-10.4); MONOCYTES # (AUTO) 0.6 X10'3 (0-0.9); MONOCYTES % (AUTO) 9.4 % (2-12); NEUTROPHILS # (AUTO) 4.2 X10'3 (1.8-7.7); NEUTROPHILS % (AUTO) 60.3 % (42-75); PLATELET COUNT 415 X10'3 (140-440); RED BLOOD COUNT 4.54 X10'6 (4.20-5.60); RED CELL DISTRIBUTION WIDTH 13.6 % (11.5-14.5); WHITE BLOOD COUNT 6.9 X10'3 (4.5-11.0)
--- NOTE | 2019-11-15 13:37 | NUR ---
Called and spoke to Nidhi in pharmacy regarding Pt's clozaril. She states that she will call me back. Pt is sitting at edge of bed. She is pleasant and cooperative. She ate all of her meal and asked for sock. This wqas accomodated. No distress observed. Spoke to TRUNG Mae on [facility] and she states they will come to transfer this patient around 1430 or 1500.
--- NOTE | 2019-11-15 16:22 | NUR ---
PT WAS DISCHARGED FRONM THE UNIT AMBULATING SELF WITH ALL PERSONAL ITEMS IN HER POSESSION. NO DISTRESS OBSERVED. SHE DENIES ANY NEEDS AT THIS TIME. PT IS IN [facility] S[facility]BS. SHE IS PLEASANT AND COOPERATIVE AND STATES THAT SHE IS HAPPY TO GO BECAUSE SHE CAN TAKE A SHOWER. DENIES AH, VH, SI, HI. NICOTINE REPLACEMENT GIVEN. ALL PAPERWORK REVIEWED, QUESTIONS WERE ANSWERED AND PT VERBALIZED UNDERSTANDING.
[2019-11-15 16:28] VITALS: BP 130/82
[2019-11-15] MEDS ORDERED: CLOZAPINE 25 MG oral disintegrating tablet PO SCH (20:00)
[2019-12-02] MEDS ORDERED: LIT300C PO (11:22)
[2019-12-02] MEDS ORDERED: CLOZ100T13 PO (11:22)
[2019-12-02] MEDS ORDERED: CLOZ25TA12 PO (11:22)
[2019-12-02] MEDS ORDERED: IBUP-1984 PO (11:22)
[2019-12-02] MEDS ORDERED: TRAZ-251 PO (11:22)
[2019-12-02] MEDS ORDERED: DOCU100C40 PO (11:22)
[2019-12-02] MEDS ORDERED: RISP2TAB3 PO (11:22)
[2019-12-02] MEDS ORDERED: BACDS PO (11:22)
[2019-12-02] MEDS ORDERED: ATI1T PO (11:22)
[2019-12-02] MEDS ORDERED: SENN-173 PO (11:22)
== END 2019-11-15 16:32 | disposition home or self-care (01) ==
LOC: ER 13:05
DX: F29 Unspecified psychosis not due to a substance or known physiological condition (principal); F15.10 Other stimulant abuse, uncomplicated; F31.9 Bipolar disorder, unspecified; F12.90 Cannabis use, unspecified, uncomplicated; Z56.0 Unemployment, unspecified; Z91.14 Patient's other noncompliance with medication regimen; Z79.899 Other long term (current) drug therapy
CPT/HCPCS: 36415; 80048; 80076; 80305; 80320; 81001; 84443; 85025; 96372; 99291; J1200; J1630; J2060

== ENCOUNTER 2021-03-22 11:38 | Emergency (ER) | payer MEDICARE, MEDICAID ==
[~2021-03-22] VITALS: Ht 177.8 cm; Wt 72.6 kg
[~2021-03-22 11:38] MED LIST changes: -ATI1T PO; -BENZ2TAB7 PO; -CLOZ100T13 PO; -CLOZ100T31 PO; -LIT300C PO; +LITH300C PO; +LORA10TA65 PO; +NICO-668 BC; +NO HOME MEDS; -PANT40TA4 PO; -RISP2TAB3 PO; +RISP3TAB63 PO
[2021-03-22] MEDS ORDERED: diphenhydrAMINE 50 mg/ml inj IV ONE (11:50)
[2021-03-22] MEDS ORDERED: normal saline 1000ML IV soln IVB ONE (11:50)
[2021-03-22] MEDS ORDERED: haloperidol lactate 5mg/ml inj IM ONE (11:50)
[2021-03-22] MEDS ORDERED: LORazepam 2 mg/ml vial IV ONE (11:50)
--- NOTE | 2021-03-22 12:16 | NUR ---
PT YELLING AT STAFF MAKING NOSENSE AND WILL NOT STOP YELLING, TALKING IN NON SENSICAL SATATEMENTS.
--- NOTE | 2021-03-22 12:36 | NUR ---
PT IS NOT CALM ENOUGH YET TO CHANGE INTO GREEN SCRUBS.
--- NOTE | 2021-03-22 13:19 | NUR ---
Recieved Pt standing by the nurses station making delusional statements and talking non stop. Pt redirected to her bed to eat lunch, where she is currently eating.
[2021-03-22 14:11] LABS: BASOPHILS % (AUTO) 0.5 % (0-1); EOSINOPHILS # (AUTO) 0.1 X10'3 (0-0.9); EOSINOPHILS % (AUTO) 1.4 % (0-6); HEMATOCRIT 34.2 % (35.0-45.0); LYMPHOCYTES % (AUTO) 24.6 % (21-51); MEAN CORPUSCULAR HEMOGLOBIN 27.5 PG (27.0-31.0); MEAN CORPUSCULAR VOLUME 85.9 FL (78-98); MEAN PLATELET VOLUME 7.6 FL (7.4-10.4); MONOCYTES # (AUTO) 0.8 X10'3 (0-0.9); MONOCYTES % (AUTO) 9.4 % (2-12); NEUTROPHILS # (AUTO) 5.2 X10'3 (1.8-7.7); NEUTROPHILS % (AUTO) 64.1 % (42-75); PLATELET COUNT 454 X10'3 (140-440); RED BLOOD COUNT 3.99 X10'6 (4.20-5.60); RED CELL DISTRIBUTION WIDTH 16.2 % (11.5-14.5); WHITE BLOOD COUNT 8.1 X10'3 (4.5-11.0)
[2021-03-22 14:34] LABS: ALANINE AMINOTRANSFERASE 16 U/L (12-78); ALBUMIN 2.8 G/DL (3.4-5.0); ALBUMIN/GLOBULIN RATIO 0.6 (1.1-1.5); ALKALINE PHOSPHATASE 76 IU/L (46-116); ANION GAP 9 (8-16); ASPARTATE AMINO TRANSFERASE 12 U/L (10-37); BILIRUBIN,TOTAL 0.2 MG/DL (0.1-1.0); BLOOD UREA NITROGEN 15 MG/DL (7-18); BUN/CREATININE RATIO 17.4 (6.6-38.0); CHLORIDE 106 MMOL/L (99-107); CREATININE 0.86 MG/DL (0.40-0.90); GLUCOSE 115 MG/DL (70-104); POTASSIUM 3.7 MMOL/L (3.5-5.1); SODIUM 140 MMOL/L (135-145); TOTAL CARBON DIOXIDE 25.3 MMOL/L (24-32); TOTAL PROTEIN 7.7 G/DL (6.4-8.2); eGFR 75 ML/MIN
[2021-03-22 14:44] LABS: CREATINE KINASE 133 U/L (26-192); ETHANOL < 0.010 GM/DL (0.0-0.010)
--- NOTE | 2021-03-22 15:30 | NUR ---
Pt irritable during lab blood draw and security standing bye. Pt fell asleep and remains sleeping w/o distress at this time.
--- NOTE | 2021-03-22 17:14 | NUR ---
Pt in bed sleeping w/o distress.
[2021-03-22 18:10] LABS: URINE HCG NEGATIVE (NEG)
[2021-03-22 18:12] LABS: CLARITY,URINE SLIGHTLY CLOUDY (Clear); COLOR,URINE STRAW (Yellow); GLUCOSE, URINE NEGATIVE (Neg); KETONES,URINE NEGATIVE (Neg); LEUKOCYTE ESTERASE ,URINE NEGATIVE (Neg); NITRITES, URINE NEGATIVE (Neg); OCCULT BLOOD,URINE NEGATIVE (Neg); PROTEIN,URINE NEGATIVE (Neg); UROBILINOGEN,URINE 0.2 E.U/dL (0.2-1.0)
[2021-03-22 18:16] LABS: UA COLLECTION TYPE VOIDED
[2021-03-22 18:17] LABS: SQUAMOUS EPITHELIAL CELL,UR MANY /LPF (FEW)
[2021-03-22 18:19] LABS: COARSE GRANULAR CAST 0-3 /LPF (NEGATIVE); HYALINE CASTS 0-3 /LPF (NEGATIVE); MUCUS STRANDS FEW /LPF (Neg)
[2021-03-22 18:20] LABS: BACTERIA,URINE 3+ /HPF (Neg); RBC,URINE 0-2 /HPF (0-2); WBC,URINE 0-4 /HPF (0-4)
--- NOTE | 2021-03-22 18:20 | NUR ---
The patient is up to the station rambling incoherently. She is agitated and disorganized. Discussed the patient's presentation and med history with Dr. Tse and orders received.
[2021-03-22 18:21] LABS: FINE GRANULAR CAST 0-3 /LPF (NEGATIVE)
[2021-03-22 18:26] LABS: URINE AMPHETAMINE SCREEN POSITIVE (Neg); URINE BARBITUATE SCREEN NEGATIVE (Neg); URINE BENZODIAZEPINES SCREEN NEGATIVE (Neg); URINE CANNABINOID SCREEN POSITIVE (Neg); URINE COCAINE SCREEN NEGATIVE (Neg); URINE METHADONE SCREEN NEGATIVE (Neg); URINE OPIATE SCREEN NEGATIVE (Neg); URINE PHENCYCLIDINE SCREEN NEGATIVE (Neg)
[2021-03-22] MEDS ORDERED: lithium carbonate 150mg capsule PO SCH (18:29)
[2021-03-22] MEDS: lithium carbonate 150mg capsule PO SCH ×2 (18:43→19:56)
[2021-03-22] MEDS: LORazepam 1 MG tablet PO SCH ×2 (18:43→19:56)
[2021-03-22] MEDS: risperiDONE 2mg tablet PO SCH (18:43)
--- NOTE | 2021-03-22 19:08 | NUR ---
The patient is resting queitly on her bed at this time. She did take PO medications except she did refuse one of her lithium.
--- NOTE | 2021-03-22 21:07 | NUR ---
The patient appears to be sleeping
--- NOTE | 2021-03-22 22:44 | NUR ---
THe patient is up to use the bathroom
--- NOTE | 2021-03-22 23:38 | NUR ---
The patient appears to be sleeping
--- NOTE | 2021-03-23 01:03 | NUR ---
The patient appears to be sleeping
--- NOTE | 2021-03-23 02:50 | NUR ---
The patient appears to be sleeping
[2021-03-23 05:56] VITALS: BP 103/52
[2021-03-23] MEDS: risperiDONE 2mg tablet PO SCH (07:21)
[2021-03-23] MEDS: LORazepam 1 MG tablet PO SCH ×2 (07:21→13:09)
[2021-03-23] MEDS: lithium carbonate 150mg capsule PO SCH (07:21)
--- NOTE | 2021-03-23 08:01 | NUR ---
pt awoke and was mildly agitated, making nonsensical statements. Pt changed into scrubs and accepted morning meds but would only take half of her lithium.
--- NOTE | 2021-03-23 09:40 | NUR ---
pt is sleeping, no s/s of distress noted.
--- NOTE | 2021-03-23 11:59 | NUR ---
pt continues to sleep. no needs at this time. Dr. Quach came to evaluate patient but pt was too sedated and uncooperative.
[2021-03-23] MEDS ORDERED: RISP2TAB97 PO (15:37)
[2021-03-23] MEDS ORDERED: LORA-269 PO (15:37)
[2021-03-23] MEDS ORDERED: LITH300T5 PO (17:57)
== END 2021-03-23 15:24 ==
LOC: ER 11:39
DX: F22 Delusional disorders (principal); R45.1 Restlessness and agitation; F31.9 Bipolar disorder, unspecified; F12.90 Cannabis use, unspecified, uncomplicated; F15.90 Other stimulant use, unspecified, uncomplicated; Z72.89 Other problems related to lifestyle; Z56.0 Unemployment, unspecified; Z79.899 Other long term (current) drug therapy
CPT/HCPCS: 96372; 96374; 96375; 99285; J1200; J1630; J2060; 36415; 80053; 80305; 80320; 81001; 81025; 82550; 84443; 85025